=== PATIENT | male | born 1975 | race Caucasian/White ===

== ENCOUNTER 2017-02-02 10:02 | Outpatient (CLI) | payer OTHER ==
[~2017-02-02] VITALS: Ht 182.9 cm; Wt 141.7 kg
[2017-02-02] MEDS ORDERED: CLIN300C11 PO (10:22)
[2017-02-02] MEDS ORDERED: NAPR500T3 PO (10:22)
[2017-02-02] MEDS ORDERED: METF1000 PO (10:22)
[2017-02-02] MEDS ORDERED: FURO20TA4 PO (10:22)
[2017-02-02] MEDS ORDERED: GABA600T2 PO (10:22)
[2017-02-02] MEDS ORDERED: ALLO100T PO (10:22)
[2017-02-02] MEDS ORDERED: INSU100V16 SQ (10:22)
[2017-02-02] MEDS ORDERED: BUPR300T43 PO (10:22)
[2017-02-02] MEDS ORDERED: INSU100V5 SQ (10:22)
[2017-02-02] MEDS ORDERED: RT-ALBUINH IH (10:22)
[2017-02-02] MEDS ORDERED: SIMV40TA PO (10:22)
[2017-02-02] MEDS ORDERED: POTA10TA6 PO (10:22)
[2017-02-02] MEDS ORDERED: GLIP10TA13 PO (10:22)
[2017-02-02] MEDS ORDERED: ALBU0.63 IH (10:22)
[2017-02-02] MEDS ORDERED: BUDE10.2 IH (10:22)
[2017-02-02 10:31] VITALS: BP 120/68
[2017-02-02 10:59] LABS: BASOPHILS % (AUTO) 0 % (0-10); EOSINOPHILS # (AUTO) 0.2 10^3/uL (0.0-0.3); EOSINOPHILS % (AUTO) 3 % (0-10); LYMPHOCYTES % (AUTO) 22 % (12-44); MEAN CORPUSCULAR HEMOGLOBIN 31 PG (25-34); MEAN CORPUSCULAR HGB CONC 34 G/DL (32-36); MEAN CORPUSCULAR VOLUME 93 FL (80-99); MEAN PLATELET VOLUME 11.4 FL (7.4-10.4); MONOCYTES # (AUTO) 0.6 X 10^3 (0.0-1.0); MONOCYTES % (AUTO) 7 % (0-12); NEUTROPHILS # (AUTO) 6.3 X 10^3 (1.8-7.8); NEUTROPHILS % (AUTO) 69 % (42-75); PLATELET COUNT 153 10^3/uL (130-400); RED BLOOD COUNT 4.81 10^6/uL (4.35-5.85); RED CELL DISTRIBUTION WIDTH 13.4 % (10.0-14.5); WHITE BLOOD COUNT 9.1 10^3/uL (4.3-11.0)
[2017-02-02 11:28] LABS: ANION GAP 9 MMOL/L (5-14); BLOOD UREA NITROGEN 21 MG/DL (7-18); BUN/CREATININE RATIO 25; CALCIUM 8.9 MG/DL (8.5-10.1); CARBON DIOXIDE 24 MMOL/L (21-32); CHLORIDE 104 MMOL/L (98-107); CREATININE SERUM 0.83 MG/DL (0.60-1.30); GFR ESTIMATED > 60; GLUCOSE 282 MG/DL (70-105); POTASSIUM 4.4 MMOL/L (3.6-5.0); SODIUM 137 MMOL/L (135-145)
== END 2017-02-02 11:40 | disposition home or self-care (01) ==
LOC: PREOP 10:02
PROVIDERS: ATTEND Surgery
DX: Z01.812 Encounter for preprocedural laboratory examination (principal); Z11.2 Encounter for screening for other bacterial diseases; L05.91 Pilonidal cyst without abscess
CPT/HCPCS: 36415; 80048; 85025; 87081

== ENCOUNTER 2017-02-09 07:48 | Day surgery (SDC) | payer OTHER ==
[~2017-02-09] VITALS: Ht 182.9 cm; Wt 141.7 kg
[~2017-02-09 07:48] MED LIST: ALBU0.63 IH; ALLO100T PO; BUDE10.2 IH; BUPR300T43 PO; CLIN300C11 PO; FURO20TA4 PO; GABA600T2 PO; GLIP10TA13 PO; INSU100V16 SQ; INSU100V5 SQ; METF1000 PO; NAPR500T3 PO; POTA10TA6 PO; RT-ALBUINH IH; SIMV40TA PO
[2017-02-09] MEDS ORDERED: LIDOCAINE 1% INJ 20 ML (XYLOCAINE) VIAL ONE (07:51)
[2017-02-09] MEDS ORDERED: BUPIVACAINE 0.25% 30 ML (SENSORCAINE) VIAL ONE (07:52)
[2017-02-09 07:55] VITALS: BP 119/70
[2017-02-09] MEDS: LACTATED RINGERS 1,000 ML IV PRN ×2 (07:55→08:52)
[2017-02-09] MEDS ORDERED: ONDANSETRON 4 MG/2 ML (SDV) Z0FRAN ONE (07:59)
[2017-02-09] MEDS ORDERED: ROCURONIUM 50 MG/5 ML (ZEMURON) VIAL IV ONE (07:59)
[2017-02-09] MEDS ORDERED: LIDOCAINE JELLY 2% (XYLOCAINE) 5 ML TUBE ONE (07:59)
[2017-02-09] MEDS ORDERED: LIDOCAINE PF 2% 10 ML (XYLOCAINE) AMP ONE (07:59)
[2017-02-09] MEDS ORDERED: LACTATED RINGERS 1,000 ML IV ONE ×2 (07:59→09:19)
[2017-02-09] MEDS ORDERED: fentaNYL INJECTION 100 MCG/2 ML AMP ONE (07:59)
[2017-02-09] MEDS ORDERED: MIDAZOLAM 2 MG/2 ML (VERSED) VIAL ONE (07:59)
[2017-02-09] MEDS ORDERED: proPOfol 200 MG/20 ML (DIPRIVAN) VIAL IV ONE (07:59)
[2017-02-09] MEDS ORDERED: ceFAZolin 3 GM/NS 50 ML IVPB IV ONE ×2 (08:00)
[2017-02-09] MEDS ORDERED: CATHETER FLUSH 10 ML SYR IV PRN (08:00)
[2017-02-09] MEDS ORDERED: HYDR-3812 PO (08:08)
[2017-02-09] MEDS ORDERED: DOCU-143 PO (08:08)
--- NOTE | 2017-02-09 08:10 | Discharge Inst-Simple/Standard ---
Discharge Inst-Standard Discharge Medications New, Converted or Re-Newed RX: RX on Chart Patient Instructions/Follow Up Plan of Care/Instructions/FU: Keep area clean and dry. take a shower after each bowel movement. Follow up in clinic in 2 weeks Activity as Tolerated: No Discharge Diet: No Restrictions Other Inst to Patient Follow up Appt: Make appointment for 2 weeks. Instructions: No lifting greater than 10 pounds. No strenuous activity. May shower in 24 hours, no tub bath or soaking. Use incentive spirometer at home as directed. No Smoking Skin/Wound Care: May remove bandages. You need to leave the white strips over incision on they will fall off on their own. Symptoms to Report: Appetite Changes, Extremity Discoloration, Numbness/Tingling, Swelling Increased , Bleeding Excessive, Eyesight Changes, Pain Increased, Urine Color Change, Constipation(Persistent), Fever over 101 degree F, Pain/Pressure in chest, Urinating Difficulty, Cough Up/Vomit Blood, Heart Beat Irreg/Pounding, Pain/ Pressure in jaw, Vaginal Bleeding Increase, Cramps in feet or legs, Lightheadedness, Pain/Pressure in shoulder, Diarrhea(Persistent), Memory Changes Suddenly, Questions/Concerns, Weight gain consecutive days, Dizziness/ Fainting, Nausea/Vomiting, Shortness of Breath, Weight gain over 2 pounds If questions or concerns contact your physician Or seek help at emergency department. NEENA KOWNG APRN Feb 09, 2017 08:10
[2017-02-09] MEDS ORDERED: RT-ALBUTEROL SULF 2.5 MG/3 ML PRE-MIX VIAL INH ONE (08:15)
--- NOTE | 2017-02-09 08:19 | Progress Note-Pre Operative ---
Pre-Operative Progress Note H&P Reviewed The H&P was reviewed, patient examined and no changes noted. Date H&P Reviewed: Feb 09, 2017 Time H&P Reviewed: 08:18 Pre-Operative Diagnosis: pilonidal cyst LANIE LEMUS DO Feb 09, 2017 8:18 am
[2017-02-09] MEDS ORDERED: SEVOFLURANE (ULTANE) 15 ML INHAL SOLN ONE ×4 (09:08→09:19)
--- NOTE | 2017-02-09 09:29 | Progress Note-Post Operative ---
Post-Operative Progess Note Surgeon (s)/Donkey Engine Firer/Fireman (s) Surgeon LANIE LEMUS DO Donkey Engine Firer/Fireman: URSZULA NWAGWU Pre-Operative Diagnosis pilonidal cyst Post-Operative Diagnosis same Post-Op Procedure Note Date of Procedure: Feb 09, 2017 Name of Procedure Performed: excision of pilonidal cyst Description of the Procedure: excised pilonidal cyst Findings of the Procedure see note Anesthesia Type general Estimated blood loss (mL): minimal Specimen(s) collected/removed skin and soft tissue LANIE LEMUS DO Feb 09, 2017 9:29 am
[2017-02-09] MEDS ORDERED: ONDANSETRON 4 MG/2 ML (SDV) Z0FRAN IVP PRN (09:45)
[2017-02-09] MEDS ORDERED: morphine INJ 10 MG/ML 1ML (SYR OR VIAL) IVP PRN (09:45)
[2017-02-09 10:25] VITALS: BP 129/80
[2017-02-09] MEDS ORDERED: HYDROcodone/APAP 5 MG/325 MG (LORTAB) TAB PO ONE (10:45)
[2017-02-09 10:55] VITALS: BP 128/75
[2017-02-09 11:25] VITALS: BP 128/68
[2017-02-09 12:00] VITALS: BP 128/68
--- NOTE | 2017-02-09 18:55 | OPERATIVE REPORT ---
DATE OF SERVICE: 02/09/2017 PREOPERATIVE DIAGNOSIS: Pilonidal cyst. POSTOPERATIVE DIAGNOSIS: Pilonidal cyst. PROCEDURE: Excision of pilonidal cyst, 9 x 3 x 4 cm. SURGEON: Lanie Ibanez DO AUTO BODY TECHNICIAN: Julius Carrillo, to assist in retraction, dissection and closure. ANESTHESIA: General. ESTIMATED BLOOD LOSS: Minimal. COMPLICATIONS: None. INDICATIONS: The patient is a 41-year-old male with a pilonidal cyst. He had it previously excised approximately 12 to 13 years ago. He had recurrence with some drainage from this area recently. He understands the risks and benefits of procedure and wished to proceed with procedure. Consent was signed on chart. PROCEDURE: The patient was taken to the operating suite, was prepped and draped in sterile fashion. Surgical pause was performed. An elliptical incision around the area was made measuring 9 x 3 cm. Cautery was used to dissect around and down, removing skin and subcutaneous tissues. Dissection was taken down to the sacral fascia which was approximately 4 cm deep. Hemostasis had been achieved. No visualization of any other tracts present. The wound was irrigated with copious amounts of irrigation. A total of 20 mL of 1/4% Marcaine and 1% lidocaine in 50:50 ratio was used to anesthetized the area. The wound was then closed using 0 Prolene, vertical mattress in simple interrupted sutures. The area was then washed and dried and sterile bandage was applied. The patient tolerated the procedure well without any complications and was taken to the recovery room in stable condition. Job ID: [id number] DocumentID: [id number] Dictated Date: 02/09/2017 09:32:00 Advertising Assistant Manager Date: 02/09/2017 18:54:38 Dictated By: LANIE IBANEZ DO [facility]
== END 2017-02-09 12:15 | disposition home or self-care (01) ==
LOC: SDC 07:48
PROVIDERS: ATTEND Surgery
DX: L05.91 Pilonidal cyst without abscess (principal); E11.9 Type 2 diabetes mellitus without complications; Z79.84 Long term (current) use of oral hypoglycemic drugs
CPT/HCPCS: 82962; 88305; 94640; 94664

== ENCOUNTER 2018-06-16 19:12 | Emergency (ER) | payer SELFPAY ==
[~2018-06-16] VITALS: Ht 182.9 cm; Wt 133.8 kg
[~2018-06-16 19:12] MED LIST changes: +ACHD5005 PO; +DOCU-143 PO; +METF-399 PO; -METF1000 PO; +NAPR-915 PO; -NAPR500T3 PO
--- OUTSIDE RECORDS SUMMARY | 2018-06-16 19:19 | XMS REPORT ---
Author Author CLIFTON Nicolas [facility] Address Unknown Phone Unavailable Care Team Providers Care Remote Inpatient Coder Name Role Phone CLIFTON Nicolas Unavailable Unavailable PROBLEMS Type Condition ICD9-CM Code KRS16-MN Code Onset Dates Condition Status SNOMED Code Problem Neuropathy G62.9 Active 948225856 Problem Adjustment disorder with disturbance of emotion F43.29 Active 77824216 Problem Marijuana abuse, continuous F12.10 Active 787384319 Problem Gastroesophageal reflux disease without esophagitis K21.9 Active 039220371 Problem Acute gout involving toe of left foot, unspecified cause M10.9 Active 288017077 Problem Methamphetamine use disorder, severe, 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 Active 62934600 Problem Adjustment disorder with disturbance of conduct F43.24 Active 32093847 Problem Dyspepsia R10.13 Active 980943474 Problem Moderate episode of recurrent major depressive disorder F33.1 Active 290862860 Problem Candidiasis B37.9 Active 10273767 Problem Depression F32.9 Active 75392399 Problem Diabetes mellitus with neuropathy E11.40 Active 19366495 Problem Hyperlipemia E78.5 Active 58306197 Problem Obstructive sleep apnea G47.33 Active 60716561 Problem Insulin long-term use Z79.4 Active 811970343 Problem Venous insufficiency (chronic) (peripheral) I87.2 Active 67377361 Problem Gout M10.9 Active 00158804 Problem Mild persistent asthma without complication J45.30 Active 719735024 ALLERGIES No Information ENCOUNTERS Encounter Location Date Diagnosis [facility] [address] [facility] [id number], [place] [address] Jul, [address] [id number] [place] [id number] Jun, [facility] [address] [facility] [id number] [id number] Jun, [facility] [address] [id number] [address] May, Diabetes mellitus with neuropathy E11.40 [facility] [address] [id number] [id number] May, Diabetes mellitus with neuropathy E11.40 [facility] [address] [id number][place] [id number] May, Diabetes mellitus with neuropathy E11.40 and Edema, unspecified type R60.[address] [facility] [address] [facility] [id number] [place] [address] Apr, [facility] [address] [id number][place] [id number] Apr, Mild persistent asthma without complication J45.30 [facility] [address] [id number][place] [id number] Mar, [facility] [address] [id number][place] [id number] Mar, Diabetes mellitus with neuropathy E11.40 ; Insulin long-term use Z79.4 ; Depression F32.9 ; Hyperlipemia E78.5 ; Gastroesophageal reflux disease without esophagitis K21.9 and Edema, unspecified type R60.9 [facility] [place] [facility] [address] [facility] [id number] [id number] Mar, Generalized edema R60.1 and Diabetes mellitus with neuropathy E11.40 [facility] [address] [id number][place] [id number] Mar, Neuropathy G62.9 [facility] [address] [id number][place] [id number] February, Insect bite (nonvenomous) of lower back and pelvis, initial encounter S30.860A ; Bitten or stung by nonvenomous insect and other nonvenomous arthropods, initial encounter W57.XXXA and Cellulitis of back L03.312 [facility] [address] [id number][place] [id number] February, Diabetes mellitus with neuropathy E11.[address] [id number][place] [id number] February, Generalized edema R60.1 and Diabetes mellitus with neuropathy E11.40 [place] [address]65100[place], [place] [address] Jan, [address] [id number][place] [id number] Jan, Gastroesophageal reflux disease without esophagitis K21.9 and Acute gout involving toe of left foot, unspecified cause M10.[address] [id number][place] [id number] Jan, Marijuana abuse, continuous F12.10 ; Mild persistent asthma without complication J45.30 ; BMI 40.0-44.9, adult Z68.41 and Diabetes mellitus with neuropathy E11.40 [place] [address] [place] [address] Jan, [facility] [id number][place] [id number] Jan, BMI 40.0-44.9, adult Z68.41 and Intractable vomiting with nausea, unspecified vomiting type R11.[address] [id number][place] [id number] Dec, BMI 40.0-44.9, adult Z68.41 and Abrasion hip/leg S80.819A [place] [address] [place] [address] 40394- 4189 Nov, Neuropathy G62.9 [place] [address] [place] [id number] [place] [address] 51236[address] 9671 Oct, [place] [id number] [place] [address] 22729- 8681 Oct, [place] [address] [place] [address] 78209- 9498 Oct, Diabetes mellitus with neuropathy E11.40 ; Dyspepsia R10.13 ; Mild persistent asthma without complication J45.30 and Depression F32.9 [place] [address] [address] Oct, Generalized edema R60.1 and Diabetes mellitus with neuropathy E11.40 [place] [address] [address] Sep, [place] [address] [address] Aug, [facility] [address] [address] Aug, Cellulitis L03.90 and BMI 40.0-44.9, adult Z68.41 [place] [address] [address] Aug, [place] [address] [address] Jul, Trapezius muscle spasm M62.838 and Depression F32.[address] [address] Jul, Marijuana abuse, continuous F12.10 ; Moderate episode of recurrent major depressive disorder F33.1 and Methamphetamine use disorder, severe, 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 [place] [id number] [place] [address]2340- 6862 Jul, [place] [id number] [place] [address] 19706- 2061 Jul, [place] [address] [address] Jul, [place] [address] [address] Jul, [place] [address] [id number] [place] [address] 82178[address] 40[address] Jul, [place] [address] [place] [address] Jul, Diabetes mellitus with neuropathy E11.40 [place] [address] [place] [address] 43164- [address] 16 Jul, 2017 Diabetes mellitus with neuropathy E11.40 ; Venous insufficiency (chronic) (peripheral) I87.2 ; Chest pain, unspecified type R07.9 ; Neuropathy G62.9 and Encounter for immunization Z23 [place] [id number] [place] [address] 70768- 5258 Jun, [place] [address] [place] [address] 03914- 0924 Jun, [facility] [address] [id number] May, Dental examination Z01.[address] [address] Apr, Diabetes mellitus with neuropathy E11.40 and Depression F32.9 [place] [id number] [place] [address] 45416- 4425 Apr, Mild persistent asthma without complication J45.[address] [id number] [id number] Mar, [place] [id number] [place] [address] 55568[address] Mar, Depression F32.9 ; Adjustment disorder with disturbance of emotion F43.29 and Marijuana abuse, continuous F12.10 [address] [place] [address] 26528- 3577 Mar, [address] 1937[address] Mar, Acute pansinusitis, recurrence not specified J01.40 [place] [address] [place] [address] 44011- 4688 Mar, Adjustment disorder with disturbance of emotion F43.29 ; Adjustment disorder with disturbance of conduct F43.24 ; Marijuana abuse, continuous F12.10 and Depression F32.9 [address] [place] [address] 00394- 9781 Mar, Depression F32.9 ; Marijuana abuse, continuous F12.10 and Adjustment disorder with disturbance of conduct F43.24 [facility] [address] [id number] [id number] February, Bronchitis J40 and Acute diffuse otitis externa of right ear H60.311 [place] [address] [place] [place] [address] 85238- 7434 February, Diabetes mellitus with neuropathy E11.40 ; Mild persistent asthma without complication J45.30 ; Bronchitis J40 ; Depression F32.9 ; Neuropathy G62.9 ; Gout M10.9 ; Generalized edema R60.1 and Hyperlipemia E78.5 [place] [address] [place] [address] 16295- 0688 February, Diabetes mellitus with neuropathy E11.40 [place] [address] [place] [address] 88954- 4588 February, [place] [address] [place] [address] 80370- 2298 February, [place] [address] [place] [address] 72938- 7953 Jan, [place] [id number] [place] [address] 38461- 5119 Jan, [place] [address] [place] [address] 85859- 3460 Jan, Adjustment disorder with disturbance of emotion F43.29 ; Adjustment disorder with disturbance of conduct F43.24 ; Marijuana abuse, continuous F12.10 and Depression F32.9 [place] [address] [place] [address] 46672- 5029 Jan, [place] [address] [place] [address] 66017- 7614 Jan, Pilonidal cyst with abscess L05.01 and Abscess of skin of abdomen L02.211 [facility] [address] [place] [address] Dec, Diabetes mellitus with neuropathy E11.40 [facility] [id number] [place] [id number] 06 Dec, 2016 Dental examination Z01.20 [facility] [address] [address]- [address] 02 Dec, 2016 [facility] [address] 90918- 1768 Nov, Depression F32.9 [facility] [address] 07464- 6655 Nov, Depression F32.9 [place] [address] 04756- 9863 Nov, Lateral epicondylitis of left elbow M77.12 ; Insulin long- term use Z79.4 and Neuropathy G62.9 [place] [address] [place] [address] 98952- 0686 Nov, Adjustment disorder with disturbance of emotion F43.29 ; Adjustment disorder with disturbance of conduct F43.24 ; Marijuana abuse, continuous F12.10 and Depression F32.9 [facility] [address] [place] [address] 17440- 2318 Oct, Adjustment disorder with disturbance of emotion F43.29 ; Marijuana abuse, continuous F12.10 ; Adjustment disorder with disturbance of conduct F43.24 and Severe episode of recurrent major depressive disorder, without psychotic features F33.2 [facility] [id number] [place] [address] [id number] Oct, Dental examination Z01.20 [facility] [address] [place] [address] 95489- 3858 Oct, Depression F32.9 [facility] [address] [id number] Oct, Dental examination Z01.20 [facility] [address] [place] [address] Oct, Depression F32.9 ; Adjustment disorder with disturbance of conduct F43.24 ; Adjustment disorder with disturbance of emotion F43.29 and Marijuana abuse, continuous F12.10 [facility] [id number] [place] [address] [id number] Oct, Dental examination Z01.20 [facility] [id number] [place] [address] [id number] Oct, Dental caries K02.9 [place] [address] 37561- 8424 Oct, [facility] [id number] [place] [address] [id number] Sep, Dental examination Z01.20 [facility] [address] [place] [address] Sep, [place] [address] [place] [address] 13553- 5381 Sep, Insulin long-term use Z79.4 ; Gout M10.9 ; Diabetes mellitus with neuropathy E11.40 ; Depression F32.9 ; Hyperlipemia E78.5 ; Obstructive sleep apnea G47.33 ; Venous insufficiency (chronic) (peripheral) I87.2 ; Mild persistent asthma without complication J45.30 ; Neuropathy G62.9 and Marijuana abuse, continuous F12.10 [facility] [address] [place] [address] 01499- 3893 Sep, Adjustment disorder with disturbance of conduct F43.24 and Adjustment disorder with disturbance of emotion F43.29 [place] [address] [place] [address] 47430- 7071 Sep, Diabetes mellitus with neuropathy E11.40 ; Dyspnea on exertion R06.09 and Venous insufficiency (chronic) (peripheral) I87.[address] [place] [address]- 6[address] 14 Sep, 2016 Neuropathy G62.9 [facility] [address] [place] [address] 57019- 0164 13 Sep, 2016 [facility] [id number] [place] [address] [id number] 08 Sep, 2016 Dental examination Z01.20 [facility] [address] [place] [address] 31697- 9795 07 Sep, 2016 [facility] [address] [place] [address] 95170- 3047 07 Sep, 2016 [facility] [address] 90606- 8001 Sep, [facility] [address] [place] [address] 81737- 2253 05 Sep, 2016 Mild persistent asthma without complication J45.30 [facility] [address] [place] [address] 99253- 8109 02 Sep, 2016 Insulin long-term use Z79.4 [place] [address] 40641- 7055 01 Sep, 2016 Diabetes mellitus with neuropathy E11.40 ; Generalized edema R60.1 and Mild persistent asthma without complication J45.30 [facility] [id number] [place] [address] [id number] Aug, Dental examination Z01.20 [facility] [address] [place] [address] 97802- 9365 20 Jul, 2016 Urticaria L50.9 and Mild persistent asthma without complication J45.30 [facility] [address] 60582- 8199 10 Jul, 2016 Lateral epicondylitis of left elbow M77.12 and Venous insufficiency (chronic) (peripheral) I87.2 [place] [address] [place] [address] 28779- 6236 15 Aug, 2016 Obstructive sleep apnea G47.33 and Diabetes mellitus with neuropathy E11.40 [facility] [address], [place] [address] May, Diabetes mellitus with neuropathy E11.40 [facility] [address], [place] [address] 0[address] Mar, [place] [address] [place] [address] 26334- 7292 Mar, Dental examination Z01.20 [place] [address], [place] [address] Mar, Insulin long-term use Z79.4 [place] [address] [place] [address] 28700- 9825 Mar, Insulin long-term use Z79.4 [place] [address] [place] [address] 59411- 3727 February, Insulin long-term use Z79.4 [place] [address], [place] [address] February, [place] [address] [place] [address] 82702- 3515 February, Hyperlipemia E78.[address] [id number] [id number] February, Gout M10.9 and Diabetes mellitus with neuropathy E11.40 [place] [address], [place] [address] Jan, Depression F32.9 [place] [address] [place] [address] 62236- 8799 Jan, Insulin long-term use Z79.4 ; Gout M10.9 ; Candidiasis B37.9 ; Diabetes mellitus with neuropathy E11.40 and Depression F32.9 IMMUNIZATIONS No Known Immunizations SOCIAL HISTORY Never Assessed REASON FOR VISIT [facility] Contact PLAN OF CARE Activity Details Follow Up Will likely use services in future Reason:hx. of depression VITAL SIGNS MEDICATIONS Unknown Medications RESULTS No Results PROCEDURES No Known procedures INSTRUCTIONS MEDICATIONS ADMINISTERED No Known Medications MEDICAL (GENERAL) HISTORY Type Description Date Medical History high blood pressure Medical History diabetic Medical History asthma Medical History emphysema Surgical History Pylonial cyst removal from tailbone x 2 Surgical History Cyst removal from groin/MRSA Surgical History Back surgery cyst removal from tailbone 02/2017 Hospitalization History Surgery Hospitalization History Heart attacks x 2 [facility] tick bite---[place] 02/2018
--- OUTSIDE RECORDS SUMMARY | 2018-06-16 19:20 | XMS REPORT ---
Author Author YVETTE MCCONNELL [facility] Address [address] [place] [address] Care Team Providers Care Applications Sales Consultant Name Role Phone YVETTE MCCONNELL Unavailable PROBLEMS Type Condition ICD9-CM Code OXR62-UA Code Onset Dates Condition Status SNOMED Code Problem Neuropathy G62.9 Active 828963838 Problem Adjustment disorder with disturbance of emotion F43.29 Active 67368643 Problem Marijuana abuse, continuous F12.10 Active 407907938 Problem Gastroesophageal reflux disease without esophagitis K21.9 Active 509654047 Problem Acute gout involving toe of left foot, unspecified cause M10.9 Active 444235555 Problem Methamphetamine use disorder, severe, 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 Active 63083030 Problem Adjustment disorder with disturbance of conduct F43.24 Active 71683819 Problem Dyspepsia R10.13 Active 841485073 Problem Moderate episode of recurrent major depressive disorder F33.1 Active 022035391 Problem Candidiasis B37.9 Active 75031847 Problem Depression F32.9 Active 30140494 Problem Diabetes mellitus with neuropathy E11.40 Active 56011113 Problem Hyperlipemia E78.5 Active 77082671 Problem Obstructive sleep apnea G47.33 Active 07904399 Problem Insulin long-term use Z79.4 Active 154993698 Problem Venous insufficiency (chronic) (peripheral) I87.2 Active 99486433 Problem Gout M10.9 Active 78636413 Problem Mild persistent asthma without complication J45.30 Active 332252877 ALLERGIES No Information ENCOUNTERS Encounter Location Date Diagnosis [facility] [address] [address] Jul, [facility] [address] [address] 05 Jun, 2018 [facility] [id number] [id number] May, Diabetes mellitus with neuropathy E11.40 and Edema, unspecified type R60.9 [facility] [address] [facility] [id number] [address] Apr, [facility] [address] [id number] [place] [id number] Apr, Mild persistent asthma without complication J45.30 [facility] [address] [id number] [place] [id number] Mar, [facility] [address] [id number] [place] [id number] Mar, Diabetes mellitus with neuropathy E11.40 ; Insulin long-term use Z79.4 ; Depression F32.9 ; Hyperlipemia E78.5 ; Gastroesophageal reflux disease without esophagitis K21.9 and Edema, unspecified type R60.9 [facility] [place] [address] [facility] [id number] [id number] Mar, Generalized edema R60.1 and Diabetes mellitus with neuropathy E11.40 [facility] [address] [id number] [place] [id number] Mar, Neuropathy G62.9 [facility] [address] [id number] [place]INT[place] [id number] February, Insect bite (nonvenomous) of lower back and pelvis, initial encounter S30.860A ; Bitten or stung by nonvenomous insect and other nonvenomous arthropods, initial encounter W57.XXXA and Cellulitis of back L03.312 [facility] [address] [id number] [place]INT[place] [id number] February, Diabetes mellitus with neuropathy E11.40 [facility] [address] [id number] [place]INT[place] [id number] February, Generalized edema R60.1 and Diabetes mellitus with neuropathy E11.40 [facility] [address] [facility] [id number] [address] Jan, [facility] [address] [id number] [place] [id number] 20 Jan, 2018 Gastroesophageal reflux disease without esophagitis K21.9 and Acute gout involving toe of left foot, unspecified cause M10.[address] [id number] [place]INT[place] [id number] 14 Jan, 2018 Marijuana abuse, continuous F12.10 ; Mild persistent asthma without complication J45.30 ; BMI 40.0-44.9, adult Z68.41 and Diabetes mellitus with neuropathy E11.40 [place] [address] [place] [address] Jan, [facility] [id number] [place] [id number] Jan, BMI 40.0-44.9, adult Z68.41 and Intractable vomiting with nausea, unspecified vomiting type R11.[address] [id number] POINT[place] [id number] Dec, BMI 40.0-44.9, adult Z68.41 and Abrasion hip/leg S80.819A [place] [id number] [place] [address] Nov, Neuropathy G62.9 [place] [id number] [place] [address]65 Oct, [place] [id number] [place] [address] Oct, [place] [id number] [place] [address]95- 2152 Oct, Diabetes mellitus with neuropathy E11.40 ; Dyspepsia R10.13 ; Mild persistent asthma without complication J45.30 and Depression F32.9 [place] [address] [address] Oct, Generalized edema R60.1 and Diabetes mellitus with neuropathy E11.40 [place] [address] [address] Sep, [facility] [id number] [place] [address] 8[address] Aug, [facility] [address] [address] Aug, Cellulitis L03.90 and BMI 40.0-44.9, adult Z68.41 [facility] [address] [address] Aug, 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 [id number] [place] [address]54[address] Jul, [place] [address] [address] Jul, [facility] [id number] [place] [address] Jul, [facility] [id number] [place] [address] 4459 Jul, [facility] [id number] [place] [address] 85818- 9356 Jul, [place] [address] [address] Jul, Diabetes mellitus with neuropathy E11.40 [facility] [id number] [place] [address]92- [address] 16 Jul, 2017 Diabetes mellitus with neuropathy E11.40 ; Venous insufficiency (chronic) (peripheral) I87.2 ; Chest pain, unspecified type R07.9 ; Neuropathy G62.9 and Encounter for immunization Z23 [place] [address] [place] [address] 29746- 5993 Jun, [place] [id number] [place] [address] 99643[address]287 Jun, [facility] [address] [place] [id number] May, Dental examination Z01.20 [place] [address] [address] Apr, Diabetes mellitus with neuropathy E11.40 and Depression F32.[address] [address] Apr, Mild persistent asthma without complication J45.[id number] [place] [id number] Mar, [place] [id number] [place] [address] 18190[address] Mar, Depression F32.9 ; Adjustment disorder with disturbance of emotion F43.29 and Marijuana abuse, continuous F12.10 [address] [address] [id number] [place] [address] 47723- 7[address] Mar, [address] [id number] [place] [address] 10824- 3794 Mar, Acute pansinusitis, recurrence not specified J01.40 [address] [address] [id number] [place] [address] 29475- 7888 Mar, Adjustment disorder with disturbance of emotion F43.29 ; Adjustment disorder with disturbance of conduct F43.24 ; Marijuana abuse, continuous F12.10 and Depression F32.9 [address] [place] [address] 00368- 7540 Mar, Depression F32.9 ; Marijuana abuse, continuous F12.10 and Adjustment disorder with disturbance of conduct F43.24 [facility] [address] [id number] [place] [id number] February, Bronchitis J40 and Acute diffuse otitis externa of right ear H60.[address] [address] February, Diabetes mellitus with neuropathy E11.40 ; Mild persistent asthma without complication J45.30 ; Bronchitis J40 ; Depression F32.9 ; Neuropathy G62.9 ; Gout M10.9 ; Generalized edema R60.1 and Hyperlipemia E78.[address] [address] February, Diabetes mellitus with neuropathy E11.[address] [address]447 February, [address] [address] February, [address] [address] Jan, [address] [address]10 Jan, [address] [address]- [address]6 Jan, Adjustment disorder with disturbance of emotion F43.29 ; Adjustment disorder with disturbance of conduct F43.24 ; Marijuana abuse, continuous F12.10 and Depression F32.9 [address] [address] [id number] [place] [address] 68546- 2759 Jan, [address] [address]- [address]18 Jan, Pilonidal cyst with abscess L05.01 and Abscess of skin of abdomen L02.211 [address] [id number] [place] [address] 76042- 3744 Dec, Diabetes mellitus with neuropathy E11.40 [facility] [address] [id number] Dec, Dental examination Z01.20 [facility] [address] [address] Dec, [facility] [address] [place] [address] 88213- 3042 Nov, Depression F32.9 [facility] [address] [place] [address] 40628- 0229 Nov, Depression F32.9 [facility] [id number] [place] [address] 26695- 0499 Nov, Lateral epicondylitis of left elbow M77.12 ; Insulin long- term use Z79.[address] [facility] [address] [place] [address] 12964- 5724 Nov, Adjustment disorder with disturbance of emotion F43.29 ; Adjustment disorder with disturbance of conduct F43.24 ; Marijuana abuse, continuous F12.[address] [facility] [address] [place] [address] 39835- 6868 Oct, Adjustment disorder with disturbance of emotion F43.29 ; Marijuana abuse, continuous F12.10 ; Adjustment disorder with disturbance of conduct F43.24 and Severe episode of recurrent major depressive disorder, without psychotic features F33.2 [facility] [address] [place] [address] [id number] Oct, Dental examination Z01.20 [facility] [address] [place] [address] 52911- 1295 Oct, Depression F32.9 [facility] [address] [place] [address] [id number] Oct, Dental examination Z01.20 [facility] [address] [place] [address] 16854- 7302 Oct, Depression F32.9 ; Adjustment disorder with disturbance of conduct F43.24 ; Adjustment disorder with disturbance of emotion F43.29 and Marijuana abuse, continuous F12.10 [facility] [address] [place] [address] [id number] Oct, Dental examination Z01.20 [facility] [id number] [place] [address] [id number] Oct, Dental caries K02.9 [facility] [id number] [place] [address] 56319- 3695 Oct, [facility] [id number] [place] [address] [phone] Sep, Dental examination Z01.20 [place] [address] 35142- [address] Sep, [place] [address] 34988- 7359 Sep, Insulin long-term use Z79.4 ; Gout M10.9 ; Diabetes mellitus with neuropathy E11.40 ; Depression F32.9 ; Hyperlipemia E78.5 ; Obstructive sleep apnea G47.33 ; Venous insufficiency (chronic) (peripheral) I87.2 ; Mild persistent asthma without complication J45.30 ; Neuropathy G62.9 and Marijuana abuse, continuous F12.10 [place] [id number] [place] [address] 47227- 2141 Sep, Adjustment disorder with disturbance of conduct F43.24 and Adjustment disorder with disturbance of emotion F43.29 [place] [id number] [place] [address] 06689- 9953 Sep, Diabetes mellitus with neuropathy E11.40 ; Dyspnea on exertion R06.09 and Venous insufficiency (chronic) (peripheral) I87.2 [place] [id number] [place] [address] 56494- 5380 Sep, Neuropathy G62.9 [place] [id number] [place] [address] 21634- 2345 Sep, [facility] [address] [place] [address] [id number] Sep, Dental examination Z01.20 [facility] [address] [address] 07 Sep, 2016 [facility] [id number] [place] [address] 39681- 7942 Sep, [facility] [address] [place] [address] 54962- 8527 Sep, [facility] [id number] [place] [address] 46463- 4715 05 Sep, 2016 Mild persistent asthma without complication J45.30 [facility] [id number] [place] [address] 94810- 3548 02 Sep, 2016 Insulin long-term use Z79.4 [facility] [id number] [place] [address] 51727- 1013 01 Sep, 2016 Diabetes mellitus with neuropathy E11.40 ; Generalized edema R60.1 and Mild persistent asthma without complication J45.30 [facility] [address] [place] [address] [id number] 17 Aug, [address] [facility] [id number] [place] [address] 36333- 2020 20 Jul, 2016 Urticaria L50.9 and Mild persistent asthma without complication J45.30 [facility] [address] [address] 10 Jul, 2016 Lateral epicondylitis of left elbow M77.12 and Venous insufficiency (chronic) (peripheral) I87.2 [facility] [address] [place] [address] 76020- 7922 May, Obstructive sleep apnea G47.33 and Diabetes mellitus with neuropathy E11.40 [facility] [address] [place] [address] 56145- 6963 May, Diabetes mellitus with neuropathy E11.40 [facility] [address] [place] [address] 04874- 3257 Mar, [place] [address] [address] 69[address] Mar, Dental examination Z01.20 [place] [address] [address]- 3089 Mar, Insulin long-term use Z79.4 [place] [address] [address]- 2701 Mar, Insulin long-term use Z79.4 [place] [address] [address]- 0[address] February, Insulin long-term use Z79.4 [place] [address] [place] [address] 99535- 3907 February, [place] [address] [place] [address] 01407- 2996 February, Hyperlipemia E78.[address] [id number] [id number] February, Gout M10.9 and Diabetes mellitus with neuropathy E11.40 [place] [address] [place] [address] 16561- 0123 Jan, Depression F32.9 [place] [address] [address]- 4[address] Jan, Insulin long-term use Z79.4 ; Gout M10.9 ; Candidiasis B37.9 ; Diabetes mellitus with neuropathy E11.40 and Depression F32.9 IMMUNIZATIONS No Known Immunizations SOCIAL HISTORY Never Assessed REASON FOR VISIT Medication refill request PLAN OF CARE VITAL SIGNS MEDICATIONS Medication Instructions Dosage Frequency Start Date End Date Duration Status Gabapentin 400 mg Orally Three times a day 2 capsules 8h May, Active RESULTS No Results PROCEDURES No Known procedures [...] 2 Hospitalization History pylonial cyst removal from [facility] 2017 Hospitalization History tick bite---[place] 02/2018
--- OUTSIDE RECORDS SUMMARY | 2018-06-16 19:20 | XMS REPORT ---
Author Author YVETTE MCCONNELL [facility] Address [address] [place] [address] Care Team Providers Care Food Stand Manager Name Role Phone YVETTE MCCONNELL Unavailable PROBLEMS Type Condition ICD9-CM Code BAR66-GL Code Onset Dates Condition Status SNOMED Code Problem Neuropathy G62.9 Active 027374443 Problem Adjustment disorder with disturbance of emotion F43.29 Active 22224382 Problem Marijuana abuse, continuous F12.10 Active 100949488 Problem Gastroesophageal reflux disease without esophagitis K21.9 Active 058281621 Problem Acute gout involving toe of left foot, unspecified cause M10.9 Active 508750956 Problem Methamphetamine use disorder, severe, 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 Active 22878657 Problem Adjustment disorder with disturbance of conduct F43.24 Active 57448928 Problem Dyspepsia R10.13 Active 750390664 Problem Moderate episode of recurrent major depressive disorder F33.1 Active 276060933 Problem Candidiasis B37.9 Active 46778334 Problem Depression F32.9 Active 07980438 Problem Diabetes mellitus with neuropathy E11.40 Active 35112955 Problem Hyperlipemia E78.5 Active 40145771 Problem Obstructive sleep apnea G47.33 Active 52879566 Problem Insulin long-term use Z79.4 Active 655861477 Problem Venous insufficiency (chronic) (peripheral) I87.2 Active 73202644 Problem Gout M10.9 Active 48662139 Problem Mild persistent asthma without complication J45.30 Active 252531732 ALLERGIES No Information ENCOUNTERS Encounter Location Date Diagnosis [facility] [address], [place] [address] Jul, [facility] [address], [place] [address] 05 Jun, 2018 [facility] [address] [id number] [id number] May, Diabetes mellitus with neuropathy E11.40 and Edema, unspecified type R60.9 [facility] [address] [facility] [id number][place] [address] Apr, [facility] [address] [id number][place] [id number] Apr, Mild persistent asthma without complication J45.30 [facility] [address] [id number][place] [id number] Mar, [facility] [address] [id number], [place] [id number] Mar, Diabetes mellitus with neuropathy E11.40 ; Insulin long-term use Z79.4 ; Depression F32.9 ; Hyperlipemia E78.5 ; Gastroesophageal reflux disease without esophagitis K21.9 and Edema, unspecified type R60.9 [facility] [place] [address] [facility] [id number] [id number] Mar, Generalized edema R60.1 and Diabetes mellitus with neuropathy E11.40 [facility] [address] [id number][place] [id number] Mar, Neuropathy G62.9 [facility] [address] [id number][place] [id number] February, Insect bite (nonvenomous) of lower back and pelvis, initial encounter S30.860A ; Bitten or stung by nonvenomous insect and other nonvenomous arthropods, initial encounter W57.XXXA and Cellulitis of back L03.312 [facility] [address] [id number][place] [id number] February, Diabetes mellitus with neuropathy E11.40 [facility] [address] [id number][place] [id number] February, Generalized edema R60.1 and Diabetes mellitus with neuropathy E11.40 [facility] [address] [facility] [id number], [place] [address] Jan, [facility] [address] [id number][place] [id number] 20 Jan, 2018 Gastroesophageal reflux disease without esophagitis K21.9 and Acute gout involving toe of left foot, unspecified cause M10.[address] [id number][place] [id number] 14 Jan, 2018 Marijuana abuse, continuous F12.10 ; Mild persistent asthma without complication J45.30 ; BMI 40.0-44.9, adult Z68.41 and Diabetes mellitus with neuropathy E11.40 [place] [address] [address] [place] [address]29- 8169 Jan, [facility] [id number] [place] [id number] Jan, BMI 40.0-44.9, adult Z68.41 and Intractable vomiting with nausea, unspecified vomiting type R11.[address] [id number][place] [id number] Dec, BMI 40.0-44.9, adult Z68.41 and Abrasion hip/leg S80.819A [place] [id number] [place] [address]34- 7645 Nov, Neuropathy G62.9 [place] [id number] [place] [address] 58620- 6338 Oct, [place] [id number] [place] [address]159- 9393 Oct, [place] [id number] [place] [address] 99134- 1868 Oct, Diabetes mellitus with neuropathy E11.40 ; Dyspepsia R10.13 ; Mild persistent asthma without complication J45.30 and Depression F32.9 [place] [address] [address]- [address] Oct, Generalized edema R60.1 and Diabetes mellitus with neuropathy E11.40 [address] [address] [address] Sep, [facility] [id number] [place] [address]19- [address] Aug, [facility] [address] [address] Aug, Cellulitis L03.90 and BMI 40.0-44.9, adult Z68.41 [facility] [address] [address] Aug, 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 [id number] [place] [address] 22271- 6830 Jul, [place] [address] [address] Jul, [facility] [id number] [place] [address]1590- [address]608 Jul, [facility] [id number] [place] [address]2389- 2427 Jul, [facility] [id number] [place] [address] 87729- 4023 Jul, [place] [address] [address] Jul, Diabetes mellitus with neuropathy E11.40 [facility] [id number] [place] [address] 06485- 0739 16 Jul, 2017 Diabetes mellitus with neuropathy E11.40 ; Venous insufficiency (chronic) (peripheral) I87.2 ; Chest pain, unspecified type R07.9 ; Neuropathy G62.9 and Encounter for immunization Z23 [place] [address] [place] [address] 10172- 3006 Jun, [place] [id number] [place] [address] 31723- 1345 Jun, [facility] [address] [place] [id number] May, Dental examination Z01.20 [address] [address] [address] [address] Apr, Diabetes mellitus with neuropathy E11.40 and Depression F32.[address] [address]- [address] Apr, Mild persistent asthma without complication J45.[id number] [place] [id number] Mar, [place] [id number] [place] [address] 56651- 8437 Mar, Depression F32.9 ; Adjustment disorder with disturbance of emotion F43.29 and Marijuana abuse, continuous F12.10 [place] [id number] [place] [address] 06290- 1449 Mar, [place] [id number] [place] [address] 21268- 4465 Mar, Acute pansinusitis, recurrence not specified J01.40 [place] [id number] [place] [address] 17193- 1160 Mar, Adjustment disorder with disturbance of emotion F43.29 ; Adjustment disorder with disturbance of conduct F43.24 ; Marijuana abuse, continuous F12.10 and Depression F32.9 [address] [place] [address] 15905- 0084 Mar, Depression F32.9 ; Marijuana abuse, continuous F12.10 and Adjustment disorder with disturbance of conduct F43.24 [facility] [address] [id number] [id number] February, Bronchitis J40 and Acute diffuse otitis externa of right ear H60.[address] [address] February, Diabetes mellitus with neuropathy E11.40 ; Mild persistent asthma without complication J45.30 ; Bronchitis J40 ; Depression F32.9 ; Neuropathy G62.9 ; Gout M10.9 ; Generalized edema R60.1 and Hyperlipemia E78.[address] [address]- [address] February, Diabetes mellitus with neuropathy E11.[address] [address] February, [address] [address] February, [address] [address]- [address] Jan, [address] [address]- [address]12 Jan, [address] [address]- 6[address] Jan, Adjustment disorder with disturbance of emotion F43.29 ; Adjustment disorder with disturbance of conduct F43.24 ; Marijuana abuse, continuous F12.10 and Depression F32.9 [id number] [place] [address] 42314- 4400 Jan, [address] [address]- 9559 Jan, Pilonidal cyst with abscess L05.01 and Abscess of skin of abdomen L02.211 [place] [id number] [place] [address] 00713- 7622 Dec, Diabetes mellitus with neuropathy E11.40 [facility] [address] [id number] Dec, Dental examination Z01.20 [facility] [address], [place] [address] Dec, [facility] [address] [place] [address] 53372- 0401 Nov, Depression F32.9 [facility] [address] [place] [address] 41985- 2712 Nov, Depression F32.9 [facility] [id number] [place] [address] 28483- 2319 Nov, Lateral epicondylitis of left elbow M77.12 ; Insulin long- term use Z79.[address] [facility] [address] [place] [address] 82836- 4337 Nov, Adjustment disorder with disturbance of emotion F43.29 ; Adjustment disorder with disturbance of conduct F43.24 ; Marijuana abuse, continuous F12.[address] [facility] [address] [place] [address] 82649- 6992 Oct, Adjustment disorder with disturbance of emotion F43.29 ; Marijuana abuse, continuous F12.10 ; Adjustment disorder with disturbance of conduct F43.24 and Severe episode of recurrent major depressive disorder, without psychotic features F33.2 [facility] [address] [place] [address] [id number] Oct, Dental examination Z01.20 [facility] [address] [place] [address] 28151- 4606 Oct, Depression F32.9 [facility] [address] [place] [id number] Oct, Dental examination Z01.20 [facility] [address] [place] [address] 40981- 9633 Oct, Depression F32.9 ; Adjustment disorder with disturbance of conduct F43.24 ; Adjustment disorder with disturbance of emotion F43.29 and Marijuana abuse, continuous F12.10 [facility] [address] [place] [address] [id number] Oct, Dental examination Z01.20 [facility] [id number] [place] [address] [id number] Oct, Dental caries K02.9 [facility] [id number] [place] [address] 03824- 5952 Oct, [facility] [id number] [place] [address] [phone] Sep, Dental examination Z01.20 [place] [address] [address]97- [address]146 Sep, [place] [address] 11203- 8370 Sep, Insulin long-term use Z79.4 ; Gout M10.9 ; Diabetes mellitus with neuropathy E11.40 ; Depression F32.9 ; Hyperlipemia E78.5 ; Obstructive sleep apnea G47.33 ; Venous insufficiency (chronic) (peripheral) I87.2 ; Mild persistent asthma without complication J45.30 ; Neuropathy G62.9 and Marijuana abuse, continuous F12.10 [place] [address] [place] [address] 66654- 9791 Sep, Adjustment disorder with disturbance of conduct F43.24 and Adjustment disorder with disturbance of emotion F43.29 [place] [address] [place] [address] 96974- 0345 Sep, Diabetes mellitus with neuropathy E11.40 ; Dyspnea on exertion R06.09 and Venous insufficiency (chronic) (peripheral) I87.2 [place] [address] [place] [address] 34862- 3724 Sep, Neuropathy G62.9 [place] [address] [place] [address] 31975- 2074 Sep, [facility] [address] [place] [address] [id number] Sep, Dental examination Z01.20 [facility] [address], [place] [address] 07 Sep, 2016 [facility] [address] [place] [address] 26948- 2133 Sep, [facility] [address] [place] [address] 30998- 9092 Sep, [facility] [id number] [place] [address] 36332- 6230 05 Sep, 2016 Mild persistent asthma without complication J45.30 [facility] [id number] [place] [address] 06685- 0846 02 Sep, 2016 Insulin long-term use Z79.4 [facility] [address] [place] [address] 06845- 5495 01 Sep, 2016 Diabetes mellitus with neuropathy E11.40 ; Generalized edema R60.1 and Mild persistent asthma without complication J45.30 [facility] [address] [place] [address] [id number] 17 Aug, [address] [facility] [id number] [place] [address] 49428- 8165 20 Jul, 2016 Urticaria L50.9 and Mild persistent asthma without complication J45.30 [facility] [address], [place] [address]- 2995 10 Jul, 2016 Lateral epicondylitis of left elbow M77.12 and Venous insufficiency (chronic) (peripheral) I87.2 [facility] [address] [place] [address] 44396- 1058 May, Obstructive sleep apnea G47.33 and Diabetes mellitus with neuropathy E11.40 [facility] [address] [place] [address] 50602- 2120 May, Diabetes mellitus with neuropathy E11.40 [facility] [address] [place] [address] 07115- 3717 Mar, [place] [address], [place] [address]- 2343 15 Mar, 2016 Dental examination Z01.20 [place] [address] [place] [address] 84420- 2306 Mar, Insulin long-term use Z79.4 [place] [address], [place] [address]- 1059 Mar, Insulin long-term use Z79.4 [place] [address] [place] [address] 26635- 8864 February, Insulin long-term use Z79.4 [place] [address] [place] [address] 66129- 6734 February, [place] [address] [place] [address] 95266- 8068 February, Hyperlipemia E78.[address] [id number] [id number] February, Gout M10.9 and Diabetes mellitus with neuropathy E11.40 [place] [address] [place] [address] 31448- 3060 Jan, Depression F32.9 [place] [address], [place] [address]- 8526 Jan, Insulin long-term use Z79.4 ; Gout M10.9 ; Candidiasis B37.9 ; Diabetes mellitus with neuropathy E11.40 and Depression F32.9 IMMUNIZATIONS No Known Immunizations SOCIAL HISTORY Never Assessed REASON FOR VISIT PLAN OF CARE VITAL SIGNS MEDICATIONS Medication Instructions Dosage Frequency Start Date End Date Duration Status Wellbutrin XL 300 MG Orally every morning 1 tablet Sep, 30 days Active Cetirizine HCl 10 MG Orally Once a day 1 tablet 24h Mar, Apr, 30 day(s) Active Naprosyn 500 mg Orally 2 times a day, pc 1 tablet as needed Jul, Active Lasix 20 mg Orally Once a day 1 tablet 24h Sep, 30 days Active GlipiZIDE 5 mg Orally twice a day 1 tablet 12h 30 days Active Wellbutrin XL 150 MG Orally every morning with 300mg tab 1 tablet Jul 30 days Active RESULTS No Results PROCEDURES No Known procedures INSTRUCTIONS MEDICATIONS ADMINISTERED No Known Medications MEDICAL (GENERAL) HISTORY Type Description Date Medical History high blood pressure Medical History diabetic Medical History asthma Medical History emphysema Surgical History Pylonial cyst removal from tailbone x 2 Surgical History Cyst removal from groin/MRSA Surgical History Back surgery cyst removal from [facility] 02/2017 Hospitalization History Surgery Hospitalization History Heart attacks x 2 Hospitalization History pylonial cyst removal from [facility] 2016 Hospitalization History tick bite---[place] 02/2018
--- OUTSIDE RECORDS SUMMARY | 2018-06-16 19:20 | XMS REPORT ---
Author Author YVETTE MCCONNELL [facility] Address [address] [place] [address] Care Team Providers Care Inseamer Name Role Phone YVETTE MCCONNELL Unavailable PROBLEMS Type Condition ICD9-CM Code IZZ74-OQ Code Onset Dates Condition Status SNOMED Code Problem Neuropathy G62.9 Active 293826535 Problem Adjustment disorder with disturbance of emotion F43.29 Active 58372768 Problem Marijuana abuse, continuous F12.10 Active 330825380 Problem Gastroesophageal reflux disease without esophagitis K21.9 Active 768239996 Problem Acute gout involving toe of left foot, unspecified cause M10.9 Active 294157085 Problem Methamphetamine use disorder, severe, 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 Active 42054258 Problem Adjustment disorder with disturbance of conduct F43.24 Active 94787183 Problem Dyspepsia R10.13 Active 021453075 Problem Moderate episode of recurrent major depressive disorder F33.1 Active 121546924 Problem Candidiasis B37.9 Active 19525317 Problem Depression F32.9 Active 04595526 Problem Diabetes mellitus with neuropathy E11.40 Active 00724341 Problem Hyperlipemia E78.5 Active 17286514 Problem Obstructive sleep apnea G47.33 Active 73976613 Problem Insulin long-term use Z79.4 Active 818697064 Problem Venous insufficiency (chronic) (peripheral) I87.2 Active 56534935 Problem Gout M10.9 Active 38522090 Problem Mild persistent asthma without complication J45.30 Active 692361544 ALLERGIES No Known Allergies ENCOUNTERS Encounter Location Date Diagnosis [facility] [address] [id number] [address] Jul, [facility] [address] [facility] [id number] [id number] Jun, [facility] [address], [place] [address] Jun, [facility] [address] [id number][place] [id number] May, Diabetes mellitus with neuropathy E11.40 [facility] [address] [id number][place] [id number] May, Diabetes mellitus with neuropathy E11.40 and Edema, unspecified type R60.9 [facility] [address] [facility] [id number] [place] [address] Apr, [facility] [address] [address] [id number][place] [id number] Apr, Mild persistent asthma without complication J45.30 [facility] [address] [id number][place] [id number] Mar, [facility] [place] [address] [facility] [address] [id number][place] [id number] Mar, Diabetes mellitus with neuropathy E11.40 ; Insulin long-term use Z79.4 ; Depression F32.9 ; Hyperlipemia E78.5 ; Gastroesophageal reflux disease without esophagitis K21.9 and Edema, unspecified type R60.9 [facility] [place] [address] [facility] [id number] [id number] Mar, Generalized edema R60.1 and Diabetes mellitus with neuropathy E11.40 [facility] [place] [address] [facility] [address] [id number][place] [id number] Mar, Neuropathy G62.9 [facility] [address] [address] [id number][place] [id number] February, Insect bite (nonvenomous) of lower back and pelvis, initial encounter S30.860A ; Bitten or stung by nonvenomous insect and other nonvenomous arthropods, initial encounter W57.XXXA and Cellulitis of back L03.312 [facility] [address] [address] [id number][place] [id number] February, Diabetes mellitus with neuropathy E11.40 [facility] [address] [address] [id number][place] [id number] February, Generalized edema R60.1 and Diabetes mellitus with neuropathy E11.[address] [place] [address] Jan, [address] [id number][place] [id number] Jan, Gastroesophageal reflux disease without esophagitis K21.9 and Acute gout involving toe of left foot, unspecified cause M10.[address] [id number][place] [address] Jan, Marijuana abuse, continuous F12.10 ; Mild persistent asthma without complication J45.30 ; BMI 40.0-44.9, adult Z68.41 and Diabetes mellitus with neuropathy E11.40 [address] [place] [address] Jan, [facility] [id number][place] [id number] Jan, BMI 40.0-44.9, adult Z68.41 and Intractable vomiting with nausea, unspecified vomiting type R11.[address] [id number][place] [id number] Dec, BMI 40.0-44.9, adult Z68.41 and Abrasion hip/leg S80.819A [id number] [place] [address]- 2056 Nov, Neuropathy G62.9 [id number] [place] [address]14- 7964 Oct, [id number] [place] [address] 52367- 1394 Oct, [place] [id number] [place] [address] 62162- 5424 Oct, Diabetes mellitus with neuropathy E11.40 ; Dyspepsia R10.13 ; Mild persistent asthma without complication J45.30 and Depression F32.9 [facility] [id number] [place] [address] 81875- 1756 Oct, Generalized edema R60.1 and Diabetes mellitus with neuropathy E11.40 [facility] [address] [address] Sep, [facility] [address] [address] Aug, 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 [place] [id number] [place] [address] 07201- 9568 Jul, [place] [id number] [place] [address]2390- 8037 Jul, [place] [id number] [place] [address] 76482- 9040 Jul, [place] [address] [address] Jul, [facility] [id number] [place] [address]80- 4[address] Jul, [place] [address] [address] Jul, Diabetes mellitus with neuropathy E11.40 [facility] [address] [place] [address] 53284- 4[address] 16 Jul, 2017 Diabetes mellitus with neuropathy E11.40 ; Venous insufficiency (chronic) (peripheral) I87.2 ; Chest pain, unspecified type R07.9 ; Neuropathy G62.9 and Encounter for immunization Z23 [facility] [id number] [place] [address] 29587- 5[address] Jun, [facility] [id number] [place] [address] 63609- 1468 Jun, [facility] [address] [id number] May, Dental examination Z01.20 [place] [address] [address] [address] Apr, Diabetes mellitus with neuropathy E11.40 and Depression F32.9 [id number] [place] [address] 8[address] 7360 Apr, Mild persistent asthma without complication J45.[address] [id number][place] [id number] Mar, [facility] [address] [place] [id number] [place] [address] 22560- 7876 Mar, Depression F32.9 ; Adjustment disorder with disturbance of emotion F43.29 and Marijuana abuse, continuous F12.10 [address] [address] [place] [address] 19873- 8202 Mar, [id number] [place] [address] 14992- 0964 Mar, Acute pansinusitis, recurrence not specified J01.40 [place] [address] [place] [address] 18421- 4612 Mar, Adjustment disorder with disturbance of emotion F43.29 ; Adjustment disorder with disturbance of conduct F43.24 ; Marijuana abuse, continuous F12.10 and Depression F32.9 [address] [place] [address] 86200- 5393 Mar, Depression F32.9 ; Marijuana abuse, continuous F12.10 and Adjustment disorder with disturbance of conduct F43.24 [facility] [address] [facility] [address] [id number][place] [id number] February, Bronchitis J40 and Acute diffuse otitis externa of right ear H60.311 [id number] [place] [address] 29369- 8943 February, Diabetes mellitus with neuropathy E11.40 ; Mild persistent asthma without complication J45.30 ; Bronchitis J40 ; Depression F32.9 ; Neuropathy G62.9 ; Gout M10.9 ; Generalized edema R60.1 and Hyperlipemia E78.5 [id number] [place] [address] 31549- 1654 February, Diabetes mellitus with neuropathy E11.40 [id number] [place] [address] 54090- 7504 February, [place] [id number] [place] [address] 00765- 1431 February, [place] [id number] [place] [address] 71217- 5647 Jan, [place] [id number] [place] [address] 75262- 7581 Jan, [address] [address]- [address] Jan, Adjustment disorder with disturbance of emotion F43.29 ; Adjustment disorder with disturbance of conduct F43.24 ; Marijuana abuse, continuous F12.10 and Depression F32.9 [place] [address] [place] [address] 53237- 3100 Jan, [place] [id number] [place] [address] 02461- 6308 03 Jan, 2017 Pilonidal cyst with abscess L05.01 and Abscess of skin of abdomen L02.211 [facility] [address] [place] [address] 10661- 3379 Dec, Diabetes mellitus with neuropathy E11.40 [facility] [id number] [place] [address] [id number] Dec, Dental examination Z01.20 [facility] [address] [address]- [address] Dec, [facility] [address] 14258- 2917 Nov, Depression F32.9 [place] [address] 236731- 1711 Nov, Depression F32.9 [facility] [address] [address]- [address]85 Nov, Lateral epicondylitis of left elbow M77.12 ; Insulin long- term use Z79.4 and Neuropathy G62.9 [facility] [id number] [place] [address] 01377- 4972 Nov, Adjustment disorder with disturbance of emotion F43.29 ; Adjustment disorder with disturbance of conduct F43.24 ; Marijuana abuse, continuous F12.10 and Depression F32.9 [facility] [id number] [place] [address] 61802- 4457 Oct, Adjustment disorder with disturbance of emotion F43.29 ; Marijuana abuse, continuous F12.10 ; Adjustment disorder with disturbance of conduct F43.24 and Severe episode of recurrent major depressive disorder, without psychotic features F33.2 [facility] [address] [place] [address] [id number] Oct, Dental examination Z01.20 [facility] [id number] [place] [address] 61064- 2894 Oct, Depression F32.9 [facility] [id number] [place] [address] [id number] Oct, Dental examination Z01.20 [facility] [address] [place] [address] 68562- 4052 Oct, Depression F32.9 ; Adjustment disorder with disturbance of conduct F43.24 ; Adjustment disorder with disturbance of emotion F43.29 and Marijuana abuse, continuous F12.10 [facility] [id number] [place] [address] [id number] Oct, Dental examination Z01.20 [facility] [id number] [place] [address] [id number] Oct, Dental caries K02.9 [place] [address] 277315- 1713 Oct, [facility] [address] [id number] Sep, Dental examination Z01.20 [place] [address] 82068- 3070 Sep, [place] [address] 66850- 6543 Sep, Insulin long-term use Z79.4 ; Gout M10.9 ; Diabetes mellitus with neuropathy E11.40 ; Depression F32.9 ; Hyperlipemia E78.5 ; Obstructive sleep apnea G47.33 ; Venous insufficiency (chronic) (peripheral) I87.2 ; Mild persistent asthma without complication J45.30 ; Neuropathy G62.9 and Marijuana abuse, continuous F12.10 [place] [id number] [place] [address] 34975- 1172 Sep, Adjustment disorder with disturbance of conduct F43.24 and Adjustment disorder with disturbance of emotion F43.[address] 6[address]88- 2110 Sep, Diabetes mellitus with neuropathy E11.40 ; Dyspnea on exertion R06.09 and Venous insufficiency (chronic) (peripheral) I87.[address] 03729- 4471 Sep, Neuropathy G62.9 [facility] [address], [place] [address] 13 Sep, 2016 [facility] [id number] [place] [address] [id number] Sep, 2016 Dental examination Z01.20 [facility] [id number] [place] [address] 60819- 1796 07 Sep, 2016 [facility] [id number] [place] [address] 03400- 5038 07 Sep, 2016 [facility] [id number] [place] [address] 29365- 2758 06 Sep, 2016 [place] [id number] [place] [address] 65458- 5038 05 Sep, 2016 Mild persistent asthma without complication J45.30 [place] [id number] [place] [address] 31810- 4739 02 Sep, 2016 Insulin long-term use Z79.4 [facility] [id number] [place] [address] 82908- 3808 01 Sep, 2016 Diabetes mellitus with neuropathy E11.40 ; Generalized edema R60.1 and Mild persistent asthma without complication J45.30 [facility] [address] [place] [address] [id number] Aug, Dental examination Z01.20 [facility] [id number] [place] [address] 85599- 2967 20 Jul, 2016 Urticaria L50.9 and Mild persistent asthma without complication J45.30 [facility] [address] [place] [address] 52015- 6017 10 Jul, 2016 Lateral epicondylitis of left elbow M77.12 and Venous insufficiency (chronic) (peripheral) I87.2 [facility] [address] [place] [address] 75118- 9132 May, Obstructive sleep apnea G47.33 and Diabetes mellitus with neuropathy E11.40 [place] [address], [place] [address] May, Diabetes mellitus with neuropathy E11.40 [place] [address], [place] [address] Mar, [place] [address], [place] [address] 8223 Mar, Dental examination Z01.20 [place] [address], [place] [address]- 6541 Mar, Insulin long-term use Z79.4 [place] [address] [place] [address] 57363- 7965 Mar, Insulin long-term use Z79.4 [place] [address] [place] [address] 96840- 2273 February, Insulin long-term use Z79.4 [place] [address], [place] [address]- 5[address] February, [place] [address] [place] [address] 77191- 5534 February, Hyperlipemia E78.[address] [id number] [id number] February, Gout M10.9 and Diabetes mellitus with neuropathy E11.40 [place] [address] [place] [address] 23371- 1563 Jan, Depression F32.9 [place] [address], [place] [address]- 7577 Jan, Insulin long-term use Z79.4 ; Gout M10.9 ; Candidiasis B37.9 ; Diabetes mellitus with neuropathy E11.40 and Depression F32.9 IMMUNIZATIONS No Known Immunizations SOCIAL HISTORY Never Assessed REASON FOR VISIT Diabetes bferrisma PLAN OF CARE Activity Details Follow Up 3 Months Reason:DM visit VITAL SIGNS Height 71.2 in 2018-04-09 Weight 312.5 lbs 2018-04-09 Temperature 96.5 degrees Fahrenheit 2018-04-09 Heart Rate 72 bpm 2018-04-09 Respiratory Rate 18 2018-04-09 Oximetry 97 % 2018-04-09 BMI 43.34 kg/m2 2018-04-09 Blood pressure systolic 128 mmHg 2018-04-09 Blood pressure diastolic 86 mmHg 2018-04-09 MEDICATIONS Medication Instructions Dosage Frequency Start Date End Date Duration Status Ventolin HFA 108 (90 Base) MCG/ACT Inhalation every 6 hrs 2 puffs as needed 6h Jan, 0 days Active Allopurinol 100 mg Orally Once a day 1 tablet 24h Jan, Active Wellbutrin XL 300 MG Orally every morning 1 tablet Sep, Active Naprosyn 500 mg Orally 2 times a day, pc 1 tablet as needed Jul, Active C-PAP Machine Active Omeprazole 40 MG Orally Once a day 1 capsule 24h Oct, Active Wellbutrin XL 150 MG Orally every morning with 300mg tab 1 tablet Jul Active Klor-Con 10 10 MEQ Orally Twice a day 1 tablet with food 12h Jan, Active Gabapentin 400 mg Orally Three times a day 2 capsules 8h 15 May, 2016 Active MetFORMIN HCl ER 500 MG Orally twice a day 2 tablet 12h Jan, 90 days Active Zocor 40 mg Orally Once a day 1 tablet in the evening 24h Active Cetirizine HCl 10 MG Orally Once a day 1 tablet 24h Mar, Apr, 30 day(s) Active GlipiZIDE 5 mg Orally twice a day 1 tablet 12h 30 days Active Victoza 18 MG/3ML Subcutaneous Once a day 1.8 mg daily 24h Jul, Active NovoLog 100 UNIT/ML Subcutaneous 3 times a day 12 units 8h Active Zofran 8 MG Orally 3 times daily before meals 1 tablet Jan, 14 days Active Symbicort 160-4.5 MCG/ACT Inhalation Twice a day 2 puffs 12h Active Gemfibrozil 600 MG Orally Twice a day 1 tablet 12h Active Lasix 20 mg Orally Once a day 1 tablet 24h Sep, Active Mirtazapine 7.5 MG Orally every bedtime 1 tablet Mar, 30 days Active Levemir 100 UNIT/ML Subcutaneous Once a day 40 units 24h Active RESULTS Name Result Date Reference Range A1C (IN HOUSE) 2018-04-09 A1C IN HOUSE 7.8 4.3 - 5.6 % Previous A1c 8.0 [facility] 0874 Exp date 02/02 PROCEDURES Procedure Date Ordered Result Body Site GLYCATED HEMOGLOBIN TEST April 09, 2018 INSTRUCTIONS MEDICATIONS ADMINISTERED No Known Medications MEDICAL [...] 2 Hospitalization History pylonial cyst removal from tailbone 2016 Hospitalization History tick bite---[place] 02/2018
--- OUTSIDE RECORDS SUMMARY | 2018-06-16 19:21 | XMS REPORT ---
Author Author YVETTE MCCONNELL [facility] Address [address] [place] [address] Care Team Providers Care Bin Operator Name Role Phone YVETTE MCCONNELL Unavailable PROBLEMS Type Condition ICD9-CM Code PAM34-KM Code Onset Dates Condition Status SNOMED Code Problem Neuropathy G62.9 Active 674391929 Problem Adjustment disorder with disturbance of emotion F43.29 Active 80517762 Problem Marijuana abuse, continuous F12.10 Active 842261541 Problem Gastroesophageal reflux disease without esophagitis K21.9 Active 331597642 Problem Acute gout involving toe of left foot, unspecified cause M10.9 Active 092342339 Problem Methamphetamine use disorder, severe, 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 Active 39957521 Problem Adjustment disorder with disturbance of conduct F43.24 Active 54236951 Problem Dyspepsia R10.13 Active 711029204 Problem Moderate episode of recurrent major depressive disorder F33.1 Active 160455572 Problem Candidiasis B37.9 Active 54640076 Problem Depression F32.9 Active 50360524 Problem Diabetes mellitus with neuropathy E11.40 Active 98038609 Problem Hyperlipemia E78.5 Active 79607957 Problem Obstructive sleep apnea G47.33 Active 93076408 Problem Insulin long-term use Z79.4 Active 954341844 Problem Venous insufficiency (chronic) (peripheral) I87.2 Active 54786263 Problem Gout M10.9 Active 87209483 Problem Mild persistent asthma without complication J45.30 Active 720638577 ALLERGIES No Information ENCOUNTERS Encounter Location Date Diagnosis [facility] [id number], [place] [address] Jul, [facility] [address] [facility] [id number], [place] [address] Apr, [facility] [id number] [id number] Apr, Mild persistent asthma without complication J45.30 [facility] [address] [id number] [id number] Mar, [facility] [address] [id number] [id number] Mar, Diabetes mellitus with neuropathy E11.40 ; Insulin long-term use Z79.4 ; Depression F32.9 ; Hyperlipemia E78.5 ; Gastroesophageal reflux disease without esophagitis K21.9 and Edema, unspecified type R60.9 [facility] [address] [id number] [id number] Mar, Generalized edema R60.1 and Diabetes mellitus with neuropathy E11.40 [facility] [address] [place] [address] AVE [id number][place] [id number] Mar, Neuropathy G62.[address] [id number][place] [id number] February, Insect bite (nonvenomous) of lower back and pelvis, initial encounter S30.860A ; Bitten or stung by nonvenomous insect and other nonvenomous arthropods, initial encounter W57.XXXA and Cellulitis of back L03.312 [facility] [address] [place] [address] AVE [id number][place] [id number] February, Diabetes mellitus with neuropathy E11.[address] [id number][place] [id number] February, Generalized edema R60.1 and Diabetes mellitus with neuropathy E11.40 [facility] [address] [facility] [id number] [address] Jan, [address] [id number][place] [id number] Jan, Gastroesophageal reflux disease without esophagitis K21.9 and Acute gout involving toe of left foot, unspecified cause M10.[address] [id number][place] [id number] Jan, Marijuana abuse, continuous F12.10 ; Mild persistent asthma without complication J45.30 ; BMI 40.0-44.9, adult Z68.41 and Diabetes mellitus with neuropathy E11.40 [facility] [id number] [place] [address] Jan, [facility] [id number] [id number] Jan, BMI 40.0-44.9, adult Z68.41 and Intractable vomiting with nausea, unspecified vomiting type R11.2 [place] [address] [facility] [address] [id number] [id number] Dec, BMI 40.0-44.9, adult Z68.41 and Abrasion hip/leg S80.819A [place] [id number] [place] [address] 79[address] Nov, Neuropathy G62.9 [place] [id number] [place] [address] 8[address]84- [address]44 Oct, [place] [address] [address] Oct, [place] [address] [address] Oct, Diabetes mellitus with neuropathy E11.40 ; Dyspepsia R10.13 ; Mild persistent asthma without complication J45.30 and Depression F32.9 [place] [id number] [place] [address]- 4261 Oct, Generalized edema R60.1 and Diabetes mellitus with neuropathy E11.40 [place] [id number] [place] [address]- 7685 Sep, [place] [id number] [place] [address] Aug, [facility] [id number] [place] [address] Aug, Cellulitis L03.90 and BMI 40.0-44.9, adult Z68.41 [facility] [address] [address] Aug, [facility] [address] [id number] 654 Jul, Trapezius muscle spasm M62.838 and Depression F32.9 [facility] [address] [address]441- [address] Jul, Marijuana abuse, continuous F12.10 ; Moderate episode of recurrent major depressive disorder F33.1 and Methamphetamine use disorder, severe, 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 [facility] [address] [address] Jul, [facility] [address] 025981- [address]33 Jul, [facility] [address] [address]- [address]65 Jul, [facility] [address] [address]- [address] Jul, [facility] [address] [address]- [address] Jul, [facility] [address] [address]- [address]27 Jul, Diabetes mellitus with neuropathy E11.40 [facility] [address] [address] Jul, Diabetes mellitus with neuropathy E11.40 ; Venous insufficiency (chronic) (peripheral) I87.2 ; Chest pain, unspecified type R07.9 ; Neuropathy G62.9 and Encounter for immunization Z23 [facility] [address] [address] Jun, [facility] [address] [address] Jun, [place] [address] [id number] [id number] May, Dental examination Z01.20 [address] [place] [id number] [place] [address] 13930- 3853 Apr, Diabetes mellitus with neuropathy E11.40 and Depression F32.[address] [place] [address] 28537- 2434 Apr, Mild persistent asthma without complication J45.[address] [id number] [id number] Mar, [address] [address] Mar, Depression F32.9 ; Adjustment disorder with disturbance of emotion F43.29 and Marijuana abuse, continuous F12.10 [place] [id number] [place] [address] 84672- 4813 Mar, [place] [id number] [place] [address] 46477- 3500 Mar, Acute pansinusitis, recurrence not specified J01.40 [place] [id number] [place] [address] 83156- 8035 Mar, Adjustment disorder with disturbance of emotion F43.29 ; Adjustment disorder with disturbance of conduct F43.24 ; Marijuana abuse, continuous F12.10 and Depression F32.[address] [place] [address] 19202- 9226 Mar, Depression F32.9 ; Marijuana abuse, continuous F12.10 and Adjustment disorder with disturbance of conduct F43.[address] [id number][place] [id number] February, Bronchitis J40 and Acute diffuse otitis externa of right ear H60.311 [address] [place] [address] 25470- 4324 February, Diabetes mellitus with neuropathy E11.40 ; Mild persistent asthma without complication J45.30 ; Bronchitis J40 ; Depression F32.9 ; Neuropathy G62.9 ; Gout M10.9 ; Generalized edema R60.1 and Hyperlipemia E78.5 [place] [address] [address] February, Diabetes mellitus with neuropathy E11.40 [place] [address] [address] February, [place] [address] [address] February, [address] [address] Jan, [address] [address] Jan, [address] [address] 6708 Jan, Adjustment disorder with disturbance of emotion F43.29 ; Adjustment disorder with disturbance of conduct F43.24 ; Marijuana abuse, continuous F12.10 and Depression F32.[address] [address]65- [address] Jan, [address] [address]- 3993 Jan, Pilonidal cyst with abscess L05.01 and Abscess of skin of abdomen L02.[address] 19112- 7558 Dec, Diabetes mellitus with neuropathy E11.40 [facility] [address] [id number] Dec, Dental examination Z01.[address] [address]89- [address] Dec, [place] [address] 62727- 2776 Nov, Depression F32.9 [facility] [id number] [place] [address] 97477- 6500 Nov, Depression F32.9 [place] [address] [address] Nov, Lateral epicondylitis of left elbow M77.12 ; Insulin long- term use Z79.4 and Neuropathy G62.9 [place] [address] [id number]- [address]405 Nov, Adjustment disorder with disturbance of emotion F43.29 ; Adjustment disorder with disturbance of conduct F43.24 ; Marijuana abuse, continuous F12.10 and Depression F32.9 [place] [address] 48935- [address] Oct, Adjustment disorder with disturbance of emotion F43.29 ; Marijuana abuse, continuous F12.10 ; Adjustment disorder with disturbance of conduct F43.24 and Severe episode of recurrent major depressive disorder, without psychotic features F33.2 [facility] [address] [id number] Oct, Dental examination Z01.20 [place] [address] 51626- 7794 Oct, Depression F32.9 [facility] [address] [id number] Oct, Dental examination Z01.20 [facility] [id number] [place] [address] 84926- 0649 Oct, Depression F32.9 ; Adjustment disorder with disturbance of conduct F43.24 ; Adjustment disorder with disturbance of emotion F43.29 and Marijuana abuse, continuous F12.10 [facility] [address] [id number] Oct, Dental examination Z01.20 [facility] [address] [id number] Oct, Dental caries K02.9 [facility] [id number] [place] [address] 01617- 7728 Oct, [facility] [id number] [place] [id number] Sep, Dental examination Z01.20 [facility] [id number] [place] [address] 65875- 9832 Sep, [facility] [address] 53788- 6926 Sep, Insulin long-term use Z79.4 ; Gout M10.9 ; Diabetes mellitus with neuropathy E11.40 ; Depression F32.9 ; Hyperlipemia E78.5 ; Obstructive sleep apnea G47.33 ; Venous insufficiency (chronic) (peripheral) I87.2 ; Mild persistent asthma without complication J45.30 ; Neuropathy G62.9 and Marijuana abuse, continuous F12.10 [place] [id number] [place] [address] 99583- 0408 Sep, Adjustment disorder with disturbance of conduct F43.24 and Adjustment disorder with disturbance of emotion F43.29 [place] [id number] [place] [address] 25495- 6547 Sep, Diabetes mellitus with neuropathy E11.40 ; Dyspnea on exertion R06.09 and Venous insufficiency (chronic) (peripheral) I87.2 [place] [id number] [place] [address] 55494- 3156 Sep, Neuropathy G62.9 [place] [id number] [place] [address] 68042- 3682 13 Sep, 2016 [facility] [id number] [place] [address] [id number] Sep, Dental examination Z01.20 [facility] [id number] [place] [address] 78581- 4269 Sep, [place] [id number] [place] [address] 97631- 5319 Sep, [place] [address] [place] [address] [place] [address]- 6485 Sep, [place] [id number] [place] [address] 20435- 0473 05 Sep, 2016 Mild persistent asthma without complication J45.30 [facility] [id number] [place] [address] 84364- 5694 02 Sep, 2016 Insulin long-term use Z79.4 [place] [address] 39503- 2476 01 Sep, 2016 Diabetes mellitus with neuropathy E11.40 ; Generalized edema R60.1 and Mild persistent asthma without complication J45.30 [facility] [address] [id number] Aug, Dental examination Z01.20 [place] [id number] [place] [address] 44684- 0386 20 Jul, 2016 Urticaria L50.9 and Mild persistent asthma without complication J45.30 [place] [id number] [place] [address] 78462- 5544 10 Jul, 2016 Lateral epicondylitis of left elbow M77.12 and Venous insufficiency (chronic) (peripheral) I87.2 [place] [id number] [place] [address] 18360- 5296 May, Obstructive sleep apnea G47.33 and Diabetes mellitus with neuropathy E11.40 [place] [id number] [place] [address] 51911- 0040 May, Diabetes mellitus with neuropathy E11.40 [place] [id number] [place] [address] 37525- 1096 Mar, [place] [address] 67982- 6492 Mar, Dental examination Z01.20 [place] [id number] [place] [address] 19058- 8214 13 Mar, 2016 Insulin long-term use Z79.4 [place] [address] [facility] [id number], [place] [address] 9661 Mar, Insulin long-term use Z79.4 [place] [address], [place] [address] 47[address] February, Insulin long-term use Z79.4 [place] [address] [facility] [id number], [place] [address]- 1679 February, [place] [address], [place] [address] 5250 February, Hyperlipemia E78.[address] [id number] [id number] February, Gout M10.9 and Diabetes mellitus with neuropathy E11.40 [place] [address], [place] [address]- [address]14 Jan, Depression F32.9 [place] [address], [place] [address]- 7597 Jan, Insulin long-term use Z79.4 ; Gout M10.9 ; Candidiasis B37.9 ; Diabetes mellitus with neuropathy E11.40 and Depression F32.9 IMMUNIZATIONS No Known Immunizations SOCIAL HISTORY Never Assessed REASON FOR VISIT Repository Medication PLAN OF CARE VITAL SIGNS MEDICATIONS Medication Instructions Dosage Frequency Start Date End Date Duration Status Lasix 20 mg Orally Once a day 1 tablet 24h Sep, 30 days Active Wellbutrin XL 150 MG Orally every morning with 300mg tab 1 tablet Jul 30 days Active GlipiZIDE 5 mg Orally twice a day 1 tablet 12h 30 days Active Wellbutrin XL 300 MG Orally every morning 1 tablet Sep, 30 days Active RESULTS No Results PROCEDURES [...]
--- OUTSIDE RECORDS SUMMARY | 2018-06-16 19:21 | XMS REPORT ---
Author Author YVETTE MCCONNELL [facility] Address [address] [place] [address] Care Team Providers Care Health Officer Name Role Phone YVETTE MCCONNELL Unavailable PROBLEMS Type Condition ICD9-CM Code ZMQ88-VT Code Onset Dates Condition Status SNOMED Code Problem Neuropathy G62.9 Active 022612230 Problem Adjustment disorder with disturbance of emotion F43.29 Active 22889281 Problem Marijuana abuse, continuous F12.10 Active 736028741 Problem Gastroesophageal reflux disease without esophagitis K21.9 Active 820996093 Problem Acute gout involving toe of left foot, unspecified cause M10.9 Active 760615113 Problem Methamphetamine use disorder, severe, 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 Active 68752126 Problem Adjustment disorder with disturbance of conduct F43.24 Active 38766097 Problem Dyspepsia R10.13 Active 684579788 Problem Moderate episode of recurrent major depressive disorder F33.1 Active 424944719 Problem Candidiasis B37.9 Active 03268461 Problem Depression F32.9 Active 17625574 Problem Diabetes mellitus with neuropathy E11.40 Active 22517050 Problem Hyperlipemia E78.5 Active 71960865 Problem Obstructive sleep apnea G47.33 Active 64650573 Problem Insulin long-term use Z79.4 Active 948215403 Problem Venous insufficiency (chronic) (peripheral) I87.2 Active 53461657 Problem Gout M10.9 Active 77064606 Problem Mild persistent asthma without complication J45.30 Active 239978460 ALLERGIES No Information ENCOUNTERS Encounter Location Date Diagnosis [facility] [address], [place] [address] Jul, [facility] [address] [facility] [id number], [place] [address] Apr, [facility] [id number] [id number] Apr, Mild persistent asthma without complication J45.30 [facility] [address] [id number] [place] [id number] Mar, [facility] [address] [id number] [place] [id number] Mar, Diabetes mellitus with neuropathy E11.40 ; Insulin long-term use Z79.4 ; Depression F32.9 ; Hyperlipemia E78.5 ; Gastroesophageal reflux disease without esophagitis K21.9 and Edema, unspecified type R60.9 [facility] [address] [id number] [id number] Mar, Generalized edema R60.1 and Diabetes mellitus with neuropathy E11.40 [facility] [address] [place] [address] AVE [id number] [place] [id number] Mar, Neuropathy G62.[address] [id number] [place] [id number] February, Insect bite (nonvenomous) of lower back and pelvis, initial encounter S30.860A ; Bitten or stung by nonvenomous insect and other nonvenomous arthropods, initial encounter W57.XXXA and Cellulitis of back L03.312 [facility] [address] [place] [address] AVE [id number] [place] [id number] February, Diabetes mellitus with neuropathy E11.[address] [id number] [place] [id number] February, Generalized edema R60.1 and Diabetes mellitus with neuropathy E11.40 [facility] [address] [facility] [id number] [id number] Jan, [address] [id number] [place] [id number] Jan, Gastroesophageal reflux disease without esophagitis K21.9 and Acute gout involving toe of left foot, unspecified cause M10.[address] [id number] [place] [id number] Jan, Marijuana abuse, continuous F12.10 ; Mild persistent asthma without complication J45.30 ; BMI 40.0-44.9, adult Z68.41 and Diabetes mellitus with neuropathy E11.40 [facility] [address] [place] [address] Jan, [facility] [id number] [id number] Jan, BMI 40.0-44.9, adult Z68.41 and Intractable vomiting with nausea, unspecified vomiting type R11.2 [place] [address] [facility] [address] [id number] [place] [id number] Dec, BMI 40.0-44.9, adult Z68.41 and Abrasion hip/leg S80.819A [place] [id number] [place] [address] Nov, Neuropathy G62.9 [place] [id number] [place] [address]- [address] Oct, [place] [address] [address] Oct, [place] [address] [address] Oct, Diabetes mellitus with neuropathy E11.40 ; Dyspepsia R10.13 ; Mild persistent asthma without complication J45.30 and Depression F32.9 [place] [id number] [place] [address]- 6953 Oct, Generalized edema R60.1 and Diabetes mellitus with neuropathy E11.40 [place] [id number] [place] [address]- 6011 Sep, [place] [id number] [place] [address]70- 8628 Aug, [facility] [id number] [place] [address] Aug, Cellulitis L03.90 and BMI 40.0-44.9, adult Z68.41 [facility] [address] [address] Aug, [facility] [address] [id number] 327 Jul, Trapezius muscle spasm M62.838 and Depression F32.9 [facility] [address] 836222- 1722 Jul, Marijuana abuse, continuous F12.10 ; Moderate episode of recurrent major depressive disorder F33.1 and Methamphetamine use disorder, severe, 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 [facility] [address] [address] Jul, [facility] [address] 389900- 4765 Jul, [facility] [address] [address] Jul, [facility] [address] [address]- [address] Jul, [facility] [address] [address]- [address] Jul, [facility] [address] [address] Jul, Diabetes mellitus with neuropathy E11.40 [facility] [address] [address]43- [address]93 Jul, Diabetes mellitus with neuropathy E11.40 ; Venous insufficiency (chronic) (peripheral) I87.2 ; Chest pain, unspecified type R07.9 ; Neuropathy G62.9 and Encounter for immunization Z23 [facility] [address] [address]- [address] Jun, [facility] [address] [address] Jun, [place] [address] [address] [id number] [id number] May, Dental examination Z01.20 [place] [id number] [place] [address]- 2342 Apr, Diabetes mellitus with neuropathy E11.40 and Depression F32.9 [address] [place] [address] 36[address]- 1208 Apr, Mild persistent asthma without complication J45.[address] [id number] [place] [id number] Mar, [address] [address] Mar, Depression F32.9 ; Adjustment disorder with disturbance of emotion F43.29 and Marijuana abuse, continuous F12.10 [place] [id number] [place] [address] 8016 Mar, [place] [id number] [place] [address] 20793- 9221 Mar, Acute pansinusitis, recurrence not specified J01.40 [place] [id number] [place] [address] 14106- 7176 Mar, Adjustment disorder with disturbance of emotion F43.29 ; Adjustment disorder with disturbance of conduct F43.24 ; Marijuana abuse, continuous F12.10 and Depression F32.9 [address] [place] [address] 71929- 1320 Mar, Depression F32.9 ; Marijuana abuse, continuous F12.10 and Adjustment disorder with disturbance of conduct F43.[address] [id number] [place] [id number] February, Bronchitis J40 and Acute diffuse otitis externa of right ear H60.311 [address] [place] [address] 89460- 1869 February, Diabetes mellitus with neuropathy E11.40 ; Mild persistent asthma without complication J45.30 ; Bronchitis J40 ; Depression F32.9 ; Neuropathy G62.9 ; Gout M10.9 ; Generalized edema R60.1 and Hyperlipemia E78.5 [place] [address] [address]- [address] February, Diabetes mellitus with neuropathy E11.40 [place] [address] [address] February, [place] [address] [address]- [address] February, [address] 16[address] Jan, [address] [address]- [address] Jan, [address] [address]- [address]14 Jan, Adjustment disorder with disturbance of emotion F43.29 ; Adjustment disorder with disturbance of conduct F43.24 ; Marijuana abuse, continuous F12.10 and Depression F32.[address] [address]- [address]44 Jan, [address] 8[address]18- 0455 Jan, Pilonidal cyst with abscess L05.01 and Abscess of skin of abdomen L02.[address] [address]82- 7563 Dec, Diabetes mellitus with neuropathy E11.40 [facility] [address] [id number] Dec, Dental examination Z01.[address] [address]80- [address]47 Dec, [place] [address] 23783- 8217 Nov, Depression F32.9 [facility] [id number] [place] [address] 15658- 2531 Nov, Depression F32.9 [place] [address] [address]- [address] Nov, Lateral epicondylitis of left elbow M77.12 ; Insulin long- term use Z79.4 and Neuropathy G62.9 [place] [address] [place] [address] [id number]- 2782 Nov, Adjustment disorder with disturbance of emotion F43.29 ; Adjustment disorder with disturbance of conduct F43.24 ; Marijuana abuse, continuous F12.10 and Depression F32.9 [place] [address] 27979- 6754 Oct, Adjustment disorder with disturbance of emotion F43.29 ; Marijuana abuse, continuous F12.10 ; Adjustment disorder with disturbance of conduct F43.24 and Severe episode of recurrent major depressive disorder, without psychotic features F33.2 [facility] [address] [id number] Oct, Dental examination Z01.20 [place] [address] 94768- 4632 Oct, Depression F32.9 [facility] [address] [id number] Oct, Dental examination Z01.20 [facility] [id number] [place] [address] 47071- 4662 Oct, Depression F32.9 ; Adjustment disorder with disturbance of conduct F43.24 ; Adjustment disorder with disturbance of emotion F43.29 and Marijuana abuse, continuous F12.10 [facility] [address] [id number] Oct, Dental examination Z01.20 [facility] [address] [id number] Oct, Dental caries K02.9 [facility] [id number] [place] [address] 19289- 7790 Oct, [facility] [id number] [place] [address] [id number] Sep, Dental examination Z01.20 [facility] [id number] [place] [address] 43937- 6860 Sep, [facility] [address] 55230- 0513 Sep, Insulin long-term use Z79.4 ; Gout M10.9 ; Diabetes mellitus with neuropathy E11.40 ; Depression F32.9 ; Hyperlipemia E78.5 ; Obstructive sleep apnea G47.33 ; Venous insufficiency (chronic) (peripheral) I87.2 ; Mild persistent asthma without complication J45.30 ; Neuropathy G62.9 and Marijuana abuse, continuous F12.10 [place] [id number] [place] [address] 14414- 7003 Sep, Adjustment disorder with disturbance of conduct F43.24 and Adjustment disorder with disturbance of emotion F43.29 [place] [id number] [place] [address] 39949- 4552 Sep, Diabetes mellitus with neuropathy E11.40 ; Dyspnea on exertion R06.09 and Venous insufficiency (chronic) (peripheral) I87.2 [place] [id number] [place] [address] 26247- 2707 Sep, Neuropathy G62.9 [place] [id number] [place] [address] 70098- 8697 13 Sep, 2016 [facility] [id number] [place] [address] [id number] Sep, Dental examination Z01.20 [facility] [id number] [place] [address] 18523- 3683 Sep, [place] [id number] [place] [address] 13526- 7247 Sep, [place] [address] [place] [address]- 3054 Sep, [place] [id number] [place] [address] 59054- 2678 05 Sep, 2016 Mild persistent asthma without complication J45.30 [facility] [id number] [place] [address] 08463- 2703 02 Sep, 2016 Insulin long-term use Z79.4 [place] [address] 16920- 8909 01 Sep, 2016 Diabetes mellitus with neuropathy E11.40 ; Generalized edema R60.1 and Mild persistent asthma without complication J45.30 [facility] [address] [id number] Aug, Dental examination Z01.20 [place] [id number] [place] [address] 06540- 5960 20 Jul, 2016 Urticaria L50.9 and Mild persistent asthma without complication J45.30 [place] [id number] [place] [address] 94802- 7388 10 Jul, 2016 Lateral epicondylitis of left elbow M77.12 and Venous insufficiency (chronic) (peripheral) I87.2 [place] [id number] [place] [address] 83825- 9832 May, Obstructive sleep apnea G47.33 and Diabetes mellitus with neuropathy E11.40 [place] [id number] [place] [address] 60536- 9885 May, Diabetes mellitus with neuropathy E11.40 [place] [id number] [place] [address] 42636- 6143 Mar, [place] [address] 42761- 6522 Mar, Dental examination Z01.20 [place] [id number] [place] [address] 15256- 0791 13 Mar, 2016 Insulin long-term use Z79.4 [place] [address] [facility] [id number], [place] [address]- 3099 Mar, Insulin long-term use Z79.4 [place] [address], [place] [address]- [address] February, Insulin long-term use Z79.4 [place] [address] [place] [address] [id number], [place] [address]- [address] February, [place] [address], [place] [address]- 8064 February, Hyperlipemia E78.[address] [id number] [place] [id number] February, Gout M10.9 and Diabetes mellitus with neuropathy E11.40 [place] [address], [place] [address]- 1556 Jan, Depression F32.9 [place] [address], [place] [address]- 0811 Jan, Insulin long-term use Z79.4 ; Gout M10.9 ; Candidiasis B37.9 ; Diabetes mellitus with neuropathy E11.40 and Depression F32.9 IMMUNIZATIONS No Known Immunizations SOCIAL HISTORY Never Assessed REASON FOR VISIT repository med metformin PLAN OF CARE VITAL SIGNS MEDICATIONS Medication Instructions Dosage Frequency Start Date End Date Duration Status MetFORMIN HCl ER 750 MG Orally twice a day 1 tablet with evening meal 12h Jan, 30 day(s) Active RESULTS No Results PROCEDURES No Known [...] 2 Hospitalization History [facility] 2016 Hospitalization History tick bite---[place] 02/2018
--- OUTSIDE RECORDS SUMMARY | 2018-06-16 19:21 | XMS REPORT ---
Author Author YVETTE MCCONNELL [facility] Address [address] [place] [address] Care Team Providers Care Associate Professor Of Library Science Name Role Phone YVETTE MCCONNELL Unavailable PROBLEMS Type Condition ICD9-CM Code ZEN23-CD Code Onset Dates Condition Status SNOMED Code Problem Neuropathy G62.9 Active 143296362 Problem Adjustment disorder with disturbance of emotion F43.29 Active 06903993 Problem Marijuana abuse, continuous F12.10 Active 980780443 Problem Gastroesophageal reflux disease without esophagitis K21.9 Active 113490134 Problem Acute gout involving toe of left foot, unspecified cause M10.9 Active 641145271 Problem Methamphetamine use disorder, severe, 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 Active 43399576 Problem Adjustment disorder with disturbance of conduct F43.24 Active 37497259 Problem Dyspepsia R10.13 Active 306871011 Problem Moderate episode of recurrent major depressive disorder F33.1 Active 373481746 Problem Candidiasis B37.9 Active 52726611 Problem Depression F32.9 Active 95115371 Problem Diabetes mellitus with neuropathy E11.40 Active 46877959 Problem Hyperlipemia E78.5 Active 18367160 Problem Obstructive sleep apnea G47.33 Active 04414410 Problem Insulin long-term use Z79.4 Active 521449654 Problem Venous insufficiency (chronic) (peripheral) I87.2 Active 26249428 Problem Gout M10.9 Active 07880878 Problem Mild persistent asthma without complication J45.30 Active 303810215 ALLERGIES No Known Allergies ENCOUNTERS Encounter Location Date Diagnosis [facility] [address] [address] Jul, [facility] [address] [id number] [address] Apr, [facility] [address] [facility] [id number] [place] [id number] Apr, Mild persistent asthma without complication J45.30 [facility] [address] [id number] [place] [id number] Mar, [facility] [address] [id number] [place] [id number] Mar, Diabetes mellitus with neuropathy E11.40 ; Insulin long-term use Z79.4 ; Depression F32.9 ; Hyperlipemia E78.5 ; Gastroesophageal reflux disease without esophagitis K21.9 and Edema, unspecified type R60.9 [facility] [address] [id number] [place] [id number] Mar, Generalized edema R60.1 and Diabetes mellitus with neuropathy E11.40 [facility] [address] [id number] [place] [id number] Mar, Neuropathy G62.[address] [id number] [place] [id number] February, Insect bite (nonvenomous) of lower back and pelvis, initial encounter S30.860A ; Bitten or stung by nonvenomous insect and other nonvenomous arthropods, initial encounter W57.XXXA and Cellulitis of back L03.312 [facility] [address] [id number] [place] [id number] February, Diabetes mellitus with neuropathy E11.[address] [id number] [place] [id number] February, Generalized edema R60.1 and Diabetes mellitus with neuropathy E11.40 [facility] [address] [facility] [id number] [place] [address] Jan, [address] [id number] [place] [id number] Jan, Gastroesophageal reflux disease without esophagitis K21.9 and Acute gout involving toe of left foot, unspecified cause M10.[address] [id number] [place] [id number] Jan, Marijuana abuse, continuous F12.10 ; Mild persistent asthma without complication J45.30 ; BMI 40.0-44.9, adult Z68.41 and Diabetes mellitus with neuropathy E11.40 [facility] [address] [place] [address] Jan, [facility] [id number] [place] [id number] Jan, BMI 40.0-44.9, adult Z68.41 and Intractable vomiting with nausea, unspecified vomiting type R11.2 [facility] [address] [facility] [address] [id number] [place] [id number] Dec, BMI 40.0-44.9, adult Z68.41 and Abrasion hip/leg S80.819A [place] [id number] [place] [address] Nov, Neuropathy G62.9 [place] [address] [address] Oct, [place] [address] [address] Oct, [place] [address] [address] Oct, Diabetes mellitus with neuropathy E11.40 ; Dyspepsia R10.13 ; Mild persistent asthma without complication J45.30 and Depression F32.9 [place] [id number] [place] [address] 8627 Oct, Generalized edema R60.1 and Diabetes mellitus with neuropathy E11.40 [place] [address] [address] Sep, [place] [address] [address] Aug, [facility] [id number] [place] [address] Aug, Cellulitis L03.90 and BMI 40.0-44.9, adult Z68.41 [place] [address] [address]- [address] Aug, [place] [address] [address] Jul, Trapezius muscle spasm M62.838 and Depression F32.9 [place] [address] [address] Jul, Marijuana abuse, continuous F12.10 ; Moderate episode of recurrent major depressive disorder F33.1 and Methamphetamine use disorder, severe, 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 [place] [address] [address] Jul, [place] [address] [address] Jul, [place] [address] [address] Jul, [place] [address] [address] Jul, [place] [address] [address] Jul, [place] [address] [address] Jul, Diabetes mellitus with neuropathy E11.40 [place] [address] [address] Jul, Diabetes mellitus with neuropathy E11.40 ; Venous insufficiency (chronic) (peripheral) I87.2 ; Chest pain, unspecified type R07.9 ; Neuropathy G62.9 and Encounter for immunization Z23 [facility] [id number] [place] [address]36- 6166 Jun, [place] [address] [address] Jun, [facility] [address] [id number] [id number] May, Dental examination Z01.[address] [id number] [place] [address] Apr, Diabetes mellitus with neuropathy E11.40 and Depression F32.[address] [place] [address] 74555- 2975 Apr, Mild persistent asthma without complication J45.[address] [id number] [place] [id number] Mar, [address] [address] Mar, Depression F32.9 ; Adjustment disorder with disturbance of emotion F43.29 and Marijuana abuse, continuous F12.10 [place] [id number] [place] [address] Mar, [place] [id number] [place] [address] 65[address]- 4569 Mar, Acute pansinusitis, recurrence not specified J01.40 [place] [address] [id number] [place] [address] Mar, Adjustment disorder with disturbance of emotion F43.29 ; Adjustment disorder with disturbance of conduct F43.24 ; Marijuana abuse, continuous F12.10 and Depression F32.9 [address] [place] [address] 75520- 1050 Mar, Depression F32.9 ; Marijuana abuse, continuous F12.10 and Adjustment disorder with disturbance of conduct F43.[address] [id number] [place] [id number] February, Bronchitis J40 and Acute diffuse otitis externa of right ear H60.[address] [place] [address] 35177- 4[address] February, Diabetes mellitus with neuropathy E11.40 ; Mild persistent asthma without complication J45.30 ; Bronchitis J40 ; Depression F32.9 ; Neuropathy G62.9 ; Gout M10.9 ; Generalized edema R60.1 and Hyperlipemia E78.[address] [address]- [address] February, Diabetes mellitus with neuropathy E11.40 [place] [address] [address] February, [place] [address] [address] February, [address] [address] Jan, [place] [address] [address]156 Jan, [address] [address]- 4[address] Jan, Adjustment disorder with disturbance of emotion F43.29 ; Adjustment disorder with disturbance of conduct F43.24 ; Marijuana abuse, continuous F12.10 and Depression F32.[address] [address]- 9278 Jan, [address] [address]- [address] Jan, Pilonidal cyst with abscess L05.01 and Abscess of skin of abdomen L02.[address] [address] Dec, Diabetes mellitus with neuropathy E11.40 [facility] [address] [id number] Dec, Dental examination Z01.[address] [address]- [address] Dec, [place] [address] 11[address] Nov, Depression F32.9 [facility] [id number] [place] [address] 50044- 1354 Nov, Depression F32.9 [place] [address] [address]- [address] Nov, Lateral epicondylitis of left elbow M77.12 ; Insulin long- term use Z79.4 and Neuropathy G62.9 [place] [address] [place] [address] [id number]- 6[address] Nov, Adjustment disorder with disturbance of emotion F43.29 ; Adjustment disorder with disturbance of conduct F43.24 ; Marijuana abuse, continuous F12.10 and Depression F32.9 [place] [address] [id number]- 8469 Oct, Adjustment disorder with disturbance of emotion F43.29 ; Marijuana abuse, continuous F12.10 ; Adjustment disorder with disturbance of conduct F43.24 and Severe episode of recurrent major depressive disorder, without psychotic features F33.2 [facility] [address] [id number] Oct, Dental examination Z01.20 [place] [id number] [place] [address] Oct, Depression F32.9 [facility] [address] [id number] Oct, Dental examination Z01.20 [facility] [address] [address]- [address]83 Oct, Depression F32.9 ; Adjustment disorder with disturbance of conduct F43.24 ; Adjustment disorder with disturbance of emotion F43.29 and Marijuana abuse, continuous F12.10 [facility] [address] [id number] Oct, Dental examination Z01.20 [facility] [address] [id number] Oct, Dental caries K02.9 [facility] [id number] [place] [address] 61364- 0773 Oct, [facility] [id number] [place] [id number] Sep, Dental examination Z01.20 [facility] [id number] [place] [address] 15991- 6979 Sep, [place] [address] 32841- 8631 Sep, Insulin long-term use Z79.4 ; Gout M10.9 ; Diabetes mellitus with neuropathy E11.40 ; Depression F32.9 ; Hyperlipemia E78.5 ; Obstructive sleep apnea G47.33 ; Venous insufficiency (chronic) (peripheral) I87.2 ; Mild persistent asthma without complication J45.30 ; Neuropathy G62.9 and Marijuana abuse, continuous F12.10 [place] [id number] [place] [address] 77662- 4740 Sep, Adjustment disorder with disturbance of conduct F43.24 and Adjustment disorder with disturbance of emotion F43.29 [place] [id number] [place] [address] 82717- 1125 Sep, Diabetes mellitus with neuropathy E11.40 ; Dyspnea on exertion R06.09 and Venous insufficiency (chronic) (peripheral) I87.2 [place] [id number] [place] [address] 94266- 1359 Sep, Neuropathy G62.9 [place] [id number] [place] [address] 65850- 7416 13 Sep, 2016 [facility] [id number] [place] [id number] Sep, Dental examination Z01.20 [facility] [id number] [place] [address] 27002- 3139 Sep, [place] [id number] [place] [address] 74905- 8139 Sep, [place] [address] [place] [address] 05495- 8351 Sep, [place] [id number] [place] [address] 16091- 9205 Sep, Mild persistent asthma without complication J45.30 [place] [id number] [place] [address] 87994- 1289 02 Sep, 2016 Insulin long-term use Z79.4 [place] [address] 53312- 9128 01 Sep, 2016 Diabetes mellitus with neuropathy E11.40 ; Generalized edema R60.1 and Mild persistent asthma without complication J45.30 [facility] [address] [id number] Aug, Dental examination Z01.20 [place] [id number] [place] [address] 55959- 3911 20 Jul, 2016 Urticaria L50.9 and Mild persistent asthma without complication J45.30 [place] [id number] [place] [address] 50184- 9257 10 Jul, 2016 Lateral epicondylitis of left elbow M77.12 and Venous insufficiency (chronic) (peripheral) I87.2 [place] [id number] [place] [address] 93590- 5727 May, Obstructive sleep apnea G47.33 and Diabetes mellitus with neuropathy E11.40 [place] [id number] [place] [address] 88843- 9822 May, Diabetes mellitus with neuropathy E11.40 [place] [id number] [place] [address] 75141- 7504 Mar, [place] [address] 56381- 5749 Mar, Dental examination Z01.20 [place] [id number] [place] [address] 37312- 7034 13 Mar, 2016 Insulin long-term use Z79.4 [place] [address] [facility] [id number] [address]- [address] Mar, Insulin long-term use Z79.4 [place] [address] [address] February, Insulin long-term use Z79.4 [place] [address] [address]- 52[address] February, [place] [id number] [place] [address] 17000- 8365 February, Hyperlipemia E78.[address] [id number] [place] [id number] February, Gout M10.9 and Diabetes mellitus with neuropathy E11.40 [place] [address] [address]- 7020 Jan, Depression F32.9 [place] [address] [address]- 7060 Jan, Insulin long-term use Z79.4 ; Gout M10.9 ; Candidiasis B37.9 ; Diabetes mellitus with neuropathy E11.40 and Depression F32.9 IMMUNIZATIONS No Known Immunizations SOCIAL HISTORY Never Assessed REASON FOR VISIT tick bite right shoulder and left foot, [facility] to [facility] Monday02/23/18 and was given 2 creams and thinks looks worse---yvonne RN PLAN OF CARE Activity Details Follow Up prn Reason:make transition appt next avaliable PCP in [place] VITAL SIGNS Height 71.2 in 2018-02-27 Weight 299.6 lbs 2018-02-27 Temperature 96.9 degrees Fahrenheit 2018-02-27 Heart Rate 91 bpm 2018-02-27 Respiratory Rate 18 2018-02-27 BMI 41.55 kg/m2 2018-02-27 Blood pressure systolic 112 mmHg 2018-02-27 Blood pressure diastolic 68 mmHg 2018-02-27 MEDICATIONS Medication Instructions Dosage Frequency Start Date End Date Duration Status Levemir 100 UNIT/ML Subcutaneous Once a day 35 units 24h 28 Active Naprosyn 500 mg Orally 2 times a day, pc 1 tablet as needed Jul, Active Omeprazole 40 MG Orally Once a day 1 capsule 24h Oct, Active Victoza 18 MG/3ML Subcutaneous Once a day 1.8 mg daily 24h 18 Jul, 2017 Active Doxycycline Monohydrate 100 mg Orally twice a day 1 capsule 12h February, February, 10 days Active Mirtazapine 7.5 MG Orally every bedtime 1 tablet Mar, 30 days Active Symbicort 160-4.5 MCG/ACT Inhalation Twice a day 2 puffs 12h Active Zocor 40 mg Orally Once a day 1 tablet in the evening 24h Active MetFORMIN HCl ER 750 MG Orally twice a day 1 tablet with evening meal 12h Jan, 30 day(s) Active C-PAP Machine Active Lasix 20 mg Orally Once a day 1 tablet 24h Sep, 30 days Active Ventolin HFA 108 (90 Base) MCG/ACT Inhalation every 6 hrs 2 puffs as needed 6h Jan, 0 days Active Gabapentin 400 MG Orally Three times a day 2 capsules 8h May, Active Zofran 8 MG Orally 3 times daily before meals 1 tablet Jan, 14 days Active Allopurinol 100 mg Orally Once a day 1 tablet 24h Jan, Active Wellbutrin XL 150 MG Orally every morning with 300mg tab 1 tablet Jul 30 days Active Colchicine 0.6 MG Orally Once a day 1 tablet 24h Active NovoLog 100 UNIT/ML Subcutaneous 3 times a day 10 units 8h 84 Active GlipiZIDE 5 mg Orally twice a day 1 tablet 12h 30 days Active Klor-Con 10 10 MEQ Orally Twice a day 1 tablet with food 12h Jan, Active Gemfibrozil 600 MG Orally Twice a day 1 tablet 12h Active Wellbutrin XL 300 MG Orally every [...] Surgical History [facility]2017 Hospitalization History Surgery Hospitalization History Heart attacks x 2 Hospitalization History pylonial cyst removal from [facility] [place] Hospitalization History tick bite---[place] 02/2018
--- OUTSIDE RECORDS SUMMARY | 2018-06-16 19:22 | XMS REPORT ---
Author Author YVETTE MCCONNELL [facility] Address [address] [place] [address] Care Team Providers Care Cell Room Operator Name Role Phone YVETTE MCCONNELL Unavailable PROBLEMS Type Condition ICD9-CM Code UHG39-JP Code Onset Dates Condition Status SNOMED Code Problem Neuropathy G62.9 Active 783231991 Problem Adjustment disorder with disturbance of emotion F43.29 Active 42191802 Problem Marijuana abuse, continuous F12.10 Active 467840249 Problem Gastroesophageal reflux disease without esophagitis K21.9 Active 595026748 Problem Acute gout involving toe of left foot, unspecified cause M10.9 Active 003242126 Problem Methamphetamine use disorder, severe, 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 Active 89432901 Problem Adjustment disorder with disturbance of conduct F43.24 Active 25790340 Problem Dyspepsia R10.13 Active 572537226 Problem Moderate episode of recurrent major depressive disorder F33.1 Active 260035658 Problem Candidiasis B37.9 Active 12069742 Problem Depression F32.9 Active 27117736 Problem Diabetes mellitus with neuropathy E11.40 Active 01028681 Problem Hyperlipemia E78.5 Active 24019019 Problem Obstructive sleep apnea G47.33 Active 21560787 Problem Insulin long-term use Z79.4 Active 473964976 Problem Venous insufficiency (chronic) (peripheral) I87.2 Active 12812460 Problem Gout M10.9 Active 24015135 Problem Mild persistent asthma without complication J45.30 Active 312208635 ALLERGIES No Information ENCOUNTERS Encounter Location Date Diagnosis [facility] [address] [address] Jul, [facility] [address] [facility] [id number] [address] Apr, [facility] [id number] [id number] Apr, Mild persistent asthma without complication J45.30 [facility] [address] [place] [address] AVE [id number] [id number] Mar, Diabetes mellitus with neuropathy E11.40 ; Insulin long-term use Z79.4 ; Depression F32.9 ; Hyperlipemia E78.5 ; Gastroesophageal reflux disease without esophagitis K21.9 and Edema, unspecified type R60.9 [facility] [address] [id number] [id number] Mar, [facility] [address] [id number] [place] [id number] Mar, Generalized edema R60.1 and Diabetes mellitus with neuropathy E11.40 [facility] [place] [address]quez[address] [place] [address] AVE [id number][place] [id number] Mar, Neuropathy G62.9 [facility] [address] [id number][place] [id number] February, Insect bite (nonvenomous) of lower back and pelvis, initial encounter S30.860A ; Bitten or stung by nonvenomous insect and other nonvenomous arthropods, initial encounter W57.XXXA and Cellulitis of back L03.312 [facility] [place] Ron[address] [place] [address] AVE [id number][place] [id number] February, Diabetes mellitus with neuropathy E11.40 [facility] [address] [id number][place] [id number] February, Generalized edema R60.1 and Diabetes mellitus with neuropathy E11.40 [facility] [address] [facility] [id number] [place] [address] Jan, [facility] [address] [id number][place] [id number] Jan, Gastroesophageal reflux disease without esophagitis K21.9 and Acute gout involving toe of left foot, unspecified cause M10.9 [facility] [address] [id number][place] [id number] Jan, Marijuana abuse, continuous F12.10 ; Mild persistent asthma without complication J45.30 ; BMI 40.0-44.9, adult Z68.41 and Diabetes mellitus with neuropathy E11.40 [facility] [address] [place] [address] Jan, [facility] [id number] [place] [id number] Jan, BMI 40.0-44.9, adult Z68.41 and Intractable vomiting with nausea, unspecified vomiting type R11.2 [place] [id number] [facility] [address] [id number][place] [id number] Dec, BMI 40.0-44.9, adult Z68.41 and Abrasion hip/leg S80.819A [place] [id number] [place] [address]16- 2423 Nov, Neuropathy G62.9 [place] [id number] [place] [address]1647- 7314 Oct, [place] [address] [address] Oct, [place] [address] [address] Oct, Diabetes mellitus with neuropathy E11.40 ; Dyspepsia R10.13 ; Mild persistent asthma without complication J45.30 and Depression F32.9 [place] [id number] [place] [address]85- 1617 Oct, Generalized edema R60.1 and Diabetes mellitus with neuropathy E11.40 [place] [id number] [place] [address]879- 7649 Sep, [place] [id number] [place] [address]47- 5146 Aug, [facility] [id number] [place] [address]96 -[address]79 Aug, Cellulitis L03.90 and BMI 40.0-44.9, adult Z68.41 [facility] [address] [address] Aug, [facility] [address]26952 708 Jul, Trapezius muscle spasm M62.838 and Depression F32.9 [facility] [address] 726950- [address] Jul, Marijuana abuse, continuous F12.10 ; Moderate episode of recurrent major depressive disorder F33.1 and Methamphetamine use disorder, severe, 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 [facility] [address] [address]- [address] Jul, [facility] [address] 030331- [address] Jul, [facility] [address] [address]- [address] Jul, [facility] [address] [address]- [address]229 Jul, [facility] [address] [address] Jul, [facility] [address] [address] Jul, Diabetes mellitus with neuropathy E11.40 [facility] [address] [address] Jul, Diabetes mellitus with neuropathy E11.40 ; Venous insufficiency (chronic) (peripheral) I87.2 ; Chest pain, unspecified type R07.9 ; Neuropathy G62.9 and Encounter for immunization Z23 [facility] [address] [address]- [address] Jun, [facility] [address] [address] Jun, [place] [id number] [id number] May, Dental examination Z01.20 [place] [id number] [place] [address]21- 6980 Apr, Diabetes mellitus with neuropathy E11.40 and Depression F32.9 [address] [place] [address] 37237- 7467 Apr, Mild persistent asthma without complication J45.[address] [id number] [id number] Mar, [address] [address] Mar, Depression F32.9 ; Adjustment disorder with disturbance of emotion F43.29 and Marijuana abuse, continuous F12.10 [place] [id number] [place] [address]34- 2389 Mar, [place] [id number] [place] [address] 51726- 8958 Mar, Acute pansinusitis, recurrence not specified J01.40 [place] [id number] [place] [address] 10982- 4572 Mar, Adjustment disorder with disturbance of emotion F43.29 ; Adjustment disorder with disturbance of conduct F43.24 ; Marijuana abuse, continuous F12.10 and Depression F32.9 [address] [place] [address] 24309- 4678 Mar, Depression F32.9 ; Marijuana abuse, continuous F12.10 and Adjustment disorder with disturbance of conduct F43.[address] [id number] [id number] February, Bronchitis J40 and Acute diffuse otitis externa of right ear H60.[address] [place] [address] 24642- 9852 February, Diabetes mellitus with neuropathy E11.40 ; Mild persistent asthma without complication J45.30 ; Bronchitis J40 ; Depression F32.9 ; Neuropathy G62.9 ; Gout M10.9 ; Generalized edema R60.1 and Hyperlipemia E78.5 [place] [address] 15478- 7838 February, Diabetes mellitus with neuropathy E11.40 [place] [address] 8[address]- [address]73 February, [place] [address] [address]- 4076 February, [address] [address]- 8086 Jan, [address] [address]- 9825 Jan, [address] [address]- 6780 Jan, Adjustment disorder with disturbance of emotion F43.29 ; Adjustment disorder with disturbance of conduct F43.24 ; Marijuana abuse, continuous F12.10 and Depression F32.[address] 81826- 1351 Jan, [address] 41917- 9358 Jan, Pilonidal cyst with abscess L05.01 and Abscess of skin of abdomen L02.[address] [address]- [address] Dec, Diabetes mellitus with neuropathy E11.40 [facility] [address] [id number] Dec, Dental examination Z01.[address] [address]19- 77[address] Dec, [place] [address] 79202- 9751 Nov, Depression F32.9 [facility] [id number] [place] [address] 53396- 4106 Nov, Depression F32.9 [place] [address] 27791- 4298 Nov, Lateral epicondylitis of left elbow M77.12 ; Insulin long- term use Z79.4 and Neuropathy G62.9 [place] [address] [place] [address] [id number]- 2201 Nov, Adjustment disorder with disturbance of emotion F43.29 ; Adjustment disorder with disturbance of conduct F43.24 ; Marijuana abuse, continuous F12.10 and Depression F32.9 [place] [address] 53083- 9834 Oct, Adjustment disorder with disturbance of emotion F43.29 ; Marijuana abuse, continuous F12.10 ; Adjustment disorder with disturbance of conduct F43.24 and Severe episode of recurrent major depressive disorder, without psychotic features F33.2 [facility] [address] [id number] Oct, Dental examination Z01.20 [place] [address] 72005- 9167 Oct, Depression F32.9 [facility] [address] [id number] Oct, Dental examination Z01.20 [facility] [id number] [place] [address] 47163- 0047 Oct, Depression F32.9 ; Adjustment disorder with disturbance of conduct F43.24 ; Adjustment disorder with disturbance of emotion F43.29 and Marijuana abuse, continuous F12.10 [facility] [address] [id number] Oct, Dental examination Z01.20 [facility] [address] [id number] Oct, Dental caries K02.9 [facility] [id number] [place] [address] 90438- 7997 Oct, [facility] [id number] [place] [address] [id number] Sep, Dental examination Z01.20 [facility] [id number] [place] [address] 79675- 6354 Sep, [facility] [address] 39219- 1691 Sep, Insulin long-term use Z79.4 ; Gout M10.9 ; Diabetes mellitus with neuropathy E11.40 ; Depression F32.9 ; Hyperlipemia E78.5 ; Obstructive sleep apnea G47.33 ; Venous insufficiency (chronic) (peripheral) I87.2 ; Mild persistent asthma without complication J45.30 ; Neuropathy G62.9 and Marijuana abuse, continuous F12.10 [place] [id number] [place] [address] 02731- 6233 Sep, Adjustment disorder with disturbance of conduct F43.24 and Adjustment disorder with disturbance of emotion F43.29 [place] [id number] [place] [address] 99846- 2639 Sep, Diabetes mellitus with neuropathy E11.40 ; Dyspnea on exertion R06.09 and Venous insufficiency (chronic) (peripheral) I87.2 [place] [id number] [place] [address] 33354- 9752 Sep, Neuropathy G62.9 [place] [id number] [place] [address] 96773- 1279 13 Sep, 2016 [facility] [id number] [place] [address] [id number] Sep, Dental examination Z01.20 [facility] [id number] [place] [address] 71201- 8237 Sep, [place] [id number] [place] [address] 43561- 8348 Sep, [place] [address] [place] [address] [place] [address]- 6883 Sep, [place] [id number] [place] [address] 38307- 6311 05 Sep, 2016 Mild persistent asthma without complication J45.30 [facility] [id number] [place] [address] 11179- 9391 02 Sep, 2016 Insulin long-term use Z79.4 [place] [address] 12230- 7129 01 Sep, 2016 Diabetes mellitus with neuropathy E11.40 ; Generalized edema R60.1 and Mild persistent asthma without complication J45.30 [facility] [address] [id number] Aug, Dental examination Z01.20 [place] [id number] [place] [address] 22434- 5021 20 Jul, 2016 Urticaria L50.9 and Mild persistent asthma without complication J45.30 [place] [id number] [place] [address] 75641- 2211 10 Jul, 2016 Lateral epicondylitis of left elbow M77.12 and Venous insufficiency (chronic) (peripheral) I87.2 [place] [id number] [place] [address] 84641- 9942 May, Obstructive sleep apnea G47.33 and Diabetes mellitus with neuropathy E11.40 [place] [id number] [place] [address] 71353- 0310 May, Diabetes mellitus with neuropathy E11.40 [place] [id number] [place] [address] 07576- 3626 Mar, [place] [address] 19939- 9609 Mar, Dental examination Z01.20 [place] [id number] [place] [address] 72627- 8597 13 Mar, 2016 Insulin long-term use Z79.4 [place] [address] [facility] [id number] [address]- 1883 Mar, Insulin long-term use Z79.4 [place] [address] [address]- 6776 February, Insulin long-term use Z79.4 [place] [address] [facility] [id number] [address]- 8780 February, [place] [address] [address]- 4095 February, Hyperlipemia E78.[address] [id number] [id number] February, Gout M10.9 and Diabetes mellitus with neuropathy E11.40 [place] [address] [address]- 8483 Jan, Depression F32.9 [place] [address] [address]- 2826 Jan, Insulin long-term use Z79.4 ; Gout M10.9 ; Candidiasis B37.9 ; Diabetes mellitus with neuropathy E11.40 and Depression F32.9 IMMUNIZATIONS No Known Immunizations SOCIAL HISTORY Never Assessed REASON FOR VISIT PLAN OF CARE VITAL SIGNS MEDICATIONS Medication Instructions Dosage Frequency Start Date End Date Duration Status Keflex 500 mg Orally 2 times a day 1 capsule 12h Jan, February, 10 day(s) Active RESULTS No Results PROCEDURES No [...] 2 Hospitalization History pylonial cyst removal from [facility] 2016 Hospitalization History tick bite---[place] 02/2018
--- OUTSIDE RECORDS SUMMARY | 2018-06-16 19:22 | XMS REPORT ---
Author Author YVETTE MCCONNELL [facility] Address [address] [place] [address] Care Team Providers Care Product Delivery Specialist Name Role Phone YVETTE MCCONNELL Unavailable PROBLEMS Type Condition ICD9-CM Code XLI41-UT Code Onset Dates Condition Status SNOMED Code Problem Neuropathy G62.9 Active 131104720 Problem Adjustment disorder with disturbance of emotion F43.29 Active 80330464 Problem Marijuana abuse, continuous F12.10 Active 504929633 Problem Gastroesophageal reflux disease without esophagitis K21.9 Active 937213752 Problem Acute gout involving toe of left foot, unspecified cause M10.9 Active 424103096 Problem Methamphetamine use disorder, severe, 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 Active 38341020 Problem Adjustment disorder with disturbance of conduct F43.24 Active 07459953 Problem Dyspepsia R10.13 Active 935425231 Problem Moderate episode of recurrent major depressive disorder F33.1 Active 931928829 Problem Candidiasis B37.9 Active 25963834 Problem Depression F32.9 Active 24956291 Problem Diabetes mellitus with neuropathy E11.40 Active 24564635 Problem Hyperlipemia E78.5 Active 07596963 Problem Obstructive sleep apnea G47.33 Active 02344872 Problem Insulin long-term use Z79.4 Active 840386549 Problem Venous insufficiency (chronic) (peripheral) I87.2 Active 56219776 Problem Gout M10.9 Active 82224063 Problem Mild persistent asthma without complication J45.30 Active 867984989 ALLERGIES No Known Allergies ENCOUNTERS Encounter Location Date Diagnosis [facility] [address] [address] Jul, [facility] [id number] [address] Apr, [facility] [address] [facility] [id number] [id number] Apr, Mild persistent asthma without complication J45.30 [facility] [address] [id number][place] [id number] Mar, [facility] [address] [id number][place] [id number] Mar, Diabetes mellitus with neuropathy E11.40 ; Insulin long-term use Z79.4 ; Depression F32.9 ; Hyperlipemia E78.5 ; Gastroesophageal reflux disease without esophagitis K21.9 and Edema, unspecified type R60.9 [facility] [address] [id number] [id number] Mar, Generalized edema R60.1 and Diabetes mellitus with neuropathy E11.40 [facility] [address] [id number][place] [id number] Mar, Neuropathy G62.[address] [id number][place] [id number] February, Insect bite (nonvenomous) of lower back and pelvis, initial encounter S30.860A ; Bitten or stung by nonvenomous insect and other nonvenomous arthropods, initial encounter W57.XXXA and Cellulitis of back L03.312 [facility] [address] [id number][place] [id number] February, Diabetes mellitus with neuropathy E11.[address] [id number][place] [id number] February, Generalized edema R60.1 and Diabetes mellitus with neuropathy E11.40 [facility] [address] [facility] [id number] [address] Jan, [address] [id number][place] [id number] Jan, Gastroesophageal reflux disease without esophagitis K21.9 and Acute gout involving toe of left foot, unspecified cause M10.[address] [id number][place] [id number] Jan, Marijuana abuse, continuous F12.10 ; Mild persistent asthma without complication J45.30 ; BMI 40.0-44.9, adult Z68.41 and Diabetes mellitus with neuropathy E11.40 [facility] [address] [place] [address] Jan, [facility] [id number][place] [id number] Jan, BMI 40.0-44.9, adult Z68.41 and Intractable vomiting with nausea, unspecified vomiting type R11.2 [facility] [address] [id number][place] [id number] Dec, BMI 40.0-44.9, adult Z68.41 and Abrasion hip/leg S80.819A [place] [id number] [place] [address] Nov, Neuropathy G62.9 [place] [address] [address] Oct, [place] [address] [address] Oct, [place] [address] [address] Oct, Diabetes mellitus with neuropathy E11.40 ; Dyspepsia R10.13 ; Mild persistent asthma without complication J45.30 and Depression F32.9 [place] [id number] [place] [address]- [address] Oct, Generalized edema R60.1 and Diabetes mellitus with neuropathy E11.40 [place] [address] [address] Sep, [place] [address] [address] Aug, [facility] [id number] [place] [address] Aug, Cellulitis L03.90 and BMI 40.0-44.9, adult Z68.41 [place] [address] [address] Aug, [place] [address] [address] Jul, Trapezius muscle spasm M62.838 and Depression F32.9 [place] [address] [address] Jul, Marijuana abuse, continuous F12.10 ; Moderate episode of recurrent major depressive disorder F33.1 and Methamphetamine use disorder, severe, 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 [place] [address] [address] Jul, [place] [address] [address] Jul, [place] [address] [address] Jul, [place] [address] [address] Jul, [place] [address] [address] Jul, [place] [address] [address] Jul, Diabetes mellitus with neuropathy E11.40 [place] [address] [address] Jul, Diabetes mellitus with neuropathy E11.40 ; Venous insufficiency (chronic) (peripheral) I87.2 ; Chest pain, unspecified type R07.9 ; Neuropathy G62.9 and Encounter for immunization Z23 [facility] [id number] [place] [address] Jun, [place] [address] [address] Jun, [facility] [id number] [id number] May, Dental examination Z01.20 [id number] [place] [address] Apr, Diabetes mellitus with neuropathy E11.40 and Depression F32.9 [address] [place] [address]- 4987 Apr, Mild persistent asthma without complication J45.[address] [id number][place] [id number] Mar, [address] [address] Mar, Depression F32.9 ; Adjustment disorder with disturbance of emotion F43.29 and Marijuana abuse, continuous F12.10 [place] [id number] [place] [address]- 5[address] Mar, [place] [id number] [place] [address]28[address] 77[address] Mar, Acute pansinusitis, recurrence not specified J01.40 [place] [id number] [place] [address]70[address] 8807 Mar, Adjustment disorder with disturbance of emotion F43.29 ; Adjustment disorder with disturbance of conduct F43.24 ; Marijuana abuse, continuous F12.10 and Depression F32.9 [address] [place] [address] Mar, Depression F32.9 ; Marijuana abuse, continuous F12.10 and Adjustment disorder with disturbance of conduct F43.[address] [id number][place] [id number] February, Bronchitis J40 and Acute diffuse otitis externa of right ear H60.311 [address] [place] [address] 24[address]- 2246 February, Diabetes mellitus with neuropathy E11.40 ; Mild persistent asthma without complication J45.30 ; Bronchitis J40 ; Depression F32.9 ; Neuropathy G62.9 ; Gout M10.9 ; Generalized edema R60.1 and Hyperlipemia E78.[address] [address] February, Diabetes mellitus with neuropathy E11.40 [place] [address] [address] February, [place] [address] [address] 1378 February, [address] [address] Jan, [place] [address] [address]- [address]41 Jan, [address] [address]- [address] Jan, Adjustment disorder with disturbance of emotion F43.29 ; Adjustment disorder with disturbance of conduct F43.24 ; Marijuana abuse, continuous F12.10 and Depression F32.[address] [address]- [address]396 Jan, [address] [address]- [address] Jan, Pilonidal cyst with abscess L05.01 and Abscess of skin of abdomen L02.[address] [address] Dec, Diabetes mellitus with neuropathy E11.40 [facility] [address] [id number] Dec, Dental examination Z01.[address] [address] Dec, [place] [address] [address] Nov, Depression F32.9 [facility] [id number] [place] [address] 6[address]17- 9565 Nov, Depression F32.9 [place] [address] [address]- [address] Nov, Lateral epicondylitis of left elbow M77.12 ; Insulin long- term use Z79.4 and Neuropathy G62.9 [place] [address] [address]39- 7[address] Nov, Adjustment disorder with disturbance of emotion F43.29 ; Adjustment disorder with disturbance of conduct F43.24 ; Marijuana abuse, continuous F12.10 and Depression F32.9 [place] [address] [address]99734- 5796 Oct, Adjustment disorder with disturbance of emotion F43.29 ; Marijuana abuse, continuous F12.10 ; Adjustment disorder with disturbance of conduct F43.24 and Severe episode of recurrent major depressive disorder, without psychotic features F33.2 [facility] [address] [id number] Oct, Dental examination Z01.20 [place] [id number] [place] [address] Oct, Depression F32.9 [facility] [address] [id number] Oct, Dental examination Z01.20 [facility] [address] [address] Oct, Depression F32.9 ; Adjustment disorder with disturbance of conduct F43.24 ; Adjustment disorder with disturbance of emotion F43.29 and Marijuana abuse, continuous F12.10 [facility] [address] [id number] Oct, Dental examination Z01.20 [facility] [address] [id number] Oct, Dental caries K02.9 [facility] [id number] [place] [address] 75219- 0656 Oct, [facility] [id number] [place] [id number] Sep, Dental examination Z01.20 [facility] [id number] [place] [address] 28933- 7804 Sep, [place] [address] 08136- 8308 Sep, Insulin long-term use Z79.4 ; Gout M10.9 ; Diabetes mellitus with neuropathy E11.40 ; Depression F32.9 ; Hyperlipemia E78.5 ; Obstructive sleep apnea G47.33 ; Venous insufficiency (chronic) (peripheral) I87.2 ; Mild persistent asthma without complication J45.30 ; Neuropathy G62.9 and Marijuana abuse, continuous F12.10 [place] [id number] [place] [address] 48938- 7272 Sep, Adjustment disorder with disturbance of conduct F43.24 and Adjustment disorder with disturbance of emotion F43.29 [place] [id number] [place] [address] 56943- 0269 Sep, Diabetes mellitus with neuropathy E11.40 ; Dyspnea on exertion R06.09 and Venous insufficiency (chronic) (peripheral) I87.2 [place] [id number] [place] [address] 70586- 6017 Sep, Neuropathy G62.9 [place] [id number] [place] [address] 96017- 0023 13 Sep, 2016 [facility] [id number] [place] [id number] Sep, Dental examination Z01.20 [facility] [id number] [place] [address] 71277- 8135 Sep, [place] [id number] [place] [address] 60264- 8012 Sep, [place] [id number] [place] [address] 80593- 2758 Sep, [place] [id number] [place] [address] 73374- 2759 Sep, Mild persistent asthma without complication J45.30 [place] [id number] [place] [address] 83718- 8746 02 Sep, 2016 Insulin long-term use Z79.4 [place] [address] 20743- 7769 01 Sep, 2016 Diabetes mellitus with neuropathy E11.40 ; Generalized edema R60.1 and Mild persistent asthma without complication J45.30 [facility] [address] [id number] Aug, Dental examination Z01.20 [place] [id number] [place] [address] 97302- 1047 20 Jul, 2016 Urticaria L50.9 and Mild persistent asthma without complication J45.30 [place] [id number] [place] [address] 79909- 4193 10 Jul, 2016 Lateral epicondylitis of left elbow M77.12 and Venous insufficiency (chronic) (peripheral) I87.2 [place] [id number] [place] [address] 05405- 3196 May, Obstructive sleep apnea G47.33 and Diabetes mellitus with neuropathy E11.40 [place] [id number] [place] [address] 77376- 0650 May, Diabetes mellitus with neuropathy E11.40 [place] [id number] [place] [address] 09821- 5787 Mar, [place] [address] 59772- 9585 Mar, Dental examination Z01.20 [place] [id number] [place] [address] 97814- 2194 13 Mar, 2016 Insulin long-term use Z79.4 [place] [address] [facility] [id number] [address] Mar, Insulin long-term use Z79.4 [place] [address] [address] February, Insulin long-term use Z79.4 [place] [address] [address] February, [place] [address] [place] [address] 97656- 4052 February, Hyperlipemia E78.[address] [id number] [id number] February, Gout M10.9 and Diabetes mellitus with neuropathy E11.40 [place] [address] [address]- [address] Jan, Depression F32.9 [place] [address], [place] [address]- [address]755 Jan, Insulin long-term use Z79.4 ; Gout M10.9 ; Candidiasis B37.9 ; Diabetes mellitus with neuropathy E11.40 and Depression F32.9 IMMUNIZATIONS No Known Immunizations SOCIAL HISTORY Never Assessed REASON FOR VISIT Pt c/o vomiting clear bile x's 1 month. Happens at random times [facility] PLAN OF CARE Activity Details Follow Up prn Reason: VITAL SIGNS Height 71.2 in 2018-02-02 Weight 306.4 lbs 2018-02-02 Temperature 97.8 degrees Fahrenheit 2018-02-02 Heart Rate 84 bpm 2018-02-02 Respiratory Rate 18 2018-02-02 BMI 42.49 kg/m2 2018-02-02 Blood pressure systolic 120 mmHg 2018-02-02 Blood pressure diastolic 78 mmHg 2018-02-02 MEDICATIONS Medication Instructions Dosage Frequency Start Date End Date Duration Status GlipiZIDE 5 MG Orally twice a day 1 tablet 12h Active Wellbutrin XL 300 MG Orally every morning 1 tablet Sep, Active Symbicort 160-4.5 MCG/ACT Inhalation Twice a day 2 puffs 12h Active Zofran 8 MG Orally 3 times daily before meals 1 tablet 10 Apr, 2018 14 days Active Victoza 18 MG/3ML Subcutaneous Once a day 1.8 mg daily 24h 18 Jul, 2017 Active Wellbutrin XL 150 MG Orally every morning with 300mg tab 1 tablet Jul Active Gemfibrozil 600 MG Orally Twice a day 1 tablet 12h Active Lasix 20 mg Orally Once a day 1 tablet 24h Sep, Active Zocor 40 mg Orally Once a day 1 tablet in the evening 24h Active Allopurinol 100 mg Orally Once a day 1 tablet 24h 29 Jan, 2016 Active Omeprazole 40 MG Orally Once a day 1 capsule 24h Oct, Active Ventolin HFA 108 (90 Base) MCG/ACT Inhalation every 6 hrs 2 puffs as needed 6h Jan, 0 days Active C-PAP Machine Active NovoLog 100 UNIT/ML Subcutaneous 3 times a day 10 units 8h 84 Active Naprosyn 500 mg Orally 2 times a day, pc 1 tablet as needed Jul, Active MetFORMIN HCl ER 750 MG Orally twice a day 1 tablet with evening meal 12h Jan, 30 day(s) Active Gabapentin 400 MG Orally Three times a day 2 capsules 8h 15 May, 2016 Active Colchicine 0.6 MG Orally Once a day 1 tablet 24h Active Mirtazapine 7.5 MG Orally every bedtime 1 tablet Mar, 30 days Active Levemir 100 UNIT/ML Subcutaneous Once a day 35 units 24h 28 Active Klor-Con 10 10 MEQ Orally Twice a day 1 tablet with food 12h Jan, Active RESULTS No Results PROCEDURES Procedure Date Ordered Result Body Site ROUTINE VENIPUNCTURE 2018-02-02 N/A ASSAY OF BLOOD/URIC ACID February 02, 2018 COMPREHEN METABOLIC PANEL February 02, 2018 INSTRUCTIONS MEDICATIONS ADMINISTERED No Known Medications [...] 2 Hospitalization History pylonial cyst removal from 2016 Hospitalization History tick bite---[place] 02/2018
--- OUTSIDE RECORDS SUMMARY | 2018-06-16 19:23 | XMS REPORT ---
Author Author CECILIA SUBRAMANIAN [facility] Address [address] [place] [address] Care Team Providers Care Clinical Rehab Liaison Name Role Phone CECILIA SUBRAMANIAN Unavailable PROBLEMS Type Condition ICD9-CM Code SVM03-TB Code Onset Dates Condition Status SNOMED Code Problem Neuropathy G62.9 Active 107399924 Problem Adjustment disorder with disturbance of emotion F43.29 Active 15624738 Problem Marijuana abuse, continuous F12.10 Active 296780202 Problem Gastroesophageal reflux disease without esophagitis K21.9 Active 169123085 Problem Acute gout involving toe of left foot, unspecified cause M10.9 Active 174756026 Problem Methamphetamine use disorder, severe, 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 Active 96516278 Problem Adjustment disorder with disturbance of conduct F43.24 Active 89417265 Problem Dyspepsia R10.13 Active 888504303 Problem Moderate episode of recurrent major depressive disorder F33.1 Active 383264252 Problem Candidiasis B37.9 Active 81400965 Problem Depression F32.9 Active 48094939 Problem Diabetes mellitus with neuropathy E11.40 Active 10314554 Problem Hyperlipemia E78.5 Active 70436247 Problem Obstructive sleep apnea G47.33 Active 75689575 Problem Insulin long-term use Z79.4 Active 952306635 Problem Venous insufficiency (chronic) (peripheral) I87.2 Active 86465547 Problem Gout M10.9 Active 24752695 Problem Mild persistent asthma without complication J45.30 Active 631240789 ALLERGIES No Known Allergies ENCOUNTERS Encounter Location Date Diagnosis [facility] [address] [facility] [id number] [address] Jul, [facility] [address] [facility] [id number] [place] [address] Apr, [address] [id number][place] [id number] Apr, Mild persistent asthma without complication J45.30 [facility] SIMEON Velasquez[address] [place] [address] AVE [id number][place] [id number] Mar, [facility] [address] [place] [address] A[address] [id number][place] [id number] Mar, Diabetes mellitus with neuropathy E11.40 ; Insulin long-term use Z79.4 ; Depression F32.9 ; Hyperlipemia E78.5 ; Gastroesophageal reflux disease without esophagitis K21.9 and Edema, unspecified type R60.9 [facility] [address] [facility] [id number][place] [id number] Mar, Generalized edema R60.1 and Diabetes mellitus with neuropathy E11.40 [facility] SIMEON Vel[address] [place] [address] AVE [id number][place] [id number] Mar, Neuropathy G62.[address] [id number][place] [id number] February, Insect bite (nonvenomous) of lower back and pelvis, initial encounter S30.860A ; Bitten or stung by nonvenomous insect and other nonvenomous arthropods, initial encounter W57.XXXA and Cellulitis of back L03.312 [facility] HENDRIX Ron[address] [place] [address] AVE [id number][place] [id number] February, Diabetes mellitus with neuropathy E11.40 [facility] [address]RI[address] [id number][place] [id number] February, Generalized edema R60.1 and Diabetes mellitus with neuropathy E11.40 [facility] [address] [facility] [id number] [place] [address] Jan, [facility] [address]RI[address] [id number][place] [id number] Jan, Gastroesophageal reflux disease without esophagitis K21.9 and Acute gout involving toe of left foot, unspecified cause M10.9 [facility] [address] [id number], [place] [id number] Jan, Marijuana abuse, continuous F12.10 ; Mild persistent asthma without complication J45.30 ; BMI 40.0-44.9, adult Z68.41 and Diabetes mellitus with neuropathy E11.40 [facility] [id number] [place] [address] Jan, [facility] [id number][place] [id number] Jan, BMI 40.0-44.9, adult Z68.41 and Intractable vomiting with nausea, unspecified vomiting type R11.[address] [facility] [address] [id number][place] [id number] Dec, BMI 40.0-44.9, adult Z68.41 and Abrasion hip/leg S80.819A [facility] [id number] [place] [address]- 2029 Nov, Neuropathy G62.9 [place] [id number] [place] [address]98- 8312 Oct, [facility] [id number] [place] [address]36- 9914 Oct, [facility] [id number] [place] [address]50- 9203 Oct, Diabetes mellitus with neuropathy E11.40 ; Dyspepsia R10.13 ; Mild persistent asthma without complication J45.30 and Depression F32.9 [facility] [id number] [place] [address] 30209- 3452 Oct, Generalized edema R60.1 and Diabetes mellitus with neuropathy E11.40 [place] [id number] [place] [address]63- 3472 Sep, [facility] [id number] [place] [address] 24739- 1806 Aug, [facility] [id number] [place] [address] Aug, Cellulitis L03.90 and BMI 40.0-44.9, adult Z68.41 [place] [address] [address] Aug, [place] [address] [address]79 Jul, Trapezius muscle spasm M62.838 and Depression F32.9 [place] [address] [address]- [address]458 Jul, Marijuana abuse, continuous F12.10 ; Moderate episode of recurrent major depressive disorder F33.1 and Methamphetamine use disorder, severe, 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 [place] [address] [address]- [address]86 Jul, [place] [address] [address] Jul, [place] [address] [address] Jul, [place] [address] [address] Jul, [place] [address] [address] Jul, [place] [id number] [place] [address] 82796- 2428 Jul, Diabetes mellitus with neuropathy E11.40 [place] [address] 8[address]39- 8031 16 Jul, 2017 Diabetes mellitus with neuropathy E11.40 ; Venous insufficiency (chronic) (peripheral) I87.2 ; Chest pain, unspecified type R07.9 ; Neuropathy G62.9 and Encounter for immunization Z23 [place] [id number] [place] [address] 59796- 3942 Jun, [place] [address] [address]46[address]70 Jun, [facility] [address] [id number] [place] [id number] May, Dental examination Z01.20 [place] [address] [place] [address]24- 6870 Apr, Diabetes mellitus with neuropathy E11.40 and Depression F32.[address] [place] [address] 03884- 2175 Apr, Mild persistent asthma without complication J45.[address] [id number][place] [id number] Mar, [place] [id number] [place] [address] 26823- 4316 Mar, Depression F32.9 ; Adjustment disorder with disturbance of emotion F43.29 and Marijuana abuse, continuous F12.10 [place] [id number] [place] [address] 56969- 6641 Mar, [place] [address] [place] [address] 41476- 5928 Mar, Acute pansinusitis, recurrence not specified J01.40 [place] [id number] [place] [address] 77969- 6347 Mar, Adjustment disorder with disturbance of emotion F43.29 ; Adjustment disorder with disturbance of conduct F43.24 ; Marijuana abuse, continuous F12.10 and Depression F32.9 [address] [place] [address] 03605- 1330 Mar, Depression F32.9 ; Marijuana abuse, continuous F12.10 and Adjustment disorder with disturbance of conduct F43.[address] [id number][place] [id number] February, Bronchitis J40 and Acute diffuse otitis externa of right ear H60.311 [address] [place] [address] 08240- 9785 February, Diabetes mellitus with neuropathy E11.40 ; Mild persistent asthma without complication J45.30 ; Bronchitis J40 ; Depression F32.9 ; Neuropathy G62.9 ; Gout M10.9 ; Generalized edema R60.1 and Hyperlipemia E78.[address] [address]- [address] February, Diabetes mellitus with neuropathy E11.[address] [address]476- 6042 February, [address] [address]61- 9670 February, [address] 01384- 7125 Jan, [address] 90172- 5039 Jan, [address] [address]41- 9815 Jan, Adjustment disorder with disturbance of emotion F43.29 ; Adjustment disorder with disturbance of conduct F43.24 ; Marijuana abuse, continuous F12.10 and Depression F32.[address] [address]- 3011 Jan, [address] 80778- 8042 Jan, Pilonidal cyst with abscess L05.01 and Abscess of skin of abdomen L02.[address] 16685- 7122 Dec, Diabetes mellitus with neuropathy E11.40 [facility] [address] [id number] Dec, Dental examination Z01.[address] [address]44- 0379 Dec, [address] 13384- 9111 Nov, Depression F32.9 [facility] [id number] [place] [address] 86703- 3502 Nov, Depression F32.9 [facility] [id number] [place] [address] 38613- 3183 Nov, Lateral epicondylitis of left elbow M77.12 ; Insulin long- term use Z79.4 and Neuropathy G62.9 [place] [address] [place] [id number]- 6674 Nov, Adjustment disorder with disturbance of emotion F43.29 ; Adjustment disorder with disturbance of conduct F43.24 ; Marijuana abuse, continuous F12.10 and Depression F32.9 [facility] [address] 30468- 9182 Oct, Adjustment disorder with disturbance of emotion F43.29 ; Marijuana abuse, continuous F12.10 ; Adjustment disorder with disturbance of conduct F43.24 and Severe episode of recurrent major depressive disorder, without psychotic features F33.2 [facility] [address] [id number] Oct, Dental examination Z01.20 [facility] [id number] [place] [address] 79027- 3890 Oct, Depression F32.9 [facility] [id number] [place] [id number] Oct, Dental examination Z01.20 [facility] [address] 73262- 9773 Oct, Depression F32.9 ; Adjustment disorder with disturbance of conduct F43.24 ; Adjustment disorder with disturbance of emotion F43.29 and Marijuana abuse, continuous F12.10 [facility] [id number] [place] [address] [id number] Oct, Dental examination Z01.20 [facility] [address] [id number] Oct, Dental caries K02.9 [place] [id number] [place] [address] 14352- 4097 Oct, [facility] [address] [id number] Sep, Dental examination Z01.20 [place] [id number] [place] [address] 83162- 6585 Sep, [place] [address] 90475- 3488 Sep, Insulin long-term use Z79.4 ; Gout M10.9 ; Diabetes mellitus with neuropathy E11.40 ; Depression F32.9 ; Hyperlipemia E78.5 ; Obstructive sleep apnea G47.33 ; Venous insufficiency (chronic) (peripheral) I87.2 ; Mild persistent asthma without complication J45.30 ; Neuropathy G62.9 and Marijuana abuse, continuous F12.10 [place] [address] 70813- 6746 Sep, Adjustment disorder with disturbance of conduct F43.24 and Adjustment disorder with disturbance of emotion F43.29 [place] [id number] [place] [address] 84972- 7624 Sep, Diabetes mellitus with neuropathy E11.40 ; Dyspnea on exertion R06.09 and Venous insufficiency (chronic) (peripheral) I87.2 [place] [id number] [place] [address] 98575- 6381 Sep, Neuropathy G62.9 [place] [address] 86442- 9766 13 Sep, 2016 [facility] [id number] [place] [id number] Sep, Dental examination Z01.20 [facility] [address] 53147- 3768 Sep, [place] [id number] [place] [address] 86236- 8217 Sep, [place] [id number] [place] [address] 15181- 8383 Sep, [place] [id number] [place] [address] 55100- 3556 05 Sep, 2016 Mild persistent asthma without complication J45.30 [place] [id number] [place] [address] 14637- 9680 02 Sep, 2016 Insulin long-term use Z79.4 [place] [address] 69154- 5276 Sep, Diabetes mellitus with neuropathy E11.40 ; Generalized edema R60.1 and Mild persistent asthma without complication J45.30 [facility] [address] [id number] Aug, 2016 Dental examination Z01.20 [place] [id number] [place] [address] 72216- 4744 20 Jul, 2016 Urticaria L50.9 and Mild persistent asthma without complication J45.30 [place] [id number] [place] [address] 79470- 8696 10 Jul, 2016 Lateral epicondylitis of left elbow M77.12 and Venous insufficiency (chronic) (peripheral) I87.2 [place] [id number] [place] [address] 25888- 8466 May, Obstructive sleep apnea G47.33 and Diabetes mellitus with neuropathy E11.40 [place] [id number] [place] [address] 28007- 7350 May, Diabetes mellitus with neuropathy E11.40 [place] [id number] [place] [address] 10629- 5960 Mar, [place] [address] 33481- 3133 Mar, Dental examination Z01.20 [place] [id number] [place] [address] 65286- 0794 13 Mar, 2016 Insulin long-term use Z79.4 [place] [address] [facility] [id number] [address]- 6096 Mar, Insulin long-term use Z79.4 [place] [id number] [address]- 8539 February, Insulin long-term use Z79.4 [place] [address] [address]- 4633 February, [place] [address] [place] [address] 59219- 3208 February, Hyperlipemia E78.[address] [id number][place] [id number] February, Gout M10.9 and Diabetes mellitus with neuropathy E11.40 [place] [address] [address]- 1022 Jan, Depression F32.9 [place] [address] [address]- 3485 Jan, Insulin long-term use Z79.4 ; Gout M10.9 ; Candidiasis B37.9 ; Diabetes mellitus with neuropathy E11.40 and Depression F32.9 IMMUNIZATIONS No Known Immunizations SOCIAL HISTORY Never Assessed REASON FOR VISIT Asthma- Pt c/o getting insurance straightened out, cannot afford meds at this time. Leoncio MARTÍNEZ PLAN OF CARE Activity Details Follow Up prn Reason: VITAL SIGNS Height 71.2 in 2018-01-27 Weight 297.5 lbs 2018-01-27 Temperature 97.2 degrees Fahrenheit 2018-01-27 Heart Rate 83 bpm 2018-01-27 Respiratory Rate 22 2018-01-27 BMI 41.26 kg/m2 2018-01-27 Blood pressure systolic 113 mmHg 2018-01-27 Blood pressure diastolic 77 mmHg 2018-01-27 MEDICATIONS Medication Instructions Dosage Frequency Start Date End Date Duration Status Klor-Con 10 10 MEQ Orally Twice a day 1 tablet with food 12h 13 Jan, 2017 Active Ventolin HFA 108 (90 Base) MCG/ACT Inhalation every 6 hrs 2 puffs as needed 6h Jan, 0 days Active NovoLog 100 UNIT/ML Subcutaneous 3 times a day 10 units 8h 84 Active Zocor 40 mg Orally Once a day 1 tablet in the evening 24h Active Symbicort 160-4.5 MCG/ACT Inhalation Twice a day 2 puffs 12h Active Victoza 18 MG/3ML Subcutaneous Once a day 1.8 mg daily 24h 18 Jul, 2017 Active Wellbutrin XL 300 MG Orally every morning 1 tablet Sep, Active Gemfibrozil 600 MG Orally Twice a day 1 tablet 12h Active Gabapentin 400 MG Orally Three times a day 2 capsules 8h May, Active Omeprazole 20 mg Orally Once a day 1 capsule 24h Oct, 30 day(s ) Active Mirtazapine 7.5 MG Orally every bedtime 1 tablet Mar, 30 days Active Lasix 20 mg Orally Once a day 1 tablet 24h Sep, Active Levemir 100 UNIT/ML Subcutaneous Once a day 35 units 24h 28 Active Allopurinol 100 mg Orally Once a day 1 tablet 24h Jan, Active Wellbutrin XL 150 MG Orally every morning with 300mg tab 1 tablet Jul Active Naprosyn 500 mg Orally 2 times a day, pc 1 tablet as needed Jul, Active Colchicine 0.6 MG Orally Once a day 1 tablet 24h Active Zofran 8 MG Orally 3 times daily before meals 1 tablet Jan, 14 days Active MetFORMIN HCl ER 750 MG Orally twice a day 1 tablet with evening meal 12h Jan, 30 day(s) Active C-PAP Machine Active GlipiZIDE 5 MG Orally twice a day 1 tablet 12h Active RESULTS No Results PROCEDURES No Known procedures INSTRUCTIONS MEDICATIONS ADMINISTERED No Known Medications MEDICAL (GENERAL) HISTORY Type Description Date Medical History high blood pressure Medical History diabetic Medical History asthma Medical History emphysema Surgical History Pylonial cyst removal from tailbone x 2 Surgical History Cyst removal from groin/MRSA Surgical History Back surgery cyst removal from [facility] 02/2017 Hospitalization History Surgery Hospitalization History Heart attacks x 2 Hospitalization History pylonial cyst removal from [facility] 2016 Hospitalization History tick bite---[place] 02/2018
--- OUTSIDE RECORDS SUMMARY | 2018-06-16 19:23 | XMS REPORT ---
Author Author ALEX ALCANTAR Organization [facility] Address [address] [place] [address] Care Team Providers Care Parts Room Clerk Name Role Phone ALEX ALCANTAR Unavailable PROBLEMS Type Condition ICD9-CM Code HBR49-VL Code Onset Dates Condition Status SNOMED Code Problem Neuropathy G62.9 Active 894070429 Problem Adjustment disorder with disturbance of emotion F43.29 Active 43476507 Problem Marijuana abuse, continuous F12.10 Active 478733982 Problem Gastroesophageal reflux disease without esophagitis K21.9 Active 582115595 Problem Acute gout involving toe of left foot, unspecified cause M10.9 Active 678426788 Problem Methamphetamine use disorder, severe, 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 Active 20992764 Problem Adjustment disorder with disturbance of conduct F43.24 Active 40022828 Problem Dyspepsia R10.13 Active 156812945 Problem Moderate episode of recurrent major depressive disorder F33.1 Active 052120449 Problem Candidiasis B37.9 Active 24838933 Problem Depression F32.9 Active 19091763 Problem Diabetes mellitus with neuropathy E11.40 Active 02327390 Problem Hyperlipemia E78.5 Active 55327790 Problem Obstructive sleep apnea G47.33 Active 80482982 Problem Insulin long-term use Z79.4 Active 946252777 Problem Venous insufficiency (chronic) (peripheral) I87.2 Active 46013069 Problem Gout M10.9 Active 39938777 Problem Mild persistent asthma without complication J45.30 Active 387470945 ALLERGIES No Information ENCOUNTERS Encounter Location Date Diagnosis [facility] [address] [facility] [id number] [address] Jul, [facility] [address] [facility] [id number], [place] [address] Apr, [address] [id number][place] [id number] Apr, Mild persistent asthma without complication J45.30 [facility] [place] [address] [place] [address] AVE [id number][place] [id number] Mar, [facility] [place] [address] [place] [address] AV [id number][place] [id number] Mar, Diabetes mellitus with neuropathy E11.40 ; Insulin long-term use Z79.4 ; Depression F32.9 ; Hyperlipemia E78.5 ; Gastroesophageal reflux disease without esophagitis K21.9 and Edema, unspecified type R60.9 [facility] [address] [id number] [id number] Mar, Generalized edema R60.1 and Diabetes mellitus with neuropathy E11.40 [facility] [address] [id number][place] [id number] Mar, Neuropathy G62.[id number] [place] [id number] February, Insect bite (nonvenomous) of lower back and pelvis, initial encounter S30.860A ; Bitten or stung by nonvenomous insect and other nonvenomous arthropods, initial encounter W57.XXXA and Cellulitis of back L03.312 [facility] [address] [id number][place] [id number] February, Diabetes mellitus with neuropathy E11.40 [facility] [address] [id number][place] [id number] February, Generalized edema R60.1 and Diabetes mellitus with neuropathy E11.40 [facility] [address] [facility] [id number], [place] [address] Jan, [facility] [id number] [place] [id number] Jan, Gastroesophageal reflux disease without esophagitis K21.9 and Acute gout involving toe of left foot, unspecified cause M10.[address] [id number][place] [id number] Jan, Marijuana abuse, continuous F12.10 ; Mild persistent asthma without complication J45.30 ; BMI 40.0-44.9, adult Z68.41 and Diabetes mellitus with neuropathy E11.40 [facility] [address] [place] [address]262- 7461 Jan, [facility] [id number], [place] [id number] Jan, BMI 40.0-44.9, adult Z68.41 and Intractable vomiting with nausea, unspecified vomiting type R11.2 [facility] [place] [address] [id number], [place] [id number] Dec, BMI 40.0-44.9, adult Z68.41 and Abrasion hip/leg S80.819A [place] [id number] [place] [address]700- 7348 Nov, Neuropathy G62.9 [place] [address] [address]- 8590 Oct, [facility] [id number] [place] [address] 99526- 8868 Oct, [place] [id number] [place] [address] 17993- 3124 Oct, Diabetes mellitus with neuropathy E11.40 ; Dyspepsia R10.13 ; Mild persistent asthma without complication J45.30 and Depression F32.9 [place] [id number] [place] [address] 90691- 7221 Oct, Generalized edema R60.1 and Diabetes mellitus with neuropathy E11.40 [place] [id number] [place] [address] 85667- 2000 Sep, [place] [address] [address]75- 9564 Aug, [facility] [id number] [place] [address]55 -[address]321 Aug, Cellulitis L03.90 and BMI 40.0-44.9, adult Z68.41 [facility] [address] [address]- [address]82 Aug, [facility] [address] [place] 270719- 883 Jul, Trapezius muscle spasm M62.838 and Depression F32.9 [facility] [address] 985599- 0210 Jul, Marijuana abuse, continuous F12.10 ; Moderate episode of recurrent major depressive disorder F33.1 and Methamphetamine use disorder, severe, 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 [facility] [address] [address]75- 5393 Jul, [facility] [address] 56198- 5146 Jul, [facility] [address] 98930- 4317 Jul, [facility] [address] 99992- 7938 Jul, [facility] [address] 20143- 0212 Jul, [facility] [id number] [place] [address] 51534- 9348 Jul, Diabetes mellitus with neuropathy E11.40 [facility] [address] 30979- 9512 16 Jul, 2017 Diabetes mellitus with neuropathy E11.40 ; Venous insufficiency (chronic) (peripheral) I87.2 ; Chest pain, unspecified type R07.9 ; Neuropathy G62.9 and Encounter for immunization Z23 [facility] [id number] [place] [address] 07717- 1085 Jun, [facility] [address] 25693- 7140 Jun, [facility] [address] [id number] [id number] May, Dental examination Z01.20 [place] [id number] [place] [address] 05927- 0278 Apr, Diabetes mellitus with neuropathy E11.40 and Depression F32.9 [address] [place] [address] 15569- 4534 Apr, Mild persistent asthma without complication J45.30 [address] [id number][place] [id number] Mar, [place] [id number] [place] [address] 63007- 9109 Mar, Depression F32.9 ; Adjustment disorder with disturbance of emotion F43.29 and Marijuana abuse, continuous F12.10 [place] [id number] [place] [address] 82311- 5841 Mar, [place] [id number] [place] [address] 71054- 4912 Mar, Acute pansinusitis, recurrence not specified J01.40 [place] [id number] [place] [address] 89063- 4944 Mar, Adjustment disorder with disturbance of emotion F43.29 ; Adjustment disorder with disturbance of conduct F43.24 ; Marijuana abuse, continuous F12.10 and Depression F32.9 [address] [place] [address] 41702- 1462 Mar, Depression F32.9 ; Marijuana abuse, continuous F12.10 and Adjustment disorder with disturbance of conduct F43.[address] [id number][place] [id number] February, Bronchitis J40 and Acute diffuse otitis externa of right ear H60.[address] [place] [address] 10216- 6526 February, Diabetes mellitus with neuropathy E11.40 ; Mild persistent asthma without complication J45.30 ; Bronchitis J40 ; Depression F32.9 ; Neuropathy G62.9 ; Gout M10.9 ; Generalized edema R60.1 and Hyperlipemia E78.5 [place] [address] 04681- 6965 February, Diabetes mellitus with neuropathy E11.40 [place] [address] 38635- 9952 February, [place] [address] 30068- 6888 February, [place] [address] 79472- 0924 Jan, [place] [address] 69851- 4779 Jan, [address] 8[address]83- 0271 Jan, Adjustment disorder with disturbance of emotion F43.29 ; Adjustment disorder with disturbance of conduct F43.24 ; Marijuana abuse, continuous F12.10 and Depression F32.[address] 72926- 7516 Jan, [place] [address] 35848- 9384 Jan, Pilonidal cyst with abscess L05.01 and Abscess of skin of abdomen L02.211 [place] [address] 58310- 7013 Dec, Diabetes mellitus with neuropathy E11.40 [facility] [address] [id number] Dec, Dental examination Z01.20 [place] [address] 05442- 4925 Dec, [place] [address] 63535- 8303 Nov, Depression F32.9 [place] [id number] [place] [address] 04941- 0074 Nov, Depression F32.9 [place] [address] 86646- 5888 Nov, Lateral epicondylitis of left elbow M77.12 ; Insulin long- term use Z79.4 and Neuropathy G62.9 [place] [address] 20067- 7624 Nov, Adjustment disorder with disturbance of emotion F43.29 ; Adjustment disorder with disturbance of conduct F43.24 ; Marijuana abuse, continuous F12.10 and Depression F32.9 [place] [id number] [place] [address] 86456- 0695 Oct, Adjustment disorder with disturbance of emotion F43.29 ; Marijuana abuse, continuous F12.10 ; Adjustment disorder with disturbance of conduct F43.24 and Severe episode of recurrent major depressive disorder, without psychotic features F33.2 [facility] [id number] [place] [address] [id number] Oct, Dental examination Z01.20 [place] [id number] [place] [address] 26832- 7694 Oct, Depression F32.9 [facility] [id number] [place] [address] [id number] Oct, Dental examination Z01.20 [place] [id number] [place] [address] 88720- 6833 Oct, Depression F32.9 ; Adjustment disorder with disturbance of conduct F43.24 ; Adjustment disorder with disturbance of emotion F43.29 and Marijuana abuse, continuous F12.10 [facility] [id number] [place] [address] [id number] Oct, Dental examination Z01.20 [facility] [id number] [place] [address] [id number] Oct, Dental caries K02.9 [facility] [address] [place] [address] [place]9065[place] [address]- 7680 Oct, [facility] [id number] [place] [address] [id number] Sep, Dental examination Z01.20 [facility] [id number] [place] [address] 79418- 4243 Sep, [facility] [address] 07917- 0925 Sep, Insulin long-term use Z79.4 ; Gout M10.9 ; Diabetes mellitus with neuropathy E11.40 ; Depression F32.9 ; Hyperlipemia E78.5 ; Obstructive sleep apnea G47.33 ; Venous insufficiency (chronic) (peripheral) I87.2 ; Mild persistent asthma without complication J45.30 ; Neuropathy G62.9 and Marijuana abuse, continuous F12.10 [place] [address] 18403- 4180 Sep, Adjustment disorder with disturbance of conduct F43.24 and Adjustment disorder with disturbance of emotion F43.29 [place] [id number] [place] [address] 39644- 9831 Sep, Diabetes mellitus with neuropathy E11.40 ; Dyspnea on exertion R06.09 and Venous insufficiency (chronic) (peripheral) I87.2 [place] [id number] [place] [address] 50703- 4453 Sep, Neuropathy G62.9 [facility] [id number] [place] [address] 31543- 2404 13 Sep, 2016 [facility] [id number] [place] [address] [id number] Sep, Dental examination Z01.20 [facility] [id number] [place] [address] 59999- 5986 Sep, [place] [id number] [place] [address] 52372- 8751 Sep, [facility] [address] [place] [address]- 2778 Sep, [facility] [id number] [place] [address] 41464- 7367 05 Sep, 2016 Mild persistent asthma without complication J45.30 [facility] [id number] [place] [address] 92875- 7522 02 Sep, 2016 Insulin long-term use Z79.4 [place] [id number] [place] [address] 38159- 6427 01 Sep, 2016 Diabetes mellitus with neuropathy E11.40 ; Generalized edema R60.1 and Mild persistent asthma without complication J45.30 [facility] [address] [id number] Aug, Dental examination Z01.20 [place] [id number] [place] [address] 43828- 5867 20 Jul, 2016 Urticaria L50.9 and Mild persistent asthma without complication J45.30 [place] [id number] [place] [address] 94668- 3583 10 Jul, 2016 Lateral epicondylitis of left elbow M77.12 and Venous insufficiency (chronic) (peripheral) I87.2 [place] [id number] [place] [address] 19591- 2762 May, Obstructive sleep apnea G47.33 and Diabetes mellitus with neuropathy E11.40 [place] [id number] [place] [address] 51478- 0833 May, Diabetes mellitus with neuropathy E11.40 [place] [id number] [place] [address] 13999- 9410 Mar, [place] [id number] [place] [address] 66573- 9579 Mar, Dental examination Z01.20 [place] [address] [place] [address] 93405- 8775 13 Mar, 2016 Insulin long-term use Z79.4 [place] [address], [place] [address]- 2767 Mar, Insulin long-term use Z79.4 [place] [address] [address]- 6326 February, Insulin long-term use Z79.4 [place] [address] [address] [id number], [place] [address]- 9341 February, [place] [address] [place] [address] 55183- 2548 February, Hyperlipemia E78.[address] [id number] [id number] February, Gout M10.9 and Diabetes mellitus with neuropathy E11.40 [place] [address], [place] [address]- 8734 Jan, Depression F32.9 [place] [address], [place] [address] 1975 Jan, Insulin long-term use Z79.4 ; Gout M10.9 ; Candidiasis B37.9 ; Diabetes mellitus with neuropathy E11.40 and Depression F32.9 IMMUNIZATIONS No Known Immunizations SOCIAL HISTORY Never Assessed REASON FOR VISIT Blood Sugar Concerns PLAN OF CARE VITAL SIGNS MEDICATIONS Unknown Medications RESULTS No [...]
--- OUTSIDE RECORDS SUMMARY | 2018-06-16 19:24 | XMS REPORT ---
Author Author ALEX ALCANTAR Organization [facility] [place] Address [address] [place] [address] Care Team Providers [employer] Sander Name Role Phone ALEX ALCANTAR Unavailable PROBLEMS Type Condition ICD9-CM Code ZGH48-TN Code Onset Dates Condition Status SNOMED Code Problem Neuropathy G62.9 Active 278650850 Problem Adjustment disorder with disturbance of emotion F43.29 Active 93809758 Problem Marijuana abuse, continuous F12.10 Active 096129991 Problem Gastroesophageal reflux disease without esophagitis K21.9 Active 063340227 Problem Acute gout involving toe of left foot, unspecified cause M10.9 Active 377249437 Problem Methamphetamine use disorder, severe, 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 Active 41853667 Problem Adjustment disorder with disturbance of conduct F43.24 Active 22255848 Problem Dyspepsia R10.13 Active 469719122 Problem Moderate episode of recurrent major depressive disorder F33.1 Active 168843764 Problem Candidiasis B37.9 Active 08876225 Problem Depression F32.9 Active 12260763 Problem Diabetes mellitus with neuropathy E11.40 Active 38788042 Problem Hyperlipemia E78.5 Active 73715706 Problem Obstructive sleep apnea G47.33 Active 28069347 Problem Insulin long-term use Z79.4 Active 662159334 Problem Venous insufficiency (chronic) (peripheral) I87.2 Active 72668889 Problem Gout M10.9 Active 86127358 Problem Mild persistent asthma without complication J45.30 Active 936871340 ALLERGIES No Information ENCOUNTERS Encounter Location Date Diagnosis [facility] [place] [address] [facility] [id number] [address] Jul, [facility] [address] [id number] [id number] Apr, [facility] [address] [id number][place] [id number] Apr, Mild persistent asthma without complication J45.30 [facility] [address] [place] [address] AVE [id number][place] [id number] Mar, [facility] [address] [place] [address] AVE [id number], [place] [id number] Mar, Diabetes mellitus with neuropathy E11.40 ; Insulin long-term use Z79.4 ; Depression F32.9 ; Hyperlipemia E78.5 ; Gastroesophageal reflux disease without esophagitis K21.9 and Edema, unspecified type R60.9 [facility] [address] [id number] [place] [id number] Mar, Generalized edema R60.1 and Diabetes mellitus with neuropathy E11.40 [facility] [id number][place] [id number] Mar, Neuropathy G62.[address] [id number][place] [id number] February, Insect bite (nonvenomous) of lower back and pelvis, initial encounter S30.860A ; Bitten or stung by nonvenomous insect and other nonvenomous arthropods, initial encounter W57.XXXA and Cellulitis of back L03.312 [facility] [id number][place] [id number] February, Diabetes mellitus with neuropathy E11.[address] [id number][place] [id number] February, Generalized edema R60.1 and Diabetes mellitus with neuropathy E11.40 [facility] [place] [address] [facility] [id number][place] [address] Jan, [facility] [id number][place] [id number] Jan, Gastroesophageal reflux disease without esophagitis K21.9 and Acute gout involving toe of left foot, unspecified cause M10.[address] [id number][place] [id number] 14 Apr, 2018 Marijuana abuse, continuous F12.10 ; Mild persistent asthma without complication J45.30 ; BMI 40.0-44.9, adult Z68.41 and Diabetes mellitus with neuropathy E11.40 [facility] [place] [address] [place] [address]11- 5970 Jan, [facility] [id number] [place]AK[place] [id number] Jan, BMI 40.0-44.9, adult Z68.41 and Intractable vomiting with nausea, unspecified vomiting type R11.2 [facility] [address] [facility] [address] [id number], [place] [id number] Dec, BMI 40.0-44.9, adult Z68.41 and Abrasion hip/leg S80.819A [place] [id number] [place] [address]6636- 9532 Nov, Neuropathy G62.[address] [address]- [address] Oct, [facility] [place] [address] [place] [id number] [place] [address] 17858- 9551 Oct, [place] [id number] [place] [address] 25167- 5179 Oct, Diabetes mellitus with neuropathy E11.40 ; Dyspepsia R10.13 ; Mild persistent asthma without complication J45.30 and Depression F32.9 [place] [id number] [place] [address] 85999- 1773 Oct, Generalized edema R60.1 and Diabetes mellitus with neuropathy E11.40 [place] [address] [place] [id number] [place] [address] 13437- 3284 Sep, [place] [address] [address]80- [address]167 08 Aug, 2017 [facility] [address] [place] [id number] [place] [address] 12512 -5862 Aug, Cellulitis L03.90 and BMI 40.0-44.9, adult Z68.41 [facility] [place] [address] [place] [id number] [place] [address] 62688- 2168 Aug, [facility] [place] [address] [place] 098793- 844 Jul, Trapezius muscle spasm M62.838 and Depression F32.9 [facility] [place] [address] 361735- 5834 Jul, Marijuana abuse, continuous F12.10 ; Moderate episode of recurrent major depressive disorder F33.1 and Methamphetamine use disorder, severe, 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 [facility] [place] [address] 71141- 2826 Jul, [facility] [place] [address] 28557- 5259 Jul, [facility] [place] [address] 05030- 9078 Jul, [facility] [place] [address] 57699- 9669 Jul, [facility] [place] [address] 18815- 3275 Jul, [facility] [place] [address] [place] [id number] [place] [address] 67072- 4881 Jul, Diabetes mellitus with neuropathy E11.40 [facility] [place] [address] 98795- 5270 16 Jul, 2017 Diabetes mellitus with neuropathy E11.40 ; Venous insufficiency (chronic) (peripheral) I87.2 ; Chest pain, unspecified type R07.9 ; Neuropathy G62.9 and Encounter for immunization Z23 [facility] [place] [address] [place] [id number] [place] [address] 21473- 8013 Jun, [facility] [place] [address] [place] [id number] [place] [address] 74790- 6146 Jun, [facility] [address] [id number] May, Dental examination Z01.20 [place] [id number] [place] [address] 29216- 0316 Apr, Diabetes mellitus with neuropathy E11.40 and Depression F32.9 [place] [id number] [place] [address] 60060- 2091 Apr, Mild persistent asthma without complication J45.[address] [id number][place] [id number] Mar, [place] [id number] [place] [address] 70195- 7939 Mar, Depression F32.9 ; Adjustment disorder with disturbance of emotion F43.29 and Marijuana abuse, continuous F12.10 [place] [id number] [place] [address] 42078- 6970 Mar, [place] [id number] [place] [address] 01160- 1773 Mar, Acute pansinusitis, recurrence not specified J01.40 [place] [id number] [place] [address] 03487- 9013 Mar, Adjustment disorder with disturbance of emotion F43.29 ; Adjustment disorder with disturbance of conduct F43.24 ; Marijuana abuse, continuous F12.10 and Depression F32.[address] [place] [address] 38959- 4571 Mar, Depression F32.9 ; Marijuana abuse, continuous F12.10 and Adjustment disorder with disturbance of conduct F43.[address] [id number][place] [id number] February, Bronchitis J40 and Acute diffuse otitis externa of right ear H60.311 [address] [place] [address] 53130- 4162 February, Diabetes mellitus with neuropathy E11.40 ; Mild persistent asthma without complication J45.30 ; Bronchitis J40 ; Depression F32.9 ; Neuropathy G62.9 ; Gout M10.9 ; Generalized edema R60.1 and Hyperlipemia E78.5 [place] [address] 19341- 2245 February, Diabetes mellitus with neuropathy E11.40 [place] [address] 01527- 0833 February, [facility] [place] [address] 54331- 0925 February, [place] [address] 23187- 5197 Jan, [place] [address] 44677- 7392 Jan, [place] [address] 37398- 5410 Jan, Adjustment disorder with disturbance of emotion F43.29 ; Adjustment disorder with disturbance of conduct F43.24 ; Marijuana abuse, continuous F12.10 and Depression F32.9 [place] [address] 53418- 1107 Jan, [place] [address] 31051- 4798 Jan, Pilonidal cyst with abscess L05.01 and Abscess of skin of abdomen L02.211 [place] [address] 69993- 0753 Dec, Diabetes mellitus with neuropathy E11.40 [facility] [address] [id number] Dec, Dental examination Z01.20 [place] [address] 81503- 3797 Dec, [facility] [place] [address] 29997- 0871 Nov, Depression F32.9 [place] [address] [place] [id number] [place] [address] 46226- 2588 Nov, Depression F32.9 [place] [address] 60239- 7229 Nov, Lateral epicondylitis of left elbow M77.12 ; Insulin long- term use Z79.4 and Neuropathy G62.9 [place] [address] 05995- 3845 Nov, Adjustment disorder with disturbance of emotion F43.29 ; Adjustment disorder with disturbance of conduct F43.24 ; Marijuana abuse, continuous F12.10 and Depression F32.9 [place] [address] 17502- 4643 Oct, Adjustment disorder with disturbance of emotion F43.29 ; Marijuana abuse, continuous F12.10 ; Adjustment disorder with disturbance of conduct F43.24 and Severe episode of recurrent major depressive disorder, without psychotic features F33.2 [facility] [address] [place] [id number] [place] [address] [id number] Oct, Dental examination Z01.20 [place] [address] [place] [id number] [place] [address] 44272- 3013 Oct, Depression F32.9 [facility] [address] [place] [id number] [place] [address] [id number] Oct, Dental examination Z01.20 [facility] [place] [address] [place] [id number] [place] [address] 65605- 0381 Oct, Depression F32.9 ; Adjustment disorder with disturbance of conduct F43.24 ; Adjustment disorder with disturbance of emotion F43.29 and Marijuana abuse, continuous F12.10 [facility] [address] [id number] Oct, Dental examination Z01.20 [facility] [address] [place] [id number] [place] [address] [id number] Oct, Dental caries K02.9 [facility] [place] [address] [place] [address]- 4365 Oct, [facility] [address] [place] [id number] [place] [address] [id number] Sep, Dental examination Z01.20 [facility] [place] [address] 45877- 2894 Sep, [facility] [place] [address] 48214- 4067 Sep, Insulin long-term use Z79.4 ; Gout M10.9 ; Diabetes mellitus with neuropathy E11.40 ; Depression F32.9 ; Hyperlipemia E78.5 ; Obstructive sleep apnea G47.33 ; Venous insufficiency (chronic) (peripheral) I87.2 ; Mild persistent asthma without complication J45.30 ; Neuropathy G62.9 and Marijuana abuse, continuous F12.10 [place] [address] 99952- 6469 Sep, Adjustment disorder with disturbance of conduct F43.24 and Adjustment disorder with disturbance of emotion F43.29 [facility] [place] [address] 60235- 2498 Sep, Diabetes mellitus with neuropathy E11.40 ; Dyspnea on exertion R06.09 and Venous insufficiency (chronic) (peripheral) I87.2 [place] [address] [place] [id number] [place] [address] 94829- 8239 Sep, Neuropathy G62.9 [facility] [place] [address] [place] [id number] [place] [address] 24515- 1419 13 Sep, 2016 [facility] [address] [place] [id number] [place] [address] [id number] Sep, Dental examination Z01.20 [facility] [place] [address] 37136- 5573 Sep, [facility] [place] [address] 16964- 7711 Sep, [facility] [place] [address] 59048- 1554 Sep, [facility] [place] [address] [place] [address] 77643- 0109 05 Sep, 2016 Mild persistent asthma without complication J45.30 [facility] [place] [address] [place] [address] 09113- 8632 02 Sep, 2016 Insulin long-term use Z79.4 [place] [address] [place] [id number] [place] [address] 29174- 7545 01 Sep, 2016 Diabetes mellitus with neuropathy E11.40 ; Generalized edema R60.1 and Mild persistent asthma without complication J45.30 [facility] [address] [place] [id number] [place] [address] [id number] Aug, Dental examination Z01.20 [place] [address] [place] [id number] [place] [address] 78872- 5755 20 Jul, 2016 Urticaria L50.9 and Mild persistent asthma without complication J45.30 [place] [address] [place] [id number] [place] [address] 16517- 4657 10 Jul, 2016 Lateral epicondylitis of left elbow M77.12 and Venous insufficiency (chronic) (peripheral) I87.2 [place] [address] [place] [address] 51407- 0903 May, Obstructive sleep apnea G47.33 and Diabetes mellitus with neuropathy E11.40 [place] [address] [place] [address] 81894- 4648 May, Diabetes mellitus with neuropathy E11.40 [place] [address] [place] [address] 13041- 9444 Mar, [place] [address] [place] [id number] [place] [address] 39060- 2100 Mar, Dental examination Z01.20 [place] [address] [place] [address] 57169- 7591 13 Mar, 2016 Insulin long-term use Z79.4 [place] [address] [place] [id number] [address]- 4339 Mar, Insulin long-term use Z79.4 [place] [address], [place] [address]- 0851 February, Insulin long-term use Z79.4 [place] [address] [place] [id number] [address]- 4885 February, [place] [address] [place] [address] 33727- 1213 February, Hyperlipemia E78.[address] [id number] [id number] February, Gout M10.9 and Diabetes mellitus with neuropathy E11.40 [place] [address], [place] [address]- 1425 Jan, Depression F32.9 [place] [address], [place] [address]- 0540 Jan, Insulin long-term use Z79.4 ; Gout M10.9 ; Candidiasis B37.9 ; Diabetes mellitus with neuropathy E11.40 and Depression F32.9 IMMUNIZATIONS No Known Immunizations SOCIAL HISTORY Never Assessed REASON FOR VISIT Requests return call PLAN OF CARE VITAL SIGNS MEDICATIONS Medication Instructions Dosage Frequency Start Date End Date Duration Status Gabapentin 400 MG Orally Three times a [...]
--- OUTSIDE RECORDS SUMMARY | 2018-06-16 19:24 | XMS REPORT ---
Author Author TRISH RIMMA Organization [facility] Address [address] [place] [address] Care Team Providers Care Inspector And Sorter Name Role Phone RIMMA CHAMBERS Unavailable PROBLEMS Type Condition ICD9-CM Code OVP34-EF Code Onset Dates Condition Status SNOMED Code Problem Neuropathy G62.9 Active 238084764 Problem Adjustment disorder with disturbance of emotion F43.29 Active 60523739 Problem Marijuana abuse, continuous F12.10 Active 901537203 Problem Gastroesophageal reflux disease without esophagitis K21.9 Active 300846787 Problem Acute gout involving toe of left foot, unspecified cause M10.9 Active 847186197 Problem Methamphetamine use disorder, severe, 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 Active 03600270 Problem Adjustment disorder with disturbance of conduct F43.24 Active 30731306 Problem Dyspepsia R10.13 Active 311940874 Problem Moderate episode of recurrent major depressive disorder F33.1 Active 849217506 Problem Candidiasis B37.9 Active 13054125 Problem Depression F32.9 Active 69345205 Problem Diabetes mellitus with neuropathy E11.40 Active 33680041 Problem Hyperlipemia E78.5 Active 21491099 Problem Obstructive sleep apnea G47.33 Active 24973039 Problem Insulin long-term use Z79.4 Active 812205248 Problem Venous insufficiency (chronic) (peripheral) I87.2 Active 79704466 Problem Gout M10.9 Active 67854821 Problem Mild persistent asthma without complication J45.30 Active 039636817 ALLERGIES No Information ENCOUNTERS Encounter Location Date Diagnosis [facility] [address] [facility] [id number], [place] [address] Jul, [facility] [address] [facility] [id number], [place] [address] Apr, [address] [id number][place] [id number] Apr, Mild persistent asthma without complication J45.30 [facility] [address] [id number][place] [id number] Mar, [facility] [address] [id number][place] [id number] Mar, Diabetes mellitus with neuropathy E11.40 ; Insulin long-term use Z79.4 ; Depression F32.9 ; Hyperlipemia E78.5 ; Gastroesophageal reflux disease without esophagitis K21.9 and Edema, unspecified type R60.9 [facility] [address] [id number][place] [id number] Mar, Generalized edema R60.1 and Diabetes mellitus with neuropathy E11.40 [facility] [address] [place] [address] AVE [id number][place] [id number] Mar, Neuropathy G62.9 [address] [id number] February, Insect bite (nonvenomous) of lower back and pelvis, initial encounter S30.860A ; Bitten or stung by nonvenomous insect and other nonvenomous arthropods, initial encounter W57.XXXA and Cellulitis of back L03.312 [facility] [address] [id number][place] [id number] February, Diabetes mellitus with neuropathy E11.40 [facility] [address] [id number][place] [id number] February, Generalized edema R60.1 and Diabetes mellitus with neuropathy E11.40 [facility] [address] [facility] [id number], [place] [address] Jan, [facility] [address] [id number][place] [id number] Jan, Gastroesophageal reflux disease without esophagitis K21.9 and Acute gout involving toe of left foot, unspecified cause M10.9 [facility] [address] [id number][place] [id number] Jan, Marijuana abuse, continuous F12.10 ; Mild persistent asthma without complication J45.30 ; BMI 40.0-44.9, adult Z68.41 and Diabetes mellitus with neuropathy E11.40 [facility] [address] [place] [address]31- [address] Jan, [facility] [id number][place] [id number] Jan, BMI 40.0-44.9, adult Z68.41 and Intractable vomiting with nausea, unspecified vomiting type R11.2 [place] [address] [facility] [address] [id number][place] [id number] Dec, BMI 40.0-44.9, adult Z68.41 and Abrasion hip/leg S80.819A [place] [address] [place] [id number] [place] [address]197- 4695 Nov, Neuropathy G62.9 [place] [address] [place] [id number] [place] [address]3821- 9040 Oct, [facility] [address] [place] [id number] [place] [address] 42302- 3409 Oct, [facility] [address] [place] [id number] [place] [address] 96867- 8991 Oct, Diabetes mellitus with neuropathy E11.40 ; Dyspepsia R10.13 ; Mild persistent asthma without complication J45.30 and Depression F32.9 [place] [address] [place] [id number] [place] [address] 57162- 2762 Oct, Generalized edema R60.1 and Diabetes mellitus with neuropathy E11.40 [place] [address] [place] [id number] [place] [address] 42151- 3647 Sep, [place] [address] [place] [id number] [place] [address] 42296- 6667 Aug, [facility] [address] [place] [id number] [place] [address]10 [address] Aug, Cellulitis L03.90 and BMI 40.0-44.9, adult Z68.41 [place] [address] 7[address]72- 6[address] Aug, [place] [address] [address]- [address]70 Jul, Trapezius muscle spasm M62.838 and Depression F32.9 [place] [address] 63125- 7974 Jul, Marijuana abuse, continuous F12.10 ; Moderate episode of recurrent major depressive disorder F33.1 and Methamphetamine use disorder, severe, 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 [place] [address] 12397- 6130 Jul, [place] [address] 64290- 0231 Jul, [place] [address] 43788- 1365 Jul, [place] [address] 83459- 8640 Jul, [place] [address] 10369- 9601 Jul, [place] [address] [place] [id number] [place] [address] 56156- 9156 Jul, Diabetes mellitus with neuropathy E11.40 [place] [address] 51853- 7680 16 Jul, 2017 Diabetes mellitus with neuropathy E11.40 ; Venous insufficiency (chronic) (peripheral) I87.2 ; Chest pain, unspecified type R07.9 ; Neuropathy G62.9 and Encounter for immunization Z23 [facility] [address] [place] [id number] [place] [address] 57973- 0594 Jun, [place] [address] 03550[address] 6050 Jun, [facility] [address] [id number] [id number] May, Dental examination Z01.[address] [place] [address] 27538- 7614 Apr, Diabetes mellitus with neuropathy E11.40 and Depression F32.9 [address] [place] [address] 51957- 5358 Apr, Mild persistent asthma without complication J45.[address] [id number][place] [id number] Mar, [place] [id number] [place] [address] 87885- 8400 Mar, Depression F32.9 ; Adjustment disorder with disturbance of emotion F43.29 and Marijuana abuse, continuous F12.10 [place] [id number] [place] [address] 00900- 2115 Mar, [place] [address] [place] [address] 26898- 5002 Mar, Acute pansinusitis, recurrence not specified J01.40 [place] [id number] [place] [address] 56780- 9259 Mar, Adjustment disorder with disturbance of emotion F43.29 ; Adjustment disorder with disturbance of conduct F43.24 ; Marijuana abuse, continuous F12.10 and Depression F32.9 [address] [place] [address] 05159- 6278 Mar, Depression F32.9 ; Marijuana abuse, continuous F12.10 and Adjustment disorder with disturbance of conduct F43.[address] [id number][place] [id number] February, Bronchitis J40 and Acute diffuse otitis externa of right ear H60.311 [address] [place] [address] 83402- 9951 February, Diabetes mellitus with neuropathy E11.40 ; Mild persistent asthma without complication J45.30 ; Bronchitis J40 ; Depression F32.9 ; Neuropathy G62.9 ; Gout M10.9 ; Generalized edema R60.1 and Hyperlipemia E78.[address] [address]- [address] February, Diabetes mellitus with neuropathy E11.[address] 84303- 8733 February, [address] 58142- 0977 February, [address] 89967- 6625 Jan, [address] 66264- 9350 Jan, [address] 69753- 2623 Jan, Adjustment disorder with disturbance of emotion F43.29 ; Adjustment disorder with disturbance of conduct F43.24 ; Marijuana abuse, continuous F12.10 and Depression F32.[address] 82503- 2092 Jan, [address] 06785- 5325 Jan, Pilonidal cyst with abscess L05.01 and Abscess of skin of abdomen L02.[address] [address]- 2003 Dec, Diabetes mellitus with neuropathy E11.40 [facility] [address] [id number] Dec, Dental examination Z01.[address] 98749- 4964 Dec, [address] 94869- 4516 Nov, Depression F32.9 [facility] [address] [place] [id number] [place] [address] 53697- 2556 Nov, Depression F32.9 [facility] [address] [place] [id number] [place] [address] 57765- 2482 Nov, Lateral epicondylitis of left elbow M77.12 ; Insulin long- term use Z79.4 and Neuropathy G62.9 [place] [address] [place] 463060- 9661 Nov, Adjustment disorder with disturbance of emotion F43.29 ; Adjustment disorder with disturbance of conduct F43.24 ; Marijuana abuse, continuous F12.10 and Depression F32.9 [place] [address] [place] [id number] [place] [address] 95952- 8798 Oct, Adjustment disorder with disturbance of emotion F43.29 ; Marijuana abuse, continuous F12.10 ; Adjustment disorder with disturbance of conduct F43.24 and Severe episode of recurrent major depressive disorder, without psychotic features F33.2 [facility] [address] [place] [id number] [place] [id number] Oct, Dental examination Z01.20 [place] [address] [place] [id number] [place] [address] 78696- 9962 Oct, Depression F32.9 [facility] [address] [place] [address] [id number] [place] [address] [id number] Oct, Dental examination Z01.20 [facility] [address] [address] [id number] [place] [address] 06879- 2534 Oct, Depression F32.9 ; Adjustment disorder with disturbance of conduct F43.24 ; Adjustment disorder with disturbance of emotion F43.29 and Marijuana abuse, continuous F12.10 [facility] [address] [place] [address] [id number] [place] [address] [id number] Oct, Dental examination Z01.20 [facility] [address] [id number] Oct, Dental caries K02.9 [place] [address] [place] [id number] [place] [address] 72787- 5269 Oct, [facility] [address] [id number] Sep, Dental examination Z01.20 [facility] [address] [place] [address] [id number] [place] [address] 87854- 0480 Sep, [place] [address] 42937- 6981 Sep, Insulin long-term use Z79.4 ; Gout M10.9 ; Diabetes mellitus with neuropathy E11.40 ; Depression F32.9 ; Hyperlipemia E78.5 ; Obstructive sleep apnea G47.33 ; Venous insufficiency (chronic) (peripheral) I87.2 ; Mild persistent asthma without complication J45.30 ; Neuropathy G62.9 and Marijuana abuse, continuous F12.10 [place] [address] 77298- 5941 Sep, Adjustment disorder with disturbance of conduct F43.24 and Adjustment disorder with disturbance of emotion F43.29 [place] [address] [place] [id number] [place] [address] 01646- 9875 Sep, Diabetes mellitus with neuropathy E11.40 ; Dyspnea on exertion R06.09 and Venous insufficiency (chronic) (peripheral) I87.2 [place] [address] [place] [id number] [place] [address] 16209- 6441 Sep, Neuropathy G62.9 [place] [address] 46310- 5617 13 Sep, 2016 [facility] [address] [place] [address] [id number] [place] [address] [id number] Sep, Dental examination Z01.20 [place] [address] [place] [id number] [place] [address] 92516- 8588 Sep, [place] [address] [place] [id number] [place] [address] 29937- 4458 Sep, [place] [address] [place] [address] 45015- 5206 Sep, [place] [address] [place] [id number] [place] [address] 27833- 0690 Sep, Mild persistent asthma without complication J45.30 [place] [address] [place] [address] 24995- 7744 02 Sep, 2016 Insulin long-term use Z79.4 [place] [address] [place] [id number] [place] [address] 72045- 2446 Sep, Diabetes mellitus with neuropathy E11.40 ; Generalized edema R60.1 and Mild persistent asthma without complication J45.30 [facility] [address] [place] [address] [id number] [place] [address] [id number] Aug, Dental examination Z01.20 [place] [address] [place] [id number] [place] [address] 52739- 4693 20 Jul, 2016 Urticaria L50.9 and Mild persistent asthma without complication J45.30 [place] [address] [place] [id number] [place] [address] 06897- 4419 10 Jul, 2016 Lateral epicondylitis of left elbow M77.12 and Venous insufficiency (chronic) (peripheral) I87.2 [place] [address] [place] [address] 47280- 5075 May, Obstructive sleep apnea G47.33 and Diabetes mellitus with neuropathy E11.40 [place] [address] [place] [id number] [place] [address] 25076- 7578 May, Diabetes mellitus with neuropathy E11.40 [place] [address] [place] [id number] [place] [address] 70032- 1073 Mar, [place] [address] [place] [id number] [place] [address] 53196- 0543 Mar, Dental examination Z01.20 [place] [address] [place] [address] 84162- 8024 13 Mar, 2016 Insulin long-term use Z79.4 [place] [address] [facility] [id number] [address]- [address] Mar, Insulin long-term use Z79.4 [place] [address], [place] [address] 2955 February, Insulin long-term use Z79.4 [place] [address] [address]- 48[address] February, [place] [address] [place] [address] 20686- 9125 February, Hyperlipemia E78.[address] [id number][place] [id number] February, Gout M10.9 and Diabetes mellitus with neuropathy E11.40 [place] [address] [address]- 6709 Jan, Depression F32.9 [place] [address] [place] [address] 88979- 0178 Jan, Insulin long-term use Z79.4 ; Gout M10.9 ; Candidiasis B37.9 ; Diabetes mellitus with neuropathy E11.40 and Depression F32.9 IMMUNIZATIONS No Known Immunizations SOCIAL HISTORY Never Assessed REASON FOR VISIT Vomiting with all meals, Nauseus PLAN OF CARE Activity Details Follow Up keep appts as previously scheduled Reason: VITAL SIGNS Height 71.2 in 2018-01-23 Weight 298.2 lbs 2018-01-23 Temperature 98.3 degrees Fahrenheit 2018-01-23 Heart Rate 104 bpm 2018-01-23 Respiratory Rate 22 2018-01-23 BMI 41.35 kg/m2 2018-01-23 Blood pressure systolic 148 mmHg 2018-01-23 Blood pressure diastolic 78 mmHg 2018-01-23 MEDICATIONS Medication Instructions Dosage Frequency Start Date End Date Duration Status Gemfibrozil 600 MG Orally Twice a day 1 tablet 12h Active Metformin HCl 1000 MG Orally Twice a day 1 tablet with meals 12h Oct, 30 day(s) Active Colchicine 0.6 MG Orally Once a day 1 tablet 24h Active C-PAP Machine Active Wellbutrin XL 300 MG Orally every morning 1 tablet Sep, Active Zofran 8 MG Orally 3 times daily before meals 1 tablet Jan, 14 days Active Klor-Con 10 10 MEQ Orally Twice a day 1 tablet with food 12h Jan, Active Omeprazole 20 mg Orally Once a day 1 capsule 24h Oct, 30 day(s ) Active Mirtazapine 7.5 MG Orally every bedtime 1 tablet Mar, 30 days Active Levemir 100 UNIT/ML Subcutaneous Once a day 35 units 24h 28 Active Albuterol Sulfate HFA 108 (90 Base) MCG/ACT Inhalation every 4 hrs 2 puffs as needed 4h Active Naprosyn 500 mg Orally 2 times a day, pc 1 tablet as needed Jul, Active Zocor 40 mg Orally Once a day 1 tablet in the evening 24h Active Wellbutrin XL 150 MG Orally every morning with 300mg tab 1 tablet Jul Active Lasix 20 mg Orally Once a day 1 tablet 24h Sep, Active Allopurinol 100 mg Orally Once a day 1 tablet 24h Jan, Active Gabapentin 400 MG Orally Three times a day 2 capsules 8h 15 May, 2016 Active Victoza 18 MG/3ML Subcutaneous Once a day 1.8 mg daily 24h Jul, Active Symbicort 160-4.5 MCG/ACT Inhalation Twice a day 2 puffs 12h Active GlipiZIDE 5 MG Orally twice a day 1 tablet 12h Active NovoLog 100 UNIT/ML Subcutaneous 3 times a day 10 units 8h 84 Active RESULTS Name Result Date Reference Range H PYLORI (IN HOUSE) 2018-01-23 H. PYLORI negative Control + Lot # [id number] Exp date 08/02 PROCEDURES Procedure Date Ordered Result Body Site IMMUNOASSAY,INFECTIOUS AGENT January 23, 2018 INSTRUCTIONS MEDICATIONS ADMINISTERED No Known Medications [...] 2 Hospitalization History pylonial cyst removal from tail2016 Hospitalization History tick bite---[place] 02/2018
--- OUTSIDE RECORDS SUMMARY | 2018-06-16 19:24 | XMS REPORT ---
Author Author RICKY MATA [facility] Address [address] [place] [address] Care Team Providers Care Custom Miller Name Role Phone RICKY MATA Unavailable PROBLEMS Type Condition ICD9-CM Code TWF54-UC Code Onset Dates Condition Status SNOMED Code Problem Neuropathy G62.9 Active 012467907 Problem Adjustment disorder with disturbance of emotion F43.29 Active 83852150 Problem Marijuana abuse, continuous F12.10 Active 548117403 Problem Gastroesophageal reflux disease without esophagitis K21.9 Active 916340968 Problem Acute gout involving toe of left foot, unspecified cause M10.9 Active 186297273 Problem Methamphetamine use disorder, severe, 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 Active 64100931 Problem Adjustment disorder with disturbance of conduct F43.24 Active 08308052 Problem Dyspepsia R10.13 Active 743515790 Problem Moderate episode of recurrent major depressive disorder F33.1 Active 346600583 Problem Candidiasis B37.9 Active 03179706 Problem Depression F32.9 Active 76367143 Problem Diabetes mellitus with neuropathy E11.40 Active 83350077 Problem Hyperlipemia E78.5 Active 75197310 Problem Obstructive sleep apnea G47.33 Active 51539195 Problem Insulin long-term use Z79.4 Active 521997979 Problem Venous insufficiency (chronic) (peripheral) I87.2 Active 36950907 Problem Gout M10.9 Active 44515229 Problem Mild persistent asthma without complication J45.30 Active 403370734 ALLERGIES No Known Allergies ENCOUNTERS Encounter Location Date Diagnosis [facility] [address] [facility] [id number] [address] Jul, [facility] [address] [id number] [address] Apr, [address] [id number][place] [id number] Apr, Mild persistent asthma without complication J45.30 [facility] SIMEON Velasquez[address] [facility] [address] [id number][place] [id number] Mar, [facility] [place] Ron[address] [place] [address] AVE [id number], [place] [id number] Mar, Diabetes mellitus with neuropathy E11.40 ; Insulin long-term use Z79.4 ; Depression F32.9 ; Hyperlipemia E78.5 ; Gastroesophageal reflux disease without esophagitis K21.9 and Edema, unspecified type R60.9 [facility] [address] [id number] [place] [id number] Mar, Generalized edema R60.1 and Diabetes mellitus with neuropathy E11.40 [facility] [place] [address] [place] [address] AVE [id number], [place] [id number] Mar, Neuropathy G62.[address] [id number][place] [id number] February, Insect bite (nonvenomous) of lower back and pelvis, initial encounter S30.860A ; Bitten or stung by nonvenomous insect and other nonvenomous arthropods, initial encounter W57.XXXA and Cellulitis of back L03.312 [facility] [place] [address] [place] [address] AVE [id number], [place] [id number] February, Diabetes mellitus with neuropathy E11.40 [facility] [address] [id number][place] [id number] February, Generalized edema R60.1 and Diabetes mellitus with neuropathy E11.40 [facility] [address] [facility] [id number] [place] [address] Jan, [facility] [address] [id number], [place] [id number] Jan, Gastroesophageal reflux disease without esophagitis K21.9 and Acute gout involving toe of left foot, unspecified cause M10.[address] [id number][place] [id number] 14 Apr, 2018 Marijuana abuse, continuous F12.10 ; Mild persistent asthma without complication J45.30 ; BMI 40.0-44.9, adult Z68.41 and Diabetes mellitus with neuropathy E11.40 [facility] [address] [place] [address]- [address]797 Jan, [facility] [id number] [place] [id number] Jan, BMI 40.0-44.9, adult Z68.41 and Intractable vomiting with nausea, unspecified vomiting type R11.2 [facility] [address] [facility] [address] [id number], [place] [id number] Dec, BMI 40.0-44.9, adult Z68.41 and Abrasion hip/leg S80.819A [place] [id number] [place] [address]452- 4429 Nov, Neuropathy G62.[address] [address] Oct, [facility] [id number] [place] [address] 97060- 1720 Oct, [facility] [address] [place] [id number] [place] [address] 53410- 9718 Oct, Diabetes mellitus with neuropathy E11.40 ; Dyspepsia R10.13 ; Mild persistent asthma without complication J45.30 and Depression F32.9 [place] [id number] [place] [address] 55687- 1025 Oct, Generalized edema R60.1 and Diabetes mellitus with neuropathy E11.40 [place] [id number] [place] [address] 11920- 3053 Sep, [place] [address] [address]- [address] Aug, [facility] [id number] [place] [address] Aug, Cellulitis L03.90 and BMI 40.0-44.9, adult Z68.41 [facility] [id number] [place] [address] 02976- 2939 Aug, [facility] [id number] [place] [address] Jul, Trapezius muscle spasm M62.838 and Depression F32.9 [facility] [address] 894895- [address]998 Jul, Marijuana abuse, continuous F12.10 ; Moderate episode of recurrent major depressive disorder F33.1 and Methamphetamine use disorder, severe, 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 [facility] [address] 144252- 2375 Jul, [facility] [id number] [place] [address] 87915- 4472 Jul, [facility] [address] 7[address]14- 6020 Jul, [facility] [id number] [place] [address] 39631- 3646 Jul, [facility] [address] 89264- 6237 Jul, [facility] [id number] [place] [address] 05175- 1332 Jul, Diabetes mellitus with neuropathy E11.40 [facility] [id number] [place] [address] 99447- 6667 16 Jul, 2017 Diabetes mellitus with neuropathy E11.40 ; Venous insufficiency (chronic) (peripheral) I87.2 ; Chest pain, unspecified type R07.9 ; Neuropathy G62.9 and Encounter for immunization Z23 [facility] [address] [place] [address] 98153- 2336 Jun, [facility] [id number] [place] [address] 73541- 4983 Jun, [facility] [address] [id number] [id number] May, Dental examination Z01.20 [place] [id number] [place] [address] 99336- 8423 Apr, Diabetes mellitus with neuropathy E11.40 and Depression F32.9 [place] [id number] [place] [address] 13008- 4231 Apr, Mild persistent asthma without complication J45.30 [address] [id number], [place] [id number] Mar, [address] [address] Mar, Depression F32.9 ; Adjustment disorder with disturbance of emotion F43.29 and Marijuana abuse, continuous F12.10 [place] [address] [id number] [place] [address] 75080- 7667 Mar, [place] [id number] [place] [address] 54517- 0926 Mar, Acute pansinusitis, recurrence not specified J01.40 [place] [address] [id number] [place] [address] 08966- 1569 Mar, Adjustment disorder with disturbance of emotion F43.29 ; Adjustment disorder with disturbance of conduct F43.24 ; Marijuana abuse, continuous F12.10 and Depression F32.9 [address] [place] [address] 20570- 9489 Mar, Depression F32.9 ; Marijuana abuse, continuous F12.10 and Adjustment disorder with disturbance of conduct F43.[address] [id number], [place] [id number] February, Bronchitis J40 and Acute diffuse otitis externa of right ear H60.311 [address] [place] [address] 08969- 6449 February, Diabetes mellitus with neuropathy E11.40 ; Mild persistent asthma without complication J45.30 ; Bronchitis J40 ; Depression F32.9 ; Neuropathy G62.9 ; Gout M10.9 ; Generalized edema R60.1 and Hyperlipemia E78.5 [place] [address] 66909- 1197 February, Diabetes mellitus with neuropathy E11.40 [place] [address] 26656- 3965 February, [place] [address] 72804- 5721 February, [place] [address] 22826- 3829 Jan, [place] [address] 29093- 6584 Jan, [place] [address] 31433- 2660 Jan, Adjustment disorder with disturbance of emotion F43.29 ; Adjustment disorder with disturbance of conduct F43.24 ; Marijuana abuse, continuous F12.10 and Depression F32.9 [place] [address] 69847- 2042 Jan, [place] [address] 14396- 5626 Jan, Pilonidal cyst with abscess L05.01 and Abscess of skin of abdomen L02.211 [place] [id number] [place] [address] 39471- 5299 Dec, Diabetes mellitus with neuropathy E11.40 [facility] [address] [id number] Dec, Dental examination Z01.20 [place] [address] 42574- 0407 Dec, [place] [address] 57318- 3953 Nov, Depression F32.9 [place] [id number] [place] [address] 80721- 1212 24 Nov, 2016 Depression F32.9 [place] [address] 56041- 9024 Nov, Lateral epicondylitis of left elbow M77.12 ; Insulin long- term use Z79.4 and Neuropathy G62.9 [place] [address] [place] [address] 24660426- 9505 Nov, Adjustment disorder with disturbance of emotion F43.29 ; Adjustment disorder with disturbance of conduct F43.24 ; Marijuana abuse, continuous F12.10 and Depression F32.9 [place] [address] 76735- 8498 Oct, Adjustment disorder with disturbance of emotion F43.29 ; Marijuana abuse, continuous F12.10 ; Adjustment disorder with disturbance of conduct F43.24 and Severe episode of recurrent major depressive disorder, without psychotic features F33.2 [facility] [address] [id number] Oct, Dental examination Z01.20 [place] [address] 32340- 1244 Oct, Depression F32.9 [facility] [address] [id number] Oct, Dental examination Z01.20 [facility] [id number] [place] [address] 20064- 2801 Oct, Depression F32.9 ; Adjustment disorder with disturbance of conduct F43.24 ; Adjustment disorder with disturbance of emotion F43.29 and Marijuana abuse, continuous F12.10 [facility] [address] [id number] Oct, Dental examination Z01.20 [facility] [id number] [place] [address] [id number] Oct, Dental caries K02.9 [facility] [address] [place] [address]- 66[address] Oct, [facility] [id number] [place] [address] [id number] Sep, Dental examination Z01.20 [facility] [address] 45424- 2741 Sep, [facility] [address] 97104- 8227 Sep, Insulin long-term use Z79.4 ; Gout M10.9 ; Diabetes mellitus with neuropathy E11.40 ; Depression F32.9 ; Hyperlipemia E78.5 ; Obstructive sleep apnea G47.33 ; Venous insufficiency (chronic) (peripheral) I87.2 ; Mild persistent asthma without complication J45.30 ; Neuropathy G62.9 and Marijuana abuse, continuous F12.10 [place] [address] 63550- 7936 Sep, Adjustment disorder with disturbance of conduct F43.24 and Adjustment disorder with disturbance of emotion F43.29 [facility] [address] 59998- 7855 Sep, Diabetes mellitus with neuropathy E11.40 ; Dyspnea on exertion R06.09 and Venous insufficiency (chronic) (peripheral) I87.2 [place] [id number] [place] [address] 94636- 1847 Sep, Neuropathy G62.9 [facility] [id number] [place] [address] 55849- 6267 13 Sep, 2016 [facility] [id number] [place] [address] [id number] Sep, Dental examination Z01.20 [facility] [address] 66475- 6840 Sep, [facility] [address] 44811- 3738 Sep, [facility] [address] 54771- 8606 Sep, [place] [address] [place] [address] 83334- 8725 05 Sep, 2016 Mild persistent asthma without complication J45.30 [facility] [id number] [place] [address] 38088- 2589 02 Sep, 2016 Insulin long-term use Z79.4 [place] [id number] [place] [address] 85718- 8955 Sep, Diabetes mellitus with neuropathy E11.40 ; Generalized edema R60.1 and Mild persistent asthma without complication J45.30 [facility] [id number] [place] [address] [id number] Aug, Dental examination Z01.20 [place] [id number] [place] [address] 31121- 5436 20 Jul, 2016 Urticaria L50.9 and Mild persistent asthma without complication J45.30 [place] [id number] [place] [address] 13140- 2803 10 Jul, 2016 Lateral epicondylitis of left elbow M77.12 and Venous insufficiency (chronic) (peripheral) I87.2 [place] [address] [place] [address] 15058- 7630 May, Obstructive sleep apnea G47.33 and Diabetes mellitus with neuropathy E11.40 [place] [id number] [place] [address] 14263- 5614 May, Diabetes mellitus with neuropathy E11.40 [place] [address] [place] [address] 69696- 0611 Mar, [place] [id number] [place] [address] 42707- 2389 Mar, Dental examination Z01.20 [place] [address] [place] [address] 65044- 9965 13 Mar, 2016 Insulin long-term use Z79.4 [place] [id number] [address]- 9650 Mar, Insulin long-term use Z79.4 [place] [address] [place] [address] 62064- 1536 February, Insulin long-term use Z79.4 [place] [address] [address]- 4500 February, [place] [address] [place] [address] 46500- 0530 February, Hyperlipemia E78.[address] [id number][place] [id number] February, Gout M10.9 and Diabetes mellitus with neuropathy E11.40 [place] [address] [address]- 4784 Jan, Depression F32.9 [place] [address] [address]- 3037 Jan, Insulin long-term use Z79.4 ; Gout M10.9 ; Candidiasis B37.9 ; Diabetes mellitus with neuropathy E11.40 and Depression F32.9 IMMUNIZATIONS No Known Immunizations SOCIAL HISTORY Never Assessed REASON FOR VISIT leg injury/possible infection- c/o injury to R Lower Leg 5 days, Redness, Drainage. Leoncio MARTÍNEZ PLAN OF CARE Activity Details Follow Up prn Reason:no improvment VITAL SIGNS Height 71.2 in 2018-01-06 Weight 294.5 lbs 2018-01-06 Temperature 97.6 degrees Fahrenheit 2018-01-06 Heart Rate 86 bpm 2018-01-06 Respiratory Rate 20 2018-01-06 BMI 40.84 kg/m2 2018-01-06 Blood pressure systolic 119 mmHg 2018-01-06 Blood pressure diastolic 81 mmHg 2018-01-06 MEDICATIONS Medication Instructions Dosage Frequency Start Date End Date Duration Status Klor-Con 10 10 MEQ Orally Twice a day 1 tablet with food 12h 13 Jan, 2017 Active Zocor 40 mg Orally Once a day 1 tablet in the evening 24h Active Levemir 100 UNIT/ML Subcutaneous Once a day 35 units 24h 28 Active Victoza 18 MG/3ML Subcutaneous Once a day 1.8 mg daily 24h 18 Jul, 2017 Active Cephalexin 500 mg Orally every 12 hrs 1 capsule 12h Dec, Dec, 05 days Active Colchicine 0.6 MG Orally Once a day 1 tablet 24h Active Wellbutrin XL 150 MG Orally every morning with 300mg tab 1 tablet Jul Active Naprosyn 500 mg Orally 2 times a day, pc 1 tablet as needed Jul, Active Omeprazole 20 mg Orally Once a day 1 capsule 24h Oct, 30 day(s ) Active Symbicort 160-4.5 MCG/ACT Inhalation Twice a day 2 puffs 12h Active Wellbutrin XL 300 MG Orally every morning 1 tablet Sep, Active NovoLog 100 UNIT/ML Subcutaneous 3 times a day 10 units 8h 84 Active Lasix 20 mg Orally Once a day 1 tablet 24h Sep, Active C-PAP Machine Active Metformin HCl 1000 MG Orally Twice a day 1 tablet with meals 12h Oct, 30 day(s) Active Mirtazapine 7.5 MG Orally every bedtime 1 tablet Mar, 30 days Active Albuterol Sulfate HFA 108 (90 Base) MCG/ACT Inhalation every 4 hrs 2 puffs as needed 4h Active Gabapentin 400 MG Orally Three times a day 2 capsules 8h 15 May, 2016 Active Allopurinol 100 mg Orally Once a day 1 tablet 24h Jan, Active Gemfibrozil 600 MG Orally Twice a day 1 tablet 12h Active GlipiZIDE 5 MG Orally twice [...] Surgical History Back surgery cyst removal from [facility] 02/2017 Hospitalization History Surgery Hospitalization History Heart attacks x 2 Hospitalization History pylonial cyst removal from [facility] 2016 Hospitalization History tick bite---[place] 02/2018
--- OUTSIDE RECORDS SUMMARY | 2018-06-16 19:25 | XMS REPORT ---
Author Author ALEX ALCANTAR Organization [facility] Address [address] [place] [address] Care Team Providers Care Plant Maintenance Supervisor Name Role Phone ALEX ALCANTAR Unavailable PROBLEMS Type Condition ICD9-CM Code GFM65-LW Code Onset Dates Condition Status SNOMED Code Problem Neuropathy G62.9 Active 626709865 Problem Adjustment disorder with disturbance of emotion F43.29 Active 49769510 Problem Marijuana abuse, continuous F12.10 Active 108551058 Problem Gastroesophageal reflux disease without esophagitis K21.9 Active 685716771 Problem Acute gout involving toe of left foot, unspecified cause M10.9 Active 373268388 Problem Methamphetamine use disorder, severe, 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 Active 30738576 Problem Adjustment disorder with disturbance of conduct F43.24 Active 43295524 Problem Dyspepsia R10.13 Active 145810673 Problem Moderate episode of recurrent major depressive disorder F33.1 Active 735487407 Problem Candidiasis B37.9 Active 08078183 Problem Depression F32.9 Active 40085770 Problem Diabetes mellitus with neuropathy E11.40 Active 43575294 Problem Hyperlipemia E78.5 Active 50188499 Problem Obstructive sleep apnea G47.33 Active 11689302 Problem Insulin long-term use Z79.4 Active 405435536 Problem Venous insufficiency (chronic) (peripheral) I87.2 Active 59165797 Problem Gout M10.9 Active 87879128 Problem Mild persistent asthma without complication J45.30 Active 831759779 ALLERGIES No Information ENCOUNTERS Encounter Location Date Diagnosis [address] [id number] [id number] February, Diabetes mellitus with neuropathy E11.[address] [id number] [id number] February, Generalized edema R60.1 and Diabetes mellitus with neuropathy E11.40 [facility] [address] [address] Jan, [address] [id number] [id number] Jan, Gastroesophageal reflux disease without esophagitis K21.9 and Acute gout involving toe of left foot, unspecified cause M10.[address] [id number] [id number] Jan, Marijuana abuse, continuous F12.10 ; Mild persistent asthma without complication J45.30 ; BMI 40.0-44.9, adult Z68.41 and Diabetes mellitus with neuropathy E11.40 [place] [id number] [place] [address] 30536- 8844 Jan, [facility] [address] [id number] Jan, BMI 40.0-44.9, adult Z68.41 and Intractable vomiting with nausea, unspecified vomiting type R11.[address] [id number] [id number] Dec, BMI 40.0-44.9, adult Z68.41 and Abrasion hip/leg S80.819A [place] [id number] [place] [address] 76452- 0809 Nov, Neuropathy G62.9 [place] [id number] [place] [address] 50624- 3978 Oct, [place] [id number] [place] [address] 44094- 1978 Oct, [place] [id number] [place] [address] 07705- 3030 Oct, Diabetes mellitus with neuropathy E11.40 ; Dyspepsia R10.13 ; Mild persistent asthma without complication J45.30 and Depression F32.9 [place] [id number] [place] [address] 80684- 8995 Oct, Generalized edema R60.1 and Diabetes mellitus with neuropathy E11.40 [facility] [id number] [place] [address] 16143- 7753 Sep, [facility] [address] [address] Aug, [facility] [address] [address] Aug, Cellulitis L03.90 and BMI 40.0-44.9, adult Z68.41 [facility] [address] [address]- [address] Aug, 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 [id number] [place] [address] 59718- 8927 Jul, [place] [id number] [place] [address] 36683- 1202 Jul, [facility] [id number] [place] [address] 90449- 4880 Jul, Diabetes mellitus with neuropathy E11.40 [facility] [id number] [place] [address] 95486- 6945 Jul, Diabetes mellitus with neuropathy E11.40 ; Venous insufficiency (chronic) (peripheral) I87.2 ; Chest pain, unspecified type R07.9 ; Neuropathy G62.9 and Encounter for immunization Z23 [facility] [address] [place] [address] 91819- 6524 Jun, [facility] [address] [place] [address] [place] [address] 81768- 5895 Jun, [facility] [id number] [place] [id number] May, Dental examination Z01.[address] 7[address]55- 4116 Apr, Diabetes mellitus with neuropathy E11.40 and Depression F32.9 [place] [id number] [place] [address] 63194- 8924 Apr, Mild persistent asthma without complication J45.[address] [id number] [id number] Mar, [place] [address] [place] [address] 84218- 3640 Mar, Depression F32.9 ; Adjustment disorder with disturbance of emotion F43.29 and Marijuana abuse, continuous F12.10 [place] [id number] [place] [address] 66776- 3565 Mar, [place] [address] [place] [address] 60889- 1502 Mar, Acute pansinusitis, recurrence not specified J01.40 [place] [id number] [place] [address] 01350- 5371 Mar, Adjustment disorder with disturbance of emotion F43.29 ; Adjustment disorder with disturbance of conduct F43.24 ; Marijuana abuse, continuous F12.10 and Depression F32.[address] [place] [address] 03823- 1268 Mar, Depression F32.9 ; Marijuana abuse, continuous F12.10 and Adjustment disorder with disturbance of conduct F43.24 [place] [address] [facility] [id number] [id number] February, Bronchitis J40 and Acute diffuse otitis externa of right ear H60.311 [facility] [address] [place] [address] 78726- 5302 February, Diabetes mellitus with neuropathy E11.40 ; Mild persistent asthma without complication J45.30 ; Bronchitis J40 ; Depression F32.9 ; Neuropathy G62.9 ; Gout M10.9 ; Generalized edema R60.1 and Hyperlipemia E78.5 [place] [id number] [place] [address] 57920- 1846 February, Diabetes mellitus with neuropathy E11.40 [place] [id number] [place] [address] 28230- 0279 February, [place] [id number] [place] [address] 66124- 7594 February, [place] [address] [place] [address] 70567- 7025 Jan, [place] [id number] [place] [address] 65347- 6403 Jan, [place] [id number] [place] [address] 36033- 3146 Jan, Adjustment disorder with disturbance of emotion F43.29 ; Adjustment disorder with disturbance of conduct F43.24 ; Marijuana abuse, continuous F12.10 and Depression F32.9 [place] [address] [place] [address] 71365- 7224 Jan, [place] [address] [place] [address] 40660- 9149 Jan, Pilonidal cyst with abscess L05.01 and Abscess of skin of abdomen L02.211 [place] [address] [id number] [place] [address] 53154- 4709 Dec, Diabetes mellitus with neuropathy E11.40 [facility] [address] [place] [address] [id number] Dec, Dental examination Z01.20 [facility] [address] [id number] [place] [address] Dec, [facility] [id number] [place] [address] 32855- 6332 Nov, Depression F32.9 [facility] [address] [place] [address]70669- 8909 Nov, Depression F32.9 [place] [address] 307737- 4450 Nov, Lateral epicondylitis of left elbow M77.12 ; Insulin long- term use Z79.4 and Neuropathy G62.9 [place] [address] 81028- 1151 Nov, Adjustment disorder with disturbance of emotion F43.29 ; Adjustment disorder with disturbance of conduct F43.24 ; Marijuana abuse, continuous F12.[address] [facility] [id number] [place] [address] 78933- 3640 Oct, Adjustment disorder with disturbance of emotion F43.29 ; Marijuana abuse, continuous F12.10 ; Adjustment disorder with disturbance of conduct F43.24 and Severe episode of recurrent major depressive disorder, without psychotic features F33.2 [facility] [address] [place] [address] [id number] Oct, Dental examination Z01.20 [facility] [address] [place] [address] 86082- 3899 Oct, Depression F32.9 [facility] [address] [place] [address] [id number] [place] [address] [id number] Oct, Dental examination Z01.20 [facility] [id number] [place] [address] 41800- 0233 Oct, Depression F32.9 ; Adjustment disorder with disturbance of conduct F43.24 ; Adjustment disorder with disturbance of emotion F43.29 and Marijuana abuse, continuous F12.10 [facility] [address] [id number] [place] [address] [id number] Oct, Dental examination Z01.20 [facility] [address] [id number] [place] [address] [id number] Oct, Dental caries K02.9 [facility] [address] 56072- 0644 Oct, [facility] [address] [id number] Sep, Dental examination Z01.20 [place] [id number] [place] [address] 22560- 0431 Sep, [place] [address] 13669- 9640 Sep, Insulin long-term use Z79.4 ; Gout M10.9 ; Diabetes mellitus with neuropathy E11.40 ; Depression F32.9 ; Hyperlipemia E78.5 ; Obstructive sleep apnea G47.33 ; Venous insufficiency (chronic) (peripheral) I87.2 ; Mild persistent asthma without complication J45.30 ; Neuropathy G62.9 and Marijuana abuse, continuous F12.10 [place] [id number] [place] [address] 59553- 6440 Sep, Adjustment disorder with disturbance of conduct F43.24 and Adjustment disorder with disturbance of emotion F43.29 [place] [address] [place] [address] 31208- 9547 Sep, Diabetes mellitus with neuropathy E11.40 ; Dyspnea on exertion R06.09 and Venous insufficiency (chronic) (peripheral) I87.2 [place] [id number] [place] [address] 18284- 1021 Sep, Neuropathy G62.9 [place] [address] 51987- 2039 Sep, [facility] [address] [place] [address] [id number] Sep, Dental examination Z01.20 [facility] [id number] [place] [address] 31856- 4658 07 Sep, 2016 [place] [id number] [place] [address] 48603- 6556 Sep, [place] [address] [id number] [place] [address] 07418- 7721 Sep, [place] [id number] [place] [address] 85317- 6845 Sep, Mild persistent asthma without complication J45.30 [place] [id number] [place] [address] 28145- 7585 02 Sep, 2016 Insulin long-term use Z79.4 [place] [address] [place] [address] 24547- 2696 Sep, Diabetes mellitus with neuropathy E11.40 ; Generalized edema R60.1 and Mild persistent asthma without complication J45.30 [facility] [address] [id number] [place] [address] [id number] Aug, Dental examination Z01.20 [place] [id number] [place] [address] 67314- 8815 Jul, Urticaria L50.9 and Mild persistent asthma without complication J45.30 [place] [id number] [place] [address] 37152- 5242 Jul, Lateral epicondylitis of left elbow M77.12 and Venous insufficiency (chronic) (peripheral) I87.2 [place] [address] [place] [address] 98586- 9240 May, Obstructive sleep apnea G47.33 and Diabetes mellitus with neuropathy E11.40 [place] [address] [place] [address] 16280- 4639 May, Diabetes mellitus with neuropathy E11.40 [place] [address] [address]- 2061 Mar, [place] [address] [place] [address] 85756- 4492 Mar, Dental examination Z01.20 [place] [address] [address]- 3990 Mar, Insulin long-term use Z79.4 [place] [address] [place] [address] 16175- 8387 Mar, Insulin long-term use Z79.4 [place] [address] [place] [address] 39900- 5254 February, Insulin long-term use Z79.4 [place] [address] [place] [address] 71023- 3418 February, [place] [address] [place] [address] 20001- 0946 February, Hyperlipemia E78.[address] [id number] [id number] February, Gout M10.9 and Diabetes mellitus with neuropathy E11.40 [place] [address] [address]- 5984 Jan, Depression F32.9 [place] [address] [place] [address] 53395- 2694 Jan, Insulin long-term use Z79.4 ; Gout M10.9 ; Candidiasis B37.9 ; Diabetes mellitus with neuropathy E11.40 and Depression F32.9 IMMUNIZATIONS No Known Immunizations SOCIAL HISTORY Never Assessed REASON FOR VISIT Triage PLAN OF CARE VITAL SIGNS MEDICATIONS Unknown [...] 2 Hospitalization History pylonial cyst removal [place] [address]
--- OUTSIDE RECORDS SUMMARY | 2018-06-16 19:25 | XMS REPORT ---
Author Author ALEX ALCANTAR Organization [facility] Address [address] [place] [address] Care Team Providers Care [employer] Vault Supervisor Name Role Phone ALEX ALCANTAR Unavailable PROBLEMS Type Condition ICD9-CM Code CIZ25-BD Code Onset Dates Condition Status SNOMED Code Problem Neuropathy G62.9 Active 474292709 Problem Adjustment disorder with disturbance of emotion F43.29 Active 56651803 Problem Marijuana abuse, continuous F12.10 Active 931868748 Problem Gastroesophageal reflux disease without esophagitis K21.9 Active 926775643 Problem Acute gout involving toe of left foot, unspecified cause M10.9 Active 359189829 Problem Methamphetamine use disorder, severe, 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 Active 39988282 Problem Adjustment disorder with disturbance of conduct F43.24 Active 61198780 Problem Dyspepsia R10.13 Active 242587505 Problem Moderate episode of recurrent major depressive disorder F33.1 Active 767238241 Problem Candidiasis B37.9 Active 21057020 Problem Depression F32.9 Active 59189845 Problem Diabetes mellitus with neuropathy E11.40 Active 97968945 Problem Hyperlipemia E78.5 Active 60239278 Problem Obstructive sleep apnea G47.33 Active 84425470 Problem Insulin long-term use Z79.4 Active 397663783 Problem Venous insufficiency (chronic) (peripheral) I87.2 Active 74584903 Problem Gout M10.9 Active 77329950 Problem Mild persistent asthma without complication J45.30 Active 241785318 ALLERGIES No Information ENCOUNTERS Encounter Location Date Diagnosis [address] [id number] [id number] February, Diabetes mellitus with neuropathy E11.[address] [id number] [id number] February, Generalized edema R60.1 and Diabetes mellitus with neuropathy E11.40 [facility] [address] [address] Jan, [address] [id number] [id number] Jan, Gastroesophageal reflux disease without esophagitis K21.9 and Acute gout involving toe of left foot, unspecified cause M10.[address] [id number] [id number] Jan, Marijuana abuse, continuous F12.10 ; Mild persistent asthma without complication J45.30 ; BMI 40.0-44.9, adult Z68.41 and Diabetes mellitus with neuropathy E11.40 [place] [id number] [place] [address] 76143- 2227 Jan, [facility] [address] [id number] Jan, BMI 40.0-44.9, adult Z68.41 and Intractable vomiting with nausea, unspecified vomiting type R11.[address] [id number] [id number] Dec, BMI 40.0-44.9, adult Z68.41 and Abrasion hip/leg S80.819A [place] [address] [id number] [place] [address] 04835- 1233 Nov, Neuropathy G62.9 [place] [address] [id number] [place] [address] 70078- 7499 Oct, [place] [id number] [place] [address] 74603- 8064 Oct, [place] [id number] [place] [address] 72712- 0286 Oct, Diabetes mellitus with neuropathy E11.40 ; Dyspepsia R10.13 ; Mild persistent asthma without complication J45.30 and Depression F32.9 [place] [id number] [place] [address] 93823- 4761 Oct, Generalized edema R60.1 and Diabetes mellitus with neuropathy E11.40 [facility] [id number] [place] [address] 84333- 7306 Sep, [facility] [address] [address]88 Aug, [facility] [address] [address] Aug, Cellulitis L03.90 and BMI 40.0-44.9, adult Z68.41 [facility] [address] 80989- 9307 Aug, [facility] [address] 92862- 8041 Jul, Trapezius muscle spasm M62.838 and Depression F32.9 [place] [address] 25787- 4793 Jul, Marijuana abuse, continuous F12.10 ; Moderate episode of recurrent major depressive disorder F33.1 and Methamphetamine use disorder, severe, 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 [place] [address] [id number] [place] [address] 50065- 2403 Jul, [place] [address] [id number] [place] [address] 39779- 9448 Jul, [place] [address] [address] [id number] [place] [address] 52156- 6688 Jul, [facility] [id number] [place] [address] 18130- 4810 Jul, [place] [address] [address] [id number] [place] [address] 29369- 9172 Jul, [facility] [address] [id number] [place] [address] 59605- 7652 Jul, Diabetes mellitus with neuropathy E11.40 [facility] [id number] [place] [address] 43621- 6137 Jul, Diabetes mellitus with neuropathy E11.40 ; Venous insufficiency (chronic) (peripheral) I87.2 ; Chest pain, unspecified type R07.9 ; Neuropathy G62.9 and Encounter for immunization Z23 [facility] [address] [place] [address] 23342- 9573 Jun, [facility] [address] [place] [id number] [place] [address] 44148- 9842 Jun, [facility] [address] [id number] [place] [id number] May, Dental examination Z01.[address] 52781- 8568 Apr, Diabetes mellitus with neuropathy E11.40 and Depression F32.9 [place] [id number] [place] [address] 39311- 4510 Apr, Mild persistent asthma without complication J45.[address] [id number] [id number] Mar, [place] [id number] [place] [address] 11117- 0911 Mar, Depression F32.9 ; Adjustment disorder with disturbance of emotion F43.29 and Marijuana abuse, continuous F12.10 [place] [id number] [place] [address] 21502- 1625 Mar, [place] [id number] [place] [address] 51034- 7831 Mar, Acute pansinusitis, recurrence not specified J01.40 [place] [id number] [place] [address] 35675- 0787 Mar, Adjustment disorder with disturbance of emotion F43.29 ; Adjustment disorder with disturbance of conduct F43.24 ; Marijuana abuse, continuous F12.10 and Depression F32.[address] [place] [address] 07502- 8075 Mar, Depression F32.9 ; Marijuana abuse, continuous F12.10 and Adjustment disorder with disturbance of conduct F43.24 [place] [id number] [facility] [id number] [id number] February, Bronchitis J40 and Acute diffuse otitis externa of right ear H60.311 [facility] [address] [place] [address] 88873- 1254 February, Diabetes mellitus with neuropathy E11.40 ; Mild persistent asthma without complication J45.30 ; Bronchitis J40 ; Depression F32.9 ; Neuropathy G62.9 ; Gout M10.9 ; Generalized edema R60.1 and Hyperlipemia E78.5 [place] [address] [place] [id number] [place] [address] 42616- 9449 February, Diabetes mellitus with neuropathy E11.40 [place] [address] [id number] [place] [address] 61981- 0804 February, [place] [address] [place] [address] [id number] [place] [address] 20789- 9215 February, [place] [address] [place] [address] 65205- 2302 Jan, [place] [address] [place] [id number] [place] [address] 00491- 3873 Jan, [place] [address] [address] [id number] [place] [address] 89950- 0938 Jan, Adjustment disorder with disturbance of emotion F43.29 ; Adjustment disorder with disturbance of conduct F43.24 ; Marijuana abuse, continuous F12.10 and Depression F32.9 [place] [address] [place] [address] 74382- 7282 Jan, [place] [id number] [place] [address] 78918- 3445 Jan, Pilonidal cyst with abscess L05.01 and Abscess of skin of abdomen L02.211 [place] [address] [address] [id number] [place] [address] 20008- 8768 Dec, Diabetes mellitus with neuropathy E11.40 [facility] [address] [place] [address] [id number] Dec, Dental examination Z01.20 [facility] [id number] [place] [address] Dec, [facility] [id number] [place] [address] 48017- 5825 Nov, Depression F32.9 [facility] [address] [place] 436695- 1347 Nov, Depression F32.9 [place] [address] 203320- 8101 Nov, Lateral epicondylitis of left elbow M77.12 ; Insulin long- term use Z79.4 and Neuropathy G62.9 [place] [address] 85335- 3118 Nov, Adjustment disorder with disturbance of emotion F43.29 ; Adjustment disorder with disturbance of conduct F43.24 ; Marijuana abuse, continuous F12.10 and Depression F32.9 [facility] [id number] [place] [address] 52131- 8706 Oct, Adjustment disorder with disturbance of emotion F43.29 ; Marijuana abuse, continuous F12.10 ; Adjustment disorder with disturbance of conduct F43.24 and Severe episode of recurrent major depressive disorder, without psychotic features F33.2 [facility] [address] [place] [address] [id number] Oct, Dental examination Z01.20 [facility] [address] [place] [address] 36985- 6362 Oct, Depression F32.9 [facility] [address] [address] [id number] [place] [address] [id number] Oct, Dental examination Z01.20 [facility] [id number] [place] [address] 94719- 7659 Oct, Depression F32.9 ; Adjustment disorder with disturbance of conduct F43.24 ; Adjustment disorder with disturbance of emotion F43.29 and Marijuana abuse, continuous F12.10 [facility] [address] [address] [id number] [place] [address] [id number] Oct, Dental examination Z01.20 [facility] [address] [address] [id number] [place] [address] [id number] Oct, Dental caries K02.9 [facility] [address] 20563- 6710 Oct, [facility] [address] [id number] Sep, Dental examination Z01.20 [place] [address] [place] [id number] [place] [address] 31071- 5645 Sep, [place] [address] 59621- 8984 Sep, Insulin long-term use Z79.4 ; Gout M10.9 ; Diabetes mellitus with neuropathy E11.40 ; Depression F32.9 ; Hyperlipemia E78.5 ; Obstructive sleep apnea G47.33 ; Venous insufficiency (chronic) (peripheral) I87.2 ; Mild persistent asthma without complication J45.30 ; Neuropathy G62.9 and Marijuana abuse, continuous F12.10 [place] [address] [place] [id number] [place] [address] 78748- 2226 Sep, Adjustment disorder with disturbance of conduct F43.24 and Adjustment disorder with disturbance of emotion F43.29 [place] [address] [place] [id number] [place] [address] 06696- 6320 Sep, Diabetes mellitus with neuropathy E11.40 ; Dyspnea on exertion R06.09 and Venous insufficiency (chronic) (peripheral) I87.2 [place] [address] [place] [address] [id number] [place] [address] 02610- 0481 Sep, Neuropathy G62.9 [place] [address] 39535- 1496 Sep, [facility] [place] [address] [place] [address] [id number] Sep, Dental examination Z01.20 [facility] [address] [id number] [place] [address] 02802- 6482 07 Sep, 2016 [place] [address] [place] [address] [id number] [place] [address] 74547- 1255 Sep, [place] [address] [place] [address] [id number] [place] [address] 26021- 2006 Sep, [place] [address] [place] [address] [id number] [place] [address] 54668- 2627 Sep, Mild persistent asthma without complication J45.30 [place] [address] [place] [address] [id number] [place] [address] 98151- 5537 02 Sep, 2016 Insulin long-term use Z79.4 [place] [address] [place] [address] [id number] [place] [address] 22524- 2506 Sep, Diabetes mellitus with neuropathy E11.40 ; Generalized edema R60.1 and Mild persistent asthma without complication J45.30 [facility] [address] [address] [id number] [place] [address] [id number] Aug, Dental examination Z01.20 [place] [address] [place] [address] [id number] [place] [address] 24359- 0202 Jul, Urticaria L50.9 and Mild persistent asthma without complication J45.30 [place] [address] [place] [address] [id number] [place] [address] 12414- 5379 Jul, Lateral epicondylitis of left elbow M77.12 and Venous insufficiency (chronic) (peripheral) I87.2 [place] [address] [place] [id number] [place] [address] 51300- 2488 May, Obstructive sleep apnea G47.33 and Diabetes mellitus with neuropathy E11.40 [place] [address] [place] [address] 03770- 5556 May, Diabetes mellitus with neuropathy E11.40 [place] [address], [place] [address]- 1640 Mar, [place] [address] [place] [address] 42496- 6579 Mar, Dental examination Z01.20 [place] [address], [place] [address]- 9238 Mar, Insulin long-term use Z79.4 [place] [address] [place] [address] 94661- 0083 Mar, Insulin long-term use Z79.4 [place] [address] [place] [address] 61376- 0735 February, Insulin long-term use Z79.4 [place] [address] [place] [address] 41089- 4523 February, [place] [address] [place] [address] 23906- 8869 February, Hyperlipemia E78.[address] [id number] [id number] February, Gout M10.9 and Diabetes mellitus with neuropathy E11.40 [place] [address], [place] [address]- 4380 Jan, Depression F32.9 [place] [address], [place] [address]- 7355 Jan, Insulin long-term use Z79.4 ; Gout M10.9 ; Candidiasis B37.9 ; Diabetes mellitus with neuropathy E11.40 and Depression F32.9 IMMUNIZATIONS No Known Immunizations SOCIAL HISTORY Never Assessed REASON FOR VISIT Flu shot S/E PLAN OF CARE VITAL SIGNS MEDICATIONS Unknown [...] 2 Hospitalization History pylonial cyst removal from [facility] 2016
--- OUTSIDE RECORDS SUMMARY | 2018-06-16 19:26 | XMS REPORT ---
Author Author ALEX ALCANTAR Organization [facility] Address [address] [place] [address] Care Team Providers Care Bin Operator Name Role Phone ALEX ALCANTAR Unavailable PROBLEMS Type Condition ICD9-CM Code [id number] Code Onset Dates Condition Status SNOMED Code Problem Neuropathy G62.9 Active 386970745 Problem Adjustment disorder with disturbance of emotion F43.29 Active 20953397 Problem Marijuana abuse, continuous F12.10 Active 188487855 Problem Gastroesophageal reflux disease without esophagitis K21.9 Active 901455589 Problem Acute gout involving toe of left foot, unspecified cause M10.9 Active 944938660 Problem Methamphetamine use disorder, severe, 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 Active 75923637 Problem Adjustment disorder with disturbance of conduct F43.24 Active 53382187 Problem Dyspepsia R10.13 Active 129695963 Problem Moderate episode of recurrent major depressive disorder F33.1 Active 535441731 Problem Candidiasis B37.9 Active 83848794 Problem Depression F32.9 Active 13379099 Problem Diabetes mellitus with neuropathy E11.40 Active 98036237 Problem Hyperlipemia E78.5 Active 38876290 Problem Obstructive sleep apnea G47.33 Active 30060974 Problem Insulin long-term use Z79.4 Active 992552908 Problem Venous insufficiency (chronic) (peripheral) I87.2 Active 12834018 Problem Gout M10.9 Active 40283244 Problem Mild persistent asthma without complication J45.30 Active 561457107 ALLERGIES No Information ENCOUNTERS Encounter Location Date Diagnosis [address] [id number] [id number] February, Diabetes mellitus with neuropathy E11.[address] [id number][place] [id number] February, Generalized edema R60.1 and Diabetes mellitus with neuropathy E11.40 [facility] [address] [address] Jan, [address] [id number] [id number] Jan, Gastroesophageal reflux disease without esophagitis K21.9 and Acute gout involving toe of left foot, unspecified cause M10.[address] [id number] [id number] Jan, Marijuana abuse, continuous F12.10 ; Mild persistent asthma without complication J45.30 ; BMI 40.0-44.9, adult Z68.41 and Diabetes mellitus with neuropathy E11.40 [place] [id number] [place] [address]26- 5605 Jan, [facility] [address] [id number] Jan, BMI 40.0-44.9, adult Z68.41 and Intractable vomiting with nausea, unspecified vomiting type R11.[address] [id number][place] [id number] Dec, BMI 40.0-44.9, adult Z68.41 and Abrasion hip/leg S80.819A [place] [address] [place] [id number] [place] [address] 86815- 0696 Nov, Neuropathy G62.9 [place] [id number] [place] [address] 65561- 8327 Oct, [place] [address] [id number] [place] [address] 59929- 6725 Oct, [place] [id number] [place] [address] 52319- 2423 Oct, Diabetes mellitus with neuropathy E11.40 ; Dyspepsia R10.13 ; Mild persistent asthma without complication J45.30 and Depression F32.9 [place] [id number] [place] [address] 98395- 4732 Oct, Generalized edema R60.1 and Diabetes mellitus with neuropathy E11.40 [facility] [address] [place] [id number] [place] [address] 48718- 8272 Sep, [facility] [address] [address] Aug, 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 [place] [address] [id number] [place] [address] 60632- 3612 Jul, [place] [address] [place] [id number] [place] [address] 06547- 1952 Jul, [place] [address] [id number] [place] [address] 04217- 5611 Jul, [facility] [address] [id number] [place] [address] 70311- 6682 Jul, [place] [address] [id number] [place] [address] 53928- 6771 Jul, [facility] [address] [id number] [place] [address] 19359- 2872 Jul, Diabetes mellitus with neuropathy E11.40 [facility] [address] [place] [id number] [place] [address] 09018- 2169 Jul, Diabetes mellitus with neuropathy E11.40 ; Venous insufficiency (chronic) (peripheral) I87.2 ; Chest pain, unspecified type R07.9 ; Neuropathy G62.9 and Encounter for immunization Z23 [facility] [address] [place] [address] 93229- 8351 Jun, [facility] [address] [place] [id number] [place] [address] 27813- 2780 Jun, [facility] [address] [id number] [place] [id number] May, Dental examination Z01.[address] [address]- 6007 Apr, Diabetes mellitus with neuropathy E11.40 and Depression F32.9 [place] [id number] [place] [address] 90185- 1921 Apr, Mild persistent asthma without complication J45.[address] [id number] [id number] Mar, [place] [id number] [place] [address] 60461- 1028 Mar, Depression F32.9 ; Adjustment disorder with disturbance of emotion F43.29 and Marijuana abuse, continuous F12.10 [place] [id number] [place] [address] 91161- 2645 Mar, [place] [id number] [place] [address] 31341- 8495 Mar, Acute pansinusitis, recurrence not specified J01.40 [place] [id number] [place] [address] 28792- 1456 Mar, Adjustment disorder with disturbance of emotion F43.29 ; Adjustment disorder with disturbance of conduct F43.24 ; Marijuana abuse, continuous F12.10 and Depression F32.9 [address] [place] [address] 78311- 9244 Mar, Depression F32.9 ; Marijuana abuse, continuous F12.10 and Adjustment disorder with disturbance of conduct F43.24 [place] [address] [facility] [id number] [id number] February, Bronchitis J40 and Acute diffuse otitis externa of right ear H60.311 [facility] [address] [place] [address] 95603- 2953 February, Diabetes mellitus with neuropathy E11.40 ; Mild persistent asthma without complication J45.30 ; Bronchitis J40 ; Depression F32.9 ; Neuropathy G62.9 ; Gout M10.9 ; Generalized edema R60.1 and Hyperlipemia E78.5 [place] [address] [id number] [place] [address] 67421- 5706 February, Diabetes mellitus with neuropathy E11.40 [place] [address] [id number] [place] [address] 93325- 9628 February, [place] [address] [address] [id number] [place] [address] 90358- 5852 February, [place] [address] [place] [address] 76889- 2621 Jan, [place] [address] [id number] [place] [address] 82210- 1294 Jan, [place] [address] [address] [id number] [place] [address] 78424- 6514 Jan, Adjustment disorder with disturbance of emotion F43.29 ; Adjustment disorder with disturbance of conduct F43.24 ; Marijuana abuse, continuous F12.10 and Depression F32.9 [place] [address] [place] [address] 48457- 8031 Jan, [place] [id number] [place] [address] 19009- 4203 Jan, Pilonidal cyst with abscess L05.01 and Abscess of skin of abdomen L02.211 [place] [address] [id number] [place] [address] 75040- 5921 Dec, Diabetes mellitus with neuropathy E11.40 [facility] [address] [place] [address] [id number] Dec, Dental examination Z01.20 [facility] [address] [id number] [place] [address] Dec, [facility] [address] [address] [id number] [place] [address] 88452- 4155 Nov, Depression F32.9 [facility] [address] [place] 162070- 3436 Nov, Depression F32.9 [place] [address] 230546- 5863 Nov, Lateral epicondylitis of left elbow M77.12 ; Insulin long- term use Z79.4 and Neuropathy G62.9 [place] [address] 72985- 5348 Nov, Adjustment disorder with disturbance of emotion F43.29 ; Adjustment disorder with disturbance of conduct F43.24 ; Marijuana abuse, continuous F12.10 and Depression F32.9 [facility] [address] [address] [id number] [place] [address] 62537- 2498 Oct, Adjustment disorder with disturbance of emotion F43.29 ; Marijuana abuse, continuous F12.10 ; Adjustment disorder with disturbance of conduct F43.24 and Severe episode of recurrent major depressive disorder, without psychotic features F33.2 [facility] [address] [place] [address] [id number] Oct, Dental examination Z01.20 [facility] [address] [place] [address] 95972- 6420 Oct, Depression F32.9 [facility] [address] [place] [id number] [place] [address] [id number] Oct, Dental examination Z01.20 [facility] [address] [id number] [place] [address] 33554- 0901 Oct, Depression F32.9 ; Adjustment disorder with disturbance of conduct F43.24 ; Adjustment disorder with disturbance of emotion F43.29 and Marijuana abuse, continuous F12.10 [facility] [address] [address] [id number] [place] [address] [id number] Oct, Dental examination Z01.20 [facility] [address] [address] [id number] [place] [address] [id number] Oct, Dental caries K02.9 [facility] [address] 32634- 8727 Oct, [facility] [address] [id number] Sep, Dental examination Z01.20 [place] [address] [place] [id number] [place] [address] 65079- 1714 Sep, [place] [address] 29884- 4247 Sep, Insulin long-term use Z79.4 ; Gout M10.9 ; Diabetes mellitus with neuropathy E11.40 ; Depression F32.9 ; Hyperlipemia E78.5 ; Obstructive sleep apnea G47.33 ; Venous insufficiency (chronic) (peripheral) I87.2 ; Mild persistent asthma without complication J45.30 ; Neuropathy G62.9 and Marijuana abuse, continuous F12.10 [place] [address] [place] [id number] [place] [address] 29125- 7894 Sep, Adjustment disorder with disturbance of conduct F43.24 and Adjustment disorder with disturbance of emotion F43.29 [place] [address] [place] [id number] [place] [address] 90277- 3938 Sep, Diabetes mellitus with neuropathy E11.40 ; Dyspnea on exertion R06.09 and Venous insufficiency (chronic) (peripheral) I87.2 [place] [address] [place] [address] [id number] [place] [address] 50868- 7203 Sep, Neuropathy G62.9 [place] [address] 82938- 0308 Sep, [facility] [address] [place] [address] [id number] Sep, Dental examination Z01.20 [facility] [address] [place] [id number] [place] [address] 62040- 3630 07 Sep, 2016 [place] [address] [place] [address] [id number] [place] [address] 93279- 5568 Sep, [place] [address] [place] [id number] [place] [address] 80816- 2121 Sep, [place] [address] [place] [address] [id number] [place] [address] 66665- 8742 Sep, Mild persistent asthma without complication J45.30 [place] [address] [place] [address] [id number] [place] [address] 74803- 8825 02 Sep, 2016 Insulin long-term use Z79.4 [place] [address] [place] [id number] [place] [address] 69078- 3609 Sep, Diabetes mellitus with neuropathy E11.40 ; Generalized edema R60.1 and Mild persistent asthma without complication J45.30 [facility] [address] [address] [id number] [place] [address] [id number] Aug, Dental examination Z01.20 [place] [address] [place] [id number] [place] [address] 11083- 0158 Jul, Urticaria L50.9 and Mild persistent asthma without complication J45.30 [place] [address] [place] [id number] [place] [address] 34686- 2193 Jul, Lateral epicondylitis of left elbow M77.12 and Venous insufficiency (chronic) (peripheral) I87.2 [place] [address] [place] [address] [id number] [place] [address] 67655- 9916 May, Obstructive sleep apnea G47.33 and Diabetes mellitus with neuropathy E11.40 [place] [address] [place] [address] 04199- 4627 May, Diabetes mellitus with neuropathy E11.40 [place] [address] [address]- 6645 Mar, [place] [address] [place] [address] 43532- 4612 Mar, Dental examination Z01.20 [place] [address] [address]- 5021 Mar, Insulin long-term use Z79.4 [place] [address] [place] [address] 00364- 2419 Mar, Insulin long-term use Z79.4 [place] [address] [place] [address] 82691- 2357 February, Insulin long-term use Z79.4 [place] [address] [place] [address] 18532- 7671 February, [place] [address] [place] [address] 39837- 8183 February, Hyperlipemia E78.[address] [id number] [id number] February, Gout M10.9 and Diabetes mellitus with neuropathy E11.40 [place] [address] [address]- 1752 Jan, Depression F32.9 [place] [address] [address]- 4044 Jan, Insulin long-term use Z79.4 ; Gout M10.9 ; Candidiasis B37.9 ; Diabetes mellitus with neuropathy E11.40 and Depression F32.9 IMMUNIZATIONS No Known Immunizations SOCIAL HISTORY Never Assessed REASON FOR VISIT PLAN OF CARE VITAL SIGNS MEDICATIONS Unknown [...] 2 Hospitalization History pylonial cyst removal from [place] [address]
--- OUTSIDE RECORDS SUMMARY | 2018-06-16 19:26 | XMS REPORT ---
Author Author ALEX ALCANTAR Organization [facility], [place] Address [address] [place] [address] Care Team Providers Care Pharmacist Helper Name Role Phone ALEX ALCANTAR Unavailable PROBLEMS Type Condition ICD9-CM Code HJV52-MU Code Onset Dates Condition Status SNOMED Code Problem Neuropathy G62.9 Active 183007044 Problem Adjustment disorder with disturbance of emotion F43.29 Active 86270894 Problem Marijuana abuse, continuous F12.10 Active 891312551 Problem Gastroesophageal reflux disease without esophagitis K21.9 Active 242150735 Problem Acute gout involving toe of left foot, unspecified cause M10.9 Active 366833373 Problem Methamphetamine use disorder, severe, 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 Active 42228124 Problem Adjustment disorder with disturbance of conduct F43.24 Active 44943240 Problem Dyspepsia R10.13 Active 389957502 Problem Moderate episode of recurrent major depressive disorder F33.1 Active 590381900 Problem Candidiasis B37.9 Active 30765380 Problem Depression F32.9 Active 19828288 Problem Diabetes mellitus with neuropathy E11.40 Active 54211369 Problem Hyperlipemia E78.5 Active 04045181 Problem Obstructive sleep apnea G47.33 Active 01203678 Problem Insulin long-term use Z79.4 Active 596546399 Problem Venous insufficiency (chronic) (peripheral) I87.2 Active 92685194 Problem Gout M10.9 Active 45595994 Problem Mild persistent asthma without complication J45.30 Active 772611026 ALLERGIES No Information ENCOUNTERS Encounter Location Date Diagnosis [address] [id number] [id number] February, Diabetes mellitus with neuropathy E11.[address] [id number] [id number] February, Generalized edema R60.1 and Diabetes mellitus with neuropathy E11.40 [facility] [place] [address] [address] Jan, [address] [id number] [id number] Jan, Gastroesophageal reflux disease without esophagitis K21.9 and Acute gout involving toe of left foot, unspecified cause M10.[address] [id number] [id number] Jan, Marijuana abuse, continuous F12.10 ; Mild persistent asthma without complication J45.30 ; BMI 40.0-44.9, adult Z68.41 and Diabetes mellitus with neuropathy E11.40 [place] [id number] [place] [address]754- 5186 Jan, [facility] [address] [id number] Jan, BMI 40.0-44.9, adult Z68.41 and Intractable vomiting with nausea, unspecified vomiting type R11.[address] [id number] [id number] Dec, BMI 40.0-44.9, adult Z68.41 and Abrasion hip/leg S80.819A [place] [address] [place] [id number] [place] [address] 49512- 2027 Nov, Neuropathy G62.9 [place] [address] [place] [address] [id number] [place] [address] 85566- 1218 Oct, [place] [address] [place] [id number] [place] [address] 91861- 5214 Oct, [place] [id number] [place] [address] 12971- 3628 Oct, Diabetes mellitus with neuropathy E11.40 ; Dyspepsia R10.13 ; Mild persistent asthma without complication J45.30 and Depression F32.9 [place] [id number] [place] [address] 24510- 6393 Oct, Generalized edema R60.1 and Diabetes mellitus with neuropathy E11.40 [facility] [place] [address] [place] [id number] [place] [address] 52495- 6384 Sep, [facility] [place] [address] [address]80 Aug, [facility] [address] [address] Aug, Cellulitis L03.90 and BMI 40.0-44.9, adult Z68.41 [facility] [place] [address] [address]51- [address] Aug, [facility] [place] [address] 04121- 4963 Jul, Trapezius muscle spasm M62.838 and Depression F32.9 [place] [address] 7[address]94- 0715 Jul, Marijuana abuse, continuous F12.10 ; Moderate episode of recurrent major depressive disorder F33.1 and Methamphetamine use disorder, severe, 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 [place] [address] [place] [id number] [place] [address] 59491- 7571 Jul, [place] [address] [place] [address] [id number] [place] [address] 18118- 2881 Jul, [place] [address] [place] [id number] [place] [address] 01815- 3479 Jul, [facility] [place] [id number] [place] [address] 01780- 1010 Jul, [place] [address] [place] [address] [id number] [place] [address] 33493- 0995 Jul, [facility] [place] [address] [place] [address] [id number] [place] [address] 31351- 0311 Jul, Diabetes mellitus with neuropathy E11.40 [facility] [place] [address] [address] [id number] [place] [address] 66870- 0229 Jul, Diabetes mellitus with neuropathy E11.40 ; Venous insufficiency (chronic) (peripheral) I87.2 ; Chest pain, unspecified type R07.9 ; Neuropathy G62.9 and Encounter for immunization Z23 [facility] [place] [address] [place] [address] 39583- 1940 Jun, [facility] [place] [address] [place] [id number] [place] [address] 67045- 9290 Jun, [facility] [id number] [place] [id number] May, Dental examination Z01.[address] [address]- 0816 Apr, Diabetes mellitus with neuropathy E11.40 and Depression F32.9 [place] [id number] [place] [address] 81723- 8595 Apr, Mild persistent asthma without complication J45.[address] [id number] [id number] Mar, [place] [id number] [place] [address] 61400- 7185 Mar, Depression F32.9 ; Adjustment disorder with disturbance of emotion F43.29 and Marijuana abuse, continuous F12.10 [place] [id number] [place] [address] 42083- 1111 Mar, [place] [id number] [place] [address] 14707- 7527 Mar, Acute pansinusitis, recurrence not specified J01.40 [place] [id number] [place] [address] 03895- 5548 Mar, Adjustment disorder with disturbance of emotion F43.29 ; Adjustment disorder with disturbance of conduct F43.24 ; Marijuana abuse, continuous F12.10 and Depression F32.9 [address] [place] [address] 46895- 5797 Mar, Depression F32.9 ; Marijuana abuse, continuous F12.10 and Adjustment disorder with disturbance of conduct F43.24 [place] [address] [facility] [id number] [id number] February, Bronchitis J40 and Acute diffuse otitis externa of right ear H60.311 [facility] [place] [address] [place] [address] 73193- 3523 February, Diabetes mellitus with neuropathy E11.40 ; Mild persistent asthma without complication J45.30 ; Bronchitis J40 ; Depression F32.9 ; Neuropathy G62.9 ; Gout M10.9 ; Generalized edema R60.1 and Hyperlipemia E78.5 [place] [address] [address] [id number] [place] [address] 70270- 7709 February, Diabetes mellitus with neuropathy E11.40 [place] [address] [address] [id number] [place] [address] 13829- 1762 February, [place] [address] [place] [id number] [place] [address] 11172- 4352 February, [place] [address] [place] [address] 19656- 0405 Jan, [place] [address] [place] [id number] [place] [address] 21640- 9845 Jan, [place] [address] [address] [id number] [place] [address] 67510- 0621 Jan, Adjustment disorder with disturbance of emotion F43.29 ; Adjustment disorder with disturbance of conduct F43.24 ; Marijuana abuse, continuous F12.10 and Depression F32.9 [place] [address] [place] [address] 28779- 0447 Jan, [place] [id number] [place] [address] 68057- 9471 Jan, Pilonidal cyst with abscess L05.01 and Abscess of skin of abdomen L02.211 [place] [address] [address] [id number] [place] [address] 05832- 7732 Dec, Diabetes mellitus with neuropathy E11.40 [facility] [address] [place] [address] [id number] Dec, Dental examination Z01.20 [facility] [place] [address] [address] [id number] [place] [address] Dec, [facility] [place] [id number] [place] [address] 45357- 6554 Nov, Depression F32.9 [facility] [place] [address] [place] 009409- 0727 Nov, Depression F32.9 [place] [address] 871125- 3305 Nov, Lateral epicondylitis of left elbow M77.12 ; Insulin long- term use Z79.4 and Neuropathy G62.9 [place] [address] 88154- 4295 Nov, Adjustment disorder with disturbance of emotion F43.29 ; Adjustment disorder with disturbance of conduct F43.24 ; Marijuana abuse, continuous F12.10 and Depression F32.9 [facility] [place] [address] [address] [id number] [place] [address] 43615- 6371 Oct, Adjustment disorder with disturbance of emotion F43.29 ; Marijuana abuse, continuous F12.10 ; Adjustment disorder with disturbance of conduct F43.24 and Severe episode of recurrent major depressive disorder, without psychotic features F33.2 [facility] [address] [place] [address] [id number] Oct, Dental examination Z01.20 [facility] [place] [address] [place] [address] 28390- 0791 Oct, Depression F32.9 [facility] [address] [id number] [place] [address] [id number] Oct, Dental examination Z01.20 [facility] [place] [address] [address] [id number] [place] [address] 91537- 6113 Oct, Depression F32.9 ; Adjustment disorder with disturbance of conduct F43.24 ; Adjustment disorder with disturbance of emotion F43.29 and Marijuana abuse, continuous F12.10 [facility] [address] [id number] [place] [address] [id number] Oct, Dental examination Z01.20 [facility] [id number] [place] [address] [id number] Oct, Dental caries K02.9 [facility] [place] [address] 00835- 9216 Oct, [facility] [address] [id number] Sep, Dental examination Z01.20 [place] [address] [place] [id number] [place] [address] 69655- 3242 Sep, [place] [address] 44691- 6149 Sep, Insulin long-term use Z79.4 ; Gout M10.9 ; Diabetes mellitus with neuropathy E11.40 ; Depression F32.9 ; Hyperlipemia E78.5 ; Obstructive sleep apnea G47.33 ; Venous insufficiency (chronic) (peripheral) I87.2 ; Mild persistent asthma without complication J45.30 ; Neuropathy G62.9 and Marijuana abuse, continuous F12.10 [place] [address] [address] [id number] [place] [address] 65600- 6123 Sep, Adjustment disorder with disturbance of conduct F43.24 and Adjustment disorder with disturbance of emotion F43.29 [place] [address] [address] [id number] [place] [address] 42644- 8301 Sep, Diabetes mellitus with neuropathy E11.40 ; Dyspnea on exertion R06.09 and Venous insufficiency (chronic) (peripheral) I87.2 [place] [address] [place] [address] [id number] [place] [address] 72817- 3980 Sep, Neuropathy G62.9 [place] [address] 71358- 9853 Sep, [facility] [address] [place] [address] [id number] Sep, Dental examination Z01.20 [facility] [place] [address] [address] [id number] [place] [address] 14130- 0023 07 Sep, 2016 [place] [address] [address] [id number] [place] [address] 65843- 5053 Sep, [place] [address] [place] [address] [id number] [place] [address] 32216- 6806 Sep, [place] [address] [place] [address] [id number] [place] [address] 06281- 3186 Sep, Mild persistent asthma without complication J45.30 [place] [address] [place] [id number] [place] [address] 25944- 0809 02 Sep, 2016 Insulin long-term use Z79.4 [place] [address] [address] [id number] [place] [address] 85772- 2266 Sep, Diabetes mellitus with neuropathy E11.40 ; Generalized edema R60.1 and Mild persistent asthma without complication J45.30 [facility] [id number] [place] [address] [id number] Aug, Dental examination Z01.20 [place] [address] [place] [address] [id number] [place] [address] 08629- 9172 Jul, Urticaria L50.9 and Mild persistent asthma without complication J45.30 [place] [address] [place] [address] [id number] [place] [address] 91406- 1260 Jul, Lateral epicondylitis of left elbow M77.12 and Venous insufficiency (chronic) (peripheral) I87.2 [place] [address] [id number] [place] [address] 90513- 1910 May, Obstructive sleep apnea G47.33 and Diabetes mellitus with neuropathy E11.40 [place] [address] [place] [address] 88076- 3127 May, Diabetes mellitus with neuropathy E11.40 [place] [address] [address]- 7877 Mar, [place] [address] [place] [address] 26951- 1846 Mar, Dental examination Z01.20 [place] [address] [address]- 0444 Mar, Insulin long-term use Z79.4 [place] [address] [place] [address] 53388- 9808 Mar, Insulin long-term use Z79.4 [place] [address] [place] [id number] [place] [address] 09021- 5367 February, Insulin long-term use Z79.4 [place] [address] [place] [address] 88718- 5310 February, [place] [address] [place] [id number] [place] [address] 07013- 9929 February, Hyperlipemia E78.[address] [id number] [id number] February, Gout M10.9 and Diabetes mellitus with neuropathy E11.40 [place] [address] [address]- 7146 Jan, Depression F32.9 [place] [address] [place] [address] 42306- 8318 Jan, Insulin long-term use Z79.4 ; Gout M10.9 ; Candidiasis B37.9 ; Diabetes mellitus with neuropathy E11.40 and Depression F32.9 IMMUNIZATIONS No Known Immunizations SOCIAL HISTORY Never Assessed REASON FOR VISIT PLAN OF CARE VITAL SIGNS MEDICATIONS Medication Instructions Dosage Frequency Start Date End Date Duration Status NovoLog 100 UNIT/ML Subcutaneous 3 times a day 20 units 8h February, Active Victoza 18 MG/3ML Subcutaneous Once a day 1.8 mg daily 24h Jul, Active NovoFine 32G X 6 MM subcutaneously 6 times a day 1 needle 4h Jul, Active Levemir 100 UNIT/ML Subcutaneous twice a day 27 units 12h 17 Feb, 2016 Active RESULTS No Results PROCEDURES No Known procedures INSTRUCTIONS MEDICATIONS ADMINISTERED No Known Medications MEDICAL (GENERAL) HISTORY Type Description Date Medical History high blood pressure Medical History diabetic Medical History asthma Medical History emphysema Surgical History Pylonial cyst removal from tailbone x 2 Surgical History Cyst removal from groin/MRSA Surgical History Back surgery cyst removal from [facility]/2017 Hospitalization History Surgery Hospitalization History Heart attacks x 2 Hospitalization History pylonial cyst removal from [facility] 2017
--- OUTSIDE RECORDS SUMMARY | 2018-06-16 19:26 | XMS REPORT ---
Author Author ALEX ALCANTAR Organization [facility] Address [address] [place] [address] Care Team Providers Care Inventory Analyst Name Role Phone ALEX ALCANTAR Unavailable PROBLEMS Type Condition ICD9-CM Code ALU15-UR Code Onset Dates Condition Status SNOMED Code Problem Neuropathy G62.9 Active 216978257 Problem Adjustment disorder with disturbance of emotion F43.29 Active 36041488 Problem Marijuana abuse, continuous F12.10 Active 029466400 Problem Gastroesophageal reflux disease without esophagitis K21.9 Active 750309813 Problem Acute gout involving toe of left foot, unspecified cause M10.9 Active 818817896 Problem Methamphetamine use disorder, severe, 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 Active 08712544 Problem Adjustment disorder with disturbance of conduct F43.24 Active 56782616 Problem Dyspepsia R10.13 Active 989460837 Problem Moderate episode of recurrent major depressive disorder F33.1 Active 280982755 Problem Candidiasis B37.9 Active 14138710 Problem Depression F32.9 Active 59015157 Problem Diabetes mellitus with neuropathy E11.40 Active 78683298 Problem Hyperlipemia E78.5 Active 02844421 Problem Obstructive sleep apnea G47.33 Active 73736181 Problem Insulin long-term use Z79.4 Active 911636604 Problem Venous insufficiency (chronic) (peripheral) I87.2 Active 36135609 Problem Gout M10.9 Active 82567884 Problem Mild persistent asthma without complication J45.30 Active 329298127 ALLERGIES No Information ENCOUNTERS Encounter Location Date Diagnosis [address] [id number] [id number] February, Diabetes mellitus with neuropathy E11.[address] [id number] [id number] February, Generalized edema R60.1 and Diabetes mellitus with neuropathy E11.40 [facility] [address] [address] Jan, [address] [id number] [id number] Jan, Gastroesophageal reflux disease without esophagitis K21.9 and Acute gout involving toe of left foot, unspecified cause M10.[address] [id number] [id number] Jan, Marijuana abuse, continuous F12.10 ; Mild persistent asthma without complication J45.30 ; BMI 40.0-44.9, adult Z68.41 and Diabetes mellitus with neuropathy E11.40 [place] [id number] [place] [address]19- 9507 Jan, [facility] [address] [id number] Jan, BMI 40.0-44.9, adult Z68.41 and Intractable vomiting with nausea, unspecified vomiting type R11.[address] [id number] [id number] Dec, BMI 40.0-44.9, adult Z68.41 and Abrasion hip/leg S80.819A [place] [id number] [place] [address] 44918- 9454 Nov, Neuropathy G62.9 [place] [address] [id number] [place] [address] 66377- 3955 Oct, [place] [address] [id number] [place] [address] 26812- 2636 Oct, [place] [id number] [place] [address] 97610- 9046 Oct, Diabetes mellitus with neuropathy E11.40 ; Dyspepsia R10.13 ; Mild persistent asthma without complication J45.30 and Depression F32.9 [place] [id number] [place] [address] 86643- 1633 Oct, Generalized edema R60.1 and Diabetes mellitus with neuropathy E11.40 [facility] [id number] [place] [address] 48573- 0008 Sep, [facility] [address] [address] Aug, [facility] [address] [address] Aug, Cellulitis L03.90 and BMI 40.0-44.9, adult Z68.41 [facility] [address] [address]- 2067 Aug, [facility] [address] 47227- 6329 Jul, Trapezius muscle spasm M62.838 and Depression F32.9 [place] [address] 98[address] Jul, Marijuana abuse, continuous F12.10 ; Moderate episode of recurrent major depressive disorder F33.1 and Methamphetamine use disorder, severe, 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 [place] [address] [id number] [place] [address] 97763- 0941 Jul, [place] [address] [id number] [place] [address] 20792- 6144 Jul, [place] [address] [id number] [place] [address] 36454- 3817 Jul, [facility] [id number] [place] [address] 46866- 2739 Jul, [place] [address] [id number] [place] [address] 59625- 3912 Jul, [facility] [id number] [place] [address] 37756- 9088 Jul, Diabetes mellitus with neuropathy E11.40 [facility] [id number] [place] [address] 73860- 7968 Jul, Diabetes mellitus with neuropathy E11.40 ; Venous insufficiency (chronic) (peripheral) I87.2 ; Chest pain, unspecified type R07.9 ; Neuropathy G62.9 and Encounter for immunization Z23 [facility] [address] [place] [address] 68140- 0019 Jun, [facility] [address] [place] [id number] [place] [address] 53707- 1448 Jun, [facility] [id number] [place] [id number] May, Dental examination Z01.[address] [address]- [address] Apr, Diabetes mellitus with neuropathy E11.40 and Depression F32.9 [place] [id number] [place] [address] 45556- 5061 Apr, Mild persistent asthma without complication J45.[address] [id number] [id number] Mar, [place] [id number] [place] [address] 64533- 4976 Mar, Depression F32.9 ; Adjustment disorder with disturbance of emotion F43.29 and Marijuana abuse, continuous F12.10 [place] [id number] [place] [address] 14952- 4897 Mar, [place] [address] [place] [address] 10887- 7464 Mar, Acute pansinusitis, recurrence not specified J01.40 [place] [address] [place] [address] 82232- 2463 Mar, Adjustment disorder with disturbance of emotion F43.29 ; Adjustment disorder with disturbance of conduct F43.24 ; Marijuana abuse, continuous F12.10 and Depression F32.[address] [place] [address] 87219- 5690 Mar, Depression F32.9 ; Marijuana abuse, continuous F12.10 and Adjustment disorder with disturbance of conduct F43.24 [place] [address] [facility] [id number] [id number] February, Bronchitis J40 and Acute diffuse otitis externa of right ear H60.311 [facility] [address] [place] [address] 03132- 9327 February, Diabetes mellitus with neuropathy E11.40 ; Mild persistent asthma without complication J45.30 ; Bronchitis J40 ; Depression F32.9 ; Neuropathy G62.9 ; Gout M10.9 ; Generalized edema R60.1 and Hyperlipemia E78.5 [place] [address] [id number] [place] [address] 19513- 8802 February, Diabetes mellitus with neuropathy E11.40 [place] [id number] [place] [address] 18290- 3715 February, [place] [address] [id number] [place] [address] 42682- 8875 February, [place] [address] [place] [address] 54946- 9472 Jan, [place] [address] [id number] [place] [address] 11296- 6509 Jan, [place] [address] [id number] [place] [address] 90457- 8652 Jan, Adjustment disorder with disturbance of emotion F43.29 ; Adjustment disorder with disturbance of conduct F43.24 ; Marijuana abuse, continuous F12.10 and Depression F32.9 [place] [address] [place] [address] 37073- 8517 Jan, [place] [id number] [place] [address] 14961- 2340 Jan, Pilonidal cyst with abscess L05.01 and Abscess of skin of abdomen L02.211 [place] [address] [id number] [place] [address] 59390- 4704 Dec, Diabetes mellitus with neuropathy E11.40 [facility] [address] [place] [id number] Dec, Dental examination Z01.20 [facility] [id number] [place] [address] Dec, [facility] [id number] [place] [address] 33064- 4316 Nov, Depression F32.9 [facility] [address] [place] 242051- [address] Nov, Depression F32.9 [place] [address] 790879- 4893 Nov, Lateral epicondylitis of left elbow M77.12 ; Insulin long- term use Z79.4 and Neuropathy G62.9 [place] [address] 69755- 8421 Nov, Adjustment disorder with disturbance of emotion F43.29 ; Adjustment disorder with disturbance of conduct F43.24 ; Marijuana abuse, continuous F12.10 and Depression F32.9 [facility] [id number] [place] [address] 09083- 5613 Oct, Adjustment disorder with disturbance of emotion F43.29 ; Marijuana abuse, continuous F12.10 ; Adjustment disorder with disturbance of conduct F43.24 and Severe episode of recurrent major depressive disorder, without psychotic features F33.2 [facility] [address] [place] [address] [id number] Oct, Dental examination Z01.20 [facility] [address] [place] [address] 47724- 9981 Oct, Depression F32.9 [facility] [id number] [place] [address] [id number] Oct, Dental examination Z01.20 [facility] [id number] [place] [address] 38636- 6317 Oct, Depression F32.9 ; Adjustment disorder with disturbance of conduct F43.24 ; Adjustment disorder with disturbance of emotion F43.29 and Marijuana abuse, continuous F12.10 [facility] [id number] [place] [address] [id number] Oct, Dental examination Z01.20 [facility] [id number] [place] [address] [id number] Oct, Dental caries K02.9 [facility] [address] 16977- 0736 Oct, [facility] [address] [id number] Sep, Dental examination Z01.20 [place] [address] [id number] [place] [address] 24206- 7645 Sep, [place] [address] 00493- 5942 Sep, Insulin long-term use Z79.4 ; Gout M10.9 ; Diabetes mellitus with neuropathy E11.40 ; Depression F32.9 ; Hyperlipemia E78.5 ; Obstructive sleep apnea G47.33 ; Venous insufficiency (chronic) (peripheral) I87.2 ; Mild persistent asthma without complication J45.30 ; Neuropathy G62.9 and Marijuana abuse, continuous F12.10 [place] [address] [id number] [place] [address] 86288- 5101 Sep, Adjustment disorder with disturbance of conduct F43.24 and Adjustment disorder with disturbance of emotion F43.29 [place] [address] [id number] [place] [address] 39674- 2072 Sep, Diabetes mellitus with neuropathy E11.40 ; Dyspnea on exertion R06.09 and Venous insufficiency (chronic) (peripheral) I87.2 [place] [address] [id number] [place] [address] 47124- 4800 Sep, Neuropathy G62.9 [place] [address] 96655- 9516 Sep, [facility] [address] [place] [address] [id number] Sep, Dental examination Z01.20 [facility] [id number] [place] [address] 84918- 5267 07 Sep, 2016 [place] [address] [id number] [place] [address] 65942- 1572 Sep, [place] [address] [id number] [place] [address] 41218- 3386 Sep, [place] [address] [id number] [place] [address] 61524- 0364 Sep, Mild persistent asthma without complication J45.30 [place] [address] [id number] [place] [address] 93014- 4850 02 Sep, 2016 Insulin long-term use Z79.4 [place] [id number] [place] [address] 77315- 0591 Sep, Diabetes mellitus with neuropathy E11.40 ; Generalized edema R60.1 and Mild persistent asthma without complication J45.30 [facility] [id number] [place] [address] [id number] Aug, Dental examination Z01.20 [place] [address] [id number] [place] [address] 46409- 3578 Jul, Urticaria L50.9 and Mild persistent asthma without complication J45.30 [place] [address] [id number] [place] [address] 69461- 1639 Jul, Lateral epicondylitis of left elbow M77.12 and Venous insufficiency (chronic) (peripheral) I87.2 [place] [address] [id number] [place] [address] 45079- 8723 May, Obstructive sleep apnea G47.33 and Diabetes mellitus with neuropathy E11.40 [place] [address] [place] [address] 30533- 3324 May, Diabetes mellitus with neuropathy E11.40 [place] [address], [place] [address]- 7868 Mar, [place] [address] [place] [address] 36125- 9970 Mar, Dental examination Z01.20 [place] [address], [place] [address]- 2963 Mar, Insulin long-term use Z79.4 [place] [address] [place] [address] 39197- 1890 Mar, Insulin long-term use Z79.4 [place] [address] [place] [address] 01749- 8187 February, Insulin long-term use Z79.4 [place] [address] [place] [address] 33021- 9127 February, [place] [address] [place] [address] 57218- 1449 February, Hyperlipemia E78.[address] [id number] [id number] February, Gout M10.9 and Diabetes mellitus with neuropathy E11.40 [place] [address], [place] [address]- 7947 Jan, Depression F32.9 [place] [address], [place] [address]- 1292 Jan, Insulin long-term use Z79.4 ; Gout M10.9 ; Candidiasis B37.9 ; Diabetes mellitus with neuropathy E11.40 and Depression F32.9 IMMUNIZATIONS No Known Immunizations SOCIAL HISTORY Never Assessed REASON FOR VISIT Questions PLAN OF CARE VITAL SIGNS MEDICATIONS Unknown [...] 2 Hospitalization History pylonial cyst removal from [place] [address]
--- OUTSIDE RECORDS SUMMARY | 2018-06-16 19:26 | XMS REPORT ---
Author Author JOMAR GAMBLE Organization [facility] Address [address] [place] [address] Care Team Providers Care Substation Inspector Name Role Phone JOMAR GAMBLE Unavailable PROBLEMS Type Condition ICD9-CM Code MSP34-QX Code Onset Dates Condition Status SNOMED Code Problem Gout M10.9 Active 64529019 Problem Obstructive sleep apnea G47.33 Active 74376976 Problem Hyperlipemia E78.5 Active 33382652 Problem Candidiasis B37.9 Active 90107184 Problem Depression F32.9 Active 09377170 Problem Insulin long-term use Z79.4 Active 451587800 Problem Diabetes mellitus with neuropathy E11.40 Active 90705207 Problem Adjustment disorder with disturbance of conduct F43.24 Active 27390201 Problem Adjustment disorder with disturbance of emotion F43.29 Active 57191808 Problem Mild persistent asthma without complication J45.30 Active 795930184 Problem Venous insufficiency (chronic) (peripheral) I87.2 Active 06154058 Problem Marijuana abuse, continuous F12.10 Active 496281318 Problem Neuropathy G62.9 Active 706475160 ALLERGIES Unknown Allergies SOCIAL HISTORY No smoking Hx information available PLAN OF CARE Activity Details Follow Up 2 Weeks Reason:depression, mood swings VITAL SIGNS MEDICATIONS Unknown Medications RESULTS No Results PROCEDURES Procedure Date Ordered Related Diagnosis Body Site Psychotherapy, patient &/family, 30 minutes, established patient Nov 01, 2016 IMMUNIZATIONS No Known Immunizations
--- OUTSIDE RECORDS SUMMARY | 2018-06-16 19:27 | XMS REPORT ---
Author Author ALEX ALCANTAR Organization [facility] Address [address] [place] [address] Care Team Providers Care Janitor Caretaker Name Role Phone ALEX ALCANTAR Unavailable PROBLEMS Type Condition ICD9-CM Code BFG83-DN Code Onset Dates Condition Status SNOMED Code Problem Venous insufficiency (chronic) (peripheral) I87.2 Active 75828869 Problem Neuropathy G62.9 Active 165679924 Problem Mild persistent asthma without complication J45.30 Active 344727868 Problem Dyspepsia R10.13 Active 129487294 Problem Moderate episode of recurrent major depressive disorder F33.1 Active 252885024 Problem Adjustment disorder with disturbance of emotion F43.29 Active 18376531 Problem Marijuana abuse, continuous F12.10 Active 486899228 Problem Methamphetamine use disorder, severe, 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 Active 17283855 Problem Adjustment disorder with disturbance of conduct F43.24 Active 82403876 Problem Candidiasis B37.9 Active 98591235 Problem Diabetes mellitus with neuropathy E11.40 Active 81396007 Problem Gout M10.9 Active 61793818 Problem Depression F32.9 Active 93286618 Problem Hyperlipemia E78.5 Active 12102072 Problem Insulin long-term use Z79.4 Active 536665443 Problem Obstructive sleep apnea G47.33 Active 42342812 ALLERGIES No Information ENCOUNTERS Encounter Location Date Diagnosis [place] [id number] [facility] [id number] [id number] Dec, BMI 40.0-44.9, adult Z68.41 and Abrasion hip/leg S80.819A [facility] [address] [id number] [address] Nov, Neuropathy G62.9 [facility] [address] [id number] [address] Oct, [facility] [id number] [place] [address] Oct, [place] [address] [address] Oct, Diabetes mellitus with neuropathy E11.40 ; Dyspepsia R10.13 ; Mild persistent asthma without complication J45.30 and Depression F32.9 [place] [address] [address] Oct, Generalized edema R60.1 and Diabetes mellitus with neuropathy E11.40 [place] [address] [address] Sep, [place] [address] [address] Aug, [facility] [address] [address] Aug, Cellulitis L03.90 and BMI 40.0-44.9, adult Z68.41 [place] [address] [address] Aug, [place] [address] [address] Jul, Trapezius muscle spasm M62.838 and Depression F32.[address] [address] Jul, Marijuana abuse, continuous F12.10 ; Moderate episode of recurrent major depressive disorder F33.1 and Methamphetamine use disorder, severe, 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 [place] [address] [address] Jul, [place] [address] [address] Jul, [place] [address] [address] Jul, [facility] [address] [place] [address]10- 0[address] Jul, [facility] [id number] [place] [address] 97102- 5499 Jul, [facility] [address] [place] [address]06- 2108 18 Jul, 2017 Diabetes mellitus with neuropathy E11.40 [place] [address] [address] 16 Jul, 2017 Diabetes mellitus with neuropathy E11.40 ; Venous insufficiency (chronic) (peripheral) I87.2 ; Chest pain, unspecified type R07.9 ; Neuropathy G62.9 and Encounter for immunization Z23 [place] [id number] [place] [address] 27998- 4[address] Jun, [place] [id number] [place] [address] 6[address]63- [address]01 Jun, [facility] [id number] [place] [id number] May, Dental examination Z01.20 [place] [id number] [place] [address] 87272- 3565 Apr, Diabetes mellitus with neuropathy E11.40 and Depression F32.[address] [place] [address] 59664- 4326 Apr, Mild persistent asthma without complication J45.[address] [id number] [id number] Mar, [address] [place] [address] 58842- 2035 Mar, Depression F32.9 ; Adjustment disorder with disturbance of emotion F43.29 and Marijuana abuse, continuous F12.10 [address] [place] [address] 78819- 5100 Mar, [place] [id number] [place] [address] 23263- 5841 Mar, Acute pansinusitis, recurrence not specified J01.40 [place] [id number] [place] [address] 079985- 2625 Mar, Adjustment disorder with disturbance of emotion F43.29 ; Adjustment disorder with disturbance of conduct F43.24 ; Marijuana abuse, continuous F12.10 and Depression F32.[address] [address]- [address] Mar, Depression F32.9 ; Marijuana abuse, continuous F12.10 and Adjustment disorder with disturbance of conduct F43.[address] [place] [id number] February, Bronchitis J40 and Acute diffuse otitis externa of right ear H60.311 [place] [id number] [place] [address] 85331- 2453 February, Diabetes mellitus with neuropathy E11.40 ; Mild persistent asthma without complication J45.30 ; Bronchitis J40 ; Depression F32.9 ; Neuropathy G62.9 ; Gout M10.9 ; Generalized edema R60.1 and Hyperlipemia E78.5 [place] [id number] [place] [address] 92172- 8602 February, Diabetes mellitus with neuropathy E11.40 [place] [id number] [place] [address] 73657- 8236 February, [place] [id number] [place] [address] 91495- 6473 February, [place] [id number] [place] [address] 38049- 6946 Jan, [place] [address] [address] Jan, [place] [id number] [place] [address] 92280- 1398 Jan, Adjustment disorder with disturbance of emotion F43.29 ; Adjustment disorder with disturbance of conduct F43.24 ; Marijuana abuse, continuous F12.10 and Depression F32.9 [place] [address] [place] [id number]- 831 Jan, [place] [address] [place] [address] Jan, Pilonidal cyst with abscess L05.01 and Abscess of skin of abdomen L02.211 [place] [address] [place] 454039- [address] Dec, Diabetes mellitus with neuropathy E11.40 [facility] [address] [id number] Dec, Dental examination Z01.20 [place] [address] [place] [id number]- [address] Dec, [place] [id number]- [address] Nov, Depression F32.9 [place] [address] [address] Nov, Depression F32.9 [id number]- [address]42 Nov, Lateral epicondylitis of left elbow M77.12 ; Insulin long- term use Z79.4 and Neuropathy G62.9 [place] [address]- [address]85 Nov, Adjustment disorder with disturbance of emotion F43.29 ; Adjustment disorder with disturbance of conduct F43.24 ; Marijuana abuse, continuous F12.10 and Depression F32.9 [place] [address] [place] [id number]- [address] Oct, Adjustment disorder with disturbance of emotion F43.29 ; Marijuana abuse, continuous F12.10 ; Adjustment disorder with disturbance of conduct F43.24 and Severe episode of recurrent major depressive disorder, without psychotic features F33.2 [facility] [address] [id number] Oct, Dental examination Z01.20 [facility] [address] [id number]- [address] Oct, Depression F32.9 [facility] [address] [id number] Oct, Dental examination Z01.20 [facility] [address] [id number]- [address] Oct, Depression F32.9 ; Adjustment disorder with disturbance of conduct F43.24 ; Adjustment disorder with disturbance of emotion F43.29 and Marijuana abuse, continuous F12.10 [facility] [address] [id number] Oct, Dental examination Z01.20 [facility] [id number] [place] [id number] Oct, Dental caries K02.9 [facility] [address] [address]- [address]67 Oct, [facility] [address] [id number] Sep, Dental examination Z01.20 [facility] [id number] [place] [address] 73925- 0034 Sep, [facility] [address] [place] [id number]- [address]448 Sep, Insulin long-term use Z79.4 ; Gout M10.9 ; Diabetes mellitus with neuropathy E11.40 ; Depression F32.9 ; Hyperlipemia E78.5 ; Obstructive sleep apnea G47.33 ; Venous insufficiency (chronic) (peripheral) I87.2 ; Mild persistent asthma without complication J45.30 ; Neuropathy G62.9 and Marijuana abuse, continuous F12.10 [facility] [address] [place] [address] 11164- 4387 Sep, Adjustment disorder with disturbance of conduct F43.24 and Adjustment disorder with disturbance of emotion F43.29 [facility] [id number] [place] [address] 16757- 7646 23 Sep, 2016 Diabetes mellitus with neuropathy E11.40 ; Dyspnea on exertion R06.09 and Venous insufficiency (chronic) (peripheral) I87.2 [facility] [id number] [place] [address] 99485- 2054 14 Sep, 2016 Neuropathy G62.9 [facility] [address] 8[address]98- 6489 13 Sep, 2016 [facility] [address] [id number] Sep, Dental examination Z01.20 [place] [id number] [place] [address] 81274- 5038 Sep, [place] [id number] [place] [address] 24428- 2212 Sep, [place] [id number] [place] [address] 05940- 1916 06 Sep, 2016 [place] [id number] [place] [address] 84574- 2192 05 Sep, 2016 Mild persistent asthma without complication J45.30 [place] [id number] [place] [address] 52627- 7980 02 Sep, 2016 Insulin long-term use Z79.4 [place] [id number] [place] [address] 61283- 6799 01 Sep, 2016 Diabetes mellitus with neuropathy E11.40 ; Generalized edema R60.1 and Mild persistent asthma without complication J45.30 [facility] [id number] [place] [address] [id number] Aug, Dental examination Z01.20 [facility] [id number] [place] [address] 29857- 9693 Jul, Urticaria L50.9 and Mild persistent asthma without complication J45.30 [facility] [address] [place] [address] Jul, Lateral epicondylitis of left elbow M77.12 and Venous insufficiency (chronic) (peripheral) I87.2 [place] [address] [place] [address] 75666- 1424 May, Obstructive sleep apnea G47.33 and Diabetes mellitus with neuropathy E11.40 [place] [id number] [place] [address] 86923- 7639 May, Diabetes mellitus with neuropathy E11.40 [place] [id number] [place] [address] 37792- 0977 Mar, [place] [id number] [place] [address] 99997- 2510 Mar, Dental examination Z01.20 [place] [id number] [place] [address] 09861- 3217 Mar, Insulin long-term use Z79.4 [place] [id number] [place] [address] 19027- 9772 Mar, Insulin long-term use Z79.4 [place] [id number] [place] [address] 60876- 0948 February, Insulin long-term use Z79.4 [place] [id number] [place] [address] 62729- 3791 February, [place] [id number] [place] [address] 91604- 4053 February, Hyperlipemia E78.5 [facility] [address] [id number] [id number] February, Gout M10.9 and Diabetes mellitus with neuropathy E11.40 [facility] [address] [place] [address] 19515- 5447 Jan, Depression F32.9 [place] [id number] [place] [address] 63740- 1851 Jan, Insulin long-term use Z79.4 ; Gout M10.9 ; Candidiasis B37.9 ; Diabetes mellitus with neuropathy E11.40 and Depression F32.9 IMMUNIZATIONS No Known Immunizations SOCIAL HISTORY Never Assessed REASON FOR VISIT Request Repository PLAN OF CARE VITAL SIGNS MEDICATIONS Medication Instructions Dosage Frequency Start Date End Date Duration Status Metformin HCl 500 MG Orally Twice a day 2 tablet with a meal 12h 10 Jul, 2016 Active Wellbutrin XL 150 MG Orally Once a day 2 tablets 24h Sep, Active RESULTS No Results PROCEDURES No Known [...] removal [facility] [place] [facility]
--- OUTSIDE RECORDS SUMMARY | 2018-06-16 19:27 | XMS REPORT ---
Author Author JOMAR GAMBLE Organization [facility] Address [address] [place] [address] Care Team Providers Care Mutual Funds Agent Name Role Phone JOMAR GAMBLE Unavailable PROBLEMS Type Condition ICD9-CM Code GCM82-QK Code Onset Dates Condition Status SNOMED Code Problem Gout M10.9 Active 51476476 Problem Obstructive sleep apnea G47.33 Active 77722351 Problem Hyperlipemia E78.5 Active 31500273 Problem Candidiasis B37.9 Active 67978837 Problem Depression F32.9 Active 74081154 Problem Insulin long-term use Z79.4 Active 493462590 Problem Diabetes mellitus with neuropathy E11.40 Active 07045885 Problem Adjustment disorder with disturbance of conduct F43.24 Active 64008404 Problem Adjustment disorder with disturbance of emotion F43.29 Active 65818694 Problem Mild persistent asthma without complication J45.30 Active 344670515 Problem Venous insufficiency (chronic) (peripheral) I87.2 Active 47622306 Problem Marijuana abuse, continuous F12.10 Active 686533431 Problem Neuropathy G62.9 Active 234185598 ALLERGIES Unknown Allergies SOCIAL HISTORY No smoking Hx information available PLAN OF CARE Activity Details Follow Up 3 Weeks Reason:Depression VITAL SIGNS MEDICATIONS Unknown Medications RESULTS No Results PROCEDURES Procedure Date Ordered Related Diagnosis Body Site Psychotherapy, patient &/family, 30 minutes, established patient Nov 09, 2016 IMMUNIZATIONS No Known Immunizations
--- OUTSIDE RECORDS SUMMARY | 2018-06-16 19:27 | XMS REPORT ---
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 Active 77838327 Problem Marijuana abuse, continuous F12.10 Active 930026416 Problem Neuropathy G62.9 Active 878614807 Problem Adjustment disorder with disturbance of conduct F43.24 Active 02804828 Problem Adjustment disorder with disturbance of emotion F43.29 Active 45598581 Problem Insulin long-term use Z79.4 Active 958200696 Problem Diabetes mellitus with neuropathy E11.40 Active 24346586 Problem Candidiasis B37.9 Active 25706634 Problem Gout M10.9 Active 98732858 Problem Depression F32.9 Active 48925770 Problem Hyperlipemia E78.5 Active 40254427 ALLERGIES No Known Allergies SOCIAL HISTORY Never Assessed PLAN OF CARE Activity Details Follow Up 3 Months Reason: VITAL SIGNS Height 71.2 in 2017-03-09 Weight 312 lbs 2017-03-09 Temperature 98.34 degrees Fahrenheit 2017-03-09 Heart Rate 81 bpm 2017-03-09 Respiratory Rate 26 2017-03-09 Oximetry on room air:93 % 2017-03-09 BMI 43.27 kg/m2 2017-03-09 Blood pressure systolic 116 mmHg 2017-03-09 Blood pressure diastolic 70 mmHg 2017-03-09 MEDICATIONS Medication Instructions Dosage Frequency Start Date End Date Duration Status Symbicort 160-4.5 MCG/ACT Inhalation Twice a day 2 puffs 12h Active Levemir 100 UNIT/ML Subcutaneous twice a day 27 units 12h February, Active C-PAP Machine Active Gemfibrozil 600 MG Orally Twice a day 1 tablet 12h Active Gabapentin 300 MG Orally Three times a day 3 capsule 8h 15 May, 2016 Active Colchicine 0.6 MG Orally Once a day 1 tablet 24h Active Allopurinol 100 mg Orally Once a day 1 tablet 24h 29 Jan, 2016 Active Naprosyn 500 mg Orally 2 times a day, pc 1 tablet as needed Jul, Active GlipiZIDE 5 MG Orally Once a day 2 tablet 24h Active NovoLog 100 UNIT/ML Subcutaneous 3 times a day 20 units 8h February, Active Zithromax Z-Bob 250 MG Orally Once a day 2 tablets on the first day, then 1 tablet daily for 4 days 24h February, February, 5 day(s) Active Zocor 40 mg Orally Once a day 1 tablet in the evening 24h Active Metformin HCl 1000 MG Orally Twice a day 1 tablet with a meal 12h Jul, Active Albuterol Sulfate HFA 108 (90 Base) MCG/ACT Inhalation every 4 hrs 2 puffs as needed 4h Active Wellbutrin XL 150 MG Orally Once a day 2 tablets 24h Sep, 30 days Active Klor-Con 10 10 MEQ Orally Twice a day 1 tablet with food 12h Jan, Active Lasix 20 mg Orally Once a day 1 tablet 24h Sep, Active RESULTS Name Result Date Reference Range A1C (IN HOUSE) 2017-03-09 A1C IN HOUSE 9.9 4.3 - 5.6 % Previous A1c 11.5 Lot [id number] Exp date 10/2018 PROCEDURES Procedure Date Ordered Result Body Site MEASURE BLOOD OXYGEN LEVEL March 09, 2017 GLYCATED HEMOGLOBIN TEST March 09, 2017 IMMUNIZATIONS No Known Immunizations MEDICAL (GENERAL) HISTORY Type Description Date Medical [...]
--- OUTSIDE RECORDS SUMMARY | 2018-06-16 19:27 | XMS REPORT ---
Author Author ALEX ALCANTAR Organization [facility] Address [address] [place] [address] Care Team Providers Care Cigar Roller Name Role Phone ALEX ALCANTAR Unavailable PROBLEMS Type Condition ICD9-CM Code JMH50-QS Code Onset Dates Condition Status SNOMED Code Problem Neuropathy G62.9 Active 962233213 Problem Adjustment disorder with disturbance of emotion F43.29 Active 98200433 Problem Marijuana abuse, continuous F12.10 Active 126059641 Problem Gastroesophageal reflux disease without esophagitis K21.9 Active 970112843 Problem Acute gout involving toe of left foot, unspecified cause M10.9 Active 343217540 Problem Methamphetamine use disorder, severe, 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 Active 18182555 Problem Adjustment disorder with disturbance of conduct F43.24 Active 83090380 Problem Dyspepsia R10.13 Active 080438374 Problem Moderate episode of recurrent major depressive disorder F33.1 Active 754213284 Problem Candidiasis B37.9 Active 66736294 Problem Depression F32.9 Active 15719335 Problem Diabetes mellitus with neuropathy E11.40 Active 31592607 Problem Hyperlipemia E78.5 Active 03385135 Problem Obstructive sleep apnea G47.33 Active 59205071 Problem Insulin long-term use Z79.4 Active 195624517 Problem Venous insufficiency (chronic) (peripheral) I87.2 Active 99042117 Problem Gout M10.9 Active 51735279 Problem Mild persistent asthma without complication J45.30 Active 953652466 ALLERGIES No Information ENCOUNTERS Encounter Location Date Diagnosis [address] [id number] [id number] February, Diabetes mellitus with neuropathy E11.[address] [id number] [id number] February, Generalized edema R60.1 and Diabetes mellitus with neuropathy E11.40 [facility] [address] [address] Jan, [address] [id number] [id number] Jan, Gastroesophageal reflux disease without esophagitis K21.9 and Acute gout involving toe of left foot, unspecified cause M10.[address] [id number] [id number] Jan, Marijuana abuse, continuous F12.10 ; Mild persistent asthma without complication J45.30 ; BMI 40.0-44.9, adult Z68.41 and Diabetes mellitus with neuropathy E11.40 [place] [id number] [place] [address]9929- 4916 Jan, [facility] [address] [id number] Jan, BMI 40.0-44.9, adult Z68.41 and Intractable vomiting with nausea, unspecified vomiting type R11.[address] [id number][place] [id number] Dec, BMI 40.0-44.9, adult Z68.41 and Abrasion hip/leg S80.819A [place] [address] [place] [address] [id number] [place] [address] 62246- 7161 Nov, Neuropathy G62.9 [place] [address] [place] [address] [id number] [place] [address] 95300- 0111 Oct, [place] [address] [place] [address] [id number] [place] [address] 21603- 8073 Oct, [place] [id number] [place] [address] 31364- 0356 Oct, Diabetes mellitus with neuropathy E11.40 ; Dyspepsia R10.13 ; Mild persistent asthma without complication J45.30 and Depression F32.9 [place] [id number] [place] [address] 13873- 2799 Oct, Generalized edema R60.1 and Diabetes mellitus with neuropathy E11.40 [facility] [id number] [place] [address] 60594- 5214 Sep, [facility] [address] [address]- [address] Aug, [facility] [address] [address] Aug, Cellulitis L03.90 and BMI 40.0-44.9, adult Z68.41 [facility] [address] 16041- [address] Aug, [facility] [address] 08329- 2117 Jul, Trapezius muscle spasm M62.838 and Depression F32.9 [place] [address] 11053- 7062 Jul, Marijuana abuse, continuous F12.10 ; Moderate episode of recurrent major depressive disorder F33.1 and Methamphetamine use disorder, severe, 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 [place] [address] [place] [address] [id number] [place] [address] 27031- 0193 Jul, [place] [address] [place] [address] [id number] [place] [address] 28943- 6483 Jul, [place] [address] [place] [address] [id number] [place] [address] 00206- 8026 Jul, [facility] [id number] [place] [address] 91021- 1120 Jul, [place] [address] [place] [address] [id number] [place] [address] 56415- 2810 Jul, [facility] [address] [place] [address] [id number] [place] [address] 89686- 4726 Jul, Diabetes mellitus with neuropathy E11.40 [facility] [address] [place] [address] [id number] [place] [address] 43083- 2790 Jul, Diabetes mellitus with neuropathy E11.40 ; Venous insufficiency (chronic) (peripheral) I87.2 ; Chest pain, unspecified type R07.9 ; Neuropathy G62.9 and Encounter for immunization Z23 [facility] [address] [place] [address] 69718- 6543 Jun, [facility] [address] [place] [id number] [place] [address] 99766- 4470 Jun, [facility] [id number] [place] [id number] May, Dental examination Z01.[address] [address]- 9731 Apr, Diabetes mellitus with neuropathy E11.40 and Depression F32.9 [place] [id number] [place] [address] 79734- 0567 Apr, Mild persistent asthma without complication J45.[address] [id number] [id number] Mar, [place] [id number] [place] [address] 97914- 4958 Mar, Depression F32.9 ; Adjustment disorder with disturbance of emotion F43.29 and Marijuana abuse, continuous F12.10 [place] [id number] [place] [address] 83340- 9770 Mar, [place] [id number] [place] [address] 72650- 4882 Mar, Acute pansinusitis, recurrence not specified J01.40 [place] [id number] [place] [address] 65194- 4593 Mar, Adjustment disorder with disturbance of emotion F43.29 ; Adjustment disorder with disturbance of conduct F43.24 ; Marijuana abuse, continuous F12.10 and Depression F32.[address] [place] [address] 47316- 3938 Mar, Depression F32.9 ; Marijuana abuse, continuous F12.10 and Adjustment disorder with disturbance of conduct F43.24 [place] [address] [facility] [id number] [id number] February, Bronchitis J40 and Acute diffuse otitis externa of right ear H60.311 [facility] [address] [place] [address] 81689- 7741 February, Diabetes mellitus with neuropathy E11.40 ; Mild persistent asthma without complication J45.30 ; Bronchitis J40 ; Depression F32.9 ; Neuropathy G62.9 ; Gout M10.9 ; Generalized edema R60.1 and Hyperlipemia E78.5 [place] [address] [place] [address] [id number] [place] [address] 73523- 3437 February, Diabetes mellitus with neuropathy E11.40 [place] [address] [place] [address] [id number] [place] [address] 54481- 4404 February, [place] [address] [place] [address] [id number] [place] [address] 47111- 4672 February, [place] [address] [place] [address] 81540- 7182 Jan, [place] [address] [place] [address] [id number] [place] [address] 46728- 3520 Jan, [place] [address] [place] [address] [id number] [place] [address] 30043- 8224 Jan, Adjustment disorder with disturbance of emotion F43.29 ; Adjustment disorder with disturbance of conduct F43.24 ; Marijuana abuse, continuous F12.10 and Depression F32.9 [place] [address] [place] [address] 12826- 4232 Jan, [place] [id number] [place] [address] 61154- 6247 Jan, Pilonidal cyst with abscess L05.01 and Abscess of skin of abdomen L02.211 [place] [address] [place] [address] [id number] [place] [address] 73979- 6262 Dec, Diabetes mellitus with neuropathy E11.40 [facility] [address] [place] [address] [id number] Dec, Dental examination Z01.20 [facility] [id number] [place] [address] Dec, [facility] [id number] [place] [address] 38074- 3171 Nov, Depression F32.9 [facility] [address] [place] [address]0005- 2253 Nov, Depression F32.9 [place] [address] 210665- 5314 Nov, Lateral epicondylitis of left elbow M77.12 ; Insulin long- term use Z79.4 and Neuropathy G62.9 [place] [address] 56034- 9008 Nov, Adjustment disorder with disturbance of emotion F43.29 ; Adjustment disorder with disturbance of conduct F43.24 ; Marijuana abuse, continuous F12.10 and Depression F32.9 [facility] [id number] [place] [address] 38507- 5266 Oct, Adjustment disorder with disturbance of emotion F43.29 ; Marijuana abuse, continuous F12.10 ; Adjustment disorder with disturbance of conduct F43.24 and Severe episode of recurrent major depressive disorder, without psychotic features F33.2 [facility] [address] [place] [address] [id number] Oct, Dental examination Z01.20 [facility] [address] [place] [address] 02261- 4620 Oct, Depression F32.9 [facility] [id number] [place] [address] [id number] Oct, Dental examination Z01.20 [facility] [id number] [place] [address] 00959- 3703 Oct, Depression F32.9 ; Adjustment disorder with disturbance of conduct F43.24 ; Adjustment disorder with disturbance of emotion F43.29 and Marijuana abuse, continuous F12.10 [facility] [id number] [place] [address] [phone] Oct, Dental examination Z01.20 [facility] [id number] [place] [address] [phone] Oct, Dental caries K02.9 [facility] [address] 49321- 0787 Oct, [facility] [address] [id number] Sep, Dental examination Z01.20 [place] [address] [place] [address] [id number] [place] [address] 71043- 2087 Sep, [place] [address] 92030- 2574 Sep, Insulin long-term use Z79.4 ; Gout M10.9 ; Diabetes mellitus with neuropathy E11.40 ; Depression F32.9 ; Hyperlipemia E78.5 ; Obstructive sleep apnea G47.33 ; Venous insufficiency (chronic) (peripheral) I87.2 ; Mild persistent asthma without complication J45.30 ; Neuropathy G62.9 and Marijuana abuse, continuous F12.10 [place] [address] [place] [address] [id number] [place] [address] 06097- 3711 Sep, Adjustment disorder with disturbance of conduct F43.24 and Adjustment disorder with disturbance of emotion F43.29 [place] [address] [place] [address] [id number] [place] [address] 00242- 4843 Sep, Diabetes mellitus with neuropathy E11.40 ; Dyspnea on exertion R06.09 and Venous insufficiency (chronic) (peripheral) I87.2 [place] [address] [place] [address] [id number] [place] [address] 28915- 6209 Sep, Neuropathy G62.9 [place] [address] 51533- 9074 Sep, [facility] [place] [address] [place] [address] [phone] Sep, Dental examination Z01.20 [facility] [address] [id number] [place] [address] 97554- 3878 07 Sep, 2016 [place] [address] [place] [id number] [place] [address] 95380- 2636 Sep, [place] [address] [place] [address] [id number] [place] [address] 68789- 3553 Sep, [place] [address] [place] [id number] [place] [address] 68720- 4112 Sep, Mild persistent asthma without complication J45.30 [place] [address] [place] [id number] [place] [address] 06018- 7504 02 Sep, 2016 Insulin long-term use Z79.4 [place] [address] [place] [id number] [place] [address] 15923- 6429 Sep, Diabetes mellitus with neuropathy E11.40 ; Generalized edema R60.1 and Mild persistent asthma without complication J45.30 [facility] [id number] [place] [address] [id number] Aug, Dental examination Z01.20 [place] [address] [place] [address] [id number] [place] [address] 78513- 3350 Jul, Urticaria L50.9 and Mild persistent asthma without complication J45.30 [place] [address] [place] [address] [id number] [place] [address] 19454- 1950 Jul, Lateral epicondylitis of left elbow M77.12 and Venous insufficiency (chronic) (peripheral) I87.2 [place] [address] [place] [address] [id number] [place] [address] 57592- 6686 May, Obstructive sleep apnea G47.33 and Diabetes mellitus with neuropathy E11.40 [place] [address] [place] [address] 24875- 4040 May, Diabetes mellitus with neuropathy E11.40 [place] [address], [place] [address]- 5186 Mar, [place] [address] [place] [address] 76269- 7572 Mar, Dental examination Z01.20 [place] [address], [place] [address]- 8475 Mar, Insulin long-term use Z79.4 [place] [address] [place] [address] 89225- 5219 Mar, Insulin long-term use Z79.4 [place] [address] [place] [address] 71160- 3647 February, Insulin long-term use Z79.4 [place] [address] [place] [address] 58678- 0292 February, [place] [address] [place] [address] 60570- 1553 February, Hyperlipemia E78.[address] [id number] [id number] February, Gout M10.9 and Diabetes mellitus with neuropathy E11.40 [place] [address], [place] [address]- 6908 Jan, Depression F32.9 [place] [address], [place] [address]- 8010 Jan, Insulin long-term use Z79.4 ; Gout M10.9 ; Candidiasis B37.9 ; Diabetes mellitus with neuropathy E11.40 and Depression F32.9 IMMUNIZATIONS No Known Immunizations SOCIAL HISTORY Never Assessed REASON FOR VISIT triage - CBowmanRN PLAN OF CARE VITAL SIGNS MEDICATIONS Unknown [...] 2 Hospitalization History pylonial cyst removal from [place] [address]
--- OUTSIDE RECORDS SUMMARY | 2018-06-16 19:27 | XMS REPORT ---
Author Author JOMAR GAMBLE Organization [facility] Address [address] [place] [address] Care Team Providers Care Truck Packer Name Role Phone JOMAR GAMBLE Unavailable PROBLEMS Type Condition ICD9-CM Code SOF05-XM Code Onset Dates Condition Status SNOMED Code Problem Gout M10.9 Active 36905311 Problem Obstructive sleep apnea G47.33 Active 99934447 Problem Hyperlipemia E78.5 Active 41402484 Problem Candidiasis B37.9 Active 59694021 Problem Depression F32.9 Active 63590224 Problem Insulin long-term use Z79.4 Active 539022478 Problem Diabetes mellitus with neuropathy E11.40 Active 46184231 Problem Adjustment disorder with disturbance of conduct F43.24 Active 83167303 Problem Adjustment disorder with disturbance of emotion F43.29 Active 49686231 Problem Mild persistent asthma without complication J45.30 Active 383486453 Problem Venous insufficiency (chronic) (peripheral) I87.2 Active 51092972 Problem Marijuana abuse, continuous F12.10 Active 598908583 Problem Neuropathy G62.9 Active 504617270 ALLERGIES Unknown Allergies SOCIAL HISTORY No smoking Hx information available PLAN OF CARE VITAL SIGNS MEDICATIONS Unknown Medications RESULTS No Results PROCEDURES No Known procedures IMMUNIZATIONS No Known Immunizations
--- OUTSIDE RECORDS SUMMARY | 2018-06-16 19:27 | XMS REPORT ---
Author Author JOMAR Perez Organization [facility] Address Unknown Care Team Providers Care Lithographic Camera Operator Name Role Phone chevyJOMAR Ritchie Unavailable PROBLEMS Type Condition ICD9-CM Code EXB67-EC Code Onset Dates Condition Status SNOMED Code Problem Gout M10.9 Active 64528009 Problem Obstructive sleep apnea G47.33 Active 32248351 Problem Hyperlipemia E78.5 Active 27561264 Problem Candidiasis B37.9 Active 15584004 Problem Depression F32.9 Active 48137065 Problem Insulin long-term use Z79.4 Active 819588351 Problem Diabetes mellitus with neuropathy E11.40 Active 05008598 Problem Adjustment disorder with disturbance of conduct F43.24 Active 35139464 Problem Adjustment disorder with disturbance of emotion F43.29 Active 03335925 Problem Mild persistent asthma without complication J45.30 Active 869271767 Problem Venous insufficiency (chronic) (peripheral) I87.2 Active 78452794 Problem Marijuana abuse, continuous F12.10 Active 941591955 Problem Neuropathy G62.9 Active 781807549 ALLERGIES Substance Reaction Event Type Date Status N.K.D.A. Unknown Non Drug Allergy Oct, Unknown SOCIAL HISTORY No smoking Hx information available PLAN OF CARE Activity Details Follow Up 3 Weeks Reason:u/l denture softliner per VITAL SIGNS Height 71.2 in 2016-11-09 Blood pressure systolic 143 mmHg 2016-11-09 Blood pressure diastolic 88 mmHg 2016-11-09 MEDICATIONS Medication Instructions Dosage Frequency Start Date End Date Duration Status GlipiZIDE 5 MG Orally Once a day 2 tablet 24h Active Lasix 20 mg Orally Once a day 1 tablet 24h Sep, 30 day(s) Active Naprosyn 500 MG Orally 2 times a day, pc 1 tablet as needed Jul, Active Allopurinol 100 MG Orally Once a day 1 tablet 24h Jan, Active Klor-Con M10 10 MEQ Orally Twice a day 1 tablet with food 12h Sep, Dec, 30 day(s) Active Gabapentin 600 MG Orally Three times a day 1 capsule 8h 15 May, 2016 Active Levemir 100 UNIT/ML Subcutaneous twice a day 23 units 12h February, Active Symbicort 160-4.5 MCG/ACT Inhalation Twice a day 2 puffs 12h Active Metformin HCl 500 MG Orally Twice a day 2 tablets 12h Jul, 90 days Active C-PAP Machine Active Wellbutrin XL 150 MG Orally Once a day 2 tablets 24h Sep, Active Albuterol Sulfate HFA 108 (90 Base) MCG/ACT Inhalation every 4 hrs 2 puffs as needed 4h Active Colchicine 0.6 MG Orally Once a day 1 tablet 24h Active Zocor 40 MG Orally Once a day 1 tablet in the evening 24h Active NovoLog 100 UNIT/ML Subcutaneous 3 times a day 20 units 8h February, Active RESULTS No Results PROCEDURES Procedure Date Ordered Related Diagnosis Body Site Dental no charge Nov 09, 2016 IMMUNIZATIONS No Known Immunizations
--- OUTSIDE RECORDS SUMMARY | 2018-06-16 19:27 | XMS REPORT ---
Author Author ALEX ALCANTAR [facility] Address [address] [place] [address] Care Team Providers Care Wrapper Stitcher Name Role Phone ALEX ALCANTAR Unavailable PROBLEMS Type Condition ICD9-CM Code OBY81-VE Code Onset Dates Condition Status SNOMED Code Problem Insulin long-term use Z79.4 Active 318327459 Problem Obstructive sleep apnea G47.33 Active 15310746 Problem Hyperlipemia E78.5 Active 97637113 Problem Depression F32.9 Active 14370542 Problem Diabetes mellitus with neuropathy E11.40 Active 31594574 Problem Candidiasis B37.9 Active 93772486 Problem Gout M10.9 Active 84335191 Problem Adjustment disorder with disturbance of conduct F43.24 Active 84909998 Problem Adjustment disorder with disturbance of emotion F43.29 Active 43484407 Problem Mild persistent asthma without complication J45.30 Active 255736788 Problem Venous insufficiency (chronic) (peripheral) I87.2 Active 63153485 Problem Marijuana abuse, continuous F12.10 Active 297682586 Problem Neuropathy G62.9 Active 090323617 ALLERGIES Unknown Allergies SOCIAL HISTORY No smoking Hx information available PLAN OF CARE VITAL SIGNS MEDICATIONS Unknown Medications RESULTS No Results PROCEDURES No Known procedures IMMUNIZATIONS No Known Immunizations
--- OUTSIDE RECORDS SUMMARY | 2018-06-16 19:28 | XMS REPORT ---
Author Author ALEX ALCANTAR Organization [facility] Address [address] [place] [address] Care Team Providers Care Rn Security Name Role Phone ALEX ALCANTAR Unavailable PROBLEMS Type Condition ICD9-CM Code [id number] Code Onset Dates Condition Status SNOMED Code Problem Neuropathy G62.9 Active 942973531 Problem Adjustment disorder with disturbance of emotion F43.29 Active 05227958 Problem Marijuana abuse, continuous F12.10 Active 526552359 Problem Gastroesophageal reflux disease without esophagitis K21.9 Active 861946143 Problem Acute gout involving toe of left foot, unspecified cause M10.9 Active 094741301 Problem Methamphetamine use disorder, severe, 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 Active 20855328 Problem Adjustment disorder with disturbance of conduct F43.24 Active 72227908 Problem Dyspepsia R10.13 Active 683101055 Problem Moderate episode of recurrent major depressive disorder F33.1 Active 903075710 Problem Candidiasis B37.9 Active 45876403 Problem Depression F32.9 Active 01056816 Problem Diabetes mellitus with neuropathy E11.40 Active 73524074 Problem Hyperlipemia E78.5 Active 09509222 Problem Obstructive sleep apnea G47.33 Active 13222995 Problem Insulin long-term use Z79.4 Active 534333179 Problem Venous insufficiency (chronic) (peripheral) I87.2 Active 48223802 Problem Gout M10.9 Active 77401103 Problem Mild persistent asthma without complication J45.30 Active 180589877 ALLERGIES No Information ENCOUNTERS Encounter Location Date Diagnosis [facility] [address] [id number] [id number] February, [facility] [address] [id number] [id number] February, Insect bite (nonvenomous) of lower back and pelvis, initial encounter S30.860A ; Bitten or stung by nonvenomous insect and other nonvenomous arthropods, initial encounter W57.XXXA and Cellulitis of back L03.[address] [id number] [id number] February, Diabetes mellitus with neuropathy E11.[address] [id number][place] [id number] February, Generalized edema R60.1 and Diabetes mellitus with neuropathy E11.40 [place] [address] [place] [address]004- [address]101 Jan, [id number] [place] [id number] Jan, Gastroesophageal reflux disease without esophagitis K21.9 and Acute gout involving toe of left foot, unspecified cause M10.[address] [id number][place] [id number] Jan, Marijuana abuse, continuous F12.10 ; Mild persistent asthma without complication J45.30 ; BMI 40.0-44.9, adult Z68.41 and Diabetes mellitus with neuropathy E11.40 [place] [address] [place] [address] 66954- [address]112 Jan, [facility] [id number] [place] [id number] Jan, BMI 40.0-44.9, adult Z68.41 and Intractable vomiting with nausea, unspecified vomiting type R11.[address] [id number][place] [id number] Dec, BMI 40.0-44.9, adult Z68.41 and Abrasion hip/leg S80.819A [place] [address] [place] [id number] [place] [address] 13947- 1897 Nov, Neuropathy G62.9 [facility] [place] [address] [place] [id number] [place] [address] 51423- 8640 Oct, [facility] [place] [address] [place] [address] Oct, [facility] [address] [place] [id number] [place] [address] 46878- 2032 Oct, Diabetes mellitus with neuropathy E11.40 ; Dyspepsia R10.13 ; Mild persistent asthma without complication J45.30 and Depression F32.9 [place] [address] 15509- 0980 Oct, Generalized edema R60.1 and Diabetes mellitus with neuropathy E11.40 [place] [address] 75801- 7410 Sep, [place] [address] 92536- 6012 Aug, [facility] [address] [address] Aug, Cellulitis L03.90 and BMI 40.0-44.9, adult Z68.41 [place] [address] 89979- 1126 Aug, [place] [address] [address]64- 4976 Jul, Trapezius muscle spasm M62.838 and Depression F32.9 [place] [id number] [place] [address] 20195- 1453 Jul, Marijuana abuse, continuous F12.10 ; Moderate episode of recurrent major depressive disorder F33.1 and Methamphetamine use disorder, severe, 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 [facility] [place] [address] [place] [id number] [place] [address] 94529- 4979 Jul, [facility] [facility] [address] 43105- 2735 Jul, [facility] [address] 97957- 6170 Jul, [place] [address] [place] [address] Jul, [facility] [address] [place] [id number] [place] [address] 44279- 0792 Jul, [facility] [address] [place] [id number] [place] [address] 83135- 7830 Jul, Diabetes mellitus with neuropathy E11.40 [facility] [address] 57146- 5391 16 Jul, 2017 Diabetes mellitus with neuropathy E11.40 ; Venous insufficiency (chronic) (peripheral) I87.2 ; Chest pain, unspecified type R07.9 ; Neuropathy G62.9 and Encounter for immunization Z23 [facility] [address] 22887- 1092 Jun, [facility] [place] [address] [place] [id number] [place] [address] 56670- 3855 Jun, [facility] [address] [id number] May, Dental examination Z01.20 [place] [address] 21604- 9318 Apr, Diabetes mellitus with neuropathy E11.40 and Depression F32.9 [facility] [address] [place] [address] 07166- 7114 Apr, Mild persistent asthma without complication J45.[address] [id number][place] [id number] Mar, [facility] [address] [place] [id number] [place] [address] 56108- 4446 Mar, Depression F32.9 ; Adjustment disorder with disturbance of emotion F43.29 and Marijuana abuse, continuous F12.10 [place] [address] [place] [address] 92610- 3510 Mar, [facility] [address] 39519- 1275 Mar, Acute pansinusitis, recurrence not specified J01.40 [place] [address] [place] [address] 83932- 4046 Mar, Adjustment disorder with disturbance of emotion F43.29 ; Adjustment disorder with disturbance of conduct F43.24 ; Marijuana abuse, continuous F12.10 and Depression F32.9 [place] [address] [place] [address] 86438- 4635 Mar, Depression F32.9 ; Marijuana abuse, continuous F12.10 and Adjustment disorder with disturbance of conduct F43.[address] [id number] [id number] February, Bronchitis J40 and Acute diffuse otitis externa of right ear H60.311 [address] [place] [address] 25806- 9005 February, Diabetes mellitus with neuropathy E11.40 ; Mild persistent asthma without complication J45.30 ; Bronchitis J40 ; Depression F32.9 ; Neuropathy G62.9 ; Gout M10.9 ; Generalized edema R60.1 and Hyperlipemia E78.5 [facility] [place] [address] [place] [id number] [place] [address] 12561- 2240 February, Diabetes mellitus with neuropathy E11.40 [facility] [place] [address] [place] [address] 50157- 3688 February, [facility] [address] [place] [id number] [place] [address] 72536- 8948 February, [place] [address] [place] [address] 75405- 7442 Jan, [place] [address] [place] [id number] [place] [address] 84352- 6985 Jan, [place] [address] [place] [address] 99296- 1837 Jan, Adjustment disorder with disturbance of emotion F43.29 ; Adjustment disorder with disturbance of conduct F43.24 ; Marijuana abuse, continuous F12.10 and Depression F32.9 [place] [address] 21695- 1564 Jan, [place] [address] [place]24418- 771 Jan, Pilonidal cyst with abscess L05.01 and Abscess of skin of abdomen L02.211 [place] [address] [place] 024411- 9183 Dec, Diabetes mellitus with neuropathy E11.40 [facility] [address] [id number] Dec, Dental examination Z01.20 [place] [address] 72408- 152 Dec, [place] [address] 02990- 1107 Nov, Depression F32.9 [place] [address] 31820- 5208 Nov, Depression F32.9 [place] [address] 21331- 0440 10 Nov, 2016 Lateral epicondylitis of left elbow M77.12 ; Insulin long- term use Z79.4 and Neuropathy G62.9 [place] [address] 42104- 8411 Nov, Adjustment disorder with disturbance of emotion F43.29 ; Adjustment disorder with disturbance of conduct F43.24 ; Marijuana abuse, continuous F12.10 and Depression F32.9 [place] [address] 47346- 6516 Oct, Adjustment disorder with disturbance of emotion F43.29 ; Marijuana abuse, continuous F12.10 ; Adjustment disorder with disturbance of conduct F43.24 and Severe episode of recurrent major depressive disorder, without psychotic features F33.2 [facility] [address] [id number] Oct, Dental examination Z01.20 [facility] [address] [place] [id number] [place] [address] 49533- 6596 Oct, Depression F32.9 [facility] [address] [place] [id number] [place] [address] [id number] Oct, Dental examination Z01.20 [facility] [address] [place] [id number] [place] [id number]36 Oct, Depression F32.9 ; Adjustment disorder with disturbance of conduct F43.24 ; Adjustment disorder with disturbance of emotion F43.29 and Marijuana abuse, continuous F12.10 [facility] [address] [id number] Oct, Dental examination Z01.20 [facility] [address] [place] [id number] [place] [address] [id number] Oct, Dental caries K02.9 [facility] [address] [place] [id number] [place] [address] 00832- 1162 Oct, [facility] [address] [place] [id number] [place] [address] [id number] Sep, Dental examination Z01.20 [facility] [address] [place] [id number] [place] [id number] Sep, [facility] [address] [place] [id number] [place] [address] 19107- 2407 Sep, Insulin long-term use Z79.4 ; Gout M10.9 ; Diabetes mellitus with neuropathy E11.40 ; Depression F32.9 ; Hyperlipemia E78.5 ; Obstructive sleep apnea G47.33 ; Venous insufficiency (chronic) (peripheral) I87.2 ; Mild persistent asthma without complication J45.30 ; Neuropathy G62.9 and Marijuana abuse, continuous F12.10 [facility] [address] [place] [id number] [place] [address] 65569- 0151 Sep, Adjustment disorder with disturbance of conduct F43.24 and Adjustment disorder with disturbance of emotion F43.29 [facility] [address] [place] [id number] [place] [address] 19965- 1596 Sep, Diabetes mellitus with neuropathy E11.40 ; Dyspnea on exertion R06.09 and Venous insufficiency (chronic) (peripheral) I87.2 [facility] [address] [place] [id number] [place] [address] 11571- 3025 14 Sep, 2016 Neuropathy G62.9 [facility] [address] 75067- 8127 Sep, [facility] [address] [id number] Sep, 2016 Dental examination Z01.20 [place] [address] 71418- 5178 07 Sep, 2016 [place] [address] 99463- 3728 Sep, [place] [address] 46142- 6756 Sep, [place] [address] [place] [id number] [place] [address] 64395- 0727 05 Sep, 2016 Mild persistent asthma without complication J45.30 [place] [address] [place] [id number] [place] [address] 22746- 9913 02 Sep, 2016 Insulin long-term use Z79.4 [place] [address] [place] [id number] [place] [address] 55435- 9944 Sep, Diabetes mellitus with neuropathy E11.40 ; Generalized edema R60.1 and Mild persistent asthma without complication J45.30 [facility] [address] [place] [id number] [place] [address] [id number] Aug, Dental examination Z01.20 [facility] [address] [place] [id number] [place] [address] 54756- 4205 20 Jul, 2016 Urticaria L50.9 and Mild persistent asthma without complication J45.30 [facility] [address] [place] [id number] [place] [address] 20257- 5714 Jul, Lateral epicondylitis of left elbow M77.12 and Venous insufficiency (chronic) (peripheral) I87.2 [place] [address] [place] [address] 38400- 9483 May, Obstructive sleep apnea G47.33 and Diabetes mellitus with neuropathy E11.40 [place] [address] [place] [id number] [place] [address] 74818- 7363 May, Diabetes mellitus with neuropathy E11.40 [place] [address] [place] [id number] [place] [address] 44599- 7249 Mar, [place] [address] [place] [id number] [place] [address] 79750- 4958 Mar, Dental examination Z01.20 [place] [address] [place] [id number] [place] [address] 88878- 2141 Mar, Insulin long-term use Z79.4 [place] [address] [place] [id number] [place] [address] 94214- 6512 Mar, Insulin long-term use Z79.4 [place] [address] [place] [id number] [place] [address] 73846- 7972 February, Insulin long-term use Z79.4 [place] [address] [place] [address] 72388- 3048 February, [place] [address] [place] [id number] [place] [address] 63540- 6923 February, Hyperlipemia E78.5 [place] [address] [facility] [id number] [id number] February, Gout M10.9 and Diabetes mellitus with neuropathy E11.40 [place] [address] [place] [id number] [place] [address] 24940- 6892 Jan, Depression F32.9 [place] [address] [place] [address] 81869- 4364 Jan, Insulin long-term use Z79.4 ; Gout M10.9 ; Candidiasis B37.9 ; Diabetes mellitus with neuropathy E11.40 and Depression F32.9 IMMUNIZATIONS No Known Immunizations SOCIAL HISTORY Never Assessed REASON FOR VISIT Requests return call PLAN OF CARE VITAL SIGNS MEDICATIONS Unknown [...] 2 Hospitalization [facility] Hospitalization History tick bite---[place] 02/2018
--- OUTSIDE RECORDS SUMMARY | 2018-06-16 19:28 | XMS REPORT ---
Author Author JOMAR GAMBLE Organization [facility] Address [address] [place] [address] Care Team Providers Care Review Scheduling Coordinator Name Role Phone JOMAR GAMBLE Unavailable PROBLEMS Type Condition ICD9-CM Code [id number] Code Onset Dates Condition Status SNOMED Code Problem Gout M10.9 Active 78590324 Problem Obstructive sleep apnea G47.33 Active 97370665 Problem Hyperlipemia E78.5 Active 02792474 Problem Candidiasis B37.9 Active 41085677 Problem Depression F32.9 Active 12956395 Problem Insulin long-term use Z79.4 Active 180144922 Problem Diabetes mellitus with neuropathy E11.40 Active 17124618 Problem Adjustment disorder with disturbance of conduct F43.24 Active 69877104 Problem Adjustment disorder with disturbance of emotion F43.29 Active 52225245 Problem Mild persistent asthma without complication J45.30 Active 140655325 Problem Venous insufficiency (chronic) (peripheral) I87.2 Active 27004282 Problem Marijuana abuse, continuous F12.10 Active 647138130 Problem Neuropathy G62.9 Active 878957282 ALLERGIES No Known Allergies SOCIAL HISTORY No smoking Hx information available PLAN OF CARE Activity Details Follow Up prn Reason:Depression, anxiety, anger VITAL SIGNS MEDICATIONS Unknown Medications RESULTS No Results PROCEDURES Procedure Date Ordered Related Diagnosis Body Site Psychotherapy, patient &/family, 30 minutes, established patient Nov 16, 2016 IMMUNIZATIONS No Known Immunizations
--- OUTSIDE RECORDS SUMMARY | 2018-06-16 19:28 | XMS REPORT ---
Author Author ALEX ALCANTAR Organization [facility] Address [address] [place] [address] Care Team Providers Care Utility Lineman Name Role Phone ALEX ALCANTAR Unavailable PROBLEMS Type Condition ICD9-CM Code [id number] Code Onset Dates Condition Status SNOMED Code Problem Neuropathy G62.9 Active 628181837 Problem Adjustment disorder with disturbance of emotion F43.29 Active 91738156 Problem Marijuana abuse, continuous F12.10 Active 927123126 Problem Gastroesophageal reflux disease without esophagitis K21.9 Active 128639078 Problem Acute gout involving toe of left foot, unspecified cause M10.9 Active 264354945 Problem Methamphetamine use disorder, severe, 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 Active 83302364 Problem Adjustment disorder with disturbance of conduct F43.24 Active 81709329 Problem Dyspepsia R10.13 Active 416305348 Problem Moderate episode of recurrent major depressive disorder F33.1 Active 231642760 Problem Candidiasis B37.9 Active 30334695 Problem Depression F32.9 Active 72305254 Problem Diabetes mellitus with neuropathy E11.40 Active 26293158 Problem Hyperlipemia E78.5 Active 52493860 Problem Obstructive sleep apnea G47.33 Active 89385758 Problem Insulin long-term use Z79.4 Active 965654730 Problem Venous insufficiency (chronic) (peripheral) I87.2 Active 64025141 Problem Gout M10.9 Active 40823429 Problem Mild persistent asthma without complication J45.30 Active 284924268 ALLERGIES No Information ENCOUNTERS Encounter Location Date Diagnosis [facility] [address] [id number] [id number] February[facility] [address] [id number] [id number] February, Insect bite (nonvenomous) of lower back and pelvis, initial encounter S30.860A ; Bitten or stung by nonvenomous insect and other nonvenomous arthropods, initial encounter W57.XXXA and Cellulitis of back L03.[address] [id number][place] [id number] February, Diabetes mellitus with neuropathy E11.[address] [id number][place] [id number] February, Generalized edema R60.1 and Diabetes mellitus with neuropathy E11.40 [place] [address] [place] [address]50- 5287 Jan, [id number] [place] [id number] Jan, Gastroesophageal reflux disease without esophagitis K21.9 and Acute gout involving toe of left foot, unspecified cause M10.[address] [id number][place] [id number] Jan, Marijuana abuse, continuous F12.10 ; Mild persistent asthma without complication J45.30 ; BMI 40.0-44.9, adult Z68.41 and Diabetes mellitus with neuropathy E11.40 [place] [address] [place] [address] 69066- 4609 Jan, [facility] [id number] [place] [id number] Jan, BMI 40.0-44.9, adult Z68.41 and Intractable vomiting with nausea, unspecified vomiting type R11.[address] [id number][place] [id number] Dec, BMI 40.0-44.9, adult Z68.41 and Abrasion hip/leg S80.819A [place] [address] [place] [id number] [place] [address] 99093- 2378 Nov, Neuropathy G62.9 [place] [address] [place] [id number] [place] [address] 07920- 0900 Oct, [place] [address] [place] [address] Oct, [facility] [address] [place] [id number] [place] [address] 28483- 7257 Oct, Diabetes mellitus with neuropathy E11.40 ; Dyspepsia R10.13 ; Mild persistent asthma without complication J45.30 and Depression F32.9 [place] [address] [address] 1996 Oct, Generalized edema R60.1 and Diabetes mellitus with neuropathy E11.40 [place] [address] 8[address]63- 6315 Sep, [place] [address] 0[address]- 0764 Aug, [facility] [address] [address] Aug, Cellulitis L03.90 and BMI 40.0-44.9, adult Z68.41 [place] [address] 03942- 7048 Aug, [place] [address] 18351- 5916 Jul, Trapezius muscle spasm M62.838 and Depression F32.9 [place] [id number] [place] [address] 32555- 9489 Jul, Marijuana abuse, continuous F12.10 ; Moderate episode of recurrent major depressive disorder F33.1 and Methamphetamine use disorder, severe, 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 [place] [address] [place] [id number] [place] [address] 88283- 4545 Jul, [place] [address] 39549- 5877 Jul, [place] [address] 57607- 4375 Jul, [place] [address] [place] [address] Jul, [facility] [address] [place] [id number] [place] [address] 09811- 2385 Jul, [facility] [address] [place] [id number] [place] [address] 43146- 2449 Jul, Diabetes mellitus with neuropathy E11.40 [place] [address] 95954- 7049 16 Jul, 2017 Diabetes mellitus with neuropathy E11.40 ; Venous insufficiency (chronic) (peripheral) I87.2 ; Chest pain, unspecified type R07.9 ; Neuropathy G62.9 and Encounter for immunization Z23 [place] [address] [address]76- 9613 Jun, [place] [address] [place] [id number] [place] [address] 48398- 9246 Jun, [facility] [address] [id number] May, Dental examination Z01.20 [place] [address] 27032- 0928 Apr, Diabetes mellitus with neuropathy E11.40 and Depression F32.9 [place] [address] [place] [address] 75813- 8450 Apr, Mild persistent asthma without complication J45.[address] [id number][place] [id number] Mar, [place] [address] [place] [id number] [place] [address] 87219- 6745 Mar, Depression F32.9 ; Adjustment disorder with disturbance of emotion F43.29 and Marijuana abuse, continuous F12.10 [place] [address] [place] [address] 84014- 5021 Mar, [place] [address] 46779- 7832 Mar, Acute pansinusitis, recurrence not specified J01.40 [place] [address] [place] [address] 10834- 8803 Mar, Adjustment disorder with disturbance of emotion F43.29 ; Adjustment disorder with disturbance of conduct F43.24 ; Marijuana abuse, continuous F12.10 and Depression F32.9 [place] [address] [place] [address] 85837- 5698 Mar, Depression F32.9 ; Marijuana abuse, continuous F12.10 and Adjustment disorder with disturbance of conduct F43.[address] [id number][place] [id number] February, Bronchitis J40 and Acute diffuse otitis externa of right ear H60.[address] [place] [address] 32932- 9623 February, Diabetes mellitus with neuropathy E11.40 ; Mild persistent asthma without complication J45.30 ; Bronchitis J40 ; Depression F32.9 ; Neuropathy G62.9 ; Gout M10.9 ; Generalized edema R60.1 and Hyperlipemia E78.5 [place] [address] [place] [id number] [place] [address] 17123- 6404 February, Diabetes mellitus with neuropathy E11.40 [place] [address] [place] [address] 34160- 3798 February, [place] [address] [place] [id number] [place] [address] 16247- 9749 February, [place] [address] [place] [address] 37997- 3844 Jan, [place] [address] [place] [id number] [place] [address] 99246- 7856 Jan, [place] [address] [place] [address] 85506- 7848 Jan, Adjustment disorder with disturbance of emotion F43.29 ; Adjustment disorder with disturbance of conduct F43.24 ; Marijuana abuse, continuous F12.10 and Depression F32.9 [place] [address] 77579- 4187 Jan, [place] [address] [place] 012828- 038 Jan, Pilonidal cyst with abscess L05.01 and Abscess of skin of abdomen L02.211 [place] [address] [place] 012825- 7840 Dec, Diabetes mellitus with neuropathy E11.40 [facility] [address] [id number] Dec, Dental examination Z01.20 [place] [address] 93483- 485 Dec, [place] [address] 76970- 5119 Nov, Depression F32.9 [place] [address] 10123- 0065 Nov, Depression F32.9 [place] [address] 91000- 2893 10 Nov, 2016 Lateral epicondylitis of left elbow M77.12 ; Insulin long- term use Z79.4 and Neuropathy G62.9 [place] [address] 46910- 2701 Nov, Adjustment disorder with disturbance of emotion F43.29 ; Adjustment disorder with disturbance of conduct F43.24 ; Marijuana abuse, continuous F12.10 and Depression F32.9 [place] [address] 91622- 2531 Oct, Adjustment disorder with disturbance of emotion F43.29 ; Marijuana abuse, continuous F12.10 ; Adjustment disorder with disturbance of conduct F43.24 and Severe episode of recurrent major depressive disorder, without psychotic features F33.2 [facility] [address] [id number] Oct, Dental examination Z01.20 [facility] [address] [place] [id number] [place] [address] 33195- 7807 Oct, Depression F32.9 [facility] [address] [place] [id number] [place] [id number] Oct, Dental examination Z01.20 [facility] [address] [place] [id number] [place] [address] Oct, Depression F32.9 ; Adjustment disorder with disturbance of conduct F43.24 ; Adjustment disorder with disturbance of emotion F43.29 and Marijuana abuse, continuous F12.10 [facility] [address] [id number] Oct, Dental examination Z01.20 [facility] [address] [place] [id number] [place] [address] [id number] Oct, Dental caries K02.9 [facility] [address] [place] [id number] [place] [address] 96275- 7480 Oct, [facility] [address] [place] [id number] [place] [address] [id number] Sep, Dental examination Z01.20 [facility] [address] [place] [id number] [place] [address] Sep, [facility] [address] [place] [id number] [place] [address] 29105- 0482 Sep, Insulin long-term use Z79.4 ; Gout M10.9 ; Diabetes mellitus with neuropathy E11.40 ; Depression F32.9 ; Hyperlipemia E78.5 ; Obstructive sleep apnea G47.33 ; Venous insufficiency (chronic) (peripheral) I87.2 ; Mild persistent asthma without complication J45.30 ; Neuropathy G62.9 and Marijuana abuse, continuous F12.10 [facility] [address] [place] [id number] [place] [address] 27215- 3556 Sep, Adjustment disorder with disturbance of conduct F43.24 and Adjustment disorder with disturbance of emotion F43.29 [facility] [address] [place] [id number] [place] [address] 09706- 9418 Sep, Diabetes mellitus with neuropathy E11.40 ; Dyspnea on exertion R06.09 and Venous insufficiency (chronic) (peripheral) I87.2 [facility] [address] [place] [id number] [place] [address] 62939- 8019 14 Sep, 2016 Neuropathy G62.9 [facility] [address] 49479- 2430 Sep, [facility] [address] [id number] Sep, 2016 Dental examination Z01.20 [place] [address] 05928- 5669 07 Sep, 2016 [place] [address] 40754- 6185 Sep, [place] [address] 55508- 4718 Sep, [place] [address] [place] [id number] [place] [address] 28927- 6560 05 Sep, 2016 Mild persistent asthma without complication J45.30 [place] [address] [place] [id number] [place] [address] 33076- 3361 02 Sep, 2016 Insulin long-term use Z79.4 [place] [address] [place] [id number] [place] [address] 25754- 2771 Sep, Diabetes mellitus with neuropathy E11.40 ; Generalized edema R60.1 and Mild persistent asthma without complication J45.30 [facility] [address] [place] [id number] [place] [address] [id number] Aug, Dental examination Z01.20 [facility] [address] [place] [id number] [place] [address] 95888- 1428 20 Jul, 2016 Urticaria L50.9 and Mild persistent asthma without complication J45.30 [facility] [address] [place] [id number] [place] [address] 98246- 1782 Jul, Lateral epicondylitis of left elbow M77.12 and Venous insufficiency (chronic) (peripheral) I87.2 [place] [address] [place] [address] 43209- 4478 May, Obstructive sleep apnea G47.33 and Diabetes mellitus with neuropathy E11.40 [place] [address] [place] [id number] [place] [address] 56227- 7712 May, Diabetes mellitus with neuropathy E11.40 [place] [address] [place] [id number] [place] [address] 64185- 3777 Mar, [place] [address] [place] [id number] [place] [address] 10400- 4336 Mar, Dental examination Z01.20 [place] [address] [place] [id number] [place] [address] 24028- 8033 Mar, Insulin long-term use Z79.4 [place] [address] [place] [id number] [place] [address] 24322- 0815 Mar, Insulin long-term use Z79.4 [place] [address] [place] [id number] [place] [address] 71374- 8253 February, Insulin long-term use Z79.4 [place] [address] [place] [address] 44908- 2929 February, [place] [address] [place] [id number] [place] [address] 65836- 9306 February, Hyperlipemia E78.5 [place] [address] [facility] [id number] [id number] February, Gout M10.9 and Diabetes mellitus with neuropathy E11.40 [place] [address] [place] [id number] [place] [address] 43334- 9449 Jan, Depression F32.9 [place] [address] [place] [address] 25354- 3745 Jan, Insulin long-term use Z79.4 ; Gout M10.9 ; Candidiasis B37.9 ; Diabetes mellitus with neuropathy E11.40 and Depression F32.9 IMMUNIZATIONS No Known Immunizations SOCIAL HISTORY Never Assessed REASON FOR VISIT PALS IN-Insulins PLAN OF CARE VITAL SIGNS MEDICATIONS Unknown [...] 2 Hospitalization History pylonial cyst removal [facility] 2016 Hospitalization History tick bite---[place] 02/2018
--- OUTSIDE RECORDS SUMMARY | 2018-06-16 19:29 | XMS REPORT ---
Author Author ALEX ALCANTAR [facility] Address [address] [place] [address] Care Team Providers Care Bore Mill Operator For Plastic Name Role Phone ALEX ALCANTAR Unavailable PROBLEMS Type Condition ICD9-CM Code VUV74-VQ Code Onset Dates Condition Status SNOMED Code Problem Gout M10.9 Active 84981944 Problem Obstructive sleep apnea G47.33 Active 13210265 Problem Hyperlipemia E78.5 Active 65470852 Problem Candidiasis B37.9 Active 43753250 Problem Depression F32.9 Active 92205972 Problem Insulin long-term use Z79.4 Active 637100193 Problem Diabetes mellitus with neuropathy E11.40 Active 97556126 Problem Adjustment disorder with disturbance of conduct F43.24 Active 68102713 Problem Adjustment disorder with disturbance of emotion F43.29 Active 59525616 Problem Mild persistent asthma without complication J45.30 Active 433924953 Problem Venous insufficiency (chronic) (peripheral) I87.2 Active 99296737 Problem Marijuana abuse, continuous F12.10 Active 623270285 Problem Neuropathy G62.9 Active 685564363 ALLERGIES No Information SOCIAL HISTORY Never Assessed PLAN OF CARE VITAL SIGNS MEDICATIONS Unknown Medications RESULTS No Results PROCEDURES No Known procedures IMMUNIZATIONS No Known Immunizations MEDICAL (GENERAL) HISTORY [...]
--- OUTSIDE RECORDS SUMMARY | 2018-06-16 19:29 | XMS REPORT ---
Author Author ALEX ALCANTAR Organization [facility] Address [address] [place] [address] Care Team Providers Care Presidential Support Specialist Name Role Phone ALEX ALCANTAR Unavailable PROBLEMS Type Condition ICD9-CM Code BKE18-XZ Code Onset Dates Condition Status SNOMED Code Problem Neuropathy G62.9 Active 791752274 Problem Adjustment disorder with disturbance of emotion F43.29 Active 94146020 Problem Marijuana abuse, continuous F12.10 Active 376790642 Problem Gastroesophageal reflux disease without esophagitis K21.9 Active 697393338 Problem Acute gout involving toe of left foot, unspecified cause M10.9 Active 279978928 Problem Methamphetamine use disorder, severe, 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 Active 36559484 Problem Adjustment disorder with disturbance of conduct F43.24 Active 73123122 Problem Dyspepsia R10.13 Active 561433112 Problem Moderate episode of recurrent major depressive disorder F33.1 Active 149176716 Problem Candidiasis B37.9 Active 38917219 Problem Depression F32.9 Active 30418862 Problem Diabetes mellitus with neuropathy E11.40 Active 20926751 Problem Hyperlipemia E78.5 Active 28628623 Problem Obstructive sleep apnea G47.33 Active 17303845 Problem Insulin long-term use Z79.4 Active 086553155 Problem Venous insufficiency (chronic) (peripheral) I87.2 Active 81080927 Problem Gout M10.9 Active 47933485 Problem Mild persistent asthma without complication J45.30 Active 719879812 ALLERGIES No Information ENCOUNTERS Encounter Location Date Diagnosis [facility] [address] [id number] [place] [id number] Mar, [facility] [address] [id number] [id number] Mar, Generalized edema R60.1 and Diabetes mellitus with neuropathy E11.40 [facility] [address] [id number] [place] [id number] Mar, Neuropathy G62.9 [facility] [address] [id number] [place] [id number] February, Insect bite (nonvenomous) of lower back and pelvis, initial encounter S30.860A ; Bitten or stung by nonvenomous insect and other nonvenomous arthropods, initial encounter W57.XXXA and Cellulitis of back L03.[address] [id number] [place] [id number] February, Diabetes mellitus with neuropathy E11.[address] [id number] [place] [id number] February, Generalized edema R60.1 and Diabetes mellitus with neuropathy E11.40 [facility] [address] [place] [address]31- 7936 Jan, [address] [id number] [place] [id number] Jan, Gastroesophageal reflux disease without esophagitis K21.9 and Acute gout involving toe of left foot, unspecified cause M10.[address] [id number] [place] [id number] Jan, Marijuana abuse, continuous F12.10 ; Mild persistent asthma without complication J45.30 ; BMI 40.0-44.9, adult Z68.41 and Diabetes mellitus with neuropathy E11.40 [place] [address] [place] [id number] [place] [address] 027810- 5917 Jan, [facility] [address] [facility] [id number] [place] [id number] Jan, BMI 40.0-44.9, adult Z68.41 and Intractable vomiting with nausea, unspecified vomiting type R11.[address] [id number] [place] [id number] Dec, BMI 40.0-44.9, adult Z68.41 and Abrasion hip/leg S80.819A [place] [address] [place] [id number] [place] [address] 22066- 8788 Nov, Neuropathy G62.9 [place] [address] [address]67- [address]164 Oct, [facility] [address] [address] Oct, [place] [address] [address]- [address] Oct, Diabetes mellitus with neuropathy E11.40 ; Dyspepsia R10.13 ; Mild persistent asthma without complication J45.30 and Depression F32.[address] [address]- [address]1 Oct, Generalized edema R60.1 and Diabetes mellitus with neuropathy E11.40 [place] [address] 65297- 5142 Sep, [place] [address] [address] Aug, [facility] [address] [address] Aug, Cellulitis L03.90 and BMI 40.0-44.9, adult Z68.41 [place] [address] 34884- 7089 Aug, [place] [address] 01852- 9601 Jul, Trapezius muscle spasm M62.838 and Depression F32.9 [place] [address] 85408- 7915 Jul, Marijuana abuse, continuous F12.10 ; Moderate episode of recurrent major depressive disorder F33.1 and Methamphetamine use disorder, severe, 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 [place] [address] 77158- 4977 Jul, [facility] [address] [address] Jul, [facility] [address] [place] [id number] [place] [address] 90715- 8097 Jul, [facility] [address] [place] [address] 34688- 3885 Jul, [facility] [address] [place] [id number] [place] [address] 37644- 6091 Jul, [facility] [address] [place] [id number] [place] [address] 23543- 0014 Jul, Diabetes mellitus with neuropathy E11.40 [place] [address] [place] [id number] [place] [address] 25962- 2651 Jul, Diabetes mellitus with neuropathy E11.40 ; Venous insufficiency (chronic) (peripheral) I87.2 ; Chest pain, unspecified type R07.9 ; Neuropathy G62.9 and Encounter for immunization Z23 [facility] [address] [place] [address] 48987- 8190 Jun, [facility] [address] [place] [id number] [place] [address] 56875- 3855 Jun, [facility] [address] [place] [id number] May, Dental examination Z01.20 [facility] [address] [place] [id number] [place] [address] 54260- 6524 Apr, Diabetes mellitus with neuropathy E11.40 and Depression F32.9 [facility] [address] [place] [id number] [place] [address] 77481- 8424 Apr, Mild persistent asthma without complication J45.30 [facility] [place] [address] [place] [address] AVE [id number] [place] [id number] Mar, [facility] [address] [address] Mar, Depression F32.9 ; Adjustment disorder with disturbance of emotion F43.29 and Marijuana abuse, continuous F12.10 [place] [address] [place] [address] 84055- 3589 Mar, [place] [id number] [place] [address] 81089- 4867 Mar, Acute pansinusitis, recurrence not specified J01.[address] [address]80- 7[address] Mar, Adjustment disorder with disturbance of emotion F43.29 ; Adjustment disorder with disturbance of conduct F43.24 ; Marijuana abuse, continuous F12.10 and Depression F32.[address] 92916- 5918 Mar, Depression F32.9 ; Marijuana abuse, continuous F12.10 and Adjustment disorder with disturbance of conduct F43.[address] [id number] [place] [id number] February, Bronchitis J40 and Acute diffuse otitis externa of right ear H60.311 [place] [id number] [place] [address] 89136- 7483 February, Diabetes mellitus with neuropathy E11.40 ; Mild persistent asthma without complication J45.30 ; Bronchitis J40 ; Depression F32.9 ; Neuropathy G62.9 ; Gout M10.9 ; Generalized edema R60.1 and Hyperlipemia E78.5 [place] [id number] [place] [address] 61839- 3511 February, Diabetes mellitus with neuropathy E11.40 [place] [id number] [place] [address] 13258- 5479 February, [address] 77666- 5296 February, [place] [address] [place] [id number] [place] [address] 20385- 5612 Jan, [address] [id number]- 6335 Jan, [place] [address] 93964- 8228 Jan, Adjustment disorder with disturbance of emotion F43.29 ; Adjustment disorder with disturbance of conduct F43.24 ; Marijuana abuse, continuous F12.10 and Depression F32.9 [place] [address] [place] [id number]- 4685 Jan, [place] [address] [place] 567985- 6461 Jan, Pilonidal cyst with abscess L05.01 and Abscess of skin of abdomen L02.211 [place] [id number]- 4096 Dec, Diabetes mellitus with neuropathy E11.40 [facility] [address] [id number] Dec, Dental examination Z01.[address] 61741- 0903 Dec, [place] [address] [place] 567987- 0894 Nov, Depression F32.[address] 00864- 5602 Nov, Depression F32.9 [place] [address] 35187- 4653 Nov, Lateral epicondylitis of left elbow M77.12 ; Insulin long- term use Z79.4 and Neuropathy G62.9 [place] [id number]- 0636 Nov, Adjustment disorder with disturbance of emotion F43.29 ; Adjustment disorder with disturbance of conduct F43.24 ; Marijuana abuse, continuous F12.10 and Depression F32.9 [place] [address] [place] [id number]- 9316 Oct, Adjustment disorder with disturbance of emotion F43.29 ; Marijuana abuse, continuous F12.10 ; Adjustment disorder with disturbance of conduct F43.24 and Severe episode of recurrent major depressive disorder, without psychotic features F33.2 [facility] [address] [place] [id number] [place] [address] [id number] Oct, Dental examination Z01.20 [facility] [address] 10007- 6319 Oct, Depression F32.9 [facility] [address] [id number] Oct, Dental examination Z01.20 [facility] [address] 43169- 2947 Oct, Depression F32.9 ; Adjustment disorder with disturbance of conduct F43.24 ; Adjustment disorder with disturbance of emotion F43.29 and Marijuana abuse, continuous F12.10 [facility] [address] [id number] [place] [address] [id number] Oct, Dental examination Z01.20 [facility] [address] [place] [address] [id number] [place] [address] [id number] Oct, Dental caries K02.9 [facility] [address] [place] [id number] [place] [address] 97325- 5728 Oct, [facility] [address] [place] [address] [id number] [place] [address] [id number] Sep, Dental examination Z01.20 [facility] [address] [place] [id number] [place] [address] 06209- 7418 Sep, [facility] [address] 01764- 0437 Sep, Insulin long-term use Z79.4 ; Gout M10.9 ; Diabetes mellitus with neuropathy E11.40 ; Depression F32.9 ; Hyperlipemia E78.5 ; Obstructive sleep apnea G47.33 ; Venous insufficiency (chronic) (peripheral) I87.2 ; Mild persistent asthma without complication J45.30 ; Neuropathy G62.9 and Marijuana abuse, continuous F12.10 [facility] [address] [place] [id number] [place] [address] 09029- 4403 Sep, Adjustment disorder with disturbance of conduct F43.24 and Adjustment disorder with disturbance of emotion F43.29 [place] [address] 78179- 1889 Sep, Diabetes mellitus with neuropathy E11.40 ; Dyspnea on exertion R06.09 and Venous insufficiency (chronic) (peripheral) I87.2 [place] [address] 20297- 9935 14 Sep, 2016 Neuropathy G62.9 [place] [address] 23425- 2996 13 Sep, 2016 [facility] [address] [id number] Sep, Dental examination Z01.20 [place] [address] 33348- 3884 Sep, [place] [address] 47592- 0176 Sep, [place] [address] 10465- 8978 Sep, [place] [address] 28056- 6113 05 Sep, 2016 Mild persistent asthma without complication J45.30 [place] [address] [place] [id number] [place] [address] 01451- 9780 02 Sep, 2016 Insulin long-term use Z79.4 [place] [address] 30704- 7646 Sep, Diabetes mellitus with neuropathy E11.40 ; Generalized edema R60.1 and Mild persistent asthma without complication J45.30 [facility] [address] [id number] Aug, Dental examination Z01.20 [facility] [address] [address] 20 Jul, 2016 Urticaria L50.9 and Mild persistent asthma without complication J45.30 [facility] [address] [place] [address] 19131- 1915 10 Jul, 2016 Lateral epicondylitis of left elbow M77.12 and Venous insufficiency (chronic) (peripheral) I87.2 [place] [address] [place] [id number] [place] [address] 35369- 2187 15 May, 2016 Obstructive sleep apnea G47.33 and Diabetes mellitus with neuropathy E11.40 [place] [address] [place] [id number] [place] [address] 41193- 3542 May, Diabetes mellitus with neuropathy E11.40 [place] [address] [place] [id number] [place] [address] 77953- 0399 Mar, [place] [address] [place] [id number] [place] [address] 42510- 1033 15 Mar, 2016 Dental examination Z01.20 [place] [address] [place] [id number] [place] [address] 22763- 3748 13 Mar, 2016 Insulin long-term use Z79.4 [place] [address] [place] [address] 10572- 7069 13 Mar, 2016 Insulin long-term use Z79.4 [place] [address] [place] [address] 60097- 4627 February, Insulin long-term use Z79.4 [place] [address] [place] [address] 23407- 8475 February, [place] [address] [place] [id number] [place] [address] 82663- 5888 February, Hyperlipemia E78.5 [facility] [address] [facility] [address] [id number] [place] [id number] February, Gout M10.9 and Diabetes mellitus with neuropathy E11.40 [facility] [address] [facility] [id number] [place] [address]- 2735 Jan, Depression F32.9 [facility] [address] [facility] [id number] [place] [address] 4[address] Jan, Insulin long-term use Z79.4 ; Gout M10.9 ; Candidiasis B37.9 ; Diabetes mellitus with neuropathy E11.40 and Depression F32.9 IMMUNIZATIONS No Known Immunizations SOCIAL HISTORY Never Assessed REASON FOR VISIT Repository Medication PLAN OF CARE VITAL SIGNS MEDICATIONS Medication Instructions Dosage Frequency Start Date End Date Duration Status Lasix 20 mg Orally Once a day 1 tablet 24h Sep, Active GlipiZIDE 5 MG Orally twice a day 1 tablet 12h Active Wellbutrin XL 150 MG Orally every morning with 300mg tab 1 tablet Jul Active Metformin HCl 1000 MG Orally Twice a day 1 tablet with meals 12h Oct, 30 day(s) Active Wellbutrin XL 300 MG Orally every morning 1 tablet Sep, Active RESULTS No Results PROCEDURES No [...] 2 Hospitalization History [facility] 2016 Hospitalization History tick bite---[place] 02/2018
--- OUTSIDE RECORDS SUMMARY | 2018-06-16 19:29 | XMS REPORT ---
Author Author ALEX ALCANTAR Organization [facility] Address [address] [place] [address] Care Team Providers Care Boxing And Pressing Supervisor Name Role Phone ALEX ALCANTAR Unavailable PROBLEMS Type Condition ICD9-CM Code MUZ34-PH Code Onset Dates Condition Status SNOMED Code Problem Gout M10.9 Active 64176480 Problem Obstructive sleep apnea G47.33 Active 97538707 Problem Hyperlipemia E78.5 Active 89073627 Problem Candidiasis B37.9 Active 05175377 Problem Depression F32.9 Active 91245293 Problem Insulin long-term use Z79.4 Active 041664387 Problem Diabetes mellitus with neuropathy E11.40 Active 35357952 Problem Adjustment disorder with disturbance of conduct F43.24 Active 18948229 Problem Adjustment disorder with disturbance of emotion F43.29 Active 56374199 Problem Mild persistent asthma without complication J45.30 Active 425869295 Problem Venous insufficiency (chronic) (peripheral) I87.2 Active 78544121 Problem Marijuana abuse, continuous F12.10 Active 821954476 Problem Neuropathy G62.9 Active 908850199 ALLERGIES No Information SOCIAL HISTORY Never Assessed PLAN OF CARE VITAL SIGNS MEDICATIONS Medication Instructions Dosage Frequency Start Date End Date Duration Status Gabapentin 600 MG Orally Three times a day 1 capsule 8h 15 May, 2016 Active Metformin HCl 1000 MG Orally Twice a day 1 tablet with a meal 12h 10 Jul, 2016 Active Lasix 20 mg Orally Once a day 1 tablet 24h Sep, Active GlipiZIDE 10 MG Orally Once a day 1 tablet 24h Active RESULTS No Results PROCEDURES No Known [...] Hospitalization History pylonial cyst removal from tailbone 2017
--- OUTSIDE RECORDS SUMMARY | 2018-06-16 19:29 | XMS REPORT ---
Author Author JOMAR GAMBLE Organization [facility] Address [address] [place] [address] Care Team Providers Care Fast Food Delivery Driver Name Role Phone JOMAR GAMBLE Unavailable PROBLEMS Type Condition ICD9-CM Code EIO84-IY Code Onset Dates Condition Status SNOMED Code Problem Gout M10.9 Active 31308462 Problem Obstructive sleep apnea G47.33 Active 77125722 Problem Hyperlipemia E78.5 Active 62473961 Problem Candidiasis B37.9 Active 80063356 Problem Depression F32.9 Active 52028259 Problem Insulin long-term use Z79.4 Active 203935664 Problem Diabetes mellitus with neuropathy E11.40 Active 92818754 Problem Adjustment disorder with disturbance of conduct F43.24 Active 41525351 Problem Adjustment disorder with disturbance of emotion F43.29 Active 44079012 Problem Mild persistent asthma without complication J45.30 Active 868504746 Problem Venous insufficiency (chronic) (peripheral) I87.2 Active 83113008 Problem Marijuana abuse, continuous F12.10 Active 304585195 Problem Neuropathy G62.9 Active 933833311 ALLERGIES No Information SOCIAL HISTORY Never Assessed PLAN OF CARE Activity Details Follow Up 3 Weeks Reason:Depression VITAL SIGNS MEDICATIONS Unknown Medications RESULTS No Results PROCEDURES Procedure Date Ordered Result Body Site Psychotherapy, patient &/family, 45 minutes, established patient Dec 12, 2016 IMMUNIZATIONS No Known Immunizations MEDICAL (GENERAL) HISTORY Type Description Date Medical History high blood pressure Medical History diabetic Medical History asthma Medical History emphysema Surgical History Pylonial cyst removal from tailbone x 2 Surgical History Cyst removal from groin/[facility]SA Surgical History Back surgery cyst removal from tailbone 02/2017 Hospitalization History Surgery Hospitalization History Heart attacks x 2 Hospitalization History pylonial cyst removal from [place]2016
--- OUTSIDE RECORDS SUMMARY | 2018-06-16 19:29 | XMS REPORT ---
Author Author MARK GILLILAND Organization [facility] Address [address] [place] [address] Care Team Providers Care Development Director Name Role Phone MARK GILLILAND Unavailable PROBLEMS Type Condition ICD9-CM Code [id number] Code Onset Dates Condition Status SNOMED Code Problem Neuropathy G62.9 Active 762650196 Problem Adjustment disorder with disturbance of emotion F43.29 Active 44089589 Problem Marijuana abuse, continuous F12.10 Active 336711929 Problem Gastroesophageal reflux disease without esophagitis K21.9 Active 670161268 Problem Acute gout involving toe of left foot, unspecified cause M10.9 Active 296805478 Problem Methamphetamine use disorder, severe, 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 Active 46969443 Problem Adjustment disorder with disturbance of conduct F43.24 Active 93990539 Problem Dyspepsia R10.13 Active 856363785 Problem Moderate episode of recurrent major depressive disorder F33.1 Active 279971186 Problem Candidiasis B37.9 Active 29827867 Problem Depression F32.9 Active 33174243 Problem Diabetes mellitus with neuropathy E11.40 Active 14611162 Problem Hyperlipemia E78.5 Active 07804369 Problem Obstructive sleep apnea G47.33 Active 23607265 Problem Insulin long-term use Z79.4 Active 736316197 Problem Venous insufficiency (chronic) (peripheral) I87.2 Active 79312449 Problem Gout M10.9 Active 27224343 Problem Mild persistent asthma without complication J45.30 Active 232580791 ALLERGIES No Information ENCOUNTERS Encounter Location Date [facility] [address] [id number] [place] [id number] Mar, [facility] [address] [id number] [place] [id number] Mar, [facility] [address] [id number] [place] [id number] February, Insect bite (nonvenomous) of lower back and pelvis, initial encounter S30.860A ; Bitten or stung by nonvenomous insect and other nonvenomous arthropods, initial encounter W57.XXXA and Cellulitis of back L03.[address] [id number] [place] [id number] February, Diabetes mellitus with neuropathy E11.[address] [place] [id number] February, Generalized edema R60.1 and Diabetes mellitus with neuropathy E11.40 [place] [id number] [place] [address]9618- 8280 Jan, [id number] [place] [id number] Jan, Gastroesophageal reflux disease without esophagitis K21.9 and Acute gout involving toe of left foot, unspecified cause M10.[address] [id number] [place] [id number] Jan, Marijuana abuse, continuous F12.10 ; Mild persistent asthma without complication J45.30 ; BMI 40.0-44.9, adult Z68.41 and Diabetes mellitus with neuropathy E11.40 [place] [address] [place] [address] 67606- 1474 Jan, [facility] [id number] [place] [phone] Jan, BMI 40.0-44.9, adult Z68.41 and Intractable vomiting with nausea, unspecified vomiting type R11.[address] [id number] [place] [id number] Dec, BMI 40.0-44.9, adult Z68.41 and Abrasion hip/leg S80.819A [place] [id number] [place] [address] 68994- 1436 Nov, Neuropathy G62.9 [place] [address] [address]- 1590 Oct, [facility] [address] [address]- [address] Oct, [facility] [address] 95[address]- 1617 Oct, Diabetes mellitus with neuropathy E11.40 ; Dyspepsia R10.13 ; Mild persistent asthma without complication J45.30 and Depression F32.9 [place] [address] 17844- 4975 Oct, Generalized edema R60.1 and Diabetes mellitus with neuropathy E11.40 [place] [address] 8[address]- 3[address] Sep, [place] [address] 33318- 6765 Aug, [facility] [address] [address] Aug, Cellulitis L03.90 and BMI 40.0-44.9, adult Z68.[address] [address] Aug, [place] [address] 13023- 1335 Jul, Trapezius muscle spasm M62.838 and Depression F32.9 [place] [address] 74052- 7910 Jul, Marijuana abuse, continuous F12.10 ; Moderate episode of recurrent major depressive disorder F33.1 and Methamphetamine use disorder, severe, 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 [place] [address] 32[address]- 5202 Jul, [place] [address] 23512- 9625 Jul, [place] [address] [place] [address] Jul, [place] [id number] [place] [address] 56321- 2105 Jul, [facility] [id number] [place] [address] 24256- 8220 Jul, [place] [id number] [place] [address] 97470- 2787 Jul, Diabetes mellitus with neuropathy E11.40 [place] [id number] [place] [address] 09687- 9002 16 Jul, 2017 Diabetes mellitus with neuropathy E11.40 ; Venous insufficiency (chronic) (peripheral) I87.2 ; Chest pain, unspecified type R07.9 ; Neuropathy G62.9 and Encounter for immunization Z23 [place] [id number] [place] [address] 33036- 7259 Jun, [place] [id number] [place] [address] 12297- 5123 Jun, [facility] [id number] [place] [phone] May, Dental examination Z01.20 [place] [id number] [place] [address] 42285- 6375 Apr, Diabetes mellitus with neuropathy E11.40 and Depression F32.9 [place] [id number] [place] [address] 53712- 3356 Apr, Mild persistent asthma without complication J45.30 [place] [address] [facility] [address] [id number] [place] [id number] Mar, [place] [address] 13148- 6768 Mar, Depression F32.9 ; Adjustment disorder with disturbance of emotion F43.29 and Marijuana abuse, continuous F12.10 [place] [id number] [place] [address] 58321- 7844 Mar, [address] [place] [address] 36612- 6299 Mar, Acute pansinusitis, recurrence not specified J01.40 [place] [id number] [place] [address] 13874- 5592 Mar, Adjustment disorder with disturbance of emotion F43.29 ; Adjustment disorder with disturbance of conduct F43.24 ; Marijuana abuse, continuous F12.10 and Depression F32.9 [place] [id number] [place] [address] 03385- 6719 Mar, Depression F32.9 ; Marijuana abuse, continuous F12.10 and Adjustment disorder with disturbance of conduct F43.24 [address] [place] [id number] February, Bronchitis J40 and Acute diffuse otitis externa of right ear H60.311 [place] [id number] [place] [address] 99459- 5069 February, Diabetes mellitus with neuropathy E11.40 ; Mild persistent asthma without complication J45.30 ; Bronchitis J40 ; Depression F32.9 ; Neuropathy G62.9 ; Gout M10.9 ; Generalized edema R60.1 and Hyperlipemia E78.[address] [place] [address] 52027- 5999 February, Diabetes mellitus with neuropathy E11.40 [place] [id number] [place] [address] 31753- 6009 February, [place] [id number] [place] [address] 39459- 4958 February, [address] [address]- 6246 Jan, [place] [id number] [place] [address] 07998- 1187 Jan, [place] [id number] [place] [address] 70480- 7420 Jan, Adjustment disorder with disturbance of emotion F43.29 ; Adjustment disorder with disturbance of conduct F43.24 ; Marijuana abuse, continuous F12.10 and Depression F32.9 [place] [address] [id number] 6387 Jan, [place] [address] 47169- 8421 Jan, Pilonidal cyst with abscess L05.01 and Abscess of skin of abdomen L02.211 [place] [address] 08844- 3799 Dec, Diabetes mellitus with neuropathy E11.40 [facility] [address] [id number] Dec, Dental examination Z01.20 [place] [address] 97534- 5890 Dec, [place] [address] 68839- 8730 Nov, Depression F32.9 [place] [address] 25772- 2236 Nov, Depression F32.9 [place] [address] 02868- 9221 Nov, Lateral epicondylitis of left elbow M77.12 ; Insulin long- term use Z79.4 and Neuropathy G62.9 [place] [id number] [place] [address] 53234- 8804 Nov, Adjustment disorder with disturbance of emotion F43.29 ; Adjustment disorder with disturbance of conduct F43.24 ; Marijuana abuse, continuous F12.10 and Depression F32.9 [place] [id number] [place] [address] 22903- 0383 Oct, Adjustment disorder with disturbance of emotion F43.29 ; Marijuana abuse, continuous F12.10 ; Adjustment disorder with disturbance of conduct F43.24 and Severe episode of recurrent major depressive disorder, without psychotic features F33.2 [facility] [address] [place] [address] [phone] Oct, Dental examination Z01.20 [facility] [id number] [place] [address]83 Oct, Depression F32.9 [facility] [id number] [place] [address] [id number] Oct, Dental examination Z01.20 [facility] [address] 249165- 9216 Oct, Depression F32.9 ; Adjustment disorder with disturbance of conduct F43.24 ; Adjustment disorder with disturbance of emotion F43.29 and Marijuana abuse, continuous F12.10 [facility] [id number] [place] [address] [id number] Oct, Dental examination Z01.20 [facility] [address] [id number] Oct, Dental caries K02.9 [facility] [id number] [place] [address] 58159- 5802 Oct, [facility] [id number] [place] [address] [id number] Sep, Dental examination Z01.20 [facility] [id number] [place] [address] 48791- 8080 Sep, [facility] [id number] [place] [address]886 Sep, Insulin long-term use Z79.4 ; Gout M10.9 ; Diabetes mellitus with neuropathy E11.40 ; Depression F32.9 ; Hyperlipemia E78.5 ; Obstructive sleep apnea G47.33 ; Venous insufficiency (chronic) (peripheral) I87.2 ; Mild persistent asthma without complication J45.30 ; Neuropathy G62.9 and Marijuana abuse, continuous F12.10 [facility] [id number] [place] [address] 62019- 8025 Sep, Adjustment disorder with disturbance of conduct F43.24 and Adjustment disorder with disturbance of emotion F43.29 [place] [address] 33500- 7114 Sep, Diabetes mellitus with neuropathy E11.40 ; Dyspnea on exertion R06.09 and Venous insufficiency (chronic) (peripheral) I87.2 [place] [address] 36937- 5502 14 Sep, 2016 Neuropathy G62.9 [place] [address] 69777- 7692 Sep, [facility] [address] [id number] Sep, 2016 Dental examination Z01.20 [place] [address] 89962- 4162 Sep, [place] [address] 05648- 8840 Sep, [place] [address] 17488- 7306 Sep, [place] [address] 08284- 9209 05 Sep, 2016 Mild persistent asthma without complication J45.30 [place] [id number] [place] [address] 73530- 8303 02 Sep, 2016 Insulin long-term use Z79.4 [place] [address] 43194- 7128 Sep, Diabetes mellitus with neuropathy E11.40 ; Generalized edema R60.1 and Mild persistent asthma without complication J45.30 [facility] [address] [id number] Aug, Dental examination Z01.20 [facility] [address] 16819- 6193 Jul, Urticaria L50.9 and Mild persistent asthma without complication J45.30 [place] [address] [place] [address] 19000- 8416 10 Jul, 2016 Lateral epicondylitis of left elbow M77.12 and Venous insufficiency (chronic) (peripheral) I87.2 [place] [address] [place] [address] 63860- 6735 15 May, 2016 Obstructive sleep apnea G47.33 and Diabetes mellitus with neuropathy E11.40 [place] [address] [place] [address] 40592- 2478 May, Diabetes mellitus with neuropathy E11.40 [place] [id number] [place] [address] 05744- 7320 Mar, [place] [id number] [place] [address] 96571- 9140 Mar, Dental examination Z01.20 [place] [id number] [place] [address] 67963- 3963 Mar, Insulin long-term use Z79.4 [place] [id number] [place] [address] 11431- 9727 Mar, Insulin long-term use Z79.4 [place] [address] [place] [address] 61360- 8121 February, Insulin long-term use Z79.4 [place] [address] [place] [address] 48582- 1025 February, [place] [address] [place] [address] 68641- 0889 February, Hyperlipemia E78.5 [facility] [address] [facility] [address] [id number] [id number] February, Gout M10.9 and Diabetes mellitus with neuropathy E11.40 [place] [address] [place] [address] 64252- 1332 Jan, Depression F32.9 [place] [address] [facility] [id number] [place] [address]- [address] Jan, Insulin long-term use Z79.4 ; Gout M10.9 ; Candidiasis B37.9 ; Diabetes mellitus with neuropathy E11.40 and Depression F32.9 IMMUNIZATIONS No Known Immunizations SOCIAL HISTORY Never Assessed REASON FOR VISIT new dentures needed PLAN OF CARE VITAL SIGNS MEDICATIONS Unknown [...]
--- OUTSIDE RECORDS SUMMARY | 2018-06-16 19:29 | XMS REPORT ---
Author Author ALEX Rodas Organization [facility] Address [address] [place] [address] Care Team Providers Care Forest Patrolman Name Role Phone ALEX Rodas Unavailable PROBLEMS Type Condition ICD9-CM Code [id number] Code Onset Dates Condition Status SNOMED Code Problem Gout M10.9 Active 62471311 Problem Obstructive sleep apnea G47.33 Active 52702041 Problem Hyperlipemia E78.5 Active 58145209 Problem Candidiasis B37.9 Active 24259673 Problem Depression F32.9 Active 13103017 Problem Insulin long-term use Z79.4 Active 201297239 Problem Diabetes mellitus with neuropathy E11.40 Active 76847103 Problem Adjustment disorder with disturbance of conduct F43.24 Active 05298440 Problem Adjustment disorder with disturbance of emotion F43.29 Active 16289931 Problem Mild persistent asthma without complication J45.30 Active 385155647 Problem Venous insufficiency (chronic) (peripheral) I87.2 Active 16862408 Problem Marijuana abuse, continuous F12.10 Active 776851543 Problem Neuropathy G62.9 Active 596523848 ALLERGIES No Known Allergies SOCIAL HISTORY Never Assessed PLAN OF CARE Activity Details Follow Up 2 Months Reason: VITAL SIGNS Height 71.2 in 2016-12-09 Weight 310.7 lbs 2016-12-09 Heart Rate 80 bpm 2016-12-09 Respiratory Rate 22 2016-12-09 BMI 43.09 kg/m2 2016-12-09 Blood pressure systolic 108 mmHg 2016-12-09 Blood pressure diastolic 66 mmHg 2016-12-09 MEDICATIONS Medication Instructions Dosage Frequency Start Date End Date Duration Status Albuterol Sulfate HFA 108 (90 Base) MCG/ACT Inhalation every 4 hrs 2 puffs as needed 4h Active Wellbutrin XL 150 MG Orally Once a day 2 tablets 24h Sep, Active Klor-Con M10 10 MEQ Orally Twice a day 1 tablet with food 12h Sep, Dec, 30 day(s) Active Colchicine 0.6 MG Orally Once a day 1 tablet 24h Active Naprosyn 500 MG Orally 2 times a day, pc 1 tablet as needed Jul, Active Symbicort 160-4.5 MCG/ACT Inhalation Twice a day 2 puffs 12h Active Lasix 20 mg Orally Once a day 1 tablet 24h Sep, Active Potassium Active Water Pills Active C-PAP Machine Active Levemir 100 UNIT/ML Subcutaneous twice a day 23 units 12h February, Active NovoLog 100 UNIT/ML Subcutaneous 3 times a day 20 units 8h February, Active Metformin HCl 1000 MG Orally Twice a day 1 tablet with a meal 12h Jul, Active Nystatin 649546 UNIT/GM Externally Twice a day 1 application to affected area 12h Jan, Active Allopurinol 100 MG Orally Once a day 1 tablet 24h Jan, Active Gabapentin 600 MG Orally Three times a day 1 capsule 8h May, Active Zocor 40 MG Orally Once a day 1 tablet in the evening 24h Active GlipiZIDE 10 MG Orally Once a day 1 tablet 24h Active Gemfibrozil 600 MG Orally Twice a day 1 tablet 12h Active RESULTS No Results PROCEDURES No Known procedures IMMUNIZATIONS No Known Immunizations MEDICAL (GENERAL) HISTORY Type Description Date Medical History high blood pressure Medical History diabetic Medical History asthma Medical History emphysema [facility] Cyst removal from groin/[facility]SA Surgical History [facility] Hospitalization History Surgery Hospitalization History Heart attacks x 2 Hospitalization History pylonial cyst removal from 2016
--- OUTSIDE RECORDS SUMMARY | 2018-06-16 19:29 | XMS REPORT ---
Author Author ALEX ALCANTAR Organization 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 Active 73163965 Problem Marijuana abuse, continuous F12.10 Active 889913884 Problem Neuropathy G62.9 Active 653886496 Problem Adjustment disorder with disturbance of conduct F43.24 Active 47033840 Problem Adjustment disorder with disturbance of emotion F43.29 Active 61447551 Problem Insulin long-term use Z79.4 Active 338441183 Problem Diabetes mellitus with neuropathy E11.40 Active 21069283 Problem Candidiasis B37.9 Active 60759630 Problem Gout M10.9 Active 09253983 Problem Depression F32.9 Active 14315911 Problem Hyperlipemia E78.5 Active 95403249 ALLERGIES No Information SOCIAL HISTORY Never Assessed [...] 2 Hospitalization History pylonial cyst removal from [facility]
--- OUTSIDE RECORDS SUMMARY | 2018-06-16 19:30 | XMS REPORT ---
Author Author OJMAR GAMBLE Organization [facility] Address [address] [place] [address] Care Team Providers Care Rn Bariatric Name Role Phone JOMAR GAMBLE Unavailable PROBLEMS Type Condition ICD9-CM Code [id number] Code Onset Dates Condition Status SNOMED Code Problem Insulin long-term use Z79.4 Active 521089973 Problem Obstructive sleep apnea G47.33 Active 82854151 Problem Hyperlipemia E78.5 Active 61358699 Problem Depression F32.9 Active 01988052 Problem Diabetes mellitus with neuropathy E11.40 Active 72212554 Problem Candidiasis B37.9 Active 21588265 Problem Gout M10.9 Active 17421218 Problem Adjustment disorder with disturbance of conduct F43.24 Active 43071067 Problem Adjustment disorder with disturbance of emotion F43.29 Active 19957978 Problem Mild persistent asthma without complication J45.30 Active 586088552 Problem Venous insufficiency (chronic) (peripheral) I87.2 Active 26311574 Problem Marijuana abuse, continuous F12.10 Active 115012924 Problem Neuropathy G62.9 Active 196789552 ALLERGIES Unknown Allergies SOCIAL HISTORY No smoking Hx information available PLAN OF CARE Activity Details Follow Up 1 Week Reason:Anger, depression, and anxiety VITAL SIGNS MEDICATIONS Unknown Medications RESULTS No Results PROCEDURES Procedure Date Ordered Related Diagnosis Body Site Psych diagnostic evaluation, new patient Oct 07, 2016 IMMUNIZATIONS No Known Immunizations
--- OUTSIDE RECORDS SUMMARY | 2018-06-16 19:30 | XMS REPORT ---
Author Author ALEX ALCANTAR Organization [facility] Address [address] [place] [address] Care Team Providers Care Sulfuric Acid Plant Supervisor Name Role Phone ALEX ALCANTAR Unavailable PROBLEMS Type Condition ICD9-CM Code BAK87-HK Code Onset Dates Condition Status SNOMED Code Problem Obstructive sleep apnea G47.33 Active 11376047 Problem Mild persistent asthma without complication J45.30 Active 965870962 Problem Venous insufficiency (chronic) (peripheral) I87.2 Active 61681111 Problem Moderate episode of recurrent major depressive disorder F33.1 Active 489316087 Problem Methamphetamine use disorder, severe, 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 Active 41682864 Problem Marijuana abuse, continuous F12.10 Active 007383371 Problem Neuropathy G62.9 Active 968143929 Problem Adjustment disorder with disturbance of conduct F43.24 Active 79038255 Problem Adjustment disorder with disturbance of emotion F43.29 Active 11420775 Problem Insulin long-term use Z79.4 Active 421691565 Problem Diabetes mellitus with neuropathy E11.40 Active 64018507 Problem Candidiasis B37.9 Active 60018599 Problem Gout M10.9 Active 34794008 Problem Depression F32.9 Active 54176636 Problem Hyperlipemia E78.5 Active 08008343 ALLERGIES No Information SOCIAL HISTORY Never Assessed PLAN OF CARE VITAL SIGNS MEDICATIONS Medication Instructions Dosage Frequency Start Date End Date Duration Status Metformin HCl 1000 MG Orally Twice a day 1 tablet with a meal 12h 10 Jul, 2016 Active RESULTS No Results PROCEDURES No [...]
--- OUTSIDE RECORDS SUMMARY | 2018-06-16 19:30 | XMS REPORT ---
Author Author ALEX ALCANTAR Organization [facility] Address [address] [place] [address] Care Team Providers Care Vaccine Specialist Name Role Phone ALEX ALCANTAR Unavailable PROBLEMS Type Condition ICD9-CM Code LVH43-FU Code Onset Dates Condition Status SNOMED Code Problem Venous insufficiency (chronic) (peripheral) I87.2 Active 78379377 Problem Neuropathy G62.9 Active 290434783 Problem Mild persistent asthma without complication J45.30 Active 621854194 Problem Dyspepsia R10.13 Active 394248473 Problem Moderate episode of recurrent major depressive disorder F33.1 Active 411539124 Problem Adjustment disorder with disturbance of emotion F43.29 Active 96171737 Problem Marijuana abuse, continuous F12.10 Active 833921971 Problem Methamphetamine use disorder, severe, 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 Active 64744721 Problem Adjustment disorder with disturbance of conduct F43.24 Active 47656442 Problem Candidiasis B37.9 Active 49726335 Problem Diabetes mellitus with neuropathy E11.40 Active 92596494 Problem Gout M10.9 Active 00836297 Problem Depression F32.9 Active 76162962 Problem Hyperlipemia E78.5 Active 08625430 Problem Insulin long-term use Z79.4 Active 110444517 Problem Obstructive sleep apnea G47.33 Active 35027035 ALLERGIES No Known Allergies ENCOUNTERS Encounter Location Date Diagnosis [facility] [id number] [address] Nov, Neuropathy G62.9 [facility] [address] [address] Oct, [facility] [address] [address] Oct, [facility] [address] [place] [address] Oct, Diabetes mellitus with neuropathy E11.40 ; Dyspepsia R10.13 ; Mild persistent asthma without complication J45.30 and Depression F32.9 [place] [address] [address] Oct, Generalized edema R60.1 and Diabetes mellitus with neuropathy E11.[address] [address] Sep, [place] [address] [address] Aug, [facility] [address] [place] [address] Aug, Cellulitis L03.90 and BMI 40.0-44.9, adult Z68.[address] [address] Aug, [place] [address] [address] Jul, Trapezius muscle spasm M62.838 and Depression F32.[address] [address] Jul, Marijuana abuse, continuous F12.10 ; Moderate episode of recurrent major depressive disorder F33.1 and Methamphetamine use disorder, severe, 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 [place] [address] [address] Jul, [place] [address] [address] Jul, [place] [address] [address] Jul, [place] [address] [address] Jul, [place] [address] [address] Jul, [facility] [address] [place] [address] Jul, Diabetes mellitus with neuropathy E11.40 [id number] [place] [address]- [address] 16 Jul, 2017 Diabetes mellitus with neuropathy E11.40 ; Venous insufficiency (chronic) (peripheral) I87.2 ; Chest pain, unspecified type R07.9 ; Neuropathy G62.9 and Encounter for immunization Z23 [place] [id number] [place] [address]28- [address] Jun, [place] [id number] [place] [address] 46384- [address] Jun, [facility] [id number] [place] [id number] May, Dental examination Z01.20 [id number] [place] [address] 01706- [address] Apr, Diabetes mellitus with neuropathy E11.40 and Depression F32.9 [place] [id number] [place] [address] 27196- 6[address] Apr, Mild persistent asthma without complication J45.30 [place] [address] [facility] [address] [id number] [id number] Mar, [place] [id number] [place] [address] 9[address]82- 9[address] Mar, Depression F32.9 ; Adjustment disorder with disturbance of emotion F43.29 and Marijuana abuse, continuous F12.10 [address] [place] [address] 11185- 6929 Mar, [place] [id number] [place] [address] 26817- 9971 Mar, Acute pansinusitis, recurrence not specified J01.40 [place] [id number] [place] [address] 48679- 8142 Mar, Adjustment disorder with disturbance of emotion F43.29 ; Adjustment disorder with disturbance of conduct F43.24 ; Marijuana abuse, continuous F12.10 and Depression F32.9 [place] [id number] [place] [address]30- 8510 Mar, Depression F32.9 ; Marijuana abuse, continuous F12.10 and Adjustment disorder with disturbance of conduct F43.24 [place] [id number] [id number] February, Bronchitis J40 and Acute diffuse otitis externa of right ear H60.311 [id number] [place] [address] 79[address]- [address] February, Diabetes mellitus with neuropathy E11.40 ; Mild persistent asthma without complication J45.30 ; Bronchitis J40 ; Depression F32.9 ; Neuropathy G62.9 ; Gout M10.9 ; Generalized edema R60.1 and Hyperlipemia E78.5 [place] [id number] [place] [address] 95879- 4[address] February, Diabetes mellitus with neuropathy E11.40 [place] [id number] [place] [address] 00709- 9106 February, [place] [id number] [place] [address] 40667- 77[address] February, [place] [id number] [place] [address] 8[address]22- 6[address] Jan, [place] [id number] [place] [address] 13466- 5631 Jan, [place] [id number] [place] [address] 24285- 2290 Jan, Adjustment disorder with disturbance of emotion F43.29 ; Adjustment disorder with disturbance of conduct F43.24 ; Marijuana abuse, continuous F12.10 and Depression F32.9 [place] [id number] [place] [address] 6[address]- [address] Jan, [id number] [address] 03 Jan, 2017 Pilonidal cyst with abscess L05.01 and Abscess of skin of abdomen L02.211 [place] [address] [id number] Dec, Diabetes mellitus with neuropathy E11.40 [facility] [address] [id number] Dec, Dental examination Z01.20 [place] [address] [address]- [address] Dec, [place] [address] [place] [place]13[address]- [address] Nov, Depression F32.[address] [address] Nov, Depression F32.[address] [address] Nov, Lateral epicondylitis of left elbow M77.12 ; Insulin long- term use Z79.4 and Neuropathy G62.[address] [address]- [address] Nov, Adjustment disorder with disturbance of emotion F43.29 ; Adjustment disorder with disturbance of conduct F43.24 ; Marijuana abuse, continuous F12.10 and Depression F32.9 [place] [id number] [place] [address] 20724- 49[address] Oct, Adjustment disorder with disturbance of emotion F43.29 ; Marijuana abuse, continuous F12.10 ; Adjustment disorder with disturbance of conduct F43.24 and Severe episode of recurrent major depressive disorder, without psychotic features F33.2 [facility] [id number] [place] [id number] Oct, Dental examination Z01.20 [place] [address] [address] Oct, Depression F32.9 [facility] [address] [place] [id number] Oct, Dental examination Z01.20 [facility] [id number] [place] [address] [id number]- 9575 Oct, Depression F32.9 ; Adjustment disorder with disturbance of conduct F43.24 ; Adjustment disorder with disturbance of emotion F43.29 and Marijuana abuse, continuous F12.10 [facility] [id number] [place] [address] [id number] Oct, Dental examination Z01.20 [facility] [id number] [place] [address] [id number] Oct, Dental caries K02.9 [facility] [id number] [place] [address] 07304- 4301 Oct, [facility] [id number] [place] [address] [id number] Sep, Dental examination Z01.20 [facility] [id number] [place] [address] 55235- 7322 Sep, [facility] [id number] [place] [address] 75498- 3488 Sep, Insulin long-term use Z79.4 ; Gout M10.9 ; Diabetes mellitus with neuropathy E11.40 ; Depression F32.9 ; Hyperlipemia E78.5 ; Obstructive sleep apnea G47.33 ; Venous insufficiency (chronic) (peripheral) I87.2 ; Mild persistent asthma without complication J45.30 ; Neuropathy G62.9 and Marijuana abuse, continuous F12.10 [facility] [address] [place] [address] 43844- 9839 Sep, Adjustment disorder with disturbance of conduct F43.24 and Adjustment disorder with disturbance of emotion F43.29 [facility] [address] [place] [address] 74966- 8748 Sep, Diabetes mellitus with neuropathy E11.40 ; Dyspnea on exertion R06.09 and Venous insufficiency (chronic) (peripheral) I87.2 [facility] [address], [place] [address] 14 Sep, 2016 Neuropathy G62.9 [facility] [id number] [place] [address] 58205- 8451 13 Sep, 2016 [facility] [id number] [place] [address] [id number] 08 Sep, 2016 Dental examination Z01.20 [facility] [id number] [place] [address] 39662- 7883 07 Sep, 2016 [facility] [id number] [place] [address] 38467- 1559 07 Sep, 2016 [facility] [id number] [place] [address] 27203- 0032 06 Sep, 2016 [facility] [id number] [place] [address] 31409- 2561 05 Sep, 2016 Mild persistent asthma without complication J45.30 [facility] [address] [place] [address] 62574- 7239 02 Sep, 2016 Insulin long-term use Z79.4 [facility] [id number] [place] [address] 75278- 6879 01 Sep, 2016 Diabetes mellitus with neuropathy E11.40 ; Generalized edema R60.1 and Mild persistent asthma without complication J45.30 [facility] [address] [place] [address] [id number] 17 Aug, 2016 Dental examination Z01.20 [facility] [address] [place] [address] 24510- 3650 20 Jul, 2016 Urticaria L50.9 and Mild persistent asthma without complication J45.30 [facility] [id number] [place] [address] 21665- 5269 10 Jul, 2016 Lateral epicondylitis of left elbow M77.12 and Venous insufficiency (chronic) (peripheral) I87.2 [facility] [id number], [place] [address] May, Obstructive sleep apnea G47.33 and Diabetes mellitus with neuropathy E11.40 [place] [id number] [place] [address] 45968- 9054 May, Diabetes mellitus with neuropathy E11.40 [place] [address] [place] [address] 62669- 0066 Mar, [place] [id number] [place] [address] 22130- 1006 Mar, Dental examination Z01.20 [place] [id number] [place] [address] 34951- 5815 Mar, Insulin long-term use Z79.4 [place] [address] [place] [address] 01345- 1390 Mar, Insulin long-term use Z79.4 [place] [id number] [place] [address] 77056- 7252 February, Insulin long-term use Z79.4 [place] [address] [place] [address] 76131- 7984 February, [place] [address] [place] [address] 92667- 6656 February, Hyperlipemia E78.[address] [id number] [id number] February, Gout M10.9 and Diabetes mellitus with neuropathy E11.40 [place] [address] [place] [address] 79678- 6358 Jan, Depression F32.9 [place] [address] [place] [address] 96565- 0673 Jan, Insulin long-term use Z79.4 ; Gout M10.9 ; Candidiasis B37.9 ; Diabetes mellitus with neuropathy E11.40 and Depression F32.9 IMMUNIZATIONS No Known Immunizations SOCIAL HISTORY Never Assessed REASON FOR VISIT Productive cough, chest pressure and SOB x 2 week--Edith PLAN OF CARE Activity Details Follow Up 2 Months Reason: VITAL SIGNS Height 71.2 in 2017-03-17 Weight 307.7 lbs 2017-03-17 Temperature 98.1 degrees Fahrenheit 2017-03-17 Heart Rate 104 bpm 2017-03-17 Respiratory Rate 40 2017-03-17 Oximetry on room air:97 % 2017-03-17 BMI 42.67 kg/m2 2017-03-17 Blood pressure systolic 122 mmHg 2017-03-17 Blood pressure diastolic 80 mmHg 2017-03-17 MEDICATIONS Medication Instructions Dosage Frequency Start Date End Date Duration Status Allopurinol 100 mg Orally Once a day 1 tablet 24h Jan, Active Gemfibrozil 600 MG Orally Twice a day 1 tablet 12h Active Lasix 20 mg Orally Once a day 1 tablet 24h Sep, Active Gabapentin 300 MG Orally Three times a day 3 capsule 8h May, Active GlipiZIDE 5 MG Orally Once a day 2 tablet 24h Active Naprosyn 500 mg Orally 2 times a day, pc 1 tablet as needed Jul, Active NovoLog 100 UNIT/ML Subcutaneous 3 times a day 20 units 8h February, Active Ciprodex 0.3-0.1 % Otic Twice a day 4 drops into affected ear 12h February, 07 days Active Wellbutrin XL 150 MG Orally Once a day 2 tablets 24h Sep, 30 days Active Klor-Con 10 10 MEQ Orally Twice a day 1 tablet with food 12h Jan, Active Albuterol Sulfate HFA 108 (90 Base) MCG/ACT Inhalation every 4 hrs 2 puffs as needed 4h Active Zocor 40 mg Orally Once a day 1 tablet in the evening 24h Active C-PAP Machine Active Mirtazapine 15 MG Orally Once a day 1 tablet on the tongue and allow to dissolve at bedtime 24h Mar, 30 day(s) Active Metformin HCl 1000 MG Orally Twice a day 1 tablet with a meal 12h Jul, Active Colchicine 0.6 MG Orally Once a day 1 tablet 24h Active Pseudoephedrine HCl 60 mg Orally every 6 hrs 1 tablet as needed 6h Mar, 07 days Active Symbicort 160-4.5 MCG/ACT Inhalation Twice a day 2 puffs 12h Active Levemir 100 UNIT/ML Subcutaneous twice a day 27 units 12h February, Active Doxycycline Hyclate 100 mg Orally every 12 hrs 1 capsule 12h Mar, Mar, 10 days Active RESULTS No Results PROCEDURES Procedure Date Ordered Result Body Site MEASURE BLOOD OXYGEN LEVEL March 17, 2017 INSTRUCTIONS MEDICATIONS ADMINISTERED No Known Medications MEDICAL (GENERAL) HISTORY Type Description Date Medical History high blood pressure Medical History diabetic Medical History asthma Medical History emphysema [facility] Cyst [facility]in/[facility] Hospitalization History Surgery Hospitalization History Heart attacks x 2 Hospitalization History pylonial cyst removal [facility] 2017
--- OUTSIDE RECORDS SUMMARY | 2018-06-16 19:30 | XMS REPORT ---
Author Author ALEX Rodas Organization [facility] Address [address] [place] [address] Care Team Providers Care Package Sorter Name Role Phone ALEX Rodas Unavailable PROBLEMS Type Condition ICD9-CM Code IQB08-MG Code Onset Dates Condition Status SNOMED Code Problem Insulin long-term use Z79.4 Active 373167717 Problem Obstructive sleep apnea G47.33 Active 97459915 Problem Hyperlipemia E78.5 Active 53090895 Problem Depression F32.9 Active 13035094 Problem Diabetes mellitus with neuropathy E11.40 Active 12181679 Problem Candidiasis B37.9 Active 37716924 Problem Gout M10.9 Active 80362387 Problem Adjustment disorder with disturbance of conduct F43.24 Active 96069309 Problem Adjustment disorder with disturbance of emotion F43.29 Active 01606922 Problem Mild persistent asthma without complication J45.30 Active 935730822 Problem Venous insufficiency (chronic) (peripheral) I87.2 Active 13079181 Problem Marijuana abuse, continuous F12.10 Active 047467626 Problem Neuropathy G62.9 Active 490929138 ALLERGIES Substance Reaction Event Type Date Status N.K.D.A. Unknown Non Drug Allergy Sep, Unknown SOCIAL HISTORY No smoking Hx information available PLAN OF CARE Activity Details Follow Up 3 Weeks Reason: VITAL SIGNS Height 71.2 in 2016-10-07 Weight 318.0 lbs 2016-10-07 Heart Rate 70 bpm 2016-10-07 Respiratory Rate 22 2016-10-07 BMI 44.10 kg/m2 2016-10-07 Blood pressure systolic 100 mmHg 2016-10-07 Blood pressure diastolic 70 mmHg 2016-10-07 MEDICATIONS Medication Instructions Dosage Frequency Start Date End Date Duration Status Metformin HCl 500 MG Orally Twice a day 2 tablets 12h 10 Jul, 2016 90 days Active Levemir 100 UNIT/ML Subcutaneous twice a day 23 units 12h 17 Feb, 2016 Active Symbicort 160-4.5 MCG/ACT Inhalation Twice a day 2 puffs 12h Active Klor-Con M10 10 MEQ Orally Twice a day 1 tablet with food 12h Sep, Dec, 30 day(s) Active NovoLog 100 UNIT/ML Subcutaneous 3 times a day 20 units 8h February, Active Colchicine 0.6 MG Orally Once a day 1 tablet 24h Active GlipiZIDE 5 MG Orally Once a day 2 tablet 24h Active Lasix 20 mg Orally Once a day 1 tablet 24h Sep, 30 day(s) Active Zocor 40 MG Orally Once a day 1 tablet in the evening 24h Active Gabapentin 600 MG Orally Three times a day 1 capsule 8h 15 May, 2016 Active Naprosyn 500 MG Orally 2 times a day, pc 1 tablet as needed Jul, Active Wellbutrin XL 150 MG Orally Once a day 1 tablet in the morning 24h Sep, Active C-PAP Machine Active Metformin HCl 1000 MG Orally Twice a day 1 tablet with meals 12h 90 Active Nystatin 084961 UNIT/GM Externally Twice a day 1 application to affected area 12h Jan, Active Albuterol Sulfate HFA 108 (90 Base) MCG/ACT Inhalation every 4 hrs 2 puffs as needed 4h Active Allopurinol 100 MG Orally Once a day 1 tablet 24h Jan, Active RESULTS No Results PROCEDURES Procedure Date Ordered Related Diagnosis Body Site Office Visit, New Pt., Level 4 Oct 07, 2016 IMMUNIZATIONS No Known Immunizations
--- OUTSIDE RECORDS SUMMARY | 2018-06-16 19:31 | XMS REPORT ---
Author Author ALEX ALCANTAR Organization [facility] Address [address] [place] [address] Care Team Providers Care Occupational Therapy Director Name Role Phone ALEX ALCANTAR Unavailable PROBLEMS Type Condition ICD9-CM Code KMC42-AP Code Onset Dates Condition Status SNOMED Code Problem Neuropathy G62.9 Active 034476819 Problem Adjustment disorder with disturbance of emotion F43.29 Active 69555522 Problem Marijuana abuse, continuous F12.10 Active 221178475 Problem Gastroesophageal reflux disease without esophagitis K21.9 Active 327850189 Problem Acute gout involving toe of left foot, unspecified cause M10.9 Active 242972587 Problem Methamphetamine use disorder, severe, 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 Active 22002211 Problem Adjustment disorder with disturbance of conduct F43.24 Active 69952302 Problem Dyspepsia R10.13 Active 791834595 Problem Moderate episode of recurrent major depressive disorder F33.1 Active 472021370 Problem Candidiasis B37.9 Active 13626822 Problem Depression F32.9 Active 67999798 Problem Diabetes mellitus with neuropathy E11.40 Active 16172475 Problem Hyperlipemia E78.5 Active 46019750 Problem Obstructive sleep apnea G47.33 Active 48687060 Problem Insulin long-term use Z79.4 Active 846448574 Problem Venous insufficiency (chronic) (peripheral) I87.2 Active 01773176 Problem Gout M10.9 Active 89950252 Problem Mild persistent asthma without complication J45.30 Active 096597025 ALLERGIES No Information ENCOUNTERS Encounter Location Date Diagnosis [facility] [address] [id number] [id number] Mar, [facility] [address] [id number] [id number] Mar, Generalized edema R60.1 and Diabetes mellitus with neuropathy E11.40 [facility] [address] [id number] [id number] Mar, Neuropathy G62.[address] [facility] [id number] [place] [id number] February, Insect bite (nonvenomous) of lower back and pelvis, initial encounter S30.860A ; Bitten or stung by nonvenomous insect and other nonvenomous arthropods, initial encounter W57.XXXA and Cellulitis of back L03.[address] [id number] [place] [id number] February, Diabetes mellitus with neuropathy E11.[id number] [place] [id number] February, Generalized edema R60.1 and Diabetes mellitus with neuropathy E11.40 [facility] [address] [place] [address]65- 6382 Jan, [id number] [place] [id number] Jan, Gastroesophageal reflux disease without esophagitis K21.9 and Acute gout involving toe of left foot, unspecified cause M10.[id number] [place] [id number] Jan, Marijuana abuse, continuous F12.10 ; Mild persistent asthma without complication J45.30 ; BMI 40.0-44.9, adult Z68.41 and Diabetes mellitus with neuropathy E11.40 [place] [address] [place] [id number] [place] [address] 347757- 7239 Jan, [facility] [address] [facility] [id number] [place] [id number] Jan, BMI 40.0-44.9, adult Z68.41 and Intractable vomiting with nausea, unspecified vomiting type R11.[address] [id number] [place] [id number] Dec, BMI 40.0-44.9, adult Z68.41 and Abrasion hip/leg S80.819A [place] [address] [place] [id number] [place] [address]8937- 1858 Nov, Neuropathy G62.9 [place] [address] 85[address]- [address] Oct, [facility] [address] [address]- [address]878 Oct, [place] [address] [address]48- 8646 Oct, Diabetes mellitus with neuropathy E11.40 ; Dyspepsia R10.13 ; Mild persistent asthma without complication J45.30 and Depression F32.[address] [address]- [address]185 Oct, Generalized edema R60.1 and Diabetes mellitus with neuropathy E11.40 [place] [address] 9[address]14- 8418 Sep, [place] [address] 13881- 1116 Aug, [facility] [address] [address] Aug, Cellulitis L03.90 and BMI 40.0-44.9, adult Z68.41 [place] [address] 35504- 8334 Aug, [place] [address] 27434- 4136 Jul, Trapezius muscle spasm M62.838 and Depression F32.9 [place] [address] 58334- 5973 Jul, Marijuana abuse, continuous F12.10 ; Moderate episode of recurrent major depressive disorder F33.1 and Methamphetamine use disorder, severe, 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 [place] [address] 95322- 1055 Jul, [facility] [address] [address] Jul, [facility] [address] [place] [id number] [place] [address] 88099- 5494 Jul, [facility] [address] [place] [address] 80909- 7837 Jul, [facility] [address] [place] [id number] [place] [address] 84660- 5506 Jul, [facility] [address] [place] [id number] [place] [address] 76490- 2907 Jul, Diabetes mellitus with neuropathy E11.40 [place] [address] [place] [id number] [place] [address] 14758- 3567 Jul, Diabetes mellitus with neuropathy E11.40 ; Venous insufficiency (chronic) (peripheral) I87.2 ; Chest pain, unspecified type R07.9 ; Neuropathy G62.9 and Encounter for immunization Z23 [facility] [address] [place] [address] 59348- 2771 Jun, [facility] [address] [place] [id number] [place] [address] 36038- 9404 Jun, [facility] [address] [place] [id number] May, Dental examination Z01.20 [facility] [address] [place] [id number] [place] [address] 42495- 6436 Apr, Diabetes mellitus with neuropathy E11.40 and Depression F32.9 [facility] [address] [place] [id number] [place] [address] 46124- 4662 Apr, Mild persistent asthma without complication J45.30 [facility] [address] [place] [address] [address] [id number] [place] [id number] Mar, [facility] [address] [address] Mar, Depression F32.9 ; Adjustment disorder with disturbance of emotion F43.29 and Marijuana abuse, continuous F12.10 [place] [address] [place] [address] 16836- 0617 Mar, [place] [id number] [place] [address] 74085- 8901 Mar, Acute pansinusitis, recurrence not specified J01.[address] 48077- 4428 Mar, Adjustment disorder with disturbance of emotion F43.29 ; Adjustment disorder with disturbance of conduct F43.24 ; Marijuana abuse, continuous F12.10 and Depression F32.[address] 16600- 3522 Mar, Depression F32.9 ; Marijuana abuse, continuous F12.10 and Adjustment disorder with disturbance of conduct F43.[address] [id number] [place] [id number] February, Bronchitis J40 and Acute diffuse otitis externa of right ear H60.311 [place] [id number] [place] [address] 03126- 9416 February, Diabetes mellitus with neuropathy E11.40 ; Mild persistent asthma without complication J45.30 ; Bronchitis J40 ; Depression F32.9 ; Neuropathy G62.9 ; Gout M10.9 ; Generalized edema R60.1 and Hyperlipemia E78.5 [place] [id number] [place] [address] 96501- 3823 February, Diabetes mellitus with neuropathy E11.40 [place] [id number] [place] [address] 97914- 5026 February, [address] 99102- 3740 February, [place] [address] [place] [id number] [place] [address] 83980- 4543 Jan, [address] [id number]- 8960 Jan, [place] [address] 53727- 4513 Jan, Adjustment disorder with disturbance of emotion F43.29 ; Adjustment disorder with disturbance of conduct F43.24 ; Marijuana abuse, continuous F12.10 and Depression F32.9 [place] [address] [place] [id number]- 3950 Jan, [place] [address] [place] 478107- 6380 Jan, Pilonidal cyst with abscess L05.01 and Abscess of skin of abdomen L02.211 [place] 12036202- 4840 Dec, Diabetes mellitus with neuropathy E11.40 [facility] [address] [id number] Dec, Dental examination Z01.[address] 9[address]35- 1962 Dec, [place] [address] [place] 478102- 4064 Nov, Depression F32.[address] 94828- 6999 Nov, Depression F32.9 [place] [address] 53360- 1780 Nov, Lateral epicondylitis of left elbow M77.12 ; Insulin long- term use Z79.4 and Neuropathy G62.9 [place] [id number]- 7714 Nov, Adjustment disorder with disturbance of emotion F43.29 ; Adjustment disorder with disturbance of conduct F43.24 ; Marijuana abuse, continuous F12.10 and Depression F32.9 [place] [address] [place] [id number]- 4869 Oct, Adjustment disorder with disturbance of emotion F43.29 ; Marijuana abuse, continuous F12.10 ; Adjustment disorder with disturbance of conduct F43.24 and Severe episode of recurrent major depressive disorder, without psychotic features F33.2 [facility] [address] [id number] [place] [address] [id number] Oct, Dental examination Z01.20 [facility] [address] 60044- 8527 Oct, Depression F32.9 [facility] [address] [id number] Oct, Dental examination Z01.20 [facility] [address] 68903- 8412 Oct, Depression F32.9 ; Adjustment disorder with disturbance of conduct F43.24 ; Adjustment disorder with disturbance of emotion F43.29 and Marijuana abuse, continuous F12.10 [facility] [id number] [place] [address] [id number] Oct, Dental examination Z01.20 [facility] [id number] [place] [address] [id number] Oct, Dental caries K02.9 [facility] [address] [address] [id number] [place] [address] 23257- 1047 Oct, [facility] [id number] [place] [address] [id number] Sep, Dental examination Z01.20 [facility] [address] [address] [id number] [place] [address] 77105- 8945 Sep, [facility] [address] 63281- 0267 Sep, Insulin long-term use Z79.4 ; Gout M10.9 ; Diabetes mellitus with neuropathy E11.40 ; Depression F32.9 ; Hyperlipemia E78.5 ; Obstructive sleep apnea G47.33 ; Venous insufficiency (chronic) (peripheral) I87.2 ; Mild persistent asthma without complication J45.30 ; Neuropathy G62.9 and Marijuana abuse, continuous F12.10 [facility] [address] [id number] [place] [address] 74058- 7768 Sep, Adjustment disorder with disturbance of conduct F43.24 and Adjustment disorder with disturbance of emotion F43.29 [place] [address] 75417- 7575 Sep, Diabetes mellitus with neuropathy E11.40 ; Dyspnea on exertion R06.09 and Venous insufficiency (chronic) (peripheral) I87.2 [place] [address] 20692- 4770 14 Sep, 2016 Neuropathy G62.9 [place] [address] 34189- 0856 13 Sep, 2016 [facility] [address] [id number] Sep, Dental examination Z01.20 [place] [address] 33343- 4522 Sep, [place] [address] 81932- 7496 Sep, [place] [address] 76602- 9747 Sep, [place] [address] 58266- 2819 05 Sep, 2016 Mild persistent asthma without complication J45.30 [place] [address] [place] [id number] [place] [address] 78573- 8232 02 Sep, 2016 Insulin long-term use Z79.4 [place] [address] 16828- 7439 Sep, Diabetes mellitus with neuropathy E11.40 ; Generalized edema R60.1 and Mild persistent asthma without complication J45.30 [facility] [address] [id number] Aug, Dental examination Z01.20 [facility] [address] [address] 8747 20 Jul, 2016 Urticaria L50.9 and Mild persistent asthma without complication J45.30 [facility] [address] [place] [address] 64118- 4526 10 Jul, 2016 Lateral epicondylitis of left elbow M77.12 and Venous insufficiency (chronic) (peripheral) I87.2 [place] [address] [place] [id number] [place] [address] 55089- 9569 15 May, 2016 Obstructive sleep apnea G47.33 and Diabetes mellitus with neuropathy E11.40 [place] [address] [place] [id number] [place] [address] 13256- 8993 May, Diabetes mellitus with neuropathy E11.40 [place] [address] [place] [id number] [place] [address] 52398- 3566 Mar, [place] [address] [place] [id number] [place] [address] 12540- 0187 15 Mar, 2016 Dental examination Z01.20 [place] [address] [place] [id number] [place] [address] 59836- 4790 13 Mar, 2016 Insulin long-term use Z79.4 [place] [address] [place] [address] 37732- 4643 13 Mar, 2016 Insulin long-term use Z79.4 [place] [address] [place] [address] 19612- 0816 February, Insulin long-term use Z79.4 [place] [address] [place] [address] 72757- 2492 February, [place] [address] [place] [id number] [place] [address] 44561- 4450 February, Hyperlipemia E78.5 [facility] [address] [facility] [address] [id number] [id number] February, Gout M10.9 and Diabetes mellitus with neuropathy E11.40 [facility] [address] [facility] [id number] [place] [address]- 69[address] Jan, Depression F32.9 [facility] [address] [facility] [id number] [address] 0[address] Jan, Insulin long-term use Z79.4 ; Gout M10.9 ; Candidiasis B37.9 ; Diabetes mellitus with neuropathy E11.40 and Depression F32.9 IMMUNIZATIONS No Known Immunizations SOCIAL HISTORY Never Assessed REASON FOR VISIT PALS PLAN OF CARE VITAL SIGNS MEDICATIONS Medication Instructions Dosage Frequency Start Date End Date Duration Status Symbicort 160-4.5 MCG/ACT Inhalation Twice a day 2 puffs 12h Active RESULTS No Results PROCEDURES No [...] 2 [facility] 02[facility]2018
--- OUTSIDE RECORDS SUMMARY | 2018-06-16 19:31 | XMS REPORT ---
Author Author ALEX ALCANTAR [facility] Address [address] [place] [address] Care Team Providers Care Lapidary Apprentice Name Role Phone ALEX ALCANTAR Unavailable PROBLEMS Type Condition ICD9-CM Code ZTA70-MR Code Onset Dates Condition Status SNOMED Code Problem Insulin long-term use Z79.4 Active 086316527 Problem Obstructive sleep apnea G47.33 Active 73566982 Problem Hyperlipemia E78.5 Active 90176426 Problem Depression F32.9 Active 25962140 Problem Diabetes mellitus with neuropathy E11.40 Active 91208003 Problem Candidiasis B37.9 Active 23706856 Problem Gout M10.9 Active 38095707 Problem Adjustment disorder with disturbance of conduct F43.24 Active 00325097 Problem Adjustment disorder with disturbance of emotion F43.29 Active 43638045 Problem Mild persistent asthma without complication J45.30 Active 316211010 Problem Venous insufficiency (chronic) (peripheral) I87.2 Active 76270095 Problem Marijuana abuse, continuous F12.10 Active 521840583 Problem Neuropathy G62.9 Active 412715931 ALLERGIES Substance Reaction Event Type Date Status N.K.D.A. Unknown Non Drug Allergy Sep, Unknown SOCIAL HISTORY No smoking Hx information available PLAN OF CARE Activity Details Follow Up 3 Months Reason: VITAL SIGNS Height 71.2 in 2016-10-07 Weight 319.7 lbs 2016-10-07 Temperature 97.9 degrees Fahrenheit 2016-10-07 Heart Rate 70 bpm 2016-10-07 Respiratory Rate 24 2016-10-07 BMI 44.33 kg/m2 2016-10-07 Blood pressure systolic 98 mmHg 2016-10-07 Blood pressure diastolic 70 mmHg 2016-10-07 MEDICATIONS Medication Instructions Dosage Frequency Start Date End Date Duration Status Nystatin 310430 UNIT/GM Externally Twice a day 1 application to affected area 12h Jan, Active Klor-Con M10 10 MEQ Orally Twice a day 1 tablet with food 12h Sep, Dec, 30 day(s) Active Naprosyn 500 MG Orally 2 times a day, pc 1 tablet as needed Jul, Active Metformin HCl 1000 MG Orally Twice a day 1 tablet with meals 12h 90 Active Albuterol Sulfate HFA 108 (90 Base) MCG/ACT Inhalation every 4 hrs 2 puffs as needed 4h Active Levemir 100 UNIT/ML Subcutaneous twice a day 23 units 12h February, Active NovoLog 100 UNIT/ML Subcutaneous 3 times a day 20 units 8h February, Active Allopurinol 100 MG Orally Once a day 1 tablet 24h Jan, Active Lasix 20 mg Orally Once a day 1 tablet 24h Sep, 30 day(s) Active C-PAP Machine Active Gabapentin 600 MG Orally Three times a day 1 capsule 8h May, Active Metformin HCl 500 MG Orally Twice a day 2 tablets 12h Jul, 90 days Active GlipiZIDE 5 MG Orally Once a day 2 tablet 24h Active Symbicort 160-4.5 MCG/ACT Inhalation Twice a day 2 puffs 12h Active Colchicine 0.6 MG Orally Once a day 1 tablet 24h Active Zocor 40 MG Orally Once a day 1 tablet in the evening 24h Active RESULTS No Results PROCEDURES Procedure Date Ordered Related Diagnosis Body Site Office Visit, Est Pt., Level 4 Oct 07, 2016 IMMUNIZATIONS No Known Immunizations
--- OUTSIDE RECORDS SUMMARY | 2018-06-16 19:31 | XMS REPORT ---
Author Author ALEX ALCANTAR Organization [facility] Address [address] [place] [address] Care Team Providers Care Retail Advertising Account Executive Name Role Phone ALEX ALCANTAR Unavailable PROBLEMS Type Condition ICD9-CM Code ASC74-QX Code Onset Dates Condition Status SNOMED Code Problem Neuropathy G62.9 Active 274136956 Problem Adjustment disorder with disturbance of emotion F43.29 Active 62817511 Problem Marijuana abuse, continuous F12.10 Active 656945082 Problem Gastroesophageal reflux disease without esophagitis K21.9 Active 039094841 Problem Acute gout involving toe of left foot, unspecified cause M10.9 Active 210207322 Problem Methamphetamine use disorder, severe, 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 Active 69975813 Problem Adjustment disorder with disturbance of conduct F43.24 Active 19713511 Problem Dyspepsia R10.13 Active 115031547 Problem Moderate episode of recurrent major depressive disorder F33.1 Active 041367662 Problem Candidiasis B37.9 Active 54711516 Problem Depression F32.9 Active 25105669 Problem Diabetes mellitus with neuropathy E11.40 Active 20613070 Problem Hyperlipemia E78.5 Active 06205131 Problem Obstructive sleep apnea G47.33 Active 66217571 Problem Insulin long-term use Z79.4 Active 607177685 Problem Venous insufficiency (chronic) (peripheral) I87.2 Active 00087879 Problem Gout M10.9 Active 13225533 Problem Mild persistent asthma without complication J45.30 Active 234580411 ALLERGIES No Information ENCOUNTERS Encounter Location Date Diagnosis [facility] [address] [id number] [id number] Mar, [facility] [address] [id number] [id number] Mar, Generalized edema R60.1 and Diabetes mellitus with neuropathy E11.40 [facility] [address] [id number] [id number] Mar, Neuropathy G62.9 [facility] [address] [id number] [id number] February, Insect bite (nonvenomous) of lower back and pelvis, initial encounter S30.860A ; Bitten or stung by nonvenomous insect and other nonvenomous arthropods, initial encounter W57.XXXA and Cellulitis of back L03.[address] [id number] [id number] February, Diabetes mellitus with neuropathy E11.[id number] [place] [id number] February, Generalized edema R60.1 and Diabetes mellitus with neuropathy E11.40 [facility] [address] [place] [address]853- 9988 Jan, [id number] [place] [id number] Jan, Gastroesophageal reflux disease without esophagitis K21.9 and Acute gout involving toe of left foot, unspecified cause M10.[id number] [place] [id number] Jan, Marijuana abuse, continuous F12.10 ; Mild persistent asthma without complication J45.30 ; BMI 40.0-44.9, adult Z68.41 and Diabetes mellitus with neuropathy E11.40 [place] [address] [place] [id number] [place] [address] [phone]- 9778 Jan, [facility] [address] [facility] [id number] [place] [id number] Jan, BMI 40.0-44.9, adult Z68.41 and Intractable vomiting with nausea, unspecified vomiting type R11.[address] [id number] [id number] Dec, BMI 40.0-44.9, adult Z68.41 and Abrasion hip/leg S80.819A [place] [address] [place] [id number] [place] [address] 37997- 3775 Nov, Neuropathy G62.9 [place] [address] [address]- [address] Oct, [facility] [address] [address] Oct, [place] [address] 6[address]- 48[address] Oct, Diabetes mellitus with neuropathy E11.40 ; Dyspepsia R10.13 ; Mild persistent asthma without complication J45.30 and Depression F32.[address] 8[address]43- 2181 Oct, Generalized edema R60.1 and Diabetes mellitus with neuropathy E11.40 [place] [address] [address]- 1364 Sep, [place] [address] 41094- 7[address] Aug, [facility] [address] [address] Aug, Cellulitis L03.90 and BMI 40.0-44.9, adult Z68.41 [place] [address] 60016- 0503 Aug, [place] [address] 82717- 2050 Jul, Trapezius muscle spasm M62.838 and Depression F32.9 [place] [address] 29285- 7209 Jul, Marijuana abuse, continuous F12.10 ; Moderate episode of recurrent major depressive disorder F33.1 and Methamphetamine use disorder, severe, 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 [place] [address] 42014- 9761 Jul, [facility] [address] [address] Jul, [facility] [address] [place] [id number] [place] [address] 76031- 0097 Jul, [facility] [address] [place] [address] 90318- 8343 Jul, [facility] [address] [place] [id number] [place] [address] 95459- 5501 Jul, [facility] [address] [place] [id number] [place] [address] 53922- 6742 Jul, Diabetes mellitus with neuropathy E11.40 [place] [address] [place] [id number] [place] [address] 00962- 3512 Jul, Diabetes mellitus with neuropathy E11.40 ; Venous insufficiency (chronic) (peripheral) I87.2 ; Chest pain, unspecified type R07.9 ; Neuropathy G62.9 and Encounter for immunization Z23 [facility] [address] [place] [address] 74783- 4218 Jun, [facility] [address] [place] [id number] [place] [address] 97026- 2960 Jun, [facility] [address] [place] [phone] May, Dental examination Z01.20 [facility] [address] [place] [id number] [place] [address] 83128- 8996 Apr, Diabetes mellitus with neuropathy E11.40 and Depression F32.9 [facility] [address] [place] [id number] [place] [address] 56527- 0530 Apr, Mild persistent asthma without complication J45.30 [facility] [place] [address] [place] [address] AVE [id number] [id number] Mar, [facility] [address] [address] Mar, Depression F32.9 ; Adjustment disorder with disturbance of emotion F43.29 and Marijuana abuse, continuous F12.10 [place] [address] [place] [address] 29489- 8281 Mar, [place] [id number] [place] [address] 44341- 2354 Mar, Acute pansinusitis, recurrence not specified J01.[address] 22815- 8670 Mar, Adjustment disorder with disturbance of emotion F43.29 ; Adjustment disorder with disturbance of conduct F43.24 ; Marijuana abuse, continuous F12.10 and Depression F32.[address] 65099- 5672 Mar, Depression F32.9 ; Marijuana abuse, continuous F12.10 and Adjustment disorder with disturbance of conduct F43.[address] [facility] [id number] [id number] February, Bronchitis J40 and Acute diffuse otitis externa of right ear H60.311 [place] [id number] [place] [address] 13640- 8455 February, Diabetes mellitus with neuropathy E11.40 ; Mild persistent asthma without complication J45.30 ; Bronchitis J40 ; Depression F32.9 ; Neuropathy G62.9 ; Gout M10.9 ; Generalized edema R60.1 and Hyperlipemia E78.5 [place] [id number] [place] [address] 46684- 5732 February, Diabetes mellitus with neuropathy E11.40 [place] [id number] [place] [address] 92584- 9401 February, [address] 00927- 6458 February, [place] [address] [place] [id number] [place] [address] 45621- 1807 Jan, [address] [id number]- 8223 Jan, [place] [address] 76285- 6032 Jan, Adjustment disorder with disturbance of emotion F43.29 ; Adjustment disorder with disturbance of conduct F43.24 ; Marijuana abuse, continuous F12.10 and Depression F32.9 [place] [address] [place] [id number]- 5956 Jan, [place] [address] [place] 008336- 4774 Jan, Pilonidal cyst with abscess L05.01 and Abscess of skin of abdomen L02.211 [place] [id number]- 5267 Dec, Diabetes mellitus with neuropathy E11.40 [facility] [address] [id number] Dec, Dental examination Z01.[address] 72165- 8512 Dec, [place] [address] [place] 008336- 5542 Nov, Depression F32.[address] 46508- 6668 Nov, Depression F32.9 [place] [address] 26448- 5882 Nov, Lateral epicondylitis of left elbow M77.12 ; Insulin long- term use Z79.4 and Neuropathy G62.9 [place] [id number]- 4417 Nov, Adjustment disorder with disturbance of emotion F43.29 ; Adjustment disorder with disturbance of conduct F43.24 ; Marijuana abuse, continuous F12.10 and Depression F32.9 [place] [address] [place] [id number]- 8367 Oct, Adjustment disorder with disturbance of emotion F43.29 ; Marijuana abuse, continuous F12.10 ; Adjustment disorder with disturbance of conduct F43.24 and Severe episode of recurrent major depressive disorder, without psychotic features F33.2 [facility] [address] [place] [id number] [place] [address] [id number] Oct, Dental examination Z01.20 [facility] [address] [address]- 2008 Oct, Depression F32.9 [facility] [address] [id number] Oct, Dental examination Z01.20 [facility] [address] 24805- 1096 Oct, Depression F32.9 ; Adjustment disorder with disturbance of conduct F43.24 ; Adjustment disorder with disturbance of emotion F43.29 and Marijuana abuse, continuous F12.10 [facility] [address] [place] [id number] [place] [address] [id number] Oct, Dental examination Z01.20 [facility] [address] [place] [id number] [place] [address] [phone] Oct, Dental caries K02.9 [facility] [address] [place] [id number] [place] [address] 80946- 7811 Oct, [facility] [address] [place] [id number] [place] [address] [phone] Sep, Dental examination Z01.20 [facility] [address] [place] [id number] [place] [address] 23225- 6949 Sep, [facility] [address] 64886- 3340 Sep, Insulin long-term use Z79.4 ; Gout M10.9 ; Diabetes mellitus with neuropathy E11.40 ; Depression F32.9 ; Hyperlipemia E78.5 ; Obstructive sleep apnea G47.33 ; Venous insufficiency (chronic) (peripheral) I87.2 ; Mild persistent asthma without complication J45.30 ; Neuropathy G62.9 and Marijuana abuse, continuous F12.10 [facility] [address] [place] [id number] [place] [address] 56327- 6407 Sep, Adjustment disorder with disturbance of conduct F43.24 and Adjustment disorder with disturbance of emotion F43.29 [place] [address] 27136- 7846 Sep, Diabetes mellitus with neuropathy E11.40 ; Dyspnea on exertion R06.09 and Venous insufficiency (chronic) (peripheral) I87.2 [place] [address] 66308- 8796 14 Sep, 2016 Neuropathy G62.9 [place] [address] 67380- 1376 13 Sep, 2016 [facility] [address] [id number] Sep, Dental examination Z01.20 [place] [address] 03666- 7636 Sep, [place] [address] 09185- 2506 Sep, [place] [address] 22043- 4791 Sep, [place] [address] 32385- 8444 05 Sep, 2016 Mild persistent asthma without complication J45.30 [place] [address] [place] [id number] [place] [address] 16723- 0507 02 Sep, 2016 Insulin long-term use Z79.4 [place] [address] 18335- 2415 Sep, Diabetes mellitus with neuropathy E11.40 ; Generalized edema R60.1 and Mild persistent asthma without complication J45.30 [facility] [address] [id number] Aug, Dental examination Z01.20 [facility] [address] [address]- [address] 20 Jul, 2016 Urticaria L50.9 and Mild persistent asthma without complication J45.30 [facility] [address] [place] [address] 02825- 9761 10 Jul, 2016 Lateral epicondylitis of left elbow M77.12 and Venous insufficiency (chronic) (peripheral) I87.2 [place] [address] [place] [id number] [place] [address] 32820- 7596 15 May, 2016 Obstructive sleep apnea G47.33 and Diabetes mellitus with neuropathy E11.40 [place] [address] [place] [id number] [place] [address] 16398- 4886 May, Diabetes mellitus with neuropathy E11.40 [place] [address] [place] [id number] [place] [address] 04587- 6834 Mar, [place] [address] [place] [id number] [place] [address] 12811- 1702 15 Mar, 2016 Dental examination Z01.20 [place] [address] [place] [id number] [place] [address] 31802- 2968 13 Mar, 2016 Insulin long-term use Z79.4 [place] [address] [place] [address] 05699- 5534 13 Mar, 2016 Insulin long-term use Z79.4 [place] [address] [place] [address] 26445- 7994 February, Insulin long-term use Z79.4 [place] [address] [place] [address] 40724- 7939 February, [place] [address] [place] [id number] [place] [address] 79254- 2921 February, Hyperlipemia E78.5 [facility] [address] [facility] [address] [id number] [id number] February, Gout M10.9 and Diabetes mellitus with neuropathy E11.40 [facility] [address] [facility] [id number] [place] [address]- 3478 Jan, Depression F32.9 [facility] [address] [facility] [id number] [address] Jan, Insulin long-term use Z79.4 ; Gout [...] 2 Hospitalization History [facility] 2016 Hospitalization History tick bite---[place] 02/2018
--- OUTSIDE RECORDS SUMMARY | 2018-06-16 19:31 | XMS REPORT ---
Author Author CECILIA SUBRAMANIAN [facility] Address [address] [place] [address] Care Team Providers Care Geriatric Social Worker Name Role Phone CECILIA SUBRAMANIAN Unavailable PROBLEMS Type Condition ICD9-CM Code QPP86-KB Code Onset Dates Condition Status SNOMED Code Problem Obstructive sleep apnea G47.33 Active 03868996 Problem Mild persistent asthma without complication J45.30 Active 928276898 Problem Venous insufficiency (chronic) (peripheral) I87.2 Active 48195812 Problem Moderate episode of recurrent major depressive disorder F33.1 Active 540930507 Problem Methamphetamine use disorder, severe, 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 Active 25779220 Problem Marijuana abuse, continuous F12.10 Active 930743831 Problem Neuropathy G62.9 Active 557338067 Problem Adjustment disorder with disturbance of conduct F43.24 Active 99226754 Problem Adjustment disorder with disturbance of emotion F43.29 Active 61398075 Problem Insulin long-term use Z79.4 Active 134698049 Problem Diabetes mellitus with neuropathy E11.40 Active 83643863 Problem Candidiasis B37.9 Active 79866780 Problem Gout M10.9 Active 53058100 Problem Depression F32.9 Active 37138762 Problem Hyperlipemia E78.5 Active 57722565 ALLERGIES No Known Allergies SOCIAL HISTORY Never Assessed PLAN OF CARE Activity Details Follow Up 2 - 3 Days if s/s worsen in clinic or with PCP Reason:bronchitis VITAL SIGNS Height 71.2 in 2017-03-11 Weight 301.2 lbs 2017-03-11 Temperature 96.8 degrees Fahrenheit 2017-03-11 Heart Rate 76 bpm 2017-03-11 Respiratory Rate 18 2017-03-11 BMI 41.77 kg/m2 2017-03-11 Blood pressure systolic 120 mmHg 2017-03-11 Blood pressure diastolic 70 mmHg 2017-03-11 MEDICATIONS Medication Instructions Dosage Frequency Start Date End Date Duration Status Levemir 100 UNIT/ML Subcutaneous twice a day 27 units 12h February, Active Lasix 20 mg Orally Once a day 1 tablet 24h Sep, Active GlipiZIDE 5 MG Orally Once a day 2 tablet 24h Active Wellbutrin XL 150 MG Orally Once a day 2 tablets 24h Sep, 30 days Active Zocor 40 mg Orally Once a day 1 tablet in the evening 24h Active Symbicort 160-4.5 MCG/ACT Inhalation Twice a day 2 puffs 12h Active Naprosyn 500 mg Orally 2 times a day, pc 1 tablet as needed Jul, Active Klor-Con 10 10 MEQ Orally Twice a day 1 tablet with food 12h Jan, Active Gabapentin 300 MG Orally Three times a day 3 capsule 8h May, Active Colchicine 0.6 MG Orally Once a day 1 tablet 24h Active Allopurinol 100 mg Orally Once a day 1 tablet 24h Jan, Active C-PAP Machine Active Albuterol Sulfate HFA 108 (90 Base) MCG/ACT Inhalation every 4 hrs 2 puffs as needed 4h Active NovoLog 100 UNIT/ML Subcutaneous 3 times a day 20 units 8h February, Active Metformin HCl 1000 MG Orally Twice a day 1 tablet with a meal 12h Jul, Active Ciprodex 0.3-0.1 % Otic Twice a day 4 drops into affected ear 12h February, 07 days Active Gemfibrozil 600 MG Orally Twice a day 1 tablet 12h Active Zithromax Z-Bob 250 MG Orally Once a day 2 tablets on the first day, then 1 tablet daily for 4 days 24h 5 day(s) Active RESULTS No Results PROCEDURES Procedure Date Ordered Result Body Site SOLUMEDROL (UP TO 125 MG) March 11, 2017 THER/PROPH/DIAG INJ, SC/IM March 11, 2017 IMMUNIZATIONS Vaccine Route Administration Date Status SOLUMEDROL (UP TO 125 MG) IM Intramuscular March 11, 2017 Administered MEDICAL (GENERAL) HISTORY Type Description Date Medical [...]
--- OUTSIDE RECORDS SUMMARY | 2018-06-16 19:32 | XMS REPORT ---
Author Author JOMAR Perez Organization [facility] Address Unknown Care Team Providers Care Sack Department Supervisor Name Role Phone chevyJOMAR Ritchie Unavailable PROBLEMS Type Condition ICD9-CM Code [id number] Code Onset Dates Condition Status SNOMED Code Problem Gout M10.9 Active 94803833 Problem Obstructive sleep apnea G47.33 Active 79470899 Problem Hyperlipemia E78.5 Active 34777788 Problem Candidiasis B37.9 Active 48034254 Problem Depression F32.9 Active 48217645 Problem Insulin long-term use Z79.4 Active 529532279 Problem Diabetes mellitus with neuropathy E11.40 Active 90607228 Problem Adjustment disorder with disturbance of conduct F43.24 Active 53838311 Problem Adjustment disorder with disturbance of emotion F43.29 Active 55160544 Problem Mild persistent asthma without complication J45.30 Active 895403783 Problem Venous insufficiency (chronic) (peripheral) I87.2 Active 05805670 Problem Marijuana abuse, continuous F12.10 Active 991481712 Problem Neuropathy G62.9 Active 973080730 ALLERGIES Substance Reaction Event Type Date Status N.K.D.A. Unknown Non Drug Allergy Sep, Unknown SOCIAL HISTORY No smoking Hx information available PLAN OF CARE Activity Details Follow Up prn Reason:2 HR Multi Te/Denture seat VITAL SIGNS Height 71.2 in 2016-10-13 Blood pressure systolic 126 mmHg 2016-10-13 Blood pressure diastolic 83 mmHg 2016-10-13 MEDICATIONS Medication Instructions Dosage Frequency Start Date End Date Duration Status Colchicine 0.6 MG Orally Once a day 1 tablet 24h Active Wellbutrin XL 150 MG Orally Once a day 1 tablet in the morning 24h Sep, Active Metformin HCl 500 MG Orally Twice a day 2 tablets 12h 10 Jul, 2016 90 days Active Water Pills Active GlipiZIDE 5 MG Orally Once a day 2 tablet 24h Active Albuterol Sulfate HFA 108 (90 Base) MCG/ACT Inhalation every 4 hrs 2 puffs as needed 4h Active Nystatin 905168 UNIT/GM Externally Twice a day 1 application to affected area 12h Jan, Active Klor-Con M10 10 MEQ Orally Twice a day 1 tablet with food 12h Sep, Dec, 30 day(s) Active Lasix 20 mg Orally Once a day 1 tablet 24h Sep, 30 day(s) Active Allopurinol 100 MG Orally Once a day 1 tablet 24h Jan, Active Naprosyn 500 MG Orally 2 times a day, pc 1 tablet as needed Jul, Active Metformin HCl 1000 MG Orally Twice a day 1 tablet with meals 12h 90 Active Levemir 100 UNIT/ML Subcutaneous twice a day 23 units 12h February, Active NovoLog 100 UNIT/ML Subcutaneous 3 times a day 20 units 8h February, Active Potassium Active Gabapentin 600 MG Orally Three times a day 1 capsule 8h 15 May, 2016 Active Symbicort 160-4.5 MCG/ACT Inhalation Twice a day 2 puffs 12h Active Zocor 40 MG Orally Once a day 1 tablet in the evening 24h Active C-PAP Machine Active RESULTS No Results PROCEDURES Procedure Date Ordered Related Diagnosis Body Site Dental no charge Oct 13, 2016 IMMUNIZATIONS No Known Immunizations
--- OUTSIDE RECORDS SUMMARY | 2018-06-16 19:32 | XMS REPORT ---
Author Author ALEX Rodas Organization [facility] Address [address] [place] [address] Care Team Providers Care Crushing Machine Operator Name Role Phone ALEX Rodas Unavailable PROBLEMS Type Condition ICD9-CM Code [id number] Code Onset Dates Condition Status SNOMED Code Problem Obstructive sleep apnea G47.33 Active 53249283 Problem Mild persistent asthma without complication J45.30 Active 016272340 Problem Venous insufficiency (chronic) (peripheral) I87.2 Active 63647982 Problem Moderate episode of recurrent major depressive disorder F33.1 Active 257799317 Problem Methamphetamine use disorder, severe, 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 Active 25735915 Problem Marijuana abuse, continuous F12.10 Active 863538728 Problem Neuropathy G62.9 Active 786139631 Problem Adjustment disorder with disturbance of conduct F43.24 Active 74941212 Problem Adjustment disorder with disturbance of emotion F43.29 Active 99807333 Problem Insulin long-term use Z79.4 Active 666357896 Problem Diabetes mellitus with neuropathy E11.40 Active 76959868 Problem Candidiasis B37.9 Active 54675447 Problem Gout M10.9 Active 57678700 Problem Depression F32.9 Active 41232048 Problem Hyperlipemia E78.5 Active 49369038 ALLERGIES No Known Allergies SOCIAL HISTORY Never Assessed PLAN OF CARE Activity Details Follow Up 2 Months Reason: VITAL SIGNS Height 71.2 in 2017-03-17 Weight 309.3 lbs 2017-03-17 Heart Rate 104 bpm 2017-03-17 Respiratory Rate 24 2017-03-17 BMI 42.89 kg/m2 2017-03-17 Blood pressure systolic 130 mmHg 2017-03-17 Blood pressure diastolic 77 mmHg 2017-03-17 MEDICATIONS Medication Instructions Dosage Frequency Start Date End Date Duration Status Gabapentin 300 MG Orally Three times a day 3 capsule 8h 15 May, 2016 Active Klor-Con 10 10 MEQ Orally Twice a day 1 tablet with food 12h 13 Jan, 2017 Active GlipiZIDE 5 MG Orally Once a day 2 tablet 24h Active Metformin HCl 1000 MG Orally Twice a day 1 tablet with a meal 12h Jul, Active Naprosyn 500 mg Orally 2 times a day, pc 1 tablet as needed Jul, Active NovoLog 100 UNIT/ML Subcutaneous 3 times a day 20 units 8h February, Active Wellbutrin XL 150 MG Orally Once a day 2 tablets 24h Sep, 30 days Active Ciprodex 0.3-0.1 % Otic Twice a day 4 drops into affected ear 12h February, 07 days Active Colchicine 0.6 MG Orally Once a day 1 tablet 24h Active Lasix 20 mg Orally Once a day 1 tablet 24h Sep, Active Zocor 40 mg Orally Once a day 1 tablet in the evening 24h Active Gemfibrozil 600 MG Orally Twice a day 1 tablet 12h Active Albuterol Sulfate HFA 108 (90 Base) MCG/ACT Inhalation every 4 hrs 2 puffs as needed 4h Active Levemir 100 UNIT/ML Subcutaneous twice a day 27 units 12h February, Active C-PAP Machine Active Allopurinol 100 mg Orally Once a day 1 tablet 24h Jan, Active Symbicort 160-4.5 MCG/ACT Inhalation Twice a day 2 puffs 12h Active Mirtazapine 15 MG Orally Once a day 1 tablet on the tongue and allow to dissolve at bedtime 24h Mar, 30 day(s) Active RESULTS No Results PROCEDURES No Known procedures IMMUNIZATIONS No Known Immunizations MEDICAL (GENERAL) HISTORY Type Description Date Medical History high blood pressure Medical History diabetic Medical History asthma Medical History emphysema Surgical History Pylonial cyst removal from tailbone x 2 Surgical History Cyst removal from groin/MRSA Surgical History [facility]2017 Hospitalization History Surgery Hospitalization History Heart attacks x 2 Hospitalization History pylonial cyst removal from [facility]2016
--- OUTSIDE RECORDS SUMMARY | 2018-06-16 19:32 | XMS REPORT ---
Author Author MARK GILLILAND Organization [facility] Address [address] [place] [address] Care Team Providers Care Inventory Worker Name Role Phone MARK GILLILAND Unavailable PROBLEMS Type Condition ICD9-CM Code HLM31-TP Code Onset Dates Condition Status SNOMED Code Problem Neuropathy G62.9 Active 898632121 Problem Adjustment disorder with disturbance of emotion F43.29 Active 22723852 Problem Marijuana abuse, continuous F12.10 Active 706736028 Problem Gastroesophageal reflux disease without esophagitis K21.9 Active 478782931 Problem Acute gout involving toe of left foot, unspecified cause M10.9 Active 108518285 Problem Methamphetamine use disorder, severe, 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 Active 98448782 Problem Adjustment disorder with disturbance of conduct F43.24 Active 97778291 Problem Dyspepsia R10.13 Active 905242520 Problem Moderate episode of recurrent major depressive disorder F33.1 Active 166488847 Problem Candidiasis B37.9 Active 47438865 Problem Depression F32.9 Active 35315064 Problem Diabetes mellitus with neuropathy E11.40 Active 67993760 Problem Hyperlipemia E78.5 Active 85502582 Problem Obstructive sleep apnea G47.33 Active 55830014 Problem Insulin long-term use Z79.4 Active 595498911 Problem Venous insufficiency (chronic) (peripheral) I87.2 Active 80736991 Problem Gout M10.9 Active 44819074 Problem Mild persistent asthma without complication J45.30 Active 577510416 ALLERGIES No Known Allergies ENCOUNTERS Encounter Location Date Diagnosis [address] [id number] [id number] Jan, Gastroesophageal reflux disease without esophagitis K21.9 and Acute gout involving toe of left foot, unspecified cause M10.[address] [id number] [id number] Jan, Marijuana abuse, continuous F12.10 ; Mild persistent asthma without complication J45.30 ; BMI 40.0-44.9, adult Z68.41 and Diabetes mellitus with neuropathy E11.40 [facility] [address] [place] [address] Jan, [facility] [id number] [id number] Jan, BMI 40.0-44.9, adult Z68.41 and Intractable vomiting with nausea, unspecified vomiting type R11.2 [facility] [address] [id number] [id number] Dec, BMI 40.0-44.9, adult Z68.41 and Abrasion hip/leg S80.819A [place] [id number] [place] [address] 61442- 2577 Nov, Neuropathy G62.9 [place] [address] [address]79 Oct, [facility] [id number] [place] [address]30- 6376 Oct, [place] [address] [address] Oct, Diabetes mellitus with neuropathy E11.40 ; Dyspepsia R10.13 ; Mild persistent asthma without complication J45.30 and Depression F32.9 [place] [id number] [place] [address] 17535- 3418 Oct, Generalized edema R60.1 and Diabetes mellitus with neuropathy E11.40 [place] [id number] [place] [address] 50111- 6342 Sep, [place] [id number] [place] [address] 39608- 3116 Aug, [facility] [id number] [place] [address] 78412 -8761 Aug, Cellulitis L03.90 and BMI 40.0-44.9, adult Z68.41 [facility] [address] 50919- [address]66 Aug, [facility] [address] [place] 889979- 3583 Jul, Trapezius muscle spasm M62.838 and Depression F32.9 [facility] [address] 701672- 3582 Jul, Marijuana abuse, continuous F12.10 ; Moderate episode of recurrent major depressive disorder F33.1 and Methamphetamine use disorder, severe, 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 [facility] [address] [address] Jul, [facility] [address] [address]- 82[address] Jul, [facility] [address] [address]- 9609 Jul, [facility] [address] 30844- 6883 Jul, [facility] [address] [address]- 3526 Jul, [facility] [address] 8[address]- 9591 Jul, Diabetes mellitus with neuropathy E11.40 [facility] [address] 65[address]- 3258 16 Jul, 2017 Diabetes mellitus with neuropathy E11.40 ; Venous insufficiency (chronic) (peripheral) I87.2 ; Chest pain, unspecified type R07.9 ; Neuropathy G62.9 and Encounter for immunization Z23 [facility] [id number] [place] [address] 10781- 7355 Jun, [facility] [address] [address]- 9690 Jun, [facility] [address] [id number] [id number] May, Dental examination Z01.[address] [place] [id number] [place] [address] Apr, Diabetes mellitus with neuropathy E11.40 and Depression F32.9 [address] [place] [address] 99030- 7688 Apr, Mild persistent asthma without complication J45.30 [address] [id number] [id number] Mar, [place] [id number] [place] [address] 08781- 9755 Mar, Depression F32.9 ; Adjustment disorder with disturbance of emotion F43.29 and Marijuana abuse, continuous F12.10 [place] [id number] [place] [address] 03391- 6646 Mar, [place] [id number] [place] [address] 92271- 2575 Mar, Acute pansinusitis, recurrence not specified J01.40 [place] [id number] [place] [address] 85702- 4825 Mar, Adjustment disorder with disturbance of emotion F43.29 ; Adjustment disorder with disturbance of conduct F43.24 ; Marijuana abuse, continuous F12.10 and Depression F32.9 [address] [place] [address] 15604- 2638 Mar, Depression F32.9 ; Marijuana abuse, continuous F12.10 and Adjustment disorder with disturbance of conduct F43.[address] [id number] [id number] February, Bronchitis J40 and Acute diffuse otitis externa of right ear H60.311 [address] [place] [address] 94593- 5649 February, Diabetes mellitus with neuropathy E11.40 ; Mild persistent asthma without complication J45.30 ; Bronchitis J40 ; Depression F32.9 ; Neuropathy G62.9 ; Gout M10.9 ; Generalized edema R60.1 and Hyperlipemia E78.5 [place] [address] [address]18- [address] February, Diabetes mellitus with neuropathy E11.40 [place] [address] 26071- 4998 February, [place] [address] 18886- 2639 February, [place] [address] 00947- 2390 Jan, [place] [address] 71061- 4998 Jan, [address] [address]- 5153 Jan, Adjustment disorder with disturbance of emotion F43.29 ; Adjustment disorder with disturbance of conduct F43.24 ; Marijuana abuse, continuous F12.10 and Depression F32.[address] 24589- 4257 Jan, [address] 68156- [address]01 Jan, Pilonidal cyst with abscess L05.01 and Abscess of skin of abdomen L02.211 [place] [address] 66172- 8198 Dec, Diabetes mellitus with neuropathy E11.40 [facility] [address] [id number] Dec, Dental examination Z01.[address] 04684- 8679 Dec, [place] [address] 07613- 9033 Nov, Depression F32.9 [place] [id number] [place] [address] 89193- 3957 24 Nov, 2016 Depression F32.9 [place] [id number] [place] [address] 77204- 3524 Nov, Lateral epicondylitis of left elbow M77.12 ; Insulin long- term use Z79.4 and Neuropathy G62.9 [place] [address] [place] [id number]- 2877 Nov, Adjustment disorder with disturbance of emotion F43.29 ; Adjustment disorder with disturbance of conduct F43.24 ; Marijuana abuse, continuous F12.10 and Depression F32.9 [place] [id number] [place] [address] 85604- 2155 Oct, Adjustment disorder with disturbance of emotion F43.29 ; Marijuana abuse, continuous F12.10 ; Adjustment disorder with disturbance of conduct F43.24 and Severe episode of recurrent major depressive disorder, without psychotic features F33.2 [facility] [id number] [place] [id number] Oct, Dental examination Z01.20 [place] [id number] [place] [address] 81866- 5605 Oct, Depression F32.9 [facility] [id number] [place] [id number] Oct, Dental examination Z01.20 [place] [id number] [place] [address] 35819- 7761 Oct, Depression F32.9 ; Adjustment disorder with disturbance of conduct F43.24 ; Adjustment disorder with disturbance of emotion F43.29 and Marijuana abuse, continuous F12.10 [facility] [id number] [place] [address] [id number] Oct, Dental examination Z01.20 [facility] [address] [place] [address] [id number] Oct, Dental caries K02.9 [place] [id number] [place] [address] 72540- 7137 Oct, [facility] [id number] [place] [address] [id number] Sep, Dental examination Z01.20 [facility] [id number] [place] [address] 94525- 8150 Sep, [place] [address] 32381- 4830 Sep, Insulin long-term use Z79.4 ; Gout M10.9 ; Diabetes mellitus with neuropathy E11.40 ; Depression F32.9 ; Hyperlipemia E78.5 ; Obstructive sleep apnea G47.33 ; Venous insufficiency (chronic) (peripheral) I87.2 ; Mild persistent asthma without complication J45.30 ; Neuropathy G62.9 and Marijuana abuse, continuous F12.10 [place] [address] 28768- 4810 Sep, Adjustment disorder with disturbance of conduct F43.24 and Adjustment disorder with disturbance of emotion F43.29 [place] [id number] [place] [address] 60980- 7540 Sep, Diabetes mellitus with neuropathy E11.40 ; Dyspnea on exertion R06.09 and Venous insufficiency (chronic) (peripheral) I87.2 [place] [id number] [place] [address] 81147- 0652 Sep, Neuropathy G62.9 [place] [address] 84786- 6792 13 Sep, 2016 [facility] [id number] [place] [address] [id number] Sep, Dental examination Z01.20 [place] [address] 48437- 8171 Sep, [place] [address] 40969- 9612 Sep, [place] [address] [place] [address] Sep, [facility] [id number] [place] [address] 73472- 7122 05 Sep, 2016 Mild persistent asthma without complication J45.30 [facility] [id number] [place] [address] 49588- 4447 02 Sep, 2016 Insulin long-term use Z79.4 [place] [address] 09831- 8687 01 Sep, 2016 Diabetes mellitus with neuropathy E11.40 ; Generalized edema R60.1 and Mild persistent asthma without complication J45.30 [facility] [address] [id number] Aug, Dental examination Z01.20 [place] [id number] [place] [address] 08562- 9202 20 Jul, 2016 Urticaria L50.9 and Mild persistent asthma without complication J45.30 [place] [id number] [place] [address] 87533- 6153 10 Jul, 2016 Lateral epicondylitis of left elbow M77.12 and Venous insufficiency (chronic) (peripheral) I87.2 [place] [id number] [place] [address] 98378- 7706 May, Obstructive sleep apnea G47.33 and Diabetes mellitus with neuropathy E11.40 [place] [id number] [place] [address] 36719- 1697 May, Diabetes mellitus with neuropathy E11.40 [place] [id number] [place] [address] 68936- 7176 Mar, [place] [address] 49182- 3990 Mar, Dental examination Z01.20 [place] [id number] [place] [address] 04719- 0330 13 Mar, 2016 Insulin long-term use Z79.4 [place] [address] [facility] [id number] [address] Mar, Insulin long-term use Z79.4 [place] [address] [address] February, Insulin long-term use Z79.4 [place] [address] [place] [address] [id number] [address] February, [place] [address] [address] February, Hyperlipemia E78.[address] [id number] [id number] February, Gout M10.9 and Diabetes mellitus with neuropathy E11.40 [place] [address] [address] [id number] [address] Jan, Depression F32.9 [place] [address] [address] Jan, Insulin long-term use Z79.4 ; Gout M10.9 ; Candidiasis B37.9 ; Diabetes mellitus with neuropathy E11.40 and Depression F32.9 IMMUNIZATIONS No Known Immunizations SOCIAL HISTORY Never Assessed REASON FOR VISIT RELINE PLAN OF CARE VITAL SIGNS MEDICATIONS Medication Instructions Dosage Frequency Start Date End Date Duration Status Metformin HCl 500 MG Orally Twice a day 2 tablet with a meal 12h Jul, Active Wellbutrin XL 150 MG Orally Once a day 2 tablets 24h Sep, Active RESULTS No Results PROCEDURES Procedure Date Ordered Result Body Site Dental no charge Jun 08, 2017 INSTRUCTIONS MEDICATIONS ADMINISTERED No Known Medications [...]
--- OUTSIDE RECORDS SUMMARY | 2018-06-16 19:32 | XMS REPORT ---
Author Author ALEX Rodas Organization [facility] Address [address] [place] [address] Care Team Providers Care Fabrication Engineer Name Role Phone ALEX Rodas Unavailable PROBLEMS Type Condition ICD9-CM Code UNL73-OA Code Onset Dates Condition Status SNOMED Code Problem Gout M10.9 Active 42025264 Problem Obstructive sleep apnea G47.33 Active 69381055 Problem Hyperlipemia E78.5 Active 74183963 Problem Candidiasis B37.9 Active 94388024 Problem Depression F32.9 Active 08388086 Problem Insulin long-term use Z79.4 Active 068657230 Problem Diabetes mellitus with neuropathy E11.40 Active 55279719 Problem Adjustment disorder with disturbance of conduct F43.24 Active 14727641 Problem Adjustment disorder with disturbance of emotion F43.29 Active 27840855 Problem Mild persistent asthma without complication J45.30 Active 219035269 Problem Venous insufficiency (chronic) (peripheral) I87.2 Active 04178719 Problem Marijuana abuse, continuous F12.10 Active 168429695 Problem Neuropathy G62.9 Active 691325117 ALLERGIES Substance Reaction Event Type Date Status N.K.D.A. Unknown Non Drug Allergy Oct, Unknown SOCIAL HISTORY No smoking Hx information available PLAN OF CARE Activity Details Follow Up 4 Weeks Reason: VITAL SIGNS MEDICATIONS Medication Instructions Dosage Frequency Start Date End Date Duration Status Naprosyn 500 MG Orally 2 times a day, pc 1 tablet as needed Jul, Active Levemir 100 UNIT/ML Subcutaneous twice a day 23 units 12h February, Active Albuterol Sulfate HFA 108 (90 Base) MCG/ACT Inhalation every 4 hrs 2 puffs as needed 4h Active Metformin HCl 500 MG Orally Twice a day 2 tablets 12h Jul, 90 days Active Symbicort 160-4.5 MCG/ACT Inhalation Twice a day 2 puffs 12h Active Wellbutrin XL 150 MG Orally Once a day 2 tablets 24h Sep, Active Allopurinol 100 MG Orally Once a day 1 tablet 24h 29 Jan, 2016 Active Klor-Con M10 10 MEQ Orally Twice a day 1 tablet with food 12h Sep, Dec, 30 day(s) Active Zocor 40 MG Orally [...] a day 1 capsule 8h May, Active GlipiZIDE 5 MG Orally Once a day 2 tablet 24h Active RESULTS No Results PROCEDURES Procedure Date Ordered Related Diagnosis Body Site Office Visit, Est Pt., Level 4 Nov 07, 2016 IMMUNIZATIONS No Known Immunizations
--- OUTSIDE RECORDS SUMMARY | 2018-06-16 19:32 | XMS REPORT ---
Author Author JOMAR Perez Organization [facility] Address Unknown Care Team Providers Care Senior Customer Service Representative Name Role Phone [email or web address] Ritchie Unavailable PROBLEMS Type Condition ICD9-CM Code VCG12-LU Code Onset Dates Condition Status SNOMED Code Problem Gout M10.9 Active 46630273 Problem Obstructive sleep apnea G47.33 Active 70442787 Problem Hyperlipemia E78.5 Active 30114505 Problem Candidiasis B37.9 Active 64816728 Problem Depression F32.9 Active 24468242 Problem Insulin long-term use Z79.4 Active 704900323 Problem Diabetes mellitus with neuropathy E11.40 Active 56416939 Problem Adjustment disorder with disturbance of conduct F43.24 Active 17761521 Problem Adjustment disorder with disturbance of emotion F43.29 Active 92711259 Problem Mild persistent asthma without complication J45.30 Active 983033815 Problem Venous insufficiency (chronic) (peripheral) I87.2 Active 23492545 Problem Marijuana abuse, continuous F12.10 Active 247248074 Problem Neuropathy G62.9 Active 903272933 ALLERGIES Substance Reaction Event Type Date Status N.K.D.A. Unknown Non Drug Allergy Oct, Unknown SOCIAL HISTORY No smoking Hx information available PLAN OF CARE VITAL SIGNS MEDICATIONS Medication Instructions Dosage Frequency Start Date End Date Duration Status Naprosyn 500 MG Orally 2 times a day, pc 1 tablet as needed Jul, Active GlipiZIDE 5 MG Orally Once a day 2 tablet 24h Active Gabapentin 600 MG Orally Three times a day 1 capsule 8h 15 May, 2016 Active C-PAP Machine Active Klor-Con M10 10 MEQ Orally Twice a day 1 tablet with food 12h Sep, Dec, 30 day(s) Active Symbicort 160-4.5 MCG/ACT Inhalation Twice a day 2 puffs 12h Active Albuterol Sulfate HFA 108 (90 Base) MCG/ACT Inhalation every 4 hrs 2 puffs as needed 4h Active Potassium Active Water Pills Active Lasix 20 mg Orally Once a day 1 tablet 24h 02 Sep, 2016 30 day(s) Active NovoLog 100 UNIT/ML Subcutaneous 3 times a day 20 units 8h February, Active Zocor 40 MG Orally Once a day 1 tablet in the evening 24h Active Allopurinol 100 MG Orally Once a day 1 tablet 24h Jan, Active Wellbutrin XL 150 MG Orally Once a day 1 tablet in the morning 24h 23 Sep, 2016 Active Metformin HCl 500 MG Orally Twice a day 2 tablets 12h Jul, 90 days Active Colchicine 0.6 MG Orally Once a day 1 tablet 24h Active Levemir 100 UNIT/ML Subcutaneous twice a day 23 units 12h February, Active Metformin HCl 1000 MG Orally Twice a day 1 tablet with meals 12h 90 Active Nystatin 136452 UNIT/GM Externally Twice a day 1 application to affected area 12h Jan, Active RESULTS No Results PROCEDURES Procedure Date Ordered Related Diagnosis Body Site Dental no charge Nov 01, 2016 IMMUNIZATIONS No Known Immunizations
--- OUTSIDE RECORDS SUMMARY | 2018-06-16 19:32 | XMS REPORT ---
Author Author ALEX ALCANTAR [facility] Address [address] [place] [address] Care Team Providers Care Slasher Operator Name Role Phone ALEX ALCANTAR Unavailable PROBLEMS Type Condition ICD9-CM Code [id number] Code Onset Dates Condition Status SNOMED Code Problem Insulin long-term use Z79.4 Active 541296237 Problem Obstructive sleep apnea G47.33 Active 22118364 Problem Hyperlipemia E78.5 Active 31932229 Problem Depression F32.9 Active 59706287 Problem Diabetes mellitus with neuropathy E11.40 Active 63139538 Problem Candidiasis B37.9 Active 13906060 Problem Gout M10.9 Active 87362318 Problem Adjustment disorder with disturbance of conduct F43.24 Active 38678485 Problem Adjustment disorder with disturbance of emotion F43.29 Active 69826939 Problem Mild persistent asthma without complication J45.30 Active 495302416 Problem Venous insufficiency (chronic) (peripheral) I87.2 Active 43573895 Problem Marijuana abuse, continuous F12.10 Active 946406471 Problem Neuropathy G62.9 Active 206700910 ALLERGIES Unknown Allergies SOCIAL HISTORY No smoking Hx information available PLAN OF CARE VITAL SIGNS MEDICATIONS Unknown Medications RESULTS No Results PROCEDURES No Known procedures IMMUNIZATIONS No Known Immunizations
--- OUTSIDE RECORDS SUMMARY | 2018-06-16 19:33 | XMS REPORT ---
Author Author TIGRE Nye Organization [facility] Address [address] [place] [address] Care Team Providers Care Obstetrician And Gynaecologist Name Role Phone MicaelaAndrews TIGRE Unavailable PROBLEMS Type Condition ICD9-CM Code PFO11-IC Code Onset Dates Condition Status SNOMED Code Problem Neuropathy G62.9 Active 176442336 Problem Adjustment disorder with disturbance of emotion F43.29 Active 95243761 Problem Marijuana abuse, continuous F12.10 Active 023676831 Problem Gastroesophageal reflux disease without esophagitis K21.9 Active 848177457 Problem Acute gout involving toe of left foot, unspecified cause M10.9 Active 491031973 Problem Methamphetamine use disorder, severe, 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 Active 46799952 Problem Adjustment disorder with disturbance of conduct F43.24 Active 71510570 Problem Dyspepsia R10.13 Active 878423075 Problem Moderate episode of recurrent major depressive disorder F33.1 Active 347920002 Problem Candidiasis B37.9 Active 42150054 Problem Depression F32.9 Active 10087725 Problem Diabetes mellitus with neuropathy E11.40 Active 94201296 Problem Hyperlipemia E78.5 Active 44473002 Problem Obstructive sleep apnea G47.33 Active 29305640 Problem Insulin long-term use Z79.4 Active 123507856 Problem Venous insufficiency (chronic) (peripheral) I87.2 Active 22663699 Problem Gout M10.9 Active 32140962 Problem Mild persistent asthma without complication J45.30 Active [id number] ALLERGIES No Information ENCOUNTERS Encounter Location Date Diagnosis [facility] [address] [facility] [id number] [address] Jan, [address] [id number] [place] [id number] Jan, Gastroesophageal reflux disease without esophagitis K21.9 and Acute gout involving toe of left foot, unspecified cause M10.[address] [facility] [address] [id number] [id number] Jan, Marijuana abuse, continuous F12.10 ; Mild persistent asthma without complication J45.30 ; BMI 40.0-44.9, adult Z68.41 and Diabetes mellitus with neuropathy E11.40 [facility] [address] [place] [address]88- [address]127 Jan, [facility] [id number] [id number] Jan, BMI 40.0-44.9, adult Z68.41 and Intractable vomiting with nausea, unspecified vomiting type R11.2 [facility] [address] [facility] [facility] [address] [address] [id number] [id number] Dec, BMI 40.0-44.9, adult Z68.41 and Abrasion hip/leg S80.819A [place] [address] [place] [id number] [place] [address] 46784- 8797 Nov, Neuropathy G62.9 [place] [address] [place] [id number] [place] [address] 43164- 3331 Oct, [place] [address] [place] [id number] [place] [address] 67696- 0752 Oct, [facility] [id number] [place] [address] 89059- 1008 Oct, Diabetes mellitus with neuropathy E11.40 ; Dyspepsia R10.13 ; Mild persistent asthma without complication J45.30 and Depression F32.9 [place] [address] [place] [id number] [place] [address] 03472- 5216 Oct, Generalized edema R60.1 and Diabetes mellitus with neuropathy E11.40 [facility] [place] [address] [place] [id number] [place] [address] 67452- 6428 Sep, [place] [address] [place] [id number] [place] [address] 04819- 1952 Aug, [facility] [id number] [place] [address] 47189 -4488 Aug, Cellulitis L03.90 and BMI 40.0-44.9, adult Z68.41 [facility] [address] [id number] [place] [address] 84560- 7771 Aug, [facility] [address] [id number] [place] [address] 65992- 3142 Jul, Trapezius muscle spasm M62.838 and Depression F32.9 [place] [address] [place] [id number] [place] [address] 22447- 7453 Jul, Marijuana abuse, continuous F12.10 ; Moderate episode of recurrent major depressive disorder F33.1 and Methamphetamine use disorder, severe, 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 [facility] [id number] [place] [address] 47157- 9809 Jul, [place] [address] 25985- 8780 Jul, [facility] [id number] [place] [address] 71858- 4387 Jul, [facility] [id number] [place] [address] 23076- 1660 Jul, [facility] [address] [id number] [place] [address] 71878- 5068 Jul, [place] [address] 79166- 4431 Jul, Diabetes mellitus with neuropathy E11.40 [facility] [address] [id number] [place] [address] 98958- 4605 16 Jul, 2017 Diabetes mellitus with neuropathy E11.40 ; Venous insufficiency (chronic) (peripheral) I87.2 ; Chest pain, unspecified type R07.9 ; Neuropathy G62.9 and Encounter for immunization Z23 [facility] [address] [id number] [place] [address] 02423- 2462 Jun, [place] [id number] [address] Jun, [facility] [address] [place] [address] [id number] May, Dental examination Z01.20 [place] [address] [place] [address] 54362- 2273 Apr, Diabetes mellitus with neuropathy E11.40 and Depression F32.9 [facility] [address] [place] [id number] [place] [address] 69262- 0738 Apr, Mild persistent asthma without complication J45.[address] [facility] [id number] [place] [id number] Mar, [place] [address] [place] [id number] [place] [address] 38055- 6944 Mar, Depression F32.9 ; Adjustment disorder with disturbance of emotion F43.29 and Marijuana abuse, continuous F12.10 [place] [address] [place] [address] 72623- 6054 Mar, [facility] [address] [place] [id number] [place] [address] 44170- 9020 Mar, Acute pansinusitis, recurrence not specified J01.40 [place] [address] [place] [address] 10080- 8577 Mar, Adjustment disorder with disturbance of emotion F43.29 ; Adjustment disorder with disturbance of conduct F43.24 ; Marijuana abuse, continuous F12.10 and Depression F32.9 [place] [address] [place] [address] 99120- 7348 Mar, Depression F32.9 ; Marijuana abuse, continuous F12.10 and Adjustment disorder with disturbance of conduct F43.[address] [facility] [address] [id number] [id number] February, Bronchitis J40 and Acute diffuse otitis externa of right ear H60.311 [place] [address] 31582- 2025 February, Diabetes mellitus with neuropathy E11.40 ; Mild persistent asthma without complication J45.30 ; Bronchitis J40 ; Depression F32.9 ; Neuropathy G62.9 ; Gout M10.9 ; Generalized edema R60.1 and Hyperlipemia E78.5 [place] [address] 86534- 5881 February, Diabetes mellitus with neuropathy E11.40 [place] [address] 52695- 7538 February, [place] [address] 92846- 1926 February, [place] [address] 97560- 7178 Jan, [address] 16769- 9569 Jan, [place] [address] 36306- 0703 Jan, Adjustment disorder with disturbance of emotion F43.29 ; Adjustment disorder with disturbance of conduct F43.24 ; Marijuana abuse, continuous F12.10 and Depression F32.9 [place] [address] 62297- 3985 Jan, [place] [address] 24222- 4877 Jan, Pilonidal cyst with abscess L05.01 and Abscess of skin of abdomen L02.[address] 15137- 0175 Dec, Diabetes mellitus with neuropathy E11.40 [facility] [address] [id number] Dec, Dental examination Z01.[address] 21409- 5186 Dec, [place] [address] [address] Nov, Depression F32.9 [facility] [address] [id number] [place] [address] 05674- 6799 Nov, Depression F32.9 [facility] [address] [place] [address] 05275- 6847 Nov, Lateral epicondylitis of left elbow M77.12 ; Insulin long- term use Z79.4 and Neuropathy G62.9 [facility] [address] [place] [address] 40901- 4799 Nov, Adjustment disorder with disturbance of emotion F43.29 ; Adjustment disorder with disturbance of conduct F43.24 ; Marijuana abuse, continuous F12.10 and Depression F32.9 [facility] [address] [place] [address] 14119- 7642 Oct, Adjustment disorder with disturbance of emotion F43.29 ; Marijuana abuse, continuous F12.10 ; Adjustment disorder with disturbance of conduct F43.24 and Severe episode of recurrent major depressive disorder, without psychotic features F33.2 [facility] [address] [place] [address] [id number] [place] [address] [id number] Oct, Dental examination Z01.20 [facility] [address] [place] [address] 98773- 3262 Oct, Depression F32.9 [facility] [address] [address] [id number] [place] [address] [id number] Oct, Dental examination Z01.20 [facility] [address] [place] [address] 40225- 3723 Oct, Depression F32.9 ; Adjustment disorder with disturbance of conduct F43.24 ; Adjustment disorder with disturbance of emotion F43.29 and Marijuana abuse, continuous F12.10 [facility] [address] [place] [address] [id number] Oct, Dental examination Z01.20 [facility] [address] [place] [address] [id number] [place] [address] [id number] Oct, Dental caries K02.9 [place] [address] 47383- 7934 Oct, [facility] [address] [place] [address] [id number] [place] [address] [id number] Sep, Dental examination Z01.20 [place] [address] 67764- 8925 27 Sep, 2016 [place] [address] [address] [id number] [place] [address] 39451- 3668 Sep, Insulin long-term use Z79.4 ; Gout M10.9 ; Diabetes mellitus with neuropathy E11.40 ; Depression F32.9 ; Hyperlipemia E78.5 ; Obstructive sleep apnea G47.33 ; Venous insufficiency (chronic) (peripheral) I87.2 ; Mild persistent asthma without complication J45.30 ; Neuropathy G62.9 and Marijuana abuse, continuous F12.10 [place] [address] [address] [id number] [place] [address] 82047- 4787 Sep, Adjustment disorder with disturbance of conduct F43.24 and Adjustment disorder with disturbance of emotion F43.29 [place] [id number] [place] [address] 21251- 5114 Sep, Diabetes mellitus with neuropathy E11.40 ; Dyspnea on exertion R06.09 and Venous insufficiency (chronic) (peripheral) I87.2 [place] [address] [place] [id number] [place] [address] 82073- 9481 Sep, Neuropathy G62.9 [place] [address] [place] [id number] [place] [address] 05585- 5164 13 Sep, 2016 [facility] [address] [place] [id number] [place] [address] [id number] Sep, Dental examination Z01.20 [place] [address] [place] [address] 65359- 1309 07 Sep, 2016 [place] [address] [place] [id number] [place] [address] 63806- 9116 Sep, [facility] [address] [address] [id number] [place] [address] 73401- 2207 Sep, [facility] [address] [place] [id number] [place] [address] 45180- 9941 Sep, Mild persistent asthma without complication J45.30 [place] [address] 78327- 0603 02 Sep, 2016 Insulin long-term use Z79.4 [place] [address] [place] [id number] [place] [address] 78340- 8960 Sep, Diabetes mellitus with neuropathy E11.40 ; Generalized edema R60.1 and Mild persistent asthma without complication J45.30 [facility] [address] [place] [id number] [place] [address] [id number] Aug, Dental examination Z01.20 [place] [address] [place] [id number] [place] [address] 16244- 6992 Jul, Urticaria L50.9 and Mild persistent asthma without complication J45.30 [place] [address] [place] [id number] [place] [address] 58220- 3616 Jul, Lateral epicondylitis of left elbow M77.12 and Venous insufficiency (chronic) (peripheral) I87.2 [place] [address] [place] [id number] [place] [address] 46135- 8605 May, Obstructive sleep apnea G47.33 and Diabetes mellitus with neuropathy E11.40 [place] [address] [place] [id number] [place] [address] 51261- 3615 May, Diabetes mellitus with neuropathy E11.40 [place] [address] [place] [id number] [place] [address] 44013- 6319 Mar, [place] [address] [place] [id number] [place] [address] 41382- 1287 Mar, Dental examination Z01.20 [place] [address] [place] [address] 0427 Mar, Insulin long-term use Z79.4 [facility] [address] [address]- 5163 Mar, Insulin long-term use Z79.4 [facility] [address] [place] [id number] [address] 9572 February, Insulin long-term use Z79.4 [facility] [address] [address]- 5854 February, [place] [address] [address]- 7180 February, Hyperlipemia E78.[address] [id number] [id number] February, Gout M10.9 and Diabetes mellitus with neuropathy E11.40 [place] [address] [facility] [id number] [address] 5080 Jan, Depression F32.9 [place] [address] [facility] [id number] [address]- 3593 Jan, Insulin long-term use Z79.4 ; Gout M10.9 ; Candidiasis B37.9 ; Diabetes mellitus with neuropathy E11.40 and Depression F32.9 IMMUNIZATIONS No Known Immunizations SOCIAL HISTORY Never Assessed REASON FOR VISIT f/u PLAN OF CARE Activity Details Follow Up 2 Weeks Reason:Depression VITAL SIGNS MEDICATIONS Unknown Medications RESULTS No Results PROCEDURES Procedure Date Ordered Result Body Site Psychotherapy, patient &/family, 30 minutes, established patient March 17, 2017 INSTRUCTIONS MEDICATIONS ADMINISTERED No [...] 2 Hospitalization History [facility]
--- OUTSIDE RECORDS SUMMARY | 2018-06-16 19:34 | XMS REPORT ---
Author Author ALEX ALCANTAR Organization [facility] Address [address] [place] [address] Care Team Providers Care Surface Supply Breathing Apparatus Name Role Phone ALEX ALCANTAR Unavailable PROBLEMS Type Condition ICD9-CM Code ZAL90-XT Code Onset Dates Condition Status SNOMED Code Problem Neuropathy G62.9 Active 170481158 Problem Adjustment disorder with disturbance of emotion F43.29 Active 14930653 Problem Marijuana abuse, continuous F12.10 Active 891679659 Problem Gastroesophageal reflux disease without esophagitis K21.9 Active 380596041 Problem Acute gout involving toe of left foot, unspecified cause M10.9 Active 354643608 Problem Methamphetamine use disorder, severe, 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 Active 86971103 Problem Adjustment disorder with disturbance of conduct F43.24 Active 14841782 Problem Dyspepsia R10.13 Active 139039275 Problem Moderate episode of recurrent major depressive disorder F33.1 Active 365684257 Problem Candidiasis B37.9 Active 35025425 Problem Depression F32.9 Active 09375239 Problem Diabetes mellitus with neuropathy E11.40 Active 06836860 Problem Hyperlipemia E78.5 Active 01959017 Problem Obstructive sleep apnea G47.33 Active 39259866 Problem Insulin long-term use Z79.4 Active 550379502 Problem Venous insufficiency (chronic) (peripheral) I87.2 Active 93839685 Problem Gout M10.9 Active 61188690 Problem Mild persistent asthma without complication J45.30 Active 397331205 ALLERGIES No Information ENCOUNTERS Encounter Location Date Diagnosis [facility] [address] [facility] [id number], [place] [address] Jan, [facility] [address] [facility] [id number] [id number] Jan, Gastroesophageal reflux disease without esophagitis K21.9 and Acute gout involving toe of left foot, unspecified cause M10.[address] [facility] [address] [id number] [id number] Jan, Marijuana abuse, continuous F12.10 ; Mild persistent asthma without complication J45.30 ; BMI 40.0-44.9, adult Z68.41 and Diabetes mellitus with neuropathy E11.40 [facility] [address], [place] [address] Jan, [facility] [id number] [place] [id number] Jan, BMI 40.0-44.9, adult Z68.41 and Intractable vomiting with nausea, unspecified vomiting type R11.2 [facility] [address] [facility] [address] [id number] [id number] Dec, BMI 40.0-44.9, adult Z68.41 and Abrasion hip/leg S80.819A [place] [address] [place] [id number] [place] [address] Nov, Neuropathy G62.9 [facility] [address] [id number] [place] [address] 18574- 4124 Oct, [facility] [id number] [place] [address] 60995- 5987 Oct, [facility] [address] [place] [address] 02033- 2700 Oct, Diabetes mellitus with neuropathy E11.40 ; Dyspepsia R10.13 ; Mild persistent asthma without complication J45.30 and Depression F32.9 [facility] [address] [id number] [place] [address] 26620- 2715 Oct, Generalized edema R60.1 and Diabetes mellitus with neuropathy E11.40 [facility] [address] [id number] [place] [address] 43821- 7610 Sep, [facility] [id number] [place] [address] 98646- 1162 Aug, [facility] [id number] [place] [address] 94021 -6469 Aug, Cellulitis L03.90 and BMI 40.0-44.9, adult Z68.41 [place] [address] [id number] [place] [address] 77552- 6010 Aug, [facility] [id number] [place] [address] 83653- 7762 Jul, Trapezius muscle spasm M62.838 and Depression F32.9 [place] [address] [id number] [place] [address] 69152- 9033 Jul, Marijuana abuse, continuous F12.10 ; Moderate episode of recurrent major depressive disorder F33.1 and Methamphetamine use disorder, severe, 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 [place] [address] [id number] [place] [address] 51409- 2212 Jul, [place] [address] [address]- [address] Jul, [facility] [address] [id number] [place] [address] 38172- 7920 Jul, [place] [address] [id number] [place] [address] 08362- 7145 Jul, [facility] [address] [id number] [place] [address] 75253- 5069 Jul, [place] [address] [id number] [place] [address] 32742- 4453 Jul, Diabetes mellitus with neuropathy E11.40 [facility] [address] [id number] [place] [address] 28874- 0505 16 Jul, 2017 Diabetes mellitus with neuropathy E11.40 ; Venous insufficiency (chronic) (peripheral) I87.2 ; Chest pain, unspecified type R07.9 ; Neuropathy G62.9 and Encounter for immunization Z23 [facility] [address] [id number] [place] [address] 04468- 5342 Jun, [place] [address], [place] [address] Jun, [facility] [address] [place] [id number] May, Dental examination Z01.20 [place] [address] [id number] [place] [address] 46361- 6574 Apr, Diabetes mellitus with neuropathy E11.40 and Depression F32.9 [place] [address] [id number] [place] [address] 30642- 2785 Apr, Mild persistent asthma without complication J45.[address] [facility] [address] [id number] [id number] Mar, [place] [address] [id number] [place] [address] 95678- 4134 Mar, Depression F32.9 ; Adjustment disorder with disturbance of emotion F43.29 and Marijuana abuse, continuous F12.10 [place] [address] [place] [address] 99985- 2688 Mar, [place] [address] [id number] [place] [address] 71663- 1446 Mar, Acute pansinusitis, recurrence not specified J01.40 [place] [address] [place] [address] 38291- 2682 Mar, Adjustment disorder with disturbance of emotion F43.29 ; Adjustment disorder with disturbance of conduct F43.24 ; Marijuana abuse, continuous F12.10 and Depression F32.9 [place] [address] [place] [address] 72213- 3864 Mar, Depression F32.9 ; Marijuana abuse, continuous F12.10 and Adjustment disorder with disturbance of conduct F43.[address] [facility] [address] [id number] [id number] February, Bronchitis J40 and Acute diffuse otitis externa of right ear H60.311 [place] [address] [id number] [place] [address] 27370- 2089 February, Diabetes mellitus with neuropathy E11.40 ; Mild persistent asthma without complication J45.30 ; Bronchitis J40 ; Depression F32.9 ; Neuropathy G62.9 ; Gout M10.9 ; Generalized edema R60.1 and Hyperlipemia E78.5 [place] [id number] [place] [address] 39976- 2855 February, Diabetes mellitus with neuropathy E11.[address] [address] February, [address] 9[address]84- 1194 February, [address] [address]2314- [address]52 Jan, [address] [address]- [address]176 Jan, [address] 82[address]- 0350 Jan, Adjustment disorder with disturbance of emotion F43.29 ; Adjustment disorder with disturbance of conduct F43.24 ; Marijuana abuse, continuous F12.10 and Depression F32.9 [place] [id number] [place] [address] 48042- 1960 Jan, [place] [id number] [place] [address] 26080- 5965 Jan, Pilonidal cyst with abscess L05.01 and Abscess of skin of abdomen L02.211 [place] [id number] [place] [address] 28906- 7111 Dec, Diabetes mellitus with neuropathy E11.40 [facility] [address] [place] [address] [id number] [place] [address] [id number] Dec, Dental examination Z01.20 [place] [id number] [place] [address] 11547- 5562 Dec, [address] [place] [address] 15974- 0539 Nov, Depression F32.9 [facility] [id number] [place] [address] 87788- 4626 Nov, Depression F32.9 [facility] [id number] [place] [address] 48475- 0778 Nov, Lateral epicondylitis of left elbow M77.12 ; Insulin long- term use Z79.4 and Neuropathy G62.9 [place] [id number] [place] [address] 13166- 5223 Nov, Adjustment disorder with disturbance of emotion F43.29 ; Adjustment disorder with disturbance of conduct F43.24 ; Marijuana abuse, continuous F12.10 and Depression F32.9 [place] [address] [id number] [place] [address] 28256- 2896 Oct, Adjustment disorder with disturbance of emotion F43.29 ; Marijuana abuse, continuous F12.10 ; Adjustment disorder with disturbance of conduct F43.24 and Severe episode of recurrent major depressive disorder, without psychotic features F33.2 [facility] [address] [place] [address] [id number] [place] [id number] Oct, Dental examination Z01.20 [facility] [id number] [place] [address] 71470- 2842 Oct, Depression F32.9 [facility] [address] [place] [id number] [place] [address] [id number] Oct, Dental examination Z01.20 [facility] [id number] [place] [address] 29727- 6296 Oct, Depression F32.9 ; Adjustment disorder with disturbance of conduct F43.24 ; Adjustment disorder with disturbance of emotion F43.29 and Marijuana abuse, continuous F12.10 [facility] [address] [place] [id number] [place] [address] [id number] Oct, Dental examination Z01.20 [facility] [address] [place] [id number] Oct, Dental caries K02.9 [place] [address] 93467- 0958 Oct, [facility] [address] [place] [address] [id number] [place] [address] [id number] Sep, Dental examination Z01.20 [place] [address] 53983- 9927 Sep, [place] [address] 38323- 9924 Sep, Insulin long-term use Z79.4 ; Gout M10.9 ; Diabetes mellitus with neuropathy E11.40 ; Depression F32.9 ; Hyperlipemia E78.5 ; Obstructive sleep apnea G47.33 ; Venous insufficiency (chronic) (peripheral) I87.2 ; Mild persistent asthma without complication J45.30 ; Neuropathy G62.9 and Marijuana abuse, continuous F12.10 [place] [address] [id number] [place] [address] 05948- 4638 Sep, Adjustment disorder with disturbance of conduct F43.24 and Adjustment disorder with disturbance of emotion F43.29 [place] [address] [id number] [place] [address] 78981- 1527 Sep, Diabetes mellitus with neuropathy E11.40 ; Dyspnea on exertion R06.09 and Venous insufficiency (chronic) (peripheral) I87.2 [place] [address] [id number] [place] [address] 11306- 6849 Sep, Neuropathy G62.9 [place] [address] [id number] [place] [address] 66931- 2170 Sep, [facility] [address] [place] [id number] [place] [address] [id number] Sep, Dental examination Z01.20 [place] [address] [id number] [place] [address] 20617- 5079 Sep, [place] [address] [place] [address] 07 Sep, 2016 [facility] [address] [id number] [place] [address] 53949- 9302 Sep, [place] [address] [id number] [place] [address] 61502- 1706 05 Sep, 2016 Mild persistent asthma without complication J45.30 [place] [address] [id number] [place] [address] 02133- 5368 02 Sep, 2016 Insulin long-term use Z79.4 [place] [address] [id number] [place] [address] 73888- 6298 01 Sep, 2016 Diabetes mellitus with neuropathy E11.40 ; Generalized edema R60.1 and Mild persistent asthma without complication J45.30 [facility] [address] [id number] Aug, 2016 Dental examination Z01.20 [place] [address] 76224- 0471 Jul, Urticaria L50.9 and Mild persistent asthma without complication J45.30 [place] [address] 10785- 0665 10 Jul, 2016 Lateral epicondylitis of left elbow M77.12 and Venous insufficiency (chronic) (peripheral) I87.2 [place] [address] [id number] [place] [address] 57603- 1094 May, Obstructive sleep apnea G47.33 and Diabetes mellitus with neuropathy E11.40 [place] [address] [id number] [place] [address] 68149- 2739 May, Diabetes mellitus with neuropathy E11.40 [place] [address] 29940- 0023 Mar, [place] [address] [id number] [place] [address] 71718- 4572 Mar, Dental examination Z01.20 [place] [address] 13714- 9375 Mar, Insulin long-term use Z79.4 [place] [address] [facility] [id number], [place] [address]97 Mar, Insulin long-term use Z79.4 [place] [address] [facility] [id number], [place] [address] February, Insulin long-term use Z79.4 [place] [address] [facility] [id number], [place] [address] February, [place] [address] [facility] [id number], [place] [address] February, Hyperlipemia E78.[address] [id number] [id number] February, Gout M10.9 and Diabetes mellitus with neuropathy E11.40 [place] [address] [facility] [id number], [place] [address] Jan, Depression F32.9 [place] [address] [facility] [id number], [place] [address] Jan, Insulin long-term use Z79.4 ; Gout M10.9 ; Candidiasis B37.9 ; Diabetes mellitus with neuropathy E11.40 and Depression F32.9 IMMUNIZATIONS No Known Immunizations SOCIAL HISTORY Never Assessed REASON FOR VISIT medication PLAN OF CARE VITAL SIGNS MEDICATIONS Medication Instructions Dosage Frequency Start Date End Date Duration Status Klor-Con 10 10 MEQ Orally Twice a day 1 tablet with food 12h Jan, Active RESULTS No Results PROCEDURES No Known [...] 2 Hospitalization History pylonial cyst removal from [facility]2016
--- OUTSIDE RECORDS SUMMARY | 2018-06-16 19:35 | XMS REPORT ---
Author Author JOMAR Perez Organization [facility] Address Unknown Care Team Providers Care Leather Carver Name Role Phone chevyJOMAR Ritchie Unavailable PROBLEMS Type Condition ICD9-CM Code UOP02-UD Code Onset Dates Condition Status SNOMED Code Problem Gout M10.9 Active 25892785 Problem Obstructive sleep apnea G47.33 Active 95114949 Problem Hyperlipemia E78.5 Active 91182493 Problem Candidiasis B37.9 Active 26085174 Problem Depression F32.9 Active 93619578 Problem Insulin long-term use Z79.4 Active 894418002 Problem Diabetes mellitus with neuropathy E11.40 Active 84597119 Problem Adjustment disorder with disturbance of conduct F43.24 Active 00896726 Problem Adjustment disorder with disturbance of emotion F43.29 Active 54026049 Problem Mild persistent asthma without complication J45.30 Active 947182202 Problem Venous insufficiency (chronic) (peripheral) I87.2 Active 66207806 Problem Marijuana abuse, continuous F12.10 Active 217851275 Problem Neuropathy G62.9 Active 548419168 ALLERGIES Substance Reaction Event Type Date Status N.K.D.A. Unknown Non Drug Allergy Oct, Unknown SOCIAL HISTORY No smoking Hx information available PLAN OF CARE Activity Details Follow Up 24 hours Reason:u/l denture adjustment VITAL SIGNS Height 71.2 in 2016-10-31 Blood pressure systolic 126 mmHg 2016-10-31 Blood pressure diastolic 74 mmHg 2016-10-31 MEDICATIONS Unknown Medications RESULTS No Results PROCEDURES Procedure Date Ordered Related Diagnosis Body Site EXTRAC ERUPTED TOOTH/EXPOSED ROOT Oct 31, 2016 EXTRAC ERUPTED TOOTH/EXPOSED ROOT Oct 31, 2016 EXTRAC ERUPTED TOOTH/EXPOSED ROOT Oct 31, 2016 EXTRAC ERUPTED TOOTH/EXPOSED ROOT Oct 31, 2016 EXTRAC ERUPTED TOOTH/EXPOSED ROOT Oct 31, 2016 EXTRAC ERUPTED TOOTH/EXPOSED ROOT Oct 31, 2016 EXTRAC ERUPTED TOOTH/EXPOSED ROOT Oct 31, 2016 EXTRAC ERUPTED TOOTH/EXPOSED ROOT Oct 31, 2016 EXTRAC ERUPTED TOOTH/EXPOSED ROOT Oct 31, 2016 EXTRAC ERUPTED TOOTH/EXPOSED ROOT Oct 31, 2016 EXTRAC ERUPTED TOOTH/EXPOSED ROOT Oct 31, 2016 EXTRAC ERUPTED TOOTH/EXPOSED ROOT Oct 31, 2016 EXTRAC ERUPTED TOOTH/EXPOSED ROOT Oct 31, 2016 IMMUNIZATIONS No Known Immunizations
--- OUTSIDE RECORDS SUMMARY | 2018-06-16 19:35 | XMS REPORT ---
Author Author JOMAR Perez Organization [facility] Address Unknown Care Team Providers Care Case Consultant Name Role Phone chevyJOMAR Ritchie Unavailable PROBLEMS Type Condition ICD9-CM Code OFW45-YK Code Onset Dates Condition Status SNOMED Code Problem Gout M10.9 Active 13139957 Problem Obstructive sleep apnea G47.33 Active 92665795 Problem Hyperlipemia E78.5 Active 72019235 Problem Candidiasis B37.9 Active 51729391 Problem Depression F32.9 Active 38514348 Problem Insulin long-term use Z79.4 Active 420295516 Problem Diabetes mellitus with neuropathy E11.40 Active 68141348 Problem Adjustment disorder with disturbance of conduct F43.24 Active 48930194 Problem Adjustment disorder with disturbance of emotion F43.29 Active 36791609 Problem Mild persistent asthma without complication J45.30 Active 973454891 Problem Venous insufficiency (chronic) (peripheral) I87.2 Active 95266233 Problem Marijuana abuse, continuous F12.10 Active 925305834 Problem Neuropathy G62.9 Active 743516913 ALLERGIES Substance Reaction Event Type Date Status N.K.D.A. Unknown Non Drug Allergy Sep, Unknown SOCIAL HISTORY No smoking Hx information available PLAN OF CARE VITAL SIGNS MEDICATIONS Medication Instructions Dosage Frequency Start Date End Date Duration Status Allopurinol 100 MG Orally Once a day 1 tablet 24h Jan, Active Neurontin 300 MG Orally Once a day 2 capsules 24h Jul, 90 days Active Naprosyn 500 MG Orally 2 times a day, pc 1 tablet as needed Jul, Active Metformin HCl 1000 MG Orally Twice a day 1 tablet with meals 12h 90 Active Metformin HCl 500 MG Orally Twice a day 2 tablets 12h Jul, 90 days Active NovoLog 100 UNIT/ML Subcutaneous 3 times a day 20 units 8h February, Active Levemir 100 UNIT/ML Subcutaneous twice a day 23 units 12h February, Active Gabapentin 600 MG Orally Three times a day 1 capsule 8h May, Active C-PAP Machine Active HydrOXYzine HCl 50 mg Orally hs 1 20 Jul, 2016 10 days Active GlipiZIDE 5 MG Orally Once [...] 1 tablet 24h Sep, 30 day(s) Active Gemfibrozil 600 MG Orally Twice a day 1 tablet 12h Active Klor-Con M10 10 MEQ Orally Twice a day 1 tablet with food 12h Sep, 2 Dec, 2016 30 day(s) Active RESULTS No Results PROCEDURES Procedure Date Ordered Related Diagnosis Body Site Dental no charge Sep 22, 2016 IMMUNIZATIONS No Known Immunizations
--- OUTSIDE RECORDS SUMMARY | 2018-06-16 19:36 | XMS REPORT ---
Author Author JOMAR Perez Organization [facility] Address Unknown Care Team Providers Care Milk Tanker Driver Name Role Phone chevyJOMAR Ritchie Unavailable PROBLEMS Type Condition ICD9-CM Code ZPO93-ZR Code Onset Dates Condition Status SNOMED Code Problem Gout M10.9 Active 32394185 Problem Obstructive sleep apnea G47.33 Active 21623256 Problem Hyperlipemia E78.5 Active 35675264 Problem Candidiasis B37.9 Active 34590392 Problem Depression F32.9 Active 20861230 Problem Insulin long-term use Z79.4 Active 007743703 Problem Diabetes mellitus with neuropathy E11.40 Active 55881561 Problem Adjustment disorder with disturbance of conduct F43.24 Active 43128657 Problem Adjustment disorder with disturbance of emotion F43.29 Active 52645088 Problem Mild persistent asthma without complication J45.30 Active 664319444 Problem Venous insufficiency (chronic) (peripheral) I87.2 Active 56483138 Problem Marijuana abuse, continuous F12.10 Active 711049260 Problem Neuropathy G62.9 Active 275247684 ALLERGIES Substance Reaction Event Type Date Status N.K.D.A. Unknown Non Drug Allergy Aug, Unknown SOCIAL HISTORY No smoking Hx information available PLAN OF CARE Activity Details Follow Up 3 Weeks Reason:wax rims VITAL SIGNS Height 71.2 in 2016-09-01 Blood pressure systolic 129 mmHg 2016-09-01 Blood pressure diastolic 81 mmHg 2016-09-01 MEDICATIONS Medication Instructions Dosage Frequency Start Date End Date Duration Status GlipiZIDE 5 MG Orally Once a day 2 tablet 24h Active Neurontin 300 MG Orally Once a day 2 capsules 24h Jul, 90 days Active Naprosyn 500 MG Orally 2 times a day, pc 1 tablet as needed Jul, Active HydrOXYzine HCl 50 mg Orally hs 1 20 Jul, 2016 10 days Active Albuterol Sulfate HFA 108 (90 Base) MCG/ACT Inhalation every 4 hrs 2 puffs as needed 4h Active Metformin HCl 1000 MG Orally Twice a day 1 tablet with meals 12h 90 Active Symbicort 160-4.5 MCG/ACT Inhalation Twice a day 2 puffs 12h Active Colchicine 0.6 MG Orally Once a day 1 tablet 24h Active Gemfibrozil 600 MG Orally Twice a day 1 tablet 12h Active Allopurinol 100 MG Orally Once a day 1 tablet 24h Jan, Active Metformin HCl 500 MG Orally Twice a day 2 tablets 12h 10 Jul, 2016 90 days Active Gabapentin 600 MG Orally Three times a day 1 capsule 8h May, Active NovoLog 100 UNIT/ML Subcutaneous 3 times a day 10 units 8h February, Active RESULTS No Results PROCEDURES Procedure Date Ordered Related Diagnosis Body Site IMMEDIATE DENTURE - MAXILLARY Sep 05, 2016 IMMEDIATE DENTURE - MANDIBULAR Sep 05, 2016 IMMUNIZATIONS No Known Immunizations
--- OUTSIDE RECORDS SUMMARY | 2018-06-16 19:36 | XMS REPORT ---
Author Author ALEX ALCANTAR Organization [facility] Address [address] [place] [address] Care Team Providers Care Rotary Driller Helper Name Role Phone ALEX ALCANTAR Unavailable PROBLEMS Type Condition ICD9-CM Code [id number] Code Onset Dates Condition Status SNOMED Code Problem Neuropathy G62.9 Active 690403900 Problem Adjustment disorder with disturbance of emotion F43.29 Active 96769299 Problem Marijuana abuse, continuous F12.10 Active 504466002 Problem Gastroesophageal reflux disease without esophagitis K21.9 Active 658833086 Problem Acute gout involving toe of left foot, unspecified cause M10.9 Active 486026986 Problem Methamphetamine use disorder, severe, 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 Active 15304829 Problem Adjustment disorder with disturbance of conduct F43.24 Active 18120826 Problem Dyspepsia R10.13 Active 076682847 Problem Moderate episode of recurrent major depressive disorder F33.1 Active 457945926 Problem Candidiasis B37.9 Active 82436300 Problem Depression F32.9 Active 65178250 Problem Diabetes mellitus with neuropathy E11.40 Active 42429778 Problem Hyperlipemia E78.5 Active 94692610 Problem Obstructive sleep apnea G47.33 Active 20875394 Problem Insulin long-term use Z79.4 Active 205809248 Problem Venous insufficiency (chronic) (peripheral) I87.2 Active 72518825 Problem Gout M10.9 Active 81057142 Problem Mild persistent asthma without complication J45.30 Active 999608645 ALLERGIES No Information ENCOUNTERS Encounter Location Date Diagnosis [facility] [address] [id number] [id number] Mar, [facility] [address] [id number] [place] [id number] Mar, Neuropathy G62.9 [facility] [address] [employer] [id number] [id number] February, Insect bite (nonvenomous) of lower back and pelvis, initial encounter S30.860A ; Bitten or stung by nonvenomous insect and other nonvenomous arthropods, initial encounter W57.XXXA and Cellulitis of back L03.[address] [id number] [place] [id number] February, Diabetes mellitus with neuropathy E11.[id number] [place] [id number] February, Generalized edema R60.1 and Diabetes mellitus with neuropathy E11.40 [place] [address] [place] [id number] [place] [address] 99188- 2664 Jan, [address] [id number] [place] [id number] Jan, Gastroesophageal reflux disease without esophagitis K21.9 and Acute gout involving toe of left foot, unspecified cause M10.[address] [id number] [place]ACH[place] [id number] Jan, Marijuana abuse, continuous F12.10 ; Mild persistent asthma without complication J45.30 ; BMI 40.0-44.9, adult Z68.41 and Diabetes mellitus with neuropathy E11.40 [place] [address] [id number] [place] [address] 49833- 7132 Jan, [facility] [id number] [place] [id number] Jan, BMI 40.0-44.9, adult Z68.41 and Intractable vomiting with nausea, unspecified vomiting type R11.[id number] [place] [id number] Dec, BMI 40.0-44.9, adult Z68.41 and Abrasion hip/leg S80.819A [place] [id number] [place] [address] 49777- 4620 Nov, Neuropathy G62.9 [place] [id number] [place] [address] 08562- 9549 Oct, [place] [address] 90881- 3528 Oct, [place] [id number] [place] [address] 15525- 4653 Oct, Diabetes mellitus with neuropathy E11.40 ; Dyspepsia R10.13 ; Mild persistent asthma without complication J45.30 and Depression F32.9 [place] [address] 44996- 8342 Oct, Generalized edema R60.1 and Diabetes mellitus with neuropathy E11.40 [place] [address] 65891- 6905 Sep, [place] [address] 34748- 3402 Aug, [facility] [address] [address] -0402 Aug, Cellulitis L03.90 and BMI 40.0-44.9, adult Z68.[address] 73979- 3323 Aug, [place] [id number] [place] [address] 48638- 6558 Jul, Trapezius muscle spasm M62.838 and Depression F32.9 [place] [address] 04884- 1384 Jul, Marijuana abuse, continuous F12.10 ; Moderate episode of recurrent major depressive disorder F33.1 and Methamphetamine use disorder, severe, 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 [place] [id number] [place] [address] 32081- 6252 Jul, [place] [id number] [place] [address] 50096- 7628 Jul, [place] [id number] [place] [address] 09946- 4731 Jul, [facility] [id number] [place] [address] 27058- 5369 Jul, [facility] [id number] [place] [address] 91413- 9734 Jul, [place] [id number] [place] [address] 49417- 8386 Jul, Diabetes mellitus with neuropathy E11.40 [place] [id number] [place] [address] 96111- 1704 16 Jul, 2017 Diabetes mellitus with neuropathy E11.40 ; Venous insufficiency (chronic) (peripheral) I87.2 ; Chest pain, unspecified type R07.9 ; Neuropathy G62.9 and Encounter for immunization Z23 [place] [id number] [place] [address] 12222- 8077 Jun, [place] [id number] [place] [address] 41005- 6061 Jun, [facility] [id number] [place] [address] [id number] May, Dental examination Z01.20 [address] [id number] [place] [address] 31586- 4227 Apr, Diabetes mellitus with neuropathy E11.40 and Depression F32.9 [place] [id number] [place] [address] 73907- 6931 Apr, Mild persistent asthma without complication J45.30 [facility] [address] [id number] [place] [id number] Mar, [place] [id number] [place] [address] 76071- 5313 Mar, Depression F32.9 ; Adjustment disorder with disturbance of emotion F43.29 and Marijuana abuse, continuous F12.10 [address] [id number] [place] [address] 59572- 7297 Mar, [address] [place] [address] 84134- 0520 Mar, Acute pansinusitis, recurrence not specified J01.40 [address] [address] [id number] [place] [address] 26196- 8206 Mar, Adjustment disorder with disturbance of emotion F43.29 ; Adjustment disorder with disturbance of conduct F43.24 ; Marijuana abuse, continuous F12.10 and Depression F32.9 [address] [id number] [place] [address] 81320- 5554 Mar, Depression F32.9 ; Marijuana abuse, continuous F12.10 and Adjustment disorder with disturbance of conduct F43.24 [address] [id number] February, Bronchitis J40 and Acute diffuse otitis externa of right ear H60.311 [address] [address] [id number] [place] [address] 06279- 2986 February, Diabetes mellitus with neuropathy E11.40 ; Mild persistent asthma without complication J45.30 ; Bronchitis J40 ; Depression F32.9 ; Neuropathy G62.9 ; Gout M10.9 ; Generalized edema R60.1 and Hyperlipemia E78.[address] [place] [address] 71453- 6844 February, Diabetes mellitus with neuropathy E11.40 [place] [id number] [place] [address] 41377- 8665 February, [place] [id number] [place] [address] 96717- 3549 February, [address] 02091- 9056 Jan, [place] [id number] [place] [address] 54986- 4762 Jan, [address] 03359- 1441 Jan, Adjustment disorder with disturbance of emotion F43.29 ; Adjustment disorder with disturbance of conduct F43.24 ; Marijuana abuse, continuous F12.10 and Depression F32.9 [place] [address] [id number] [place] [address] 80437- 6838 Jan, [facility] [address] 85239- 3340 Jan, Pilonidal cyst with abscess L05.01 and Abscess of skin of abdomen L02.211 [place] [id number] [place] [address] 75982- 7841 Dec, Diabetes mellitus with neuropathy E11.40 [facility] [address] [id number] Dec, Dental examination Z01.20 [place] [address] 75067- 6927 Dec, [place] [address] 89276- 4884 Nov, Depression F32.9 [place] [address] 12754- 7284 Nov, Depression F32.9 [place] [id number] [place] [address] 69277- 3669 Nov, Lateral epicondylitis of left elbow M77.12 ; Insulin long- term use Z79.4 and Neuropathy G62.9 [place] [id number] [place] [address] 44357- 5695 Nov, Adjustment disorder with disturbance of emotion F43.29 ; Adjustment disorder with disturbance of conduct F43.24 ; Marijuana abuse, continuous F12.10 and Depression F32.9 [facility] [address] [place] [address] 69493- 4705 Oct, Adjustment disorder with disturbance of emotion F43.29 ; Marijuana abuse, continuous F12.10 ; Adjustment disorder with disturbance of conduct F43.24 and Severe episode of recurrent major depressive disorder, without psychotic features F33.2 [facility] [id number] [place] [address] [id number] Oct, Dental examination Z01.20 [facility] [id number] [place] [id number]81 Oct, Depression F32.9 [facility] [id number] [place] [address] [id number] Oct, Dental examination Z01.20 [facility] [address] [id number]- 4288 Oct, Depression F32.9 ; Adjustment disorder with disturbance of conduct F43.24 ; Adjustment disorder with disturbance of emotion F43.29 and Marijuana abuse, continuous F12.10 [facility] [id number] [place] [address] [id number] Oct, Dental examination Z01.20 [facility] [address] [id number] Oct, Dental caries K02.9 [facility] [address] 13503- 5620 Oct, [facility] [id number] [place] [address] [id number] Sep, Dental examination Z01.20 [facility] [id number] [place] [address] 04052- 8987 Sep, [facility] [address] [id number]- 0615 Sep, Insulin long-term use Z79.4 ; Gout M10.9 ; Diabetes mellitus with neuropathy E11.40 ; Depression F32.9 ; Hyperlipemia E78.5 ; Obstructive sleep apnea G47.33 ; Venous insufficiency (chronic) (peripheral) I87.2 ; Mild persistent asthma without complication J45.30 ; Neuropathy G62.9 and Marijuana abuse, continuous F12.10 [facility] [address] 16467- 0509 Sep, Adjustment disorder with disturbance of conduct F43.24 and Adjustment disorder with disturbance of emotion F43.29 [place] [address] 17372- 4092 Sep, Diabetes mellitus with neuropathy E11.40 ; Dyspnea on exertion R06.09 and Venous insufficiency (chronic) (peripheral) I87.2 [place] [address] 50543- 8768 14 Sep, 2016 Neuropathy G62.9 [place] [address] 01135- 0219 13 Sep, 2016 [facility] [address] [id number] Sep, Dental examination Z01.20 [place] [address] 44985- 9667 Sep, [place] [address] 25070- 7721 Sep, [place] [address] 20583- 7587 Sep, [place] [address] 19487- 2412 Sep, Mild persistent asthma without complication J45.30 [place] [id number] [place] [address] 72707- 5032 Sep, Insulin long-term use Z79.4 [place] [address] 58477- 7263 Sep, Diabetes mellitus with neuropathy E11.40 ; Generalized edema R60.1 and Mild persistent asthma without complication J45.30 [facility] [address] [id number] Aug, Dental examination Z01.20 [place] [address] 44815- 5146 Jul, Urticaria L50.9 and Mild persistent asthma without complication J45.30 [facility] [address] [place] [address] 62127- 4548 10 Jul, 2016 Lateral epicondylitis of left elbow M77.12 and Venous insufficiency (chronic) (peripheral) I87.2 [place] [address] [place] [address] 64658- 7116 15 May, 2016 Obstructive sleep apnea G47.33 and Diabetes mellitus with neuropathy E11.40 [place] [id number] [place] [address] 05029- 3780 May, Diabetes mellitus with neuropathy E11.40 [place] [id number] [place] [address] 68864- 4889 Mar, [place] [id number] [place] [address] 06317- 7318 Mar, Dental examination Z01.20 [place] [id number] [place] [address] 22598- 2500 Mar, Insulin long-term use Z79.4 [place] [id number] [place] [address] 39224- 5774 Mar, Insulin long-term use Z79.4 [place] [id number] [place] [address] 99029- 5435 February, Insulin long-term use Z79.4 [place] [id number] [place] [address] 70215- 8602 February, [place] [id number] [place] [address] 36610- 6932 February, Hyperlipemia E78.5 [facility] [address] [facility] [address] [id number] [id number] February, Gout M10.9 and Diabetes mellitus with neuropathy E11.40 [place] [address] [place] [address] 07600- 3606 Jan, Depression F32.9 [place] [address] [facility] [id number] [place] [address]- 6493 Jan, Insulin long-term use Z79.4 ; Gout M10.9 ; Candidiasis B37.9 ; Diabetes mellitus with neuropathy E11.40 and Depression F32.9 IMMUNIZATIONS No Known Immunizations SOCIAL HISTORY Never Assessed REASON FOR VISIT Reschedule appt. PLAN OF CARE VITAL SIGNS MEDICATIONS Unknown [...]
--- OUTSIDE RECORDS SUMMARY | 2018-06-16 19:37 | XMS REPORT ---
Author Author NIMOGABRIEL GURDEEP [facility] Address [address] [place] [address] Care Team Providers Care Card Maker Name Role Phone GURDEEP HUBER Unavailable PROBLEMS Type Condition ICD9-CM Code [id number] Code Onset Dates Condition Status SNOMED Code Problem Venous insufficiency (chronic) (peripheral) I87.2 Active 43589434 Problem Neuropathy G62.9 Active 050015504 Problem Mild persistent asthma without complication J45.30 Active 509583632 Problem Dyspepsia R10.13 Active 184470778 Problem Moderate episode of recurrent major depressive disorder F33.1 Active 471079843 Problem Adjustment disorder with disturbance of emotion F43.29 Active 54359918 Problem Marijuana abuse, continuous F12.10 Active 645612341 Problem Methamphetamine use disorder, severe, 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 Active 96144863 Problem Adjustment disorder with disturbance of conduct F43.24 Active 05592598 Problem Candidiasis B37.9 Active 38179474 Problem Diabetes mellitus with neuropathy E11.40 Active 12346704 Problem Gout M10.9 Active 48275431 Problem Depression F32.9 Active 34400760 Problem Hyperlipemia E78.5 Active 00082404 Problem Insulin long-term use Z79.4 Active 640921761 Problem Obstructive sleep apnea G47.33 Active 51400794 ALLERGIES No Information ENCOUNTERS Encounter Location Date Diagnosis [facility] [address], [place] [address] Nov, Neuropathy G62.9 [facility] [id number] [place] [address] 86382- 3867 Oct, [facility] [id number] [place] [address] 80939- 4030 Oct, [facility] [id number] [place] [address] 02209- 8355 Oct, Diabetes mellitus with neuropathy E11.40 ; Dyspepsia R10.13 ; Mild persistent asthma without complication J45.30 and Depression F32.9 [place] [address] [address] Oct, Generalized edema R60.1 and Diabetes mellitus with neuropathy E11.[address] [address] Sep, [place] [address] [address]- 12[address] Aug, [facility] [address] [address] Aug, Cellulitis L03.90 and BMI 40.0-44.9, adult Z68.[address] [address] Aug, [place] [address] [address]13- [address]84 Jul, Trapezius muscle spasm M62.838 and Depression F32.[address] [address] Jul, Marijuana abuse, continuous F12.10 ; Moderate episode of recurrent major depressive disorder F33.1 and Methamphetamine use disorder, severe, 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 [place] [address] [address]- [address] Jul, [place] [address] 0[address]34- 0339 Jul, [place] [address] 50748- 7236 Jul, [place] [address] 60731- 9965 Jul, [place] [address] 77273- 6109 Jul, [facility] [id number] [place] [address] 36208- 9727 Jul, Diabetes mellitus with neuropathy E11.40 [place] [id number] [place] [address] 02054- 1914 16 Jul, 2017 Diabetes mellitus with neuropathy E11.40 ; Venous insufficiency (chronic) (peripheral) I87.2 ; Chest pain, unspecified type R07.9 ; Neuropathy G62.9 and Encounter for immunization Z23 [place] [id number] [place] [address] 16493- 6950 Jun, [address] [address] Jun, [facility] [address] [id number] May, Dental examination Z01.20 [place] [id number] [place] [address] 59284- 5786 Apr, Diabetes mellitus with neuropathy E11.40 and Depression F32.9 [place] [id number] [place] [address] 41650- 2882 Apr, Mild persistent asthma without complication J45.[address] [id number] [id number] Mar, [place] [id number] [place] [address] 60703- 5978 Mar, Depression F32.9 ; Adjustment disorder with disturbance of emotion F43.29 and Marijuana abuse, continuous F12.10 [place] [id number] [place] [address] 82753- 7012 Mar, [address] 43953- 9058 Mar, Acute pansinusitis, recurrence not specified J01.[address] 09545- 7492 Mar, Adjustment disorder with disturbance of emotion F43.29 ; Adjustment disorder with disturbance of conduct F43.24 ; Marijuana abuse, continuous F12.10 and Depression F32.9 [place] [id number] [place] [address] 01323- 6765 Mar, Depression F32.9 ; Marijuana abuse, continuous F12.10 and Adjustment disorder with disturbance of conduct F43.24 [place] [id number] [id number] February, Bronchitis J40 and Acute diffuse otitis externa of right ear H60.311 [place] [id number] [place] [address] 84488- 6718 February, Diabetes mellitus with neuropathy E11.40 ; Mild persistent asthma without complication J45.30 ; Bronchitis J40 ; Depression F32.9 ; Neuropathy G62.9 ; Gout M10.9 ; Generalized edema R60.1 and Hyperlipemia E78.5 [place] [id number] [place] [address] 39570- 3531 February, Diabetes mellitus with neuropathy E11.40 [place] [id number] [place] [address] 91842- 9653 February, [place] [id number] [place] [address] 23180- 0380 February, [place] [id number] [place] [address] 61233- 2444 Jan, [place] [address] 58723- 9892 Jan, [place] [id number] [place] [address] 45701- 4774 Jan, Adjustment disorder with disturbance of emotion F43.29 ; Adjustment disorder with disturbance of conduct F43.24 ; Marijuana abuse, continuous F12.10 and Depression F32.9 [place] [id number] [place] [address] 45078- 4012 Jan, [id number] [place] [address] 85107- 1485 03 Jan, 2017 Pilonidal cyst with abscess L05.01 and Abscess of skin of abdomen L02.211 [place] [address] [place] [id number]- [address]69 Dec, Diabetes mellitus with neuropathy E11.40 [facility] [address] [id number] Dec, Dental examination Z01.20 [place] [address] 81157- 6494 Dec, [place] [address] [place] [id number]- [address]77 Nov, Depression F32.9 [place] [address] 65370- 9354 Nov, Depression F32.9 [place] [address] 64346- 1463 Nov, Lateral epicondylitis of left elbow M77.12 ; Insulin long- term use Z79.4 and Neuropathy G62.9 [place] [id number] [place] [address] 10006- 7501 Nov, Adjustment disorder with disturbance of emotion F43.29 ; Adjustment disorder with disturbance of conduct F43.24 ; Marijuana abuse, continuous F12.10 and Depression F32.9 [place] [id number] [place] [address] 29602- 5213 Oct, Adjustment disorder with disturbance of emotion F43.29 ; Marijuana abuse, continuous F12.10 ; Adjustment disorder with disturbance of conduct F43.24 and Severe episode of recurrent major depressive disorder, without psychotic features F33.2 [facility] [id number] [place] [address] [id number] Oct, Dental examination Z01.20 [place] [address] 64317- 1742 Oct, Depression F32.9 [facility] [address] [place] [address] [id number] Oct, Dental examination Z01.20 [facility] [id number] [place] [address] [id number]- 3807 Oct, Depression F32.9 ; Adjustment disorder with disturbance of conduct F43.24 ; Adjustment disorder with disturbance of emotion F43.29 and Marijuana abuse, continuous F12.10 [facility] [id number] [place] [address] [id number] Oct, Dental examination Z01.20 [facility] [id number] [place] [address] [id number] Oct, Dental caries K02.9 [facility] [address] 95575- 5295 Oct, [facility] [id number] [place] [address] [id number] Sep, Dental examination Z01.20 [facility] [id number] [place] [address] 40101- 8121 Sep, [facility] [id number] [place] [address] 38632- 9559 Sep, Insulin long-term use Z79.4 ; Gout M10.9 ; Diabetes mellitus with neuropathy E11.40 ; Depression F32.9 ; Hyperlipemia E78.5 ; Obstructive sleep apnea G47.33 ; Venous insufficiency (chronic) (peripheral) I87.2 ; Mild persistent asthma without complication J45.30 ; Neuropathy G62.9 and Marijuana abuse, continuous F12.10 [facility] [id number] [place] [address] 61546- 1447 Sep, Adjustment disorder with disturbance of conduct F43.24 and Adjustment disorder with disturbance of emotion F43.29 [facility] [id number] [place] [address] 32352- 2693 Sep, Diabetes mellitus with neuropathy E11.40 ; Dyspnea on exertion R06.09 and Venous insufficiency (chronic) (peripheral) I87.2 [facility] [address], [place] [address] 14 Sep, 2016 Neuropathy G62.9 [facility] [id number] [place] [address] 83697- 7233 13 Sep, 2016 [facility] [id number] [place] [address] [id number] Sep, 2016 Dental examination Z01.20 [facility] [id number] [place] [address] 49310- 9821 07 Sep, 2016 [facility] [id number] [place] [address] 77315- 8927 07 Sep, 2016 [facility] [id number] [place] [address] 39749- 8651 06 Sep, 2016 [facility] [id number] [place] [address] 01196- 8862 05 Sep, 2016 Mild persistent asthma without complication J45.30 [facility] [id number] [place] [address] 62309- 5792 02 Sep, 2016 Insulin long-term use Z79.4 [place] [id number] [place] [address] 65344- 8980 01 Sep, 2016 Diabetes mellitus with neuropathy E11.40 ; Generalized edema R60.1 and Mild persistent asthma without complication J45.30 [facility] [id number] [place] [address] [id number] Aug, Dental examination Z01.20 [facility] [id number] [place] [address] 95647- 7267 20 Jul, 2016 Urticaria L50.9 and Mild persistent asthma without complication J45.30 [facility] [id number] [place] [address] 95586- 1076 10 Jul, 2016 Lateral epicondylitis of left elbow M77.12 and Venous insufficiency (chronic) (peripheral) I87.2 [facility] [id number] [address] May, Obstructive sleep apnea G47.33 and Diabetes mellitus with neuropathy E11.40 [facility] [id number] [place] [address] 05247- 2500 May, Diabetes mellitus with neuropathy E11.40 [place] [id number] [place] [address] 80861- 8328 Mar, [place] [id number] [place] [address] 61240- 2767 Mar, Dental examination Z01.20 [place] [id number] [place] [address] 45539- 4734 Mar, Insulin long-term use Z79.4 [place] [id number] [place] [address] 58486- 9913 Mar, Insulin long-term use Z79.4 [place] [id number] [place] [address] 41271- 5182 February, Insulin long-term use Z79.4 [place] [id number] [place] [address] 27452- 6749 February, [place] [id number] [place] [address] 08290- 5391 February, Hyperlipemia E78.[address] [id number] [id number] February, Gout M10.9 and Diabetes mellitus with neuropathy E11.40 [place] [address], [place] [address]- 0692 Jan, Depression F32.9 [place] [id number] [place] [address] 08052- 0210 Jan, Insulin long-term use Z79.4 ; Gout M10.9 ; Candidiasis B37.9 ; Diabetes mellitus with neuropathy E11.40 and Depression F32.9 IMMUNIZATIONS No Known Immunizations SOCIAL HISTORY Never Assessed REASON FOR VISIT Triage AG[facility]AN OF CARE VITAL SIGNS MEDICATIONS Unknown [...] Hospitalization History pylonial cyst removal from [facility] 2017
--- OUTSIDE RECORDS SUMMARY | 2018-06-16 19:37 | XMS REPORT ---
Author Author ALEX ALCANTAR Organization [facility] Address [address] [place] [address] Care Team Providers Care Die Cast Patternmaker Name Role Phone ALEX ALCANTAR Unavailable PROBLEMS Type Condition ICD9-CM Code MIA32-GC Code Onset Dates Condition Status SNOMED Code Problem Venous insufficiency (chronic) (peripheral) I87.2 Active 99253136 Problem Neuropathy G62.9 Active 983462696 Problem Mild persistent asthma without complication J45.30 Active 775607481 Problem Dyspepsia R10.13 Active 526910632 Problem Moderate episode of recurrent major depressive disorder F33.1 Active 731515642 Problem Adjustment disorder with disturbance of emotion F43.29 Active 22919881 Problem Marijuana abuse, continuous F12.10 Active 188109864 Problem Methamphetamine use disorder, severe, 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 Active 88412787 Problem Adjustment disorder with disturbance of conduct F43.24 Active 45585775 Problem Candidiasis B37.9 Active 39758820 Problem Diabetes mellitus with neuropathy E11.40 Active 65188546 Problem Gout M10.9 Active 66493900 Problem Depression F32.9 Active 02059984 Problem Hyperlipemia E78.5 Active 51207896 Problem Insulin long-term use Z79.4 Active 991522169 Problem Obstructive sleep apnea G47.33 Active 43982777 ALLERGIES No Information ENCOUNTERS Encounter Location Date Diagnosis [facility] [address], [place] [address] Nov, Neuropathy G62.9 [facility] [address], [place] [address] Oct, [facility] [address], [place] [address] Oct, [facility] [address] [place] [address] Oct, Diabetes mellitus with neuropathy E11.40 ; Dyspepsia R10.13 ; Mild persistent asthma without complication J45.30 and Depression F32.[address] [address] Oct, Generalized edema R60.1 and Diabetes mellitus with neuropathy E11.[address] [address] Sep, [address] [address] Aug, [facility] [place] [address] [address] Aug, Cellulitis L03.90 and BMI 40.0-44.9, adult Z68.[address] [address] Aug, [address] [address] Jul, Trapezius muscle spasm M62.838 and Depression F32.[address] [address] Jul, Marijuana abuse, continuous F12.10 ; Moderate episode of recurrent major depressive disorder F33.1 and Methamphetamine use disorder, severe, 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 [address] Jul, [place] [address] [address] Jul, [address] [address] Jul, [address] [address] Jul, [address] [address] Jul, [facility] [address] [place] [address] Jul, Diabetes mellitus with neuropathy E11.40 [place] [address] [place] [id number] [place] [address]- [address] 16 Jul, 2017 Diabetes mellitus with neuropathy E11.40 ; Venous insufficiency (chronic) (peripheral) I87.2 ; Chest pain, unspecified type R07.9 ; Neuropathy G62.9 and Encounter for immunization Z23 [facility] [address] [place] [id number] [place] [address] Jun, [place] [id number] [place] [address] Jun, [facility] [id number] [place] [id number] May, Dental examination Z01.20 [place] [id number] [place] [address]- [address] Apr, Diabetes mellitus with neuropathy E11.40 and Depression F32.9 [place] [id number] [place] [address]- [address] Apr, Mild persistent asthma without complication J45.[address] [id number] [id number] Mar, [place] [id number] [place] [address]- [address] Mar, Depression F32.9 ; Adjustment disorder with disturbance of emotion F43.29 and Marijuana abuse, continuous F12.10 [place] [id number] [place] [address] Mar, [address] [address] Mar, Acute pansinusitis, recurrence not specified J01.40 [place] [id number] [place] [address] 89[address]- 7[address] Mar, Adjustment disorder with disturbance of emotion F43.29 ; Adjustment disorder with disturbance of conduct F43.24 ; Marijuana abuse, continuous F12.10 and Depression F32.9 [place] [id number] [place] [address] 95358- [address]99 Mar, Depression F32.9 ; Marijuana abuse, continuous F12.10 and Adjustment disorder with disturbance of conduct F43.[address] [id number] [id number] February, Bronchitis J40 and Acute diffuse otitis externa of right ear H60.311 [place] [id number] [place] [address] February, Diabetes mellitus with neuropathy E11.40 ; Mild persistent asthma without complication J45.30 ; Bronchitis J40 ; Depression F32.9 ; Neuropathy G62.9 ; Gout M10.9 ; Generalized edema R60.1 and Hyperlipemia E78.5 [place] [id number] [place] [address] 65[address]- 25[address] February, Diabetes mellitus with neuropathy E11.40 [place] [id number] [place] [address] 26086- 7[address] February, [place] [id number] [place] [address] 10464- 0[address] February, [place] [id number] [place] [address] 17284- 9[address] Jan, [place] [address] [place] [id number] [place] [address]- [address] Jan, [place] [id number] [place] [address] 37[address]- 07[address] Jan, Adjustment disorder with disturbance of emotion F43.29 ; Adjustment disorder with disturbance of conduct F43.24 ; Marijuana abuse, continuous F12.10 and Depression F32.9 [place] [id number] [place] [address]63- [address] Jan, [address] [address] 03 Jan, 2017 Pilonidal cyst with abscess L05.01 and Abscess of skin of abdomen L02.211 [place] [address] [place] [id number] Dec, Diabetes mellitus with neuropathy E11.40 [facility] [address] [id number] Dec, Dental examination Z01.20 [place] [address] [address] Dec, [place] [address] Nov, Depression F32.[address] [address] Nov, Depression F32.[address] [address] Nov, Lateral epicondylitis of left elbow M77.12 ; Insulin long- term use Z79.4 and Neuropathy G62.[address] [address] Nov, Adjustment disorder with disturbance of emotion F43.29 ; Adjustment disorder with disturbance of conduct F43.24 ; Marijuana abuse, continuous F12.10 and Depression F32.9 [place] [address] [address] Oct, Adjustment disorder with disturbance of emotion F43.29 ; Marijuana abuse, continuous F12.10 ; Adjustment disorder with disturbance of conduct F43.24 and Severe episode of recurrent major depressive disorder, without psychotic features F33.2 [facility] [address] [id number] Oct, Dental examination Z01.20 [place] [address] [address] Oct, Depression F32.9 [facility] [address] [place] [id number] Oct, Dental examination Z01.20 [facility] [id number] [place] [phone] Oct, Depression F32.9 ; Adjustment disorder with disturbance of conduct F43.24 ; Adjustment disorder with disturbance of emotion F43.29 and Marijuana abuse, continuous F12.10 [facility] [id number] [place] [address] [id number] Oct, Dental examination Z01.20 [facility] [address] [id number] [place] [address] [id number] Oct, Dental caries K02.9 [facility] [address] [id number] [place] [address] 0[address]01- [address]8 Oct, [facility] [id number] [place] [address] [id number] Sep, Dental examination Z01.20 [facility] [address] [id number] [place] [address] 33360- 0416 Sep, [facility] [address] [id number] [place] [address] 98928- 1185 Sep, Insulin long-term use Z79.4 ; Gout M10.9 ; Diabetes mellitus with neuropathy E11.40 ; Depression F32.9 ; Hyperlipemia E78.5 ; Obstructive sleep apnea G47.33 ; Venous insufficiency (chronic) (peripheral) I87.2 ; Mild persistent asthma without complication J45.30 ; Neuropathy G62.9 and Marijuana abuse, continuous F12.10 [facility] [address] [place] [address] 52309- 0285 Sep, Adjustment disorder with disturbance of conduct F43.24 and Adjustment disorder with disturbance of emotion F43.29 [facility] [address] [place] [address] 35736- 9541 Sep, Diabetes mellitus with neuropathy E11.40 ; Dyspnea on exertion R06.09 and Venous insufficiency (chronic) (peripheral) I87.2 [facility] [address], [place] [address] 14 Sep, 2016 Neuropathy G62.9 [facility] [id number] [place] [address] 42699- 2636 13 Sep, 2016 [facility] [address] [place] [address] [phone] 08 Sep, 2016 Dental examination Z01.20 [facility] [id number] [place] [address] 44728- 65[address] 07 Sep, 2016 [facility] [address] [id number] [place] [address] 92426- 1195 07 Sep, 2016 [facility] [address] [id number] [place] [address] 63373- 4357 06 Sep, 2016 [facility] [address] [id number] [place] [address] 35906- 5476 05 Sep, 2016 Mild persistent asthma without complication J45.30 [facility] [address] [place] [address] 02267- 5946 02 Sep, 2016 Insulin long-term use Z79.4 [facility] [address] [id number] [place] [address] 92617- 1708 01 Sep, 2016 Diabetes mellitus with neuropathy E11.40 ; Generalized edema R60.1 and Mild persistent asthma without complication J45.30 [facility] [address] [place] [address] [id number] [place] [address] [id number] 17 Aug, 2016 Dental examination Z01.20 [facility] [address] [place] [address] 62661- 1818 20 Jul, 2016 Urticaria L50.9 and Mild persistent asthma without complication J45.30 [facility] [address] [place] [id number] [place] [address] 83590- 9188 10 Jul, 2016 Lateral epicondylitis of left elbow M77.12 and Venous insufficiency (chronic) (peripheral) I87.2 [facility] [address] [id number] [place] [address]24- 8700 May, Obstructive sleep apnea G47.33 and Diabetes mellitus with neuropathy E11.40 [place] [address] [id number] [place] [address] 02559- 3[address] May, Diabetes mellitus with neuropathy E11.40 [place] [address] [place] [id number] [place] [address] 06156- 6952 Mar, [place] [address] [id number] [place] [address] 55815- 6979 Mar, Dental examination Z01.20 [place] [address] [address] [id number] [place] [address] 58491- 6762 Mar, Insulin long-term use Z79.4 [place] [address] [place] [address] 04292- 8842 Mar, Insulin long-term use Z79.4 [place] [address] [place] [id number] [place] [address] 65912- 6102 February, Insulin long-term use Z79.4 [place] [address] [place] [address] 47899- 39[address] February, [place] [address] [id number] [place] [address] 24802- 9894 February, Hyperlipemia E78.[address] [id number] [id number] February, Gout M10.9 and Diabetes mellitus with neuropathy E11.40 [place] [address] [place] [address] 01153- 5497 Jan, Depression F32.9 [place] [address] [place] [address] 43483- 6697 Jan, Insulin long-term use Z79.4 ; Gout M10.9 ; Candidiasis B37.9 ; Diabetes mellitus with neuropathy E11.40 and Depression F32.9 IMMUNIZATIONS No Known Immunizations SOCIAL HISTORY Never Assessed REASON FOR VISIT PFT PLAN OF CARE VITAL SIGNS MEDICATIONS Unknown [...] 2 Hospitalization History p[facility]ial cyst [facility] 2017
[2018-06-16] MEDS ORDERED: NS IV 1000 ML 1,000 ML IV SCH ×2 (19:45→20:00)
[2018-06-16] MEDS ORDERED: KETOROLAC 30 MG/ML VIAL IVP ONE (19:45)
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
[2018-06-16 19:59] LABS: BASOPHILS # (AUTO) 0.1 10^3/uL (0.0-0.1); BASOPHILS % (AUTO) 1 % (0-10); EOSINOPHILS # (AUTO) 0.4 10^3/uL (0.0-0.3); EOSINOPHILS % (AUTO) 3 % (0-10); HEMATOCRIT 41 % (40-54); HEMOGLOBIN 14.3 G/DL (13.3-17.7); LYMPHOCYTES # (AUTO) 2.8 X 10^3 (1.0-4.0); LYMPHOCYTES % (AUTO) 26 % (12-44); MEAN CORPUSCULAR HEMOGLOBIN 32 PG (25-34); MEAN CORPUSCULAR HGB CONC 35 G/DL (32-36); MEAN CORPUSCULAR VOLUME 92 FL (80-99); MEAN PLATELET VOLUME 10.5 FL (7.4-10.4); MONOCYTES # (AUTO) 0.9 X 10^3 (0.0-1.0); MONOCYTES % (AUTO) 8 % (0-12); NEUTROPHILS # (AUTO) 6.7 X 10^3 (1.8-7.8); NEUTROPHILS % (AUTO) 62 % (42-75); PLATELET COUNT 172 10^3/uL (130-400); RED BLOOD COUNT 4.41 10^6/uL (4.35-5.85); RED CELL DISTRIBUTION WIDTH 13.1 % (10.0-14.5); WHITE BLOOD COUNT 10.8 10^3/uL (4.3-11.0)
--- NOTE | 2018-06-16 20:13 | Diagnostic Imaging Report ---
EXAM: FOOT, RIGHT, 3 VIEW INDICATION: Foot swelling. Diabetes. COMPARISON: None. FINDINGS: Hallux valgus. No fractures. Moderate degenerative changes in the right first MTP joint with some subchondral cyst formation. An 8mm radiopaque linear foreign body near the distal right metatarsal head. This may be external to the patient. IMPRESSION: 1. Moderate degenerative changes in the right first MTP with subchondral cystic formation. Findings can be seen in inflammatory arthropathy such as gout. 2. No acute fractures. 3. An 8mm linear radiopaque body adjacent to the right second metatarsal head may be external to the patient. Please correlate with physical exam. Dictated by: Dictated on workstation # [id number]
[2018-06-16 20:17] LABS: ALANINE AMINOTRANSFERASE 21 U/L (0-55); ALBUMIN 3.9 GM/DL (3.2-4.5); ALKALINE PHOSPHATASE 69 U/L (40-136); BILIRUBIN,TOTAL 0.3 MG/DL (0.1-1.0); BUN/CREATININE RATIO 13; CALCIUM 9.5 MG/DL (8.5-10.1); CARBON DIOXIDE 24 MMOL/L (21-32); CHLORIDE 105 MMOL/L (98-107); CREATININE SERUM 0.77 MG/DL (0.60-1.30); GFR ESTIMATED > 60; GLUCOSE 110 MG/DL (70-105); POTASSIUM 3.6 MMOL/L (3.6-5.0); SODIUM 140 MMOL/L (135-145)
[2018-06-16 20:23] LABS: ERYTHROCYTE SEDIMENTATION RATE 17 MM/HR (0-15)
[2018-06-16] MEDS ORDERED: COLCHICINE 0.6 MG (COLCRYS) TABLET PO ONE (20:30)
[2018-06-16] MEDS ORDERED: CEPHALEXIN 250 MG (KEFLEX) CAP PO ONE (20:30)
[2018-06-16] MEDS ORDERED: CEPH-507 PO (20:33)
[2018-06-16 21:09] VITALS: BP 116/69
== END 2018-06-16 21:17 | disposition home or self-care (01) ==
LOC: EDUNIT# 19:12 → ER 19:15
DX: L03.032 Cellulitis of left toe (principal); J44.9 Chronic obstructive pulmonary disease, unspecified; G47.30 Sleep apnea, unspecified; E78.00 Pure hypercholesterolemia, unspecified; I10 Essential (primary) hypertension; R73.9 Hyperglycemia, unspecified; G43.909 Migraine, unspecified, not intractable, without status migrainosus; F41.9 Anxiety disorder, unspecified; F32.9 Major depressive disorder, single episode, unspecified; M79.89 Other specified soft tissue disorders; Z79.51 Long term (current) use of inhaled steroids; Z79.4 Long term (current) use of insulin
CPT/HCPCS: 36415; 73630; 80053; 85025; 85652; 96360

== ENCOUNTER 2021-11-10 13:20 | Emergency (ER) | payer SELFPAY ==
[~2021-11-10] VITALS: Ht 182.9 cm; Wt 106.6 kg
[~2021-11-10 13:20] MED LIST changes: +CEPH-507 PO; +CLIN-144 PO; -CLIN300C11 PO; -GABA600T2 PO; +GBPN600T PO; +POTA-160 PO; -POTA10TA6 PO
[2021-11-10] MEDS ORDERED: HYDROcodone/APAP 5 MG/325 MG (LORTAB) TAB PO ONE (14:00)
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
[2021-11-10] MEDS ORDERED: ALPRAZolam 0.25 MG (XANAX) TAB PO ONE (14:15)
--- NOTE | 2021-11-10 14:36 | Diagnostic Imaging Report ---
PROCEDURE: CT head and CT cervical spine without contrast. TECHNIQUE: Multiple contiguous axial images were obtained through the brain and cervical spine without the use of intravenous contrast. Sagittal and coronal reformations through the cervical spine were then performed. Auto Exposure Controls were utilized during the CT exam to meet ALARA standards for radiation dose reduction. INDICATION: Head and neck injury. COMPARISON: No prior studies are available for comparison. CT HEAD: Ventricles and sulci are within normal limits. No sulcal effacement or midline shift is identified. No acute intra-axial or extra-axial hemorrhage is detected. Cisterns are patent. Visualized paranasal sinuses are clear. IMPRESSION: No acute intracranial process is detected. CT CERVICAL SPINE: Alignment is normal. There is some generalized degenerative disc disease with variable disc space narrowing and marginal spurring. No fractures are identified. Prevertebral tissues are within normal limits. Odontoid is intact. IMPRESSION: Cervical spondylosis. No acute bony abnormality is detected. Dictated by: Dictated on workstation # [id number]
[2021-11-10 14:50] VITALS: BP 131/78
== END 2021-11-10 14:50 | disposition home or self-care (01) ==
LOC: ER 13:20 → EDUNIT# 13:29 → ER 14:50
DX: S16.1XXA Strain of muscle, fascia and tendon at neck level, initial encounter (principal); S80.812A Abrasion, left lower leg, initial encounter; S80.811A Abrasion, right lower leg, initial encounter; J44.9 Chronic obstructive pulmonary disease, unspecified; G47.30 Sleep apnea, unspecified; E78.00 Pure hypercholesterolemia, unspecified; F32.9 Major depressive disorder, single episode, unspecified; I10 Essential (primary) hypertension; G89.29 Other chronic pain; M54.9 Dorsalgia, unspecified; E11.9 Type 2 diabetes mellitus without complications; F17.210 Nicotine dependence, cigarettes, uncomplicated; Z79.891 Long term (current) use of opiate analgesic; Z79.899 Other long term (current) drug therapy; W22.8XXA Striking against or struck by other objects, initial encounter
CPT/HCPCS: 70450; 72125

== ENCOUNTER 2021-11-14 13:49 | Emergency (ER) | payer SELFPAY ==
[~2021-11-14] VITALS: Ht 182 cm; Wt 108.8 kg
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
[2021-11-14] MEDS ORDERED: KETOROLAC 60 MG/2 ML VIAL IM ONE (14:15)
[2021-11-14] MEDS ORDERED: ORPHENADRINE 60 MG/2 ML (NORFLEX) AMP (ED ONLY) IM ONE (14:15)
--- NOTE | 2021-11-14 14:36 | Diagnostic Imaging Report ---
Indication: Left shoulder pain. Comparison: None. Discussion: Three views of the left shoulder were obtained. Mild degenerative disease noted. No fracture or dislocation. Alignment is anatomic. Soft tissues are unremarkable. Impression: 1. Negative left shoulder. Dictated by: Dictated on workstation # [id number]
--- NOTE | 2021-11-14 14:39 | Diagnostic Imaging Report ---
Indication: Chest pain after fall. Comparison: None. Discussion: Two views of the chest were obtained. Normal heart size. No consolidation, pleural fluid or pneumothorax. No osseous abnormality. Impression: 1. Negative chest. Dictated by: Dictated on workstation # [id number]
[2021-11-14] MEDS ORDERED: GABA-490 PO (14:46)
[2021-11-14] MEDS ORDERED: ACHD5005 PO (14:46)
[2021-11-14 14:55] VITALS: BP 135/80
== END 2021-11-14 14:55 | disposition home or self-care (01) ==
LOC: EDUNIT# 13:49 → ER 13:50
DX: R07.89 Other chest pain (principal); J44.9 Chronic obstructive pulmonary disease, unspecified; G47.30 Sleep apnea, unspecified; I10 Essential (primary) hypertension; E78.00 Pure hypercholesterolemia, unspecified; G89.29 Other chronic pain; M54.9 Dorsalgia, unspecified; F32.9 Major depressive disorder, single episode, unspecified; F17.210 Nicotine dependence, cigarettes, uncomplicated; Z79.891 Long term (current) use of opiate analgesic; Z79.899 Other long term (current) drug therapy
CPT/HCPCS: 71046; 73030

== ENCOUNTER → 2023-03-16 | Outpatient (CLI) | payer OTHER ==
[~2023-03-16] MED LIST changes: +ALBU8.5H6 IH; +GABA-490 PO; -RT-ALBUINH IH; +RT-ALBUTEROL SULF 2.5 MG/3 ML PRE-MIX VIAL INH ONE; +SIMV-334 PO; -SIMV40TA PO
== END ==
LOC: RT 09:17
PROVIDERS: ATTEND Family Medicine
DX: Z02.71 Encounter for disability determination (principal)
CPT/HCPCS: 94060